=== PATIENT | male | born 1965 | race Caucasian/White ===

== ENCOUNTER 2021-04-10 11:33 | Inpatient (IN) | payer MEDICARE, MEDICAID, SELFPAY ==
[2021-04-10] VITALS (19 sets, daily range): BP systolic 112–149; BP diastolic 69–95; PULSE 60–82; RESP 10–80; TEMP 35.9–36.9; O2SAT 94–99; BMI 28.3
--- NOTE | ~2021-04-10 | CT_ITS ---
EXAMINATION: CT angio head neck stroke CLINICAL INFORMATION: Stroke. COMPARISON: CT scan of the head 04/10/2021. TECHNIQUE: Legislative Director images were obtained. A CT angiogram of the head and neck was performed in the arterial phase after the intravenous administration of 70 mL Omnipaque 350. Delayed postcontrast images of the head were also obtained. MIP reconstructions were generated in multiple orientations at the acquisition workstation. Multiple three-dimensional surface rendered images and maximum intensity projection images were generated on a dedicated 3-D lab workstation. Arterial stenoses are measured in accordance with NASCET criteria or similar method if applicable. This CT examination was performed using dose optimization techniques as appropriate, including one or more of the following: Automated exposure control, iterative reconstruction, and adjustment of technique factors (mA and/or kVp) according to patient size (this includes techniques or standardized protocols for targeted exams where dose is matched to indication/reason for exam). Total exam dose-length product 1744 mGy-cm FINDINGS: Head: Postcontrast images reveal no abnormal mass or enhancement within the intracranial compartment. There are numerous foci of hypoattenuation throughout the periventricular white matter that seems somewhat out of proportion to a patient of this age and there is mild global parenchymal volume loss. [place]-white matter projection however is otherwise preserved and there is no evidence of acute territorial infarct. Plate and screw hardware is visualized along the right orbital rim and left mandibular ramus. The calvarium and skull base are otherwise intact. CT angiogram neck: The aortic arch apex is normal. Origins of the major aortic branches are widely patent. Common carotid arteries and carotid bifurcations are normal. No stenosis of the extracranial internal carotid arteries. The cervical segments of the vertebral arteries as well as their origins are patent. CT angiogram head: Intracranial internal carotid arteries are patent. Intradural vertebral artery segments and basilar artery are patent. Anterior, middle, and posterior cerebral artery complexes are normal. No high-grade stenosis or proximal occlusion is visualized within the intracranial vessels. Other: Soft tissues of the neck including the thyroid gland are normal. Grossly no pathologically enlarged cervical lymph nodes. No acute osseous finding. There is multilevel degenerative spondylosis of the cervical spine. Lung apices are clear. CT/CT angio head neck stroke IMPRESSION: There is nonspecific hypoattenuation within the supratentorial white matter and corresponding loss of parenchymal volume that is out of proportion to the patient's age. Findings may represent chronic changes related to an underlying leukoencephalopathy. Otherwise no evidence of acute territorial infarct or hemorrhage. No abnormal intracranial mass or enhancement. No stenosis of the cervical carotid or vertebral arteries. No intracranial large vessel occlusion. This critical result was discussed with Iam at 12:19 PM on 04/10/2021 and it was ascertained that the content and urgency of the report was understood at the time of direct communication.
--- NOTE | ~2021-04-10 | XR_ITS ---
EXAMINATION: XR CHEST CLINICAL INFORMATION: Stroke. COMPARISON: None TECHNIQUE: Frontal view of the chest was obtained. FINDINGS: The lungs are hyperexpanded but clear of acute process. The heart size and pulmonary vascularity is normal. There are pacer electrodes in right atrium and right ventricle. There are at least 2 small lucency in the left scapula -acromion process. XR/XR chest 1V IMPRESSION: Unremarkable chest exam.
--- NOTE | ~2021-04-10 | CT_ITS ---
EXAMINATION: CT HEAD WITHOUT CONTRAST (STROKE PROTOCOL) CLINICAL INFORMATION: Stroke protocol. Weakness COMPARISON: None TECHNIQUE: Contiguous axial imaging was performed from the skull base to vertex without intravenous administration of contrast. This CT examination was performed using dose optimization techniques as appropriate, variously including the following: *Automated exposure control *Adjustment of mA and/or kV according to patient size (this includes techniques or standardized protocols for targeted exams where dose is matched to indication/reason for exam; i.e. extremities or head) *Use of iterative reconstruction technique DLP: 784 mGy-cm FINDINGS: There is no intracranial hemorrhage, hematoma, or extra-axial fluid collection. The lateral ventricles are symmetrical in size and configuration with enlargement. There is diffuse periventricular hypodensity suggestive of chronic small vessel ischemic changes. There is no hydrocephalus, edema, or mass effect. The real-white matter differentiation appears symmetric. There is no acute infarct or mass lesion. There is subtle hypodensity in the mid santa likely artifact arising from the right orbital chain link plate. The calvarium appears intact. There is chain link plate along the right lateral orbit. There is no pneumocephalus or orbital emphysema. The visualized sinuses and middle ears and mastoid air cells show no significant mucosal thickening. There are no air-fluid levels. CT/CT head for stroke IMPRESSION: No acute intracranial process seen. There is moderate cerebral volume loss with chronic small vessel ischemic changes in both cerebral hemispheres. Subtle hypodensity mid [place] is likely artifact. Bone windows reveal no calvarial abnormality. This critical result was discussed with Dr. Vitale at 1205 pm 04/10/2021 It was ascertained that the content and urgency of the report was understood at the time of direct communication.
--- NOTE | 2021-04-10 11:40 | ECG_ITS ---
Test Reason : STROKE Blood Pressure : / mmHG Vent. Rate : 077 BPM Atrial Rate : 077 BPM P-R Int : 228 ms QRS Dur : 088 ms QT Int : 406 ms P-R-T Axes : 038 -25 028 degrees QTc Int : 459 ms Sinus rhythm with sinus arrhythmia with 1st degree A-V block Cannot rule out Anteroseptal infarct , age undetermined Abnormal ECG No previous ECGs available Referred By: Kiki Vitale Electronically Signed By:LANE MELVIN MD
--- NOTE | 2021-04-10 11:41 | ED.AMS ---
HPI - Altered Mental Status General Chief Complaint: Stroke Stated Complaint: STROKE ALERT, LKWT 9AM,UNABLE TO FOLLOW COMMANDS Time Seen by Provider: 04/10/21 11:39 Source: EMS Mode of arrival: EMS Limitations: altered mental status History of Present Illness HPI narrative: 55 years old male came in from [facility] residential, patient is known to have progressive multifocal leukoencephalopathy, patient last was seen normal at 09:00 when he had his breakfast, 2nd time patient was checked at 945 when he he was not responding to normal command, noted to have right visual gaze, and a right side weakness. Related Data Allergies Allergy/AdvReac Type Severity Reaction Status Date / Time No Known Allergies Allergy Verified 04/10/21 11:39 Review of Systems Review of Systems: Yes Unobtainable due to mental status PMFSH Past Medical History Medical History (Updated 04/10/21 @ 13:04 by Kiki Vitale MD) Aphasia Atherosclerotic heart disease [place] coronary artery w/angina pectoris Dementia Hypothyroidism Osteoarthritis Progressive multifocal leukoencephalopathy Sick sinus syndrome Spondylosis Spondylosis of cervical region without myelopathy or radiculopathy Thrombocytopenia Social History Social History Advance Directives: Yes Advance Directives on File: Yes Advance Directives Date on File: 04/10/21 Physical Exam Vital Signs: Vital Signs: Last Vital Signs Temp 96.6 F L 04/10/21 11:59 Pulse 72 04/10/21 12:53 Resp 16 04/10/21 12:53 BP 138/78 04/10/21 12:53 Pulse Ox 96 04/10/21 12:53 Body Mass Index 28.3 Appearance: Alert. No acute distress. Head: Normal external exam. Normocephalic. Atraumatic. No Jimenez signs noted. No raccoon eyes noted Eyes: Right visual gaze, PERRLA. EOMI. Conjunctiva and sclera normal. Eyelids normal. ENT: TM's Normal. Pharynx normal. Uvula midline. Moist mucous membranes. No trismus noted. No drooling noted. No muffled voice noted. Neck: Normal inspection. Neck supple. FROM. No adenopathy. Thyroid Normal. No meningeal signs. No neck mass noted. CVS: Normal heart rate and rhythm. Heart sound normal. No murmurs noted. Pulses normal throughout. Respiratory: No respiratory distress. Painless inspiration. Breath sounds normal. No wheezes/rales/rhonchi noted. Chest nontender. No accessory muscle usage noted or decreased air movement noted. Abdomen: Soft and nontender. Bowel sounds normal in all 4 quadrants. No distention noted. No organomegaly noted. No visible injury noted. Back: No CVA tenderness. Full range of motion noted. Skin: Skin warm and dry. Normal skin color. Normal skin turgor. No rashes/lesions/lacerations noted. Extremities: No lower extremity edema. Extremities exhibit normal range of motion. Extremities nontender. Neuro: Right side motor deficit. No sensory deficit. Please refer to NIH stroke scale. NIH Stroke Scale Level of Consciousness: Alert Level of Consciousness Questions: Answers neither question correctly Level of Consciousness Commands: Performs neither task correctly Best Gaze: Forced deviation (To the right) Visual: No visual loss Facial Palsy: Normal Motor Arm (Right): No movement (Right upper extremity) Motor Arm (Left): No drift Motor Leg (Right): Some effort against gravity Motor Leg (Left): No drift Limb Ataxia: Absent Sensory: Normal Best Language: Severe aphasia Dysarthia: Normal Extinction and Inattention: No abnormality Score: 14 Course Course Course Narrative: Assessment and plan. 55-year-old male history of TBI/progressive multifocal leukoencephalopathy presented with symptoms for nonhemorrhagic stroke, patient was a candidate for tPA was given at 11:55. The case was discussed with Dr. Pace from Neurology, tPA was approved by the neurology. Will keep post thrombolytic treatment protocol checkup in ICU admission. Reevaluation(s) Reevaluation #1: Significant improvement of patient's symptoms, patient with less aphasia, right upper extremity is improved able to keep right upper extremities against gravity with a mild pronator drift. Right visual gaze has improved. Time: 12:56 MDM - Altered Mental Status Lab Data Attestation: I reviewed the patient's lab results. Result diagrams: 04/10/21 11:58 04/10/21 11:58 Labs: Lab Results 04/10/21 04/10/21 04/10/21 Range/Units 11:44 11:55 11:58 WBC 4.2 L (4.8-10.8) X10*3/uL RBC 3.97 L (4.60-5.80) X10*6/uL Hgb 12.4 L (14.0-18.0) g/dl Hct 36.9 L (42-52) % MCV 92.9 (80-98) fL MCH 31.2 (27.0-33.0) pg MCHC 33.6 (31.0-36.0) g/dl RDW 13.0 (11.0-16.0) % Plt Count 120 L (160-400) X10*3/uL MPV 8.7 L (9.4-12.4) fL Immature Gran % (Auto) 0.2 (0.0-0.4) % Neut % (Auto) 67.6 (45-73) % Lymph % (Auto) 20.9 (20-40) % [place] % (Auto) 7.9 (2-11) % Eos % (Auto) 2.9 (0-4) % Baso % (Auto) 0.5 (0-2) % Lymph # (Auto) 0.9 L (1.2-4.9) X10*3/uL [place] # (Auto) 0.3 (0.1-1.2) X10*3/uL Eos # (Auto) 0.1 (0.0-0.4) X10*3/uL Baso # (Auto) 0.0 (0.0-0.2) X10*3/uL Abs Immat Gran (auto) 0.01 (0.00-0.03) X10*3/uL Absolute Neuts (auto) 2.8 (2.0-8.3) X10*3/uL Absolute Nucleated RBC 0.000 (0.0-0.012) X10*3/uL Nucleated RBC % (auto) 0.0 (0.0-0.2) /100WBC PT (10.8-13.0) SEC Whole Blood PT 13.2 (11.1-13.5) sec INR (0.9-1.1) Whole Blood INR 1.1 (0.9-1.1) APTT (24.1-38.0) SEC Sodium (135-145) mmol/L Potassium (3.3-5.1) mmol/L Chloride (96-108) mmol/L Carbon Dioxide (22-29) mmol/L Anion Gap (12-20) BUN (9-16) mg/dL Creatinine (0.5-1.4) mg/dL Estim Creat Clear Calc Estimated GFR POC Glucose 91 (60-115) mg/dL Random Glucose (60-115) mg/dL Calcium (8.4-10.2) mg/dL Total Creatine Kinase (38-174) U/L Troponin I High Sens (<3.5-35.0) ng/L 04/10/21 04/10/21 04/10/21 Range/Units 11:58 11:58 11:58 WBC (4.8-10.8) X10*3/uL RBC (4.60-5.80) X10*6/uL Hgb (14.0-18.0) g/dl Hct (42-52) % MCV (80-98) fL MCH (27.0-33.0) pg MCHC (31.0-36.0) g/dl RDW (11.0-16.0) % Plt Count (160-400) X10*3/uL MPV (9.4-12.4) fL Immature Gran % (Auto) (0.0-0.4) % Neut % (Auto) (45-73) % Lymph % (Auto) (20-40) % [place] % (Auto) (2-11) % Eos % (Auto) (0-4) % Baso % (Auto) (0-2) % Lymph # (Auto) (1.2-4.9) X10*3/uL [place] # (Auto) (0.1-1.2) X10*3/uL Eos # (Auto) (0.0-0.4) X10*3/uL Baso # (Auto) (0.0-0.2) X10*3/uL Abs Immat Gran (auto) (0.00-0.03) X10*3/uL Absolute Neuts (auto) (2.0-8.3) X10*3/uL Absolute Nucleated RBC (0.0-0.012) X10*3/uL Nucleated RBC % (auto) (0.0-0.2) /100WBC PT 13.4 H (10.8-13.0) SEC Whole Blood PT (11.1-13.5) sec INR 1.1 (0.9-1.1) Whole Blood INR (0.9-1.1) APTT 37.6 (24.1-38.0) SEC Sodium 141 (135-145) mmol/L Potassium 4.0 (3.3-5.1) mmol/L Chloride 107 (96-108) mmol/L Carbon Dioxide 29 (22-29) mmol/L Anion Gap 9 L (12-20) BUN 16 (9-16) mg/dL Creatinine 0.99 (0.5-1.4) mg/dL Estim Creat Clear Calc 105.2 Estimated GFR > 60 POC Glucose (60-115) mg/dL Random Glucose 98 (60-115) mg/dL Calcium 8.5 (8.4-10.2) mg/dL Total Creatine Kinase 103 (38-174) U/L Troponin I High Sens < 3.5 (<3.5-35.0) ng/L Imaging Data CT scan - head: Radiologist's impression: No acute intracranial process seen. There is moderate cerebral volume loss with chronic small vessel ischemic changes in both cerebral hemispheres. Subtle hypodensity mid santa is likely artifact. Bone windows reveal no calvarial abnormality. CTA head and neck: Radiologist's impression: There is nonspecific hypoattenuation within the supratentorial white matter and corresponding loss of parenchymal volume that is out of proportion to the patient's age. Findings may represent chronic changes related to an underlying leukoencephalopathy. Otherwise no evidence of acute territorial infarct or hemorrhage. No abnormal intracranial mass or enhancement. No stenosis of the cervical carotid or vertebral arteries. No intracranial large vessel occlusion. ECG Data ECG #1: Interpretation: Sinus rhythm at 77 beats per minute, with first-degree AV block prolonged VA interval, otherwise unremarkable intervals, nonspecific T-wave changes in inferior leads. Critical Care Time Critical Care Time Critical Care Time: Yes Total Critical Care Time: 60 Attestation: I spent 60 minutes providing critical care service to the patient, this including time spent at the bedside to evaluate the patient, reassess the patient, monitoring vital signs, review labs, and radiographic studies, counseling the patient/family, discussing the case with consultants, disposition the patient. Discharge Plan Discharge Clinical Impression: Cerebrovascular accident Patient Disposition: Admitted As Inpatient
[2021-04-10 11:48] LABS: Prothrombin Time Whole Bld POC 13.2 sec (11.1-13.5); ~PT, ~INR - Anti Coag Clinic 1.1 (0.9-1.1)
[2021-04-10] MEDS: iohexoL 350 MG/ML 100 ML INFUS..BTL IV (11:55)
[2021-04-10 12:03] LABS: MANUAL DIFF FLAG NO
[2021-04-10 12:05] LABS: Basophils Percent Auto 0.5 % (0-2); Eosinophils Absolute Auto 0.1 X10*3/uL (0.0-0.4); Eosinophils Percent Auto 2.9 % (0-4); Hematocrit 36.9 % (42-52); Hemoglobin 12.4 g/dl (14.0-18.0); Imm Gran Abs Auto 0.01 X10*3/uL (0.00-0.03); Imm Gran Pct Auto 0.2 % (0.0-0.4); Lymphocytes Absolute Auto 0.9 X10*3/uL (1.2-4.9); Lymphocytes Percent Auto 20.9 % (20-40); Mean Corpuscular HGB Conc 33.6 g/dl (31.0-36.0); Mean Corpuscular Hemoglobin 31.2 pg (27.0-33.0); Mean Corpuscular Volume 92.9 fL (80-98); Mean Platelet Volume 8.7 fL (9.4-12.4); Monocytes Absolute Auto 0.3 X10*3/uL (0.1-1.2); Monocytes Percent Auto 7.9 % (2-11); Neutrophils Absolute Auto 2.8 X10*3/uL (2.0-8.3); Neutrophils Percent Auto 67.6 % (45-73); Platelet Count 120 X10*3/uL (160-400); Red Blood Count 3.97 X10*6/uL (4.60-5.80); White Blood Count 4.2 X10*3/uL (4.8-10.8)
[2021-04-10 12:13] LABS: INTERNATIONAL NORM RATIO 1.1 (0.9-1.1); Prothrombin Time 13.4 SEC (10.8-13.0)
[2021-04-10 12:16] LABS: Partial Thromboplastin Time 37.6 SEC (24.1-38.0); Stroke Lab Use COMPLETE
--- NOTE | 2021-04-10 12:31 | PC.NURSE ---
moving r arm , scratching his face w r hand, still not talking and unable to follow commands
--- NOTE | 2021-04-10 12:39 | PC.NURSE ---
able to follow some simple commands, stated in garbled speech that he has some pain all over, states he has this pain all the time,
[2021-04-10 12:42] LABS: Troponin-I High Sensitivity < 3.5 ng/L (<3.5-35.0)
[2021-04-10 12:50] LABS: Anion Gap 9 (12-20); Blood Urea Nitrogen 16 mg/dL (9-16); Calcium 8.5 mg/dL (8.4-10.2); Carbon Dioxide 29 mmol/L (22-29); Chloride 107 mmol/L (96-108); Creatinine Clr Calc Pharmacy 105.2; Estimated Glomerular Filt Rate > 60; Glucose Random 98 mg/dL (60-115); Sodium 141 mmol/L (135-145)
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
[2021-04-10 12:55] LABS: Glucose, Whole Blood 91 mg/dL (60-115)
[2021-04-10] MEDS: 0.9 % Sodium Chloride 1,000 ML 999 ML IVCONT (13:06)
[2021-04-10 14:22] LABS: COVID-19 Test Negative (Negative)
--- NOTE | 2021-04-10 14:52 | P.CNNE_ITS ---
History of Present Illness Data of Consult Service Date: 04/10/21 Primary Care Provider: Brody Gordon, DO 55 years old man with complex underlying history including head injury dementia and a diagnosis of ?progressive multifocal leukoencephalopathy?. He was resident of a local institution and apparently usually talkative. This morning he was suddenly noted to have right-sided weakness and inability to speak with initial suspicion of ischemic stroke he was treated with intravenous tPA. Apparently his symptoms improved after that. Review of Systems Review of Systems: Unable to provide answers to questions. [facility] Past Medical History Medical History (Updated 04/10/21 @ 13:04 by Kiki Vitale MD) Aphasia Atherosclerotic heart disease [place] coronary artery w/angina pectoris Dementia Hypothyroidism Osteoarthritis Progressive multifocal leukoencephalopathy Sick sinus syndrome Spondylosis Spondylosis of cervical region without myelopathy or radiculopathy Thrombocytopenia Social History Social History Advance Directives: Yes Advance Directives on File: Yes Advance Directives Date on File: 04/10/21 Meds Allergies Allergy/AdvReac Type Severity Reaction Status Date / Time No Known Allergies Allergy Verified 04/10/21 11:39 Active Medications: Current Medications Generic Name Dose Route Start Last Admin Trade Name Freq PRN Reason Stop Dose Admin Pharmacy Consult 1 each 04/10/21 13:05 Consult Rx Perform Med Rec MISCELLANE ONCE PRN Consult order Home Medications Medication Instructions Recorded Confirmed Last Taken Type acetaminophen 650 mg PO Q6H PRN 04/10/21 04/10/21 Unknown History alum-mag hydroxide-simeth [Rulox] 30 ml PO Q6H PRN 04/10/21 04/10/21 Unknown History ascorbic acid (vitamin C) [Vitamin 500 mg PO DAILY 04/10/21 04/10/21 Unknown History C] calcium carbonate [Tums] 400 mg PO Q6H PRN 04/10/21 04/10/21 Unknown History cholecalciferol (vitamin D3) 25 mcg PO DAILY 04/10/21 04/10/21 Unknown History clozapine 75 mg PO BEDTIME 04/10/21 04/10/21 04/09/21 History levothyroxine 88 mcg PO DAILY 04/10/21 04/10/21 Unknown History lithium carbonate 225 mg PO BID 04/10/21 04/10/21 Unknown History loratadine 10 mg PO DAILY PRN 04/10/21 04/10/21 Unknown History methocarbamol 750 mg PO BID PRN 04/10/21 04/10/21 Unknown History metoprolol succinate 50 mg PO BID 04/10/21 04/10/21 Unknown History multivitamin with minerals 1 tab PO DAILY 04/10/21 04/10/21 Unknown History omega-3 fatty acids [Fish Oil] 1,000 mg PO DAILY 04/10/21 04/10/21 Unknown History polyvinyl alcohol [Artificial 1 drp OPHTHALMIC (EYE) Q12H 04/10/21 04/10/21 Unknown History Tears (polyvin alc)] pregabalin [Lyrica] 100 mg PO BID 04/10/21 04/10/21 Unknown History sennosides [senna] 8.6 mg PO DAILY PRN 04/10/21 04/10/21 Unknown History vitamin E 400 unit PO DAILY 04/10/21 04/10/21 Unknown History Physical Exam Vital Signs: Vital Signs: Last Vital Signs Temp 98.4 F 04/10/21 13:49 Pulse 78 04/10/21 14:29 Resp 17 04/10/21 14:29 BP 124/95 H 04/10/21 14:29 Pulse Ox 99 04/10/21 14:29 Body Mass Index 28.3 He was alert and awake looking around made eye contact but mostly kept his eyes closed. In answer to every questions he was saying yes. There was no focal twitching or jerking. He was not moving his right side as much as left side. Plantars were equivocal. Examination was limited. Results Labs CBC & Chem 7: 04/10/21 11:58 04/10/21 11:58 Labs: Short CBC 04/10/21 Range/Units 11:58 WBC 4.2 L (4.8-10.8) X10*3/uL Hgb 12.4 L (14.0-18.0) g/dl Hct 36.9 L (42-52) % Plt Count 120 L (160-400) X10*3/uL BMP 04/10/21 11:58 Sodium 141 Potassium 4.0 Chloride 107 Carbon Dioxide 29 BUN 16 Creatinine 0.99 Calcium 8.5 Cardiac Enzymes 04/10/21 Range/Units 11:58 Total Creatine Kinase 103 (38-174) U/L His head imaging with a CT scan of brain and CTA of brain and neck was reviewed. It revealed relatively large ventricles. There was also evidence of bifrontal hypodensities probably from old trauma. CTA did not reveal any large vessel occlusion. Assessment and Plan (1) Cerebrovascular accident: Qualifiers: CVA mechanism: unspecified Qualified Code(s): I63.9 - Cerebral infarcti on, unspecified Status: Acute 55 years old man with complex underlying neurological history presented with sudden onset of right hemiparesis and difficulty speaking and gaze deviation. According to the documents gaze deviation were towards right. This would suggest either a brainstem infarct or a seizure originating from left hemisphere. With suspicion of ischemic infarct he was treated with intravenous tPA. At this time I would recommend regular post tPA admission to ICU with blood pressure control, avoiding blood thinners for 24 hours, and obtaining an EEG. Unfortunately MRI cannot be done, which could have been helpful to precisely define underlying pathology. Procedures Date of Service Date of Service: 04/10/21
--- NOTE | 2021-04-10 16:23 | PM.CCHP ---
History of Present Illness Date of Service: 04/10/21 Mr. Lincoln is admitted to the ICU this afternoon after being given tPA in the ED for a presumed stroke. The patient is a 55 years old male resident of [facility], with PMHx of TBI and progressive multifocal leukoencephalopathy. 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 Was reportedly playing volleyball this past weekend. Last known well time today was 09:00 when he had his breakfast. At 10:45 he was found not responding to normal command, noted to have right visual gaze, and a right side weakness. BIBA to ED at 11:33. On initial exam, he had a right gaze pref, was aphasic (no speech at all), not responding to commands, and fully right hemiplegic. CT showed no acute process. He was started on tPA at 12:05. CTA showed no high grade stenosis or occlusion, no other evidence of a stroke. Initial VS in ED HR 76, BP 126/76, breathing easy w Sat 94% on RA. Within about an hour the patient was having some movement of his right side and some speech, altho not consistently to command. Other labs in the ED notable for mild pancytopenia, PT 13.4/1.1, normal chemistries, and negative COVID DHRUV. EKG shows old ASWMI. The patient was admitted to the ICU. On admission, he?s not speaking on command, nor responding to command, but he does verbalize single words and does move all four extremities spontaneously. He has no obvious gaze preference, nor facial droop, nor other cranial nerve deficits. I am unable to test motor strength on initial exam, but later, after repeated request, he did move all 4 and seems to have normal and symmetrical motor strength in all 4 extrems, and he did respond OK to me when I asked him how he?s doing. But no more conversation than that. He failed a bedside swallow eval. Vital signs in the ED: HR 82, SR, BP 149/90, RR 14, SpO2 98% RA. Temp 97.7. Cranial n. grossly intact. No JVD. Normal exp phase. No edema. WDWN, good muscle mass. IMAGING: Head CT (my reading) shows bilat frontal lobe leukoencephalop IMPRESSION: 55-year-old male with history of prior brain injury, presents with apparent aphasia and hemiplegia. Given tPA in the ED. Now moving all extremities equally and normally, but not to command. Now speaking simple words, but inconsistently. DDx: Stroke versus seizure. Other poss include conversion reaction or toxic encephalopathy (something that rendered him catatonic). I?ve called [employer] [facility] in regard to the latter, awaiting a call back. Unfortunately, the patient is not a candidate for an MRI scan because of his pacemaker. Admitted to ICU for overnight observation. Post-tPA protocol. Plan EEG and echo in the morning. Can repeat CT in a day or two if necessary. ADDENDUM: No toxic ingestion comes to mind at [facility]. They recommend a simple urine tox screen. Time (including extended d/w ED staff, mult d/w neurology, mult exams at the bedside): 80+ min. [facility] Past Medical History Medical History (Updated 04/10/21 @ 13:04 by Kiki Vitale MD) Aphasia Atherosclerotic heart disease [place] coronary artery w/angina pectoris Dementia Hypothyroidism Osteoarthritis Progressive multifocal leukoencephalopathy Sick sinus syndrome Spondylosis Spondylosis of cervical region without myelopathy or radiculopathy Thrombocytopenia Social History Social History Household Members: Other Household Members Other:: [facility] Housing: Other Housing Other:: [facility] Unable to assess alcohol history related to: Unknown Smoking Status: Unknown if ever smoked Use of substances other than those prescribed or required for medical reasons: Unknown Advance Directives: Yes Advance Directives on File: Yes Advance Directives Date on File: 04/10/21 Recently lost weight without trying: Unsure Meds Allergies Allergy/AdvReac Type Severity Reaction Status Date / Time No Known Allergies Allergy Verified 04/10/21 11:39 Active Medications: Current Medications Generic Name Dose Route Start Last Admin Trade Name Freq PRN Reason Stop Dose Admin Lactated Ringer's 1,000 mls @ 80 mls/hr 04/10/21 16:30 Lr IVCONT .[id number] [facility] Pharmacy Consult 1 each 04/10/21 13:05 Consult Rx Perform Med Rec MISCELLANE ONCE PRN Consult order Sodium Chloride 3 ml 04/11/21 00:00 0.9 % Sodium Chloride Flush 3 Ml [facility] Home Medications Medication Instructions Recorded Confirmed Last Taken Type acetaminophen 650 mg PO Q6H PRN 04/10/21 04/10/21 Unknown History alum-mag hydroxide-simeth [Rulox] 30 ml PO Q6H PRN 04/10/21 04/10/21 Unknown History ascorbic acid (vitamin C) [Vitamin 500 mg PO DAILY 04/10/21 04/10/21 Unknown History C] calcium carbonate [Tums] 400 mg PO Q6H PRN 04/10/21 04/10/21 Unknown History cholecalciferol (vitamin D3) 25 mcg PO DAILY 04/10/21 04/10/21 Unknown History clozapine 75 mg PO BEDTIME 04/10/21 04/10/21 04/09/21 History levothyroxine 88 mcg PO DAILY 04/10/21 04/10/21 Unknown History lithium carbonate 225 mg PO BID 04/10/21 04/10/21 Unknown History loratadine 10 mg PO DAILY PRN 04/10/21 04/10/21 Unknown History methocarbamol 750 mg PO BID PRN 04/10/21 04/10/21 Unknown History metoprolol succinate 50 mg PO BID 04/10/21 04/10/21 Unknown History multivitamin with minerals 1 tab PO DAILY 04/10/21 04/10/21 Unknown History omega-3 fatty acids [Fish Oil] 1,000 mg PO DAILY 04/10/21 04/10/21 Unknown History polyvinyl alcohol [Artificial 1 drp OPHTHALMIC (EYE) Q12H 04/10/21 04/10/21 Unknown History Tears (polyvin alc)] pregabalin [Lyrica] 100 mg PO BID 04/10/21 04/10/21 Unknown History sennosides [senna] 8.6 mg PO DAILY PRN 04/10/21 04/10/21 Unknown History vitamin E 400 unit PO DAILY 04/10/21 04/10/21 Unknown History Physical Exam Vital Signs: Vital Signs: Last Vital Signs Temp 98.4 F 04/10/21 13:49 Pulse 76 04/10/21 14:51 Resp 15 04/10/21 14:51 BP 138/89 04/10/21 14:51 Pulse Ox 99 04/10/21 14:51 Body Mass Index 28.3 Results Labs CBC and Chem 7: 04/10/21 11:58 04/10/21 11:58 Labs: Laboratory Results - last 24 hr 04/10/21 04/10/21 04/10/21 11:44 11:55 11:58 MCV 92.9 MCH 31.2 MCHC 33.6 RDW 13.0 Plt Count 120 L MPV 8.7 L Immature Gran % (Auto) 0.2 Neut % (Auto) 67.6 Lymph % (Auto) 20.9 [place] % (Auto) 7.9 Eos % (Auto) 2.9 Baso % (Auto) 0.5 Lymph # (Auto) 0.9 L [place] # (Auto) 0.3 Eos # (Auto) 0.1 Baso # (Auto) 0.0 Abs Immat Gran (auto) 0.01 Absolute Neuts (auto) 2.8 Absolute Nucleated RBC 0.000 Nucleated RBC % (auto) 0.0 PT Whole Blood PT 13.2 INR Whole Blood INR 1.1 APTT Anion Gap Estim Creat Clear Calc Estimated GFR POC Glucose 91 Random Glucose Calcium Total Creatine Kinase Troponin I High Sens COVID-19 (DHRUV) COVID-19 Banter! 04/10/21 04/10/21 04/10/21 11:58 11:58 11:58 MCV MCH MCHC RDW Plt Count MPV Immature Gran % (Auto) Neut % (Auto) Lymph % (Auto) [place] % (Auto) Eos % (Auto) Baso % (Auto) Lymph # (Auto) [place] # (Auto) Eos # (Auto) Baso # (Auto) Abs Immat Gran (auto) Absolute Neuts (auto) Absolute Nucleated RBC Nucleated RBC % (auto) PT 13.4 H Whole Blood PT INR 1.1 Whole Blood INR APTT 37.6 Anion Gap 9 L Estim Creat Clear Calc 105.2 Estimated GFR > 60 POC Glucose Random Glucose 98 Calcium 8.5 Total Creatine Kinase 103 Troponin I High Sens < 3.5 COVID-19 (DHRUV) COVID-19 Banter! 04/10/21 13:58 MCV MCH MCHC RDW Plt Count MPV Immature Gran % (Auto) Neut % (Auto) Lymph % (Auto) [place] % (Auto) Eos % (Auto) Baso % (Auto) Lymph # (Auto) [place] # (Auto) Eos # (Auto) Baso # (Auto) Abs Immat Gran (auto) Absolute Neuts (auto) Absolute Nucleated RBC Nucleated RBC % (auto) PT Whole Blood PT INR Whole Blood INR APTT Anion Gap Estim Creat Clear Calc Estimated GFR POC Glucose Random Glucose Calcium Total Creatine Kinase Troponin I High Sens COVID-19 (DHRUV) Negative COVID-19 Clin Com See Note Imaging Radiologist's Impressions: Impressions Chest X-Ray 04/10/21 11:40 IMPRESSION: Unremarkable chest exam. Head CT 04/10/21 11:40 IMPRESSION: No acute intracranial process seen. There is moderate cerebral volume loss with chronic small vessel ischemic changes in both cerebral hemispheres. Subtle hypodensity mid santa is likely artifact. Bone windows reveal no calvarial abnormality. This critical result was discussed with Dr. Vitale at 1205 pm 04/10/2021 It was ascertained that the content and urgency of the report was understood at the time of direct communication. Head/Neck CTA 04/10/21 11:40 IMPRESSION: There is nonspecific hypoattenuation within the supratentorial white matter and corresponding loss of parenchymal volume that is out of proportion to the patient's age. Findings may represent chronic changes related to an underlying leukoencephalopathy. Otherwise no evidence of acute territorial infarct or hemorrhage. No abnormal intracranial mass or enhancement. No stenosis of the cervical carotid or vertebral arteries. No intracranial large vessel occlusion. This critical result was discussed with Iam at 12:19 PM on 04/10/2021 and it was ascertained that the content and urgency of the report was understood at the time of direct communication. Critical Care Time Critical Care Time (minutes): 90
[2021-04-10 16:42] LABS: Glucose, Whole Blood 86 mg/dL (60-115)
[2021-04-10] MEDS: Lactated Ringers 1,000 ML 80 ML IVCONT (16:52)
[2021-04-10] MEDS: LORazepam 2 MG/ML VIAL 1 MG IVPUSH (17:30)
[2021-04-10 19:50] LABS: Amphetamine Screen Urine Not Detected (Not Detect); Barbiturates, Urine Not Detected (Not Detect); Benzodiazepines Screen Urine Not Detected (Not Detect); Cannabinoid Screen Urine Not Detected (Not Detect); Cocaine Screen Urine Not Detected (Not Detect); Opiate Screen Urine Not Detected (Not Detect); Phencyclidine Screen Urine Not Detected (Not Detect)
[2021-04-10 20:55] LABS: Glucose, Whole Blood 117 mg/dL (60-115)
[2021-04-11] VITALS (19 sets, daily range): BP systolic 94–134; BP diastolic 60–88; PULSE 59–86; RESP 10–22; TEMP 36.4–36.8; O2SAT 94–99; BMI 27.5
[2021-04-11] MEDS: Lactated Ringers 1,000 ML 80 ML IVCONT (05:22)
[2021-04-11 05:49] LABS: Hematocrit 38.5 % (42-52); Hemoglobin 12.9 g/dl (14.0-18.0); Mean Corpuscular HGB Conc 33.5 g/dl (31.0-36.0); Mean Corpuscular Hemoglobin 30.8 pg (27.0-33.0); Mean Corpuscular Volume 91.9 fL (80-98); Mean Platelet Volume 8.5 fL (9.4-12.4); Platelet Count 118 X10*3/uL (160-400); Red Blood Count 4.19 X10*6/uL (4.60-5.80); Red Cell Distribution Width 12.9 % (11.0-16.0); White Blood Count 4.7 X10*3/uL (4.8-10.8)
[2021-04-11 06:16] LABS: Anion Gap 8 (12-20); Blood Urea Nitrogen 14 mg/dL (9-16); Calcium 8.8 mg/dL (8.4-10.2); Carbon Dioxide 28 mmol/L (22-29); Chloride 110 mmol/L (96-108); Cholesterol 131 mg/dL; Creatinine Clr Calc Pharmacy 118.4; Estimated Glomerular Filt Rate > 60; Glucose Random 89 mg/dL (60-115); HDL Cholesterol 32 mg/dL; LDL Cholesterol Calculated 87 mg/dl; Potassium 4.2 mmol/L (3.3-5.1); Sodium 142 mmol/L (135-145); Triglycerides 64 mg/dL; Troponin-I High Sensitivity 3.6 ng/L (<3.5-35.0)
--- NOTE | 2021-04-11 06:35 | PC.NURSE ---
VSS, Pt refusing to answer questions at begining of shift, impulsive. Lungs dim, occasional cough. SR on tele, occasionally drops HR into 50s but returns to 60-70s. Stands to void with standby/1assist. Repos self in bed, telesitter in place, able to make needs known.
[2021-04-11 07:19] LABS: Glucose, Whole Blood 87 mg/dL (60-115)
--- NOTE | 2021-04-11 08:00 | EEG_ITS ---
This is a 16-channel EEG with an EKG lead. The patient is awake and drowsy during the tracing. Background EEG rhythm is mostly 7 to 8 hertz, 5 to 30 microvolt posteriorly, lower amplitude fast anteriorly. Occasionally, little bit faster rhythm is noted. No definite sharp wave spikes or paroxysmal tendencies noted. Photic stimulation does not produce any driving. Hyperventilation is not performed. IMPRESSION: Generalized slowing with no evidence of seizure disorder. MD EVELYN Jones/GABI / [id number]
--- NOTE | 2021-04-11 09:59 | MHC.CM.PN ---
[facility] is [facility]. dc plan is for patient to return there when medically stable. PT and OT notes support this dc plan. ref. has been made to [facility]. action to transport. cm to cont. to follow.
--- NOTE | 2021-04-11 11:19 | MHC.SL.SWA ---
Speech Pathologist Impression: Oral Phase Dysphagia Risk of Aspiration Due to: Reduced Cognition Dysphasia Diet Status: No Change Liquid Consistency and Strategies for Safe Swallow: Liquid Intake Recommendation: Thin Liquid Intake Strategies: Small Sips No Straws Solid Food Consistency: Dietary Recommendations: Grnd/Mech Altered (NDD2) Additional Modifications to Solid Foods: moisten solids with sauced and gravies for ease of mastication. Oral Medication Intake: Crushed with Puree Compensatory Strategies and Precautions to be Taken for Safe Swallow: Sitting Upright (90 deg) Liquids from Cup Small Bites and Sips Alternate Liquids/Solids Oral Check Supervision While Eating and Drinking for Safe Swallow: Total Assistance Foods to Avoid: Swallowing Recommended Treatments: Recommendation for Speech: Inpatient Speech Therapy Comment: TRAVEL INFORMATION CENTER SUPERVISOR will check in 1X with RN to ensure pt is tolerating baseline diet. Frequency/Duration: Date Range for Service Req: Timeline to reassess: Crane Service Technician Clinican/Clinical Fellow: Yes: Vy Washington M.A., CF-TRAVEL INFORMATION CENTER SUPERVISOR Supervisory Statement: I have reviewed and agree with the student/clinical fellow's documentation: Speech Language Pathologist:
[2021-04-11 11:24] LABS: Glucose, Whole Blood 111 mg/dL (60-115)
--- NOTE | 2021-04-11 11:29 | PM.CCPN ---
Subjective Subjective Date of Service: 04/11/21 Interval History: Mr. Lincoln was admitted to the ICU yesterday (04/11) after being given tPA in the ED for a presumed stroke. 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 Lyrica 100 mg bid. At baseline, the patient is verbal and ambulatory. According to Dr. Gordon, he?s often shaky/tremulous. Was reportedly playing volleyball this past weekend. Last known well time yesterday was 09:00 when he had his breakfast. At 10:45 he was found not responding to normal command, noted to have right gaze preference and right side weakness. BIBA to ED at 11:33. On initial exam, he had a right gaze preference, was aphasic (no speech at all), not responding to commands, and fully right hemiplegic. CT showed no acute process. He was started on tPA at 12:05. Follow up CTA showed no high grade stenosis or occlusion, no other evidence of a stroke. Initial VS in ED HR 76, BP 126/76, breathing easy w Sat 94% on RA. Within about an hour the patient was having some movement of his right side and some speech, altho not consistently to command. Other labs in the ED notable for mild pancytopenia, PT 13.4/1.1, normal chemistries, and negative COVID DHRUV. EKG showed old ASWMI. The patient was admitted to the ICU. On admission, he was not speaking on command, nor responding to command, but he subsequently did verbalize single words and did move all four extremities spontaneously. He had no obvious gaze preference, nor facial droop, nor other cranial nerve deficits. Later, after repeated requests, he did move all 4 extrems and seemed to have normal and symmetrical motor strength in all 4 extrems, and he did respond ?OK? to me when I asked him how he was doing. About an hour or so after arrival to ICU, he got out of bed and was standing up, agitated, telling us that he had to pea. He urinated in the trash bucket. He was able to walk/shuffle, and then get back into bed, with no problem. He had multiple episodes of shaking/tremulousness in bed, during which he had an intact mental status and was able to drink through a straw. No evidence of seizure activity. We gave him 1mg Ativan which calmed him down nicely. Overnight course last night was uneventful. This morning he?s readily interactive and talking, altho behaviorally he?s clearly not normal. He has episodes of shaking. I spoke with Dr. Gordon and the patient seems to be at his baseline. Gross exam shows no neuro deficits. He?s taking a regular diet. HR is 64, SR, BP 122/75, RR 14, SpO2 94% RA. Temp 97.7. No JVD. Normal exp phase. No edema. LABORATORY DATA: As below. Urine tox screen came back negative. IMPRESSION: 55-year-old male with history of prior brain injury, presented with aphasia and seeming hemiplegia. Given tPA in the ED. Symptoms completely resolved within about six hours. From what Dr. Gordon tells me, I?m guessing that he?s now back to his previous level of mental and physical function. At this point, a stroke seems less likely. DDx includes seizure or conversion reaction or toxic encephalopathy, altho according to poison control, the latter is unlikely, and Dr. Gordon tells me that situationally it?s unlikely. We?re awaiting an EEG and echo this morning. The patient can be discharged home after that. He is not a candidate for an MRI scan because of his pacemaker. Time: . Critical Care Time (minutes): 50 Physical Exam Vital Signs: Vital Signs: Last Vital Signs Temp 97.9 F 04/11/21 08:00 Pulse 67 04/11/21 11:00 Resp 13 04/11/21 11:00 BP 114/75 04/11/21 11:00 Pulse Ox 95 04/11/21 11:00 Body Mass Index 27.5 Objective Data Labs CBC & Chem 7: 04/11/21 05:42 04/11/21 05:42 Labs: Laboratory Results - last 24 hr 04/10/21 04/10/21 04/10/21 11:44 11:55 11:58 WBC 4.2 L RBC 3.97 L Hgb 12.4 L Hct 36.9 L MCV 92.9 MCH 31.2 MCHC 33.6 RDW 13.0 Plt Count 120 L MPV 8.7 L Immature Gran % (Auto) 0.2 Neut % (Auto) 67.6 Lymph % (Auto) 20.9 [place] % (Auto) 7.9 Eos % (Auto) 2.9 Baso % (Auto) 0.5 Lymph # (Auto) 0.9 L [place] # (Auto) 0.3 Eos # (Auto) 0.1 Baso # (Auto) 0.0 Abs Immat Gran (auto) 0.01 Absolute Neuts (auto) 2.8 Absolute Nucleated RBC 0.000 Nucleated RBC % (auto) 0.0 PT Whole Blood PT 13.2 INR Whole Blood INR 1.1 APTT Sodium Potassium Chloride Carbon Dioxide Anion Gap BUN Creatinine Estim Creat Clear Calc Estimated GFR POC Glucose 91 Random Glucose Calcium Total Creatine Kinase Troponin I High Sens Triglycerides Cholesterol LDL Cholesterol, Calc HDL Cholesterol Urine Opiates Screen Ur Barbiturates Screen Ur Phencyclidine Scrn Ur Amphetamines Screen U Benzodiazepines Scrn Urine Cocaine Screen U Marijuana (THC) Screen COVID-19 (DHRUV) COVID-19 [employer] Com 04/10/21 04/10/21 04/10/21 11:58 11:58 11:58 WBC RBC Hgb Hct MCV MCH MCHC RDW Plt Count MPV Immature Gran % (Auto) Neut % (Auto) Lymph % (Auto) [place] % (Auto) Eos % (Auto) Baso % (Auto) Lymph # (Auto) [place] # (Auto) Eos # (Auto) Baso # (Auto) Abs Immat Gran (auto) Absolute Neuts (auto) Absolute Nucleated RBC Nucleated RBC % (auto) PT 13.4 H Whole Blood PT INR 1.1 Whole Blood INR APTT 37.6 Sodium 141 Potassium 4.0 Chloride 107 Carbon Dioxide 29 Anion Gap 9 L BUN 16 Creatinine 0.99 Estim Creat Clear Calc 105.2 Estimated GFR > 60 POC Glucose Random Glucose 98 Calcium 8.5 Total Creatine Kinase 103 Troponin I High Sens < 3.5 Triglycerides Cholesterol LDL Cholesterol, Calc HDL Cholesterol Urine Opiates Screen Ur Barbiturates Screen Ur Phencyclidine Scrn Ur Amphetamines Screen U Benzodiazepines Scrn Urine Cocaine Screen U Marijuana (THC) Screen COVID-19 (DHRUV) COVID-19 [employer] 04/10/21 04/10/21 04/10/21 13:58 16:38 19:07 WBC RBC Hgb Hct MCV MCH MCHC RDW Plt Count MPV Immature Gran % (Auto) Neut % (Auto) Lymph % (Auto) [place] % (Auto) Eos % (Auto) Baso % (Auto) Lymph # (Auto) [place] # (Auto) Eos # (Auto) Baso # (Auto) Abs Immat Gran (auto) Absolute Neuts (auto) Absolute Nucleated RBC Nucleated RBC % (auto) PT Whole Blood PT INR Whole Blood INR APTT Sodium Potassium Chloride Carbon Dioxide Anion Gap BUN Creatinine Estim Creat Clear Calc Estimated GFR POC Glucose 86 Random Glucose Calcium Total Creatine Kinase Troponin I High Sens Triglycerides Cholesterol LDL Cholesterol, Calc HDL Cholesterol Urine Opiates Screen Not Detected Ur Barbiturates Screen Not Detected Ur Phencyclidine Scrn Not Detected Ur Amphetamines Screen Not Detected U Benzodiazepines Scrn Not Detected Urine Cocaine Screen Not Detected U Marijuana (THC) Screen Not Detected COVID-19 (DHRUV) Negative COVID-[place] See Note 04/10/21 04/11/21 04/11/21 20:52 05:42 05:42 WBC RBC Hgb Hct MCV MCH MCHC RDW Plt Count MPV Immature Gran % (Auto) Neut % (Auto) Lymph % (Auto) [place] % (Auto) Eos % (Auto) Baso % (Auto) Lymph # (Auto) [place] # (Auto) Eos # (Auto) Baso # (Auto) Abs Immat Gran (auto) Absolute Neuts (auto) Absolute Nucleated RBC Nucleated RBC % (auto) PT Whole Blood PT INR Whole Blood INR APTT Sodium 142 Potassium 4.2 Chloride 110 H Carbon Dioxide 28 Anion Gap 8 L BUN 14 Creatinine 0.88 Estim Creat Clear Calc 118.4 Estimated GFR > 60 POC Glucose 117 H Random Glucose 89 Calcium 8.8 Total Creatine Kinase Troponin I High Sens 3.6 Triglycerides 64 Cholesterol 131 LDL Cholesterol, Calc 87 HDL Cholesterol 32 Urine Opiates Screen Ur Barbiturates Screen Ur Phencyclidine Scrn Ur Amphetamines Screen U Benzodiazepines Scrn Urine Cocaine Screen U Marijuana (THC) Screen COVID-19 (DHRUV) COVID-[place] 04/11/21 04/11/21 04/11/21 05:42 07:15 11:21 WBC 4.7 L RBC 4.19 L Hgb 12.9 L Hct 38.5 L MCV 91.9 MCH 30.8 MCHC 33.5 RDW 12.9 Plt Count 118 L MPV 8.5 L Immature Gran % (Auto) Neut % (Auto) Lymph % (Auto) [place] % (Auto) Eos % (Auto) Baso % (Auto) Lymph # (Auto) [place] # (Auto) Eos # (Auto) Baso # (Auto) Abs Immat Gran (auto) Absolute Neuts (auto) Absolute Nucleated RBC 0.000 Nucleated RBC % (auto) 0.0 PT Whole Blood PT INR Whole Blood INR APTT Sodium Potassium Chloride Carbon Dioxide Anion Gap BUN Creatinine Estim Creat Clear Calc Estimated GFR POC Glucose 87 111 Random Glucose Calcium Total Creatine Kinase Troponin I High Sens Triglycerides Cholesterol LDL Cholesterol, Calc HDL Cholesterol Urine Opiates Screen Ur Barbiturates Screen Ur Phencyclidine Scrn Ur Amphetamines Screen U Benzodiazepines Scrn Urine Cocaine Screen U Marijuana (THC) Screen COVID-19 (DHRUV) COVID-19 Clin Com
--- NOTE | 2021-04-11 11:57 | PM.CCPN ---
Physical Exam Vital Signs: Vital Signs: Last Vital Signs Temp 97.9 F 04/11/21 08:00 Pulse 67 04/11/21 11:00 Resp 13 04/11/21 11:00 BP 114/75 04/11/21 11:00 Pulse Ox 95 04/11/21 11:00 Body Mass Index 27.5 Objective Data Labs CBC & Chem 7: 04/11/21 05:42 04/11/21 05:42 Labs: Laboratory Results - last 24 hr 04/10/21 04/10/21 04/10/21 11:55 11:58 11:58 WBC 4.2 L RBC 3.97 L Hgb 12.4 L Hct 36.9 L MCV 92.9 MCH 31.2 MCHC 33.6 RDW 13.0 Plt Count 120 L MPV 8.7 L Immature Gran % (Auto) 0.2 Neut % (Auto) 67.6 Lymph % (Auto) 20.9 [place] % (Auto) 7.9 Eos % (Auto) 2.9 Baso % (Auto) 0.5 Lymph # (Auto) 0.9 L [place] # (Auto) 0.3 Eos # (Auto) 0.1 Baso # (Auto) 0.0 Abs Immat Gran (auto) 0.01 Absolute Neuts (auto) 2.8 Absolute Nucleated RBC 0.000 Nucleated RBC % (auto) 0.0 PT 13.4 H INR 1.1 APTT 37.6 Sodium Potassium Chloride Carbon Dioxide Anion Gap BUN Creatinine Estim Creat Clear Calc Estimated GFR POC Glucose 91 Random Glucose Calcium Total Creatine Kinase Troponin I High Sens Triglycerides Cholesterol LDL Cholesterol, Calc HDL Cholesterol Urine Opiates Screen Ur Barbiturates Screen Ur Phencyclidine Scrn Ur Amphetamines Screen U Benzodiazepines Scrn Urine Cocaine Screen U Marijuana (THC) Screen COVID-19 (DHRUV) COVID-19 Clin Com 04/10/21 04/10/21 04/10/21 11:58 11:58 13:58 WBC RBC Hgb Hct MCV MCH MCHC RDW Plt Count MPV Immature Gran % (Auto) Neut % (Auto) Lymph % (Auto) [place] % (Auto) Eos % (Auto) Baso % (Auto) Lymph # (Auto) [place] # (Auto) Eos # (Auto) Baso # (Auto) Abs Immat Gran (auto) Absolute Neuts (auto) Absolute Nucleated RBC Nucleated RBC % (auto) PT INR APTT Sodium 141 Potassium 4.0 Chloride 107 Carbon Dioxide 29 Anion Gap 9 L BUN 16 Creatinine 0.99 Estim Creat Clear Calc 105.2 Estimated GFR > 60 POC Glucose Random Glucose 98 Calcium 8.5 Total Creatine Kinase 103 Troponin I High Sens < 3.5 Triglycerides Cholesterol LDL Cholesterol, Calc HDL Cholesterol Urine Opiates Screen Ur Barbiturates Screen Ur Phencyclidine Scrn Ur Amphetamines Screen U Benzodiazepines Scrn Urine Cocaine Screen U Marijuana (THC) Screen COVID-19 (DHRUV) Negative COVID-19 Clin Com See Note 04/10/21 04/10/21 04/10/21 16:38 19:07 20:52 WBC RBC Hgb Hct MCV MCH MCHC RDW Plt Count MPV Immature Gran % (Auto) Neut % (Auto) Lymph % (Auto) [place] % (Auto) Eos % (Auto) Baso % (Auto) Lymph # (Auto) [place] # (Auto) Eos # (Auto) Baso # (Auto) Abs Immat Gran (auto) Absolute Neuts (auto) Absolute Nucleated RBC Nucleated RBC % (auto) PT INR APTT Sodium Potassium Chloride Carbon Dioxide Anion Gap BUN Creatinine Estim Creat Clear Calc Estimated GFR POC Glucose 86 117 H Random Glucose Calcium Total Creatine Kinase Troponin I High Sens Triglycerides Cholesterol LDL Cholesterol, Calc HDL Cholesterol Urine Opiates Screen Not Detected Ur Barbiturates Screen Not Detected Ur Phencyclidine Scrn Not Detected Ur Amphetamines Screen Not Detected U Benzodiazepines Scrn Not Detected Urine Cocaine Screen Not Detected U Marijuana (THC) Screen Not Detected COVID-19 (DHRUV) COVID-19 Clin Com 04/11/21 04/11/21 04/11/21 05:42 05:42 05:42 WBC 4.7 L RBC 4.19 L Hgb 12.9 L Hct 38.5 L MCV 91.9 MCH 30.8 MCHC 33.5 RDW 12.9 Plt Count 118 L MPV 8.5 L Immature Gran % (Auto) Neut % (Auto) Lymph % (Auto) [place] % (Auto) Eos % (Auto) Baso % (Auto) Lymph # (Auto) [place] # (Auto) Eos # (Auto) Baso # (Auto) Abs Immat Gran (auto) Absolute Neuts (auto) Absolute Nucleated RBC 0.000 Nucleated RBC % (auto) 0.0 PT INR APTT Sodium 142 Potassium 4.2 Chloride 110 H Carbon Dioxide 28 Anion Gap 8 L BUN 14 Creatinine 0.88 Estim Creat Clear Calc 118.4 Estimated GFR > 60 POC Glucose Random Glucose 89 Calcium 8.8 Total Creatine Kinase Troponin I High Sens 3.6 Triglycerides 64 Cholesterol 131 LDL Cholesterol, Calc 87 HDL Cholesterol 32 Urine Opiates Screen Ur Barbiturates Screen Ur Phencyclidine Scrn Ur Amphetamines Screen U Benzodiazepines Scrn Urine Cocaine Screen U Marijuana (THC) Screen COVID-19 (DHRUV) COVID-19 [employer] 04/11/21 04/11/21 07:15 11:21 WBC RBC Hgb Hct MCV MCH MCHC RDW Plt Count MPV Immature Gran % (Auto) Neut % (Auto) Lymph % (Auto) [place] % (Auto) Eos % (Auto) Baso % (Auto) Lymph # (Auto) [place] # (Auto) Eos # (Auto) Baso # (Auto) Abs Immat Gran (auto) Absolute Neuts (auto) Absolute Nucleated RBC Nucleated RBC % (auto) PT INR APTT Sodium Potassium Chloride Carbon Dioxide Anion Gap BUN Creatinine Estim Creat Clear Calc Estimated GFR POC Glucose 87 111 Random Glucose Calcium Total Creatine Kinase Troponin I High Sens Triglycerides Cholesterol LDL Cholesterol, Calc HDL Cholesterol Urine Opiates Screen Ur Barbiturates Screen Ur Phencyclidine Scrn Ur Amphetamines Screen U Benzodiazepines Scrn Urine Cocaine Screen U Marijuana (THC) Screen COVID-19 (DHRUV) COVID-19 [employer]
[2021-04-11] MEDS: Pregabalin 100 MG CAPSULE PO (12:30)
[2021-04-11] MEDS: Lithium Carbonate ER 450 MG TABLET.ER 225 MG PO (12:31)
[2021-04-11] MEDS: Metoprolol Succinate ER 50 MG TAB.ER.24H PO (12:31)
[2021-04-11] MEDS: Levothyroxine Sodium 88 MCG TABLET PO (12:31)
[2021-04-11] MEDS: Cholecalciferol (Vitamin D3) 25 MCG TABLET PO (12:31)
[2021-04-11] MEDS: Ascorbic Acid 500 MG TABLET PO (12:31)
--- NOTE | 2021-04-11 13:13 | PM.NEUROCN ---
History of Present Illness Data of Consult Service Date: 04/11/21 Primary Care Provider: Brody Gordon DO 55 years old man who was treated with intravenous tPA yesterday for suspected ischemic infarct when he presented with new onset of right-sided weakness and gaze deviation. His symptoms have somewhat improved but he has not been responsive since then. It was not clear what his baseline was. [facility] Past Medical History Medical History (Updated 04/11/21 @ 13:15 by Magda Pace MD) Aphasia Atherosclerotic heart disease [place] coronary artery w/angina pectoris Dementia Hypothyroidism Osteoarthritis Progressive multifocal leukoencephalopathy Sick sinus syndrome Spondylosis Spondylosis of cervical region without myelopathy or radiculopathy Thrombocytopenia Social History Social History Household Members: Other Household Members Other:: [facility] Housing: Other Housing Other:: [facility] Unable to assess alcohol history related to: Unknown Smoking Status: Unknown if ever smoked Use of substances other than those prescribed or required for medical reasons: Unknown Currently Displaying Signs/Symptoms of Drug Intoxication Withdrawal: No Advance Directives: Yes Advance Directives on File: Yes Advance Directives Date on File: 04/10/21 Do you have thoughts of harming others: None Do you have a plan to hurt others: No Plan Recently lost weight without trying: Unsure service: No Current occupational status: disabled Meds Allergies Allergy/AdvReac Type Severity Reaction Status Date / Time No Known Allergies Allergy Verified 04/10/21 11:39 Active Medications: Current Medications Generic Name Dose Route Start Last Admin Trade Name Freq PRN Reason Stop Dose Admin Acetaminophen 650 mg 04/11/21 10:13 Acetaminophen 325 Mg Tablet PO Q6H PRN Pain (Scale Score 1-3) Artificial Tears 1 drop 04/11/21 10:00 04/11/21 12:32 Artificial Tears 15 Ml Drops EYE-BOTH Not Given Q12H CHRIS Ascorbic Acid 500 mg 04/11/21 10:15 04/11/21 12:31 Ascorbic Acid 500 Mg Tablet PO 500 mg DAILY CHRIS Administration Calcium Carbonate 750 mg 04/11/21 10:46 Calcium Carbonate 750 Mg Tab.Chew PO Q6H PRN Heartburn Clozapine 75 mg 04/11/21 21:00 Clozapine 25 Mg Tablet PO BEDTIME CHRIS Cyclobenzaprine HCl 10 mg 04/11/21 10:44 Cyclobenzaprine Hcl 10 Mg Tablet PO BID PRN Spasms Levothyroxine Sodium 88 mcg 04/11/21 10:15 04/11/21 12:31 Levothyroxine Sodium 88 Mcg Tablet PO 88 mcg DAILY@0600 [facility] Administration [place] Carbonate 225 mg 04/11/21 10:15 04/11/21 12:31 [place] Carbonate Er 450 Mg Tablet.Er PO 225 mg BID [facility] Administration Loratadine 10 mg 04/11/21 10:13 Loratadine 10 Mg Tablet PO DAILY PRN Itching Metoprolol Succinate 50 mg 04/11/21 10:15 04/11/21 12:31 Metoprolol Succinate Er 50 Mg Tab.Er.24h PO 50 mg BID [facility] Administration Protocol Multivitamins/Minerals 1 tab 04/11/21 10:20 04/11/21 12:30 Multivitamin With Minerals Tablet PO 1 tab DAILY [facility] Administration Non-Formulary Medication 30 ml 04/11/21 10:13 Alum-Mag Hydroxide-Simeth PO Q6H PRN Dyspepsia Non-Formulary Medication 1,000 mg 04/12/21 09:00 [place]-3 Fatty Acids PO DAILY [facility] Pregabalin 100 mg 04/11/21 10:30 04/11/21 12:30 Pregabalin 100 Mg Capsule PO 100 mg BID [facility] Administration Senna 8.6 mg 04/11/21 10:13 Sennosides 8.6 Mg Tablet PO DAILY PRN Constipation Sodium Chloride 3 ml 04/11/21 00:00 04/11/21 08:59 0.9 % Sodium Chloride Flush 3 Ml Syringe IVFLUSH Not Given QSHIFT [facility] Vitamin D 25 mcg 04/11/21 10:15 04/11/21 12:31 Cholecalciferol (Vitamin D3) 25 Mcg Tablet PO 25 mcg DAILY [facility] Administration Vitamin E 400 unit 04/12/21 09:00 Vitamin E (Dl,Tocopheryl Acet) 400 Unit Capsule PO DAILY [facility] Home Medications Medication Instructions Recorded Confirmed Last Taken Type acetaminophen 650 mg PO Q6H PRN 04/10/21 04/10/21 Unknown History alum-mag hydroxide-simeth [Rulox] 30 ml PO Q6H PRN 04/10/21 04/10/21 Unknown History ascorbic acid (vitamin C) [Vitamin 500 mg PO DAILY 04/10/21 04/10/21 Unknown History C] calcium carbonate [Tums] 400 mg PO Q6H PRN 04/10/21 04/10/21 Unknown History cholecalciferol (vitamin D3) 25 mcg PO DAILY 04/10/21 04/10/21 Unknown History clozapine 75 mg PO BEDTIME 04/10/21 04/10/21 04/09/21 History levothyroxine 88 mcg PO DAILY 04/10/21 04/10/21 Unknown History lithium carbonate 225 mg PO BID 04/10/21 04/10/21 Unknown History loratadine 10 mg PO DAILY PRN 04/10/21 04/10/21 Unknown History methocarbamol 750 mg PO BID PRN 04/10/21 04/10/21 Unknown History metoprolol succinate 50 mg PO BID 04/10/21 04/10/21 Unknown History multivitamin with minerals 1 tab PO DAILY 04/10/21 04/10/21 Unknown History omega-3 fatty acids [Fish Oil] 1,000 mg PO DAILY 04/10/21 04/10/21 Unknown History polyvinyl alcohol [Artificial 1 drp OPHTHALMIC (EYE) Q12H 04/10/21 04/10/21 Unknown History Tears (polyvin alc)] pregabalin [Lyrica] 100 mg PO BID 04/10/21 04/10/21 Unknown History sennosides [senna] 8.6 mg PO DAILY PRN 04/10/21 04/10/21 Unknown History vitamin E 400 unit PO DAILY 04/10/21 04/10/21 Unknown History Physical Exam Vital Signs: Vital Signs: Last Vital Signs Temp 98.2 F 04/11/21 12:49 Pulse 62 04/11/21 13:00 Resp 14 04/11/21 13:00 BP 120/88 04/11/21 13:00 Pulse Ox 95 04/11/21 13:00 Body Mass Index 27.5 He was alert and awake but avoiding eye contact with wake to angry looking affect. He was not talking. Otherwise no obvious focal abnormality was noted Results Labs CBC & Chem 7: 04/11/21 05:42 04/11/21 05:42 Labs: Short CBC 04/11/21 Range/Units 05:42 WBC 4.7 L (4.8-10.8) X10*3/uL Hgb 12.9 L (14.0-18.0) g/dl Hct 38.5 L (42-52) % Plt Count 118 L (160-400) X10*3/uL BMP 04/11/21 05:42 Sodium 142 Potassium 4.2 Chloride 110 H Carbon Dioxide 28 BUN 14 Creatinine 0.88 Calcium 8.8 His EEG revealed diffuse slowing with no evidence of seizure disorder. Assessment and Plan (1) Chronic static encephalopathy: Status: Acute His most significant issue seems to be underlying chronic static encephalopathy likely from trauma resulting in bifrontal contusion and central atrophy. He might have bleeding at that time. Also his precise past medical history was not known and it was not clear if he was involved with alcohol that could also result in atrophy. In any case, at this time his overall presentation was somewhat atypical with element of behavioral disorder. There was no evidence of seizure on EEG. Unfortunately we could not get an MRI. As far as stroke is concerned, I would recommend starting him on baby aspirin daily but otherwise conservative approach. For his behavioral problems, I would restart his medications as patients with this type of head injury can have significant behavioral issues somewhat similar to aggressive remaining disorder. Obtaining a repeat head CT might be useful to confirm if he had a stroke or not. (2) History of traumatic brain injury: Status: Acute (3) Frontal lobe contusion: Status: Acute (4) Behavioral disorder: Status: Acute Procedures Date of Service Date of Service: 04/11/21
--- NOTE | 2021-04-11 15:05 | MHC.CM.PN ---
i spoke c nsg director at [facility]. patient is scheduled to leave [facility] at 4:30 pm . action transportation has been set up. guardian was called to notify of patient's return to [facility]. r.n. in the [facility] aware of 4:30 pm dcDomenica spence nec is with icu medical secretary receptionist. cm to cont. to follow.
[2021-04-11] MEDS: 0.9 % Sodium Chloride Flush 3 ML SYRINGE IVFLUSH (15:43)
[2021-04-11] MEDS: Aspirin Enteric Coated 81 MG TABLET.DR PO (15:43)
--- NOTE | 2021-04-11 16:14 | CA_ITS ---
Transthoracic Echocardiogram Patient (Last, First, Middle): Bill Lincoln, Gender: Male Date of : 1965 Age: 55 Procedure Date: 04/11/2021 Procedure Type: Transthoracic Echocardiogram Location: ICU Height: 187.96 cm Weight: 99.79 kg BSA: 2.26 m2 Heart Rate: bpm BP: 112 / [address] Vendor: BRIANNA Referring MD: Severino Hale Roller Staker: Diallo Camarillo MD Symptoms: stroke Study Quality: Fair ECG Rhythm: Sinus Conclusions: - 1. Normal LV systolic function with mild LVH with impaired relaxation filling pattern 2. Mild aortic regurgitation 3. Normal RV systolic pressure 4. No gross pericardial effusion Findings Left Ventricle Normal left ventricular size and systolic function. There is mildly increased left ventricular wall thickness. The visually estimated ejection fraction is between 60-65%. Spectral Doppler is indicative of an impaired relaxation filling pattern. E/E prime ratio is <8, consistent with normal filling pressures. Evidence suggests grade I (mild) diastolic dysfunction. Right Ventricle Normal right ventricular cavity size and systolic function. There is a pacemaker wire seen in the right ventricle. Atria The left atrium is likely dilated. Interatrial shunt cannot be excluded. The right atrium is normal in size. A pacemaker wire is identified in the right atrium. Aortic Valve There is mild calcification of the aortic valve. There is no aortic valve stenosis. There is mild aortic valve regurgitation. Mitral Valve There is mild anterior and posterior mitral leaflet thickening. There is trace mitral valve regurgitation. There is no mitral valve stenosis. Pulmonic Valve The pulmonic valve was not well visualized. Tricuspid Valve Likely normal tricuspid valve structure and function. There is mild tricuspid valve regurgitation. The right ventricular systolic pressure is normal. There is no evidence of pulmonary hypertension. Great Vessels All visible segments of the aorta are normal in size. The pulmonary artery was not well visualized. Venous The inferior vena cava is normal in size and collapses greater than 50% with inspiration. Pericardium/Pleural There is no evidence of pericardial effusion. Prior Study Comparison No prior study available for comparison. Recommendations, Care & Conclusions Recommend contrast study to evaluate intracardiac shunting. Measurements 2D Linear Measurements IVSd: 1.23 0.6-0.9/0.6-1.0 cm LVIDd: 4.56 3.9-5.3/4.2-5.9 cm LVIDd Index: 2.02 2.4-3.2/2.2-3.1 cm/m2 LVIDs: 2.84 2.0-3.6 cm LVPWd: 1.22 0.7-1.1 cm LA Diam: 3.80 2.7-3.8/3.0-4.0 cm LAIDs Index: 1.68 1.5-2.3 cm/m2 LV Mass: 259.64 67-162/88-224 g LV Mass Index: 114.88 43-95/49-115 g/m2 LVOT Diam: 2.60 3.0+(-)1.3 cm Mitral Valve MV Pk E: 0.70 MV PK A: 0.66 MV Decel Time: 236.00 E/A: 1.10 E'Lateral: 13.90 E'Medial: 6.67 E/E' Med: 10.50 E/E' Lat: 5.00 PHT: 69.00 MVA PHT: 3.19 Decel [place]: 2.96 Aortic Valve AoV Pk Hans: 1.45 AoV Mn Hans: 1.12 AoV VTI: 0.41 AoV Pk Grad: 8.00 Aov Mn Grad: 6.00 SAPNA Cont.VTI: 2.58 LVOT LVOT Pk Hans: 0.92 LVOT Mn Hans: 0.55 LVOT VTI: 0.20 LVOT Pk Grad: 3.00 LVOT Mn Grad: 2.00 LVOT Diam: 2.60 LVOT Area: 5.31 Diastolic Function MV Pk E: 0.70 MV Pk A: 0.66 E/A: 1.10 E'Medial: 6.67 E/E' Med: 10.50 E' Laterial: 13.90 E/E' Lat: 5.00 Tricuspid Valve TR Pk Hans: 2.24 TR Pk Grad: 20.00 RA Press: 3.00 RVSP: 23.00 Pulmonary Valve PV Pk Hans: 1.22 Peak PV Grad: 6.00 Updated in Other Vendor System with Status of Final Diallo Camarillo MD electronically signed on 04/11/2021 4:32:28 PM with status of Final
--- NOTE | 2021-06-06 13:08 | P.DS_ITS ---
DS: Providers Provider Date of Service: 04/11/21 Date of admission: 04/10/21 13:34 Primary care physician: Brody Gordon DO Consults: 04/10/21 16:14 Consult to Neurology Routine Consulting Provider: Magda Pace Reason for consultation: Stroke Has provider been notified: Yes DS: Diagnosis Discharge Diagnosis (1) Chronic static encephalopathy: Status: Acute (2) History of traumatic brain injury: Status: Acute (3) Frontal lobe contusion: Status: Acute (4) Behavioral disorder: Status: Acute DS: Medications Discharge Medications Home Medications: Home Medications Medication Instructions Recorded Confirmed acetaminophen 650 mg PO Q6H PRN 04/10/21 04/10/21 alum-mag hydroxide-simeth 30 ml PO Q6H PRN 04/10/21 04/10/21 ascorbic acid (vitamin C) [Vitamin 500 mg PO DAILY 04/10/21 04/10/21 C] calcium carbonate [Tums] 400 mg PO Q6H PRN 04/10/21 04/10/21 cholecalciferol (vitamin D3) 25 mcg PO DAILY 04/10/21 04/10/21 clozapine 75 mg PO BEDTIME 04/10/21 04/10/21 levothyroxine 88 mcg PO DAILY 04/10/21 04/10/21 lithium carbonate 225 mg PO BID 04/10/21 04/10/21 loratadine 10 mg PO DAILY PRN 04/10/21 04/10/21 methocarbamol 750 mg PO BID PRN 04/10/21 04/10/21 metoprolol succinate 50 mg PO BID 04/10/21 04/10/21 multivitamin with minerals 1 tab PO DAILY 04/10/21 04/10/21 omega-3 fatty acids 1,000 mg PO DAILY 04/10/21 04/10/21 polyvinyl alcohol [Artificial 1 drp OPHTHALMIC (EYE) Q12H 04/10/21 04/10/21 Tears (polyvin alc)] pregabalin [Lyrica] 100 mg PO BID 04/10/21 04/10/21 sennosides [senna] 8.6 mg PO DAILY PRN 04/10/21 04/10/21 vitamin E 400 unit PO DAILY 04/10/21 04/10/21 Previous Rx's Medication Instructions Recorded aspirin [Aspirin Childrens] 81 mg PO DAILY #1 tab 04/11/21 DS: Summary Hospital Course Hospital Course: DISCHARGE DIAGNOSES: 1. 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 H/o Atherosclerotic heart disease 3. H/o sick sinus syndrome, s/p PPM 4. Transient neurologic event (aphasia and hemiplegia). Thought unlikely to have been a stroke. 5. Possible seizure or conversion reaction Mr. Lincoln is a 55 years old male resident of 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 Lyrica 100 mg bid. At baseline, the patient is verbal and ambulatory. According to Dr. Gordon, he?s often shaky/tremulous. Was reportedly playing volleyball the weekend prior to the current admission. On 04/10/21 was found at 1045 not responding to command, noted to have right gaze preference and right side weakness. He was BIBA to the ED at 11:33. On initial exam, he had a right gaze preference, was aphasic (no speech at all), not responding to commands, and fully right hemiplegic. CT showed no acute process. He was started on tPA at 12:05. Follow up CTA showed no high grade stenosis or occlusion, no other evidence of a stroke. Initial VS in ED HR 76, BP 126/76, breathing easy w Sat 94% on RA. Within about an hour the patient was having some movement of his right side and some speech, altho not consistently to command. Other labs in the ED were notable for mild pancytopenia, PT 13.4/1.1, normal chemistries, and negative COVID DHRUV. EKG showed old ASWMI. The patient was admitted to the ICU. On admission, he was not speaking on command, nor responding to command, but later he did verbalize single words and did move all four extremities spontaneously. He had no obvious gaze preference, nor facial droop, nor other cranial nerve deficits. After repeated requests, he did move all 4 extrems and seemed to have normal and symmetrical motor strength in all 4 extrems, and he did have some limited purposeful verbal responses. About an hour or so after arrival to ICU, he got out of bed and was standing up, agitated, telling us that he had to pea. He urinated in the trash bucket. He was able to walk/shuffle, and then get back into bed, with no problem. He had multiple episodes of shaking/tremulousness in bed, during which he had an intact mental status and was able to drink through a straw. No evidence of seizure activity. We gave him 1mg Ativan which calmed him down nicely. The next morning he was readily interactive and talking, altho his interactions and behavior were clearly not normal. He had episodes of shaking. Describing his actions and behavior to Dr. Gordon suggested that the patient was at his baseline. Gross exam showed no neuro deficits. He was able to ingest a regular diet. Urine tox screen came back negative. At that point, a stroke seemed unlikely. The DDx included seizure or conversion reaction or toxic encephalopathy, altho according to poison control, the latter was unlikely, and Dr. Gordon indicated that situationally it was unlikely. The patient was discharged home after an EEG (which showed generalized slowing with no evidence of seizure disorder) and echo (which was generally unremarkable). He was not a candidate for an MRI scan because of his pacemaker. Time Spent with Patient Time attestation: Total time spent providing and/or coordinating discharge services: Discharge coordination time: Less than 30 minutes Quality: Stroke Does the patient have a stroke diagnosis?: No Physical Exam Vital Signs: Vital Signs: Last Vital Signs Temp 98.2 F 04/11/21 12:49 Pulse 64 04/11/21 15:52 Resp 19 04/11/21 15:52 BP 118/78 04/11/21 15:52 Pulse Ox 95 04/11/21 15:52 Body Mass Index 27.5 DS: Data Data Completed and Pending Completed studies during hospitalization [Text1]: Procedures Introduction of Other Thrombolytic into Peripheral Vein, Percutaneous Approach (04/10/21) Discharge Plan Discharge Patient Disposition: er [facility] Discharge Diagnosis: Encephalopathy, r/o stroke Referrals: [facility] [Outside] - 1 Week Brody Gordon DO [Primary Care Provider] - 1 Week Discharge Medications: New aspirin [Aspirin Childrens] 81 mg tablet,chewable 81 mg PO DAILY Qty: 1 RF: 0 Continued sennosides [senna] 8.6 mg Tablet 8.6 mg PO DAILY PRN (Reason: Constipation) RF: 0 acetaminophen 325 mg Tablet 650 mg PO Q6H PRN (Reason: Pain (Scale Score 1-3)) RF: 0 polyvinyl alcohol [Artificial Tears (polyvin alc)] 1.4 % Drops 1 drp ophthalmic (eye) Q12H RF: 0 lithium carbonate 450 mg Tablet Extended Release 225 mg PO BID RF: 0 levothyroxine 88 mcg Tablet 88 mcg PO DAILY RF: 0 methocarbamol 750 mg Tablet 750 mg PO BID PRN (Reason: Spasms) RF: 0 ascorbic acid (vitamin C) [Vitamin C] 500 mg Tablet 500 mg PO DAILY RF: 0 calcium carbonate [Tums] 200 mg calcium (500 mg) Tablet,Chewable 400 mg PO Q6H PRN (Reason: Heartburn) RF: 0 alum-mag hydroxide-simeth 200-200-20 mg/5 mL Suspension 30 ml PO Q6H PRN (Reason: Dyspepsia) RF: 0 multivitamin with minerals Tablet 1 tab PO DAILY RF: 0 vitamin E 400 unit Capsule 400 unit PO DAILY RF: 0 loratadine 10 mg Tablet 10 mg PO DAILY PRN (Reason: Itching) RF: 0 clozapine 50 mg Tablet 75 mg PO BEDTIME RF: 0 pregabalin [Lyrica] 100 mg Capsule 100 mg PO BID RF: 0 cholecalciferol (vitamin D3) 25 mcg (1,000 unit) Tablet 25 mcg PO DAILY RF: 0 omega-3 fatty acids 500 mg Capsule 1,000 mg PO DAILY RF: 0 metoprolol succinate 50 mg Capsule,Sprinkle,Er 24hr 50 mg PO BID RF: 0 Discharge Orders: Discharge Order (Routine); Ordered 04/11/21 Ordered By: Severino Hale Activity on Discharge: As tolerated Stand Alone Forms: Patient Portal Discharge page Care Plan Goals: Return to regular activities Health Concerns: No change from previous Plan of Treatment: Continue previous treatments and activities Assessment: 55-year-old male with history of prior brain injury, presented with aphasia and seeming hemiplegia. CT and CTA were negative for stroke or vessel occlusion. He was treated with tPA in the ED. Symptoms completely resolved within about six hours. At this point, a stroke seems less likely. DDx includes seizure or conversion reaction or toxic encephalopathy. EEG was negative, Echo showed nothing of note. It is recommended that the patient return for a head CT tomorrow or sometime thereafter. ASA 81 mg daily is also recommended. Discharge Date/Time: 04/11/21 16:30
== END 2021-04-11 16:30 | disposition skilled nursing facility (03) | DRG 61 ==
LOC: HO.ED 13:04 → HO.ICU 13:44
PROVIDERS: Admitting Provider Anesthesiology; Emergency Provider Emergency Medicine; PCP Hospitalist; Visit Provider Anesthesiology
DX: G45.9 Transient cerebral ischemic attack, unspecified (principal); G92 Toxic encephalopathy; R47.01 Aphasia; G81.91 Hemiplegia, unspecified affecting right dominant side; M47.812 Spondylosis without myelopathy or radiculopathy, cervical region; M19.90 Unspecified osteoarthritis, unspecified site; D69.6 Thrombocytopenia, unspecified; F03.90 Unspecified dementia, unspecified severity, without behavioral disturbance, psychotic disturbance, mood disturbance, and anxiety; R56.9 Unspecified convulsions; I49.5 Sick sinus syndrome; I25.10 Atherosclerotic heart disease of native coronary artery without angina pectoris; Z95.0 Presence of cardiac pacemaker; Z87.820 Personal history of traumatic brain injury; Z20.822 Contact with and (suspected) exposure to COVID-19; Z79.890 Hormone replacement therapy; Z79.899 Other long term (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
CPT/HCPCS: 36415; 70450; 70496; 70498; 71045; 80048; 80061; 80307; 82550; 82947; 84484; 85025; 85027; 85610; 85730; 87635; 92610; 93005; 93306; 95816; 97162; 97167; 99285; 99291; J2060; J2997; Q9967

== ENCOUNTER 2021-04-28 12:57 | Outpatient (REF) | payer MEDICARE, MEDICAID, SELFPAY ==
--- NOTE | ~2021-04-28 | CT_ITS ---
EXAMINATION: CT HEAD WITHOUT CONTRAST CLINICAL INFORMATION: Altered mental status change. COMPARISON: CT brain and neck 04/10/2021. TECHNIQUE: Contiguous axial imaging was performed from the skull base to vertex without intravenous administration of contrast. This CT examination was performed using dose optimization techniques as appropriate, variously including the following: *Automated exposure control *Adjustment of mA and/or kV according to patient size (this includes techniques or standardized protocols for targeted exams where dose is matched to indication/reason for exam; i.e. extremities or head) *Use of iterative reconstruction technique DLP: 885 mGy-cm. FINDINGS: There is no evidence of acute intracranial hemorrhage or territorial infarction. No abnormal mass effect or midline shift is seen. [place] to white matter differentiation is well preserved. No extra-axial fluid collections are identified. Lateral ventricles are symmetrical in size but moderately enlarged slightly disproportionate to the cortical sulcal prominence. There is diffuse hypodensity in both cerebral hemispheres without mass effect. There is right lateral orbital wall chain link plate and screws for an old healed fracture. The mastoid air cells and visualized portions of the paranasal sinuses are well aerated. There is a small polyp or retention cyst left maxillary sinus. CT/CT head/brain wo con IMPRESSION: No acute intracranial process seen. Disproportionate enlarged symmetrical lateral ventricles in comparison to the cortical sulci. Question NPH. Similar findings were seen on the previous study 04/10/2021. Small polyp or retention cyst left maxillary sinus.
== END 2021-04-28 12:58 | disposition home or self-care (01) ==
LOC: HO.CT 12:57
PROVIDERS: PCP Hospitalist; Visit Provider Hospitalist
DX: R41.82 Altered mental status, unspecified (principal)
CPT/HCPCS: 70450

== ENCOUNTER → 2021-05-24 09:23 | Day surgery (SDC) | payer MEDICARE, SELFPAY ==
[2021-05-24 09:46] LABS: MANUAL DIFF FLAG NO
[2021-05-24 09:48] LABS: Basophils Percent Auto 0.6 % (0-2); Eosinophils Absolute Auto 0.1 X10*3/uL (0.0-0.4); Eosinophils Percent Auto 3.9 % (0-4); Hematocrit 39.2 % (42-52); Hemoglobin 13.4 g/dl (14.0-18.0); Lymphocytes Absolute Auto 0.9 X10*3/uL (1.2-4.9); Lymphocytes Percent Auto 28.9 % (20-40); Mean Corpuscular HGB Conc 34.2 g/dl (31.0-36.0); Mean Corpuscular Volume 93.6 fL (80-98); Mean Platelet Volume 8.9 fL (9.4-12.4); Monocytes Absolute Auto 0.2 X10*3/uL (0.1-1.2); Monocytes Percent Auto 7.7 % (2-11); Neutrophils Absolute Auto 1.8 X10*3/uL (2.0-8.3); Neutrophils Percent Auto 58.9 % (45-73); Platelet Count 130 X10*3/uL (160-400); Red Blood Count 4.19 X10*6/uL (4.60-5.80); Red Cell Distribution Width 14.7 % (11.0-16.0); White Blood Count 3.1 X10*3/uL (4.8-10.8)
[2021-05-24 09:54] LABS: INTERNATIONAL NORM RATIO 1.1 (0.9-1.1); Prothrombin Time 13.2 SEC (10.8-13.0)
== END ==
PROVIDERS: PCP Hospitalist; Visit Provider Radiology Diagnostic Radiology
DX: R41.82 Altered mental status, unspecified (principal); Z53.20 Procedure and treatment not carried out because of patient's decision for unspecified reasons; R93.0 Abnormal findings on diagnostic imaging of skull and head, not elsewhere classified
CPT/HCPCS: 36415; 85025; 85610; 85730

== ENCOUNTER 2021-06-08 09:44 | Day surgery (SDC) | payer MEDICARE, SELFPAY ==
--- NOTE | ~2021-06-08 | FL_ITS ---
EXAMINATION: FL GUIDED LUMBAR PUNCTURE CLINICAL INFORMATION: Altered mental status change . COMPARISON: None TECHNIQUE: Following explaining procedure, benefits and risk, a written consent was obtained from court-appointed guardian as well as brother, Adrien. Patient was then placed prone on fluoroscopy table, and low back area was cleaned and draped in sterile manner. 1% lidocaine was injected at puncture site. A 22-gauge spinal needle was attempted with insertion at L3-L4 disc level are unsuccessful. A 20-gauge needle was then advanced at the L2-L3 disc level. Stylet was removed, and after observing fluid return, patient was quickly placed in left lateral decubitus view and CSF collected in 4 test tubes. Postprocedure stylet was reintroduced and needle withdrawn. Complete hemostasis achieved at puncture site. Patient tolerated procedure extremely well. Sterile Band-Aid was applied at the puncture site. FINDINGS: On several images obtained during fluoroscopy, there is normal vertebral height and alignment. The disc heights are maintained normal. No visible fracture or dislocation seen. There is mild spondylosis at the L3-L4 disc level. Successful fluoroscopy-guided L2-L3 disc level lumbar puncture performed. Opening CSF pressure was not obtained. Approximately 13 mL of clear CSF fluid was collected in 4 test tubes and sent to lab as per physician request. FLUOROSCOPY TIME: 3.3 minutes DOSE AREA PRODUCT: 37.845 uGy-m2 (microgray-meter squared) FL/FL guided lumbar puncture LP IMPRESSION: Successful fluoroscopy-guided lumbar puncture performed with approximately 13 mL of clear CSF fluid collected in 4 test tubes.
[2021-06-08 09:52] VITALS: BMI 25.7
[2021-06-08 10:05] LABS: MANUAL DIFF FLAG NO
[2021-06-08 10:09] LABS: Basophils Percent Auto 0.3 % (0-2); Eosinophils Absolute Auto 0.1 X10*3/uL (0.0-0.4); Eosinophils Percent Auto 2.8 % (0-4); Hematocrit 38.5 % (42-52); Imm Gran Abs Auto 0.01 X10*3/uL (0.00-0.03); Imm Gran Pct Auto 0.3 % (0.0-0.4); Lymphocytes Percent Auto 30.1 % (20-40); Mean Corpuscular HGB Conc 33.8 g/dl (31.0-36.0); Mean Corpuscular Hemoglobin 31.9 pg (27.0-33.0); Mean Corpuscular Volume 94.6 fL (80-98); Mean Platelet Volume 9.4 fL (9.4-12.4); Monocytes Absolute Auto 0.3 X10*3/uL (0.1-1.2); Monocytes Percent Auto 8.2 % (2-11); Neutrophils Absolute Auto 1.8 X10*3/uL (2.0-8.3); Neutrophils Percent Auto 58.3 % (45-73); Platelet Count 117 X10*3/uL (160-400); Red Blood Count 4.07 X10*6/uL (4.60-5.80); Red Cell Distribution Width 14.6 % (11.0-16.0); White Blood Count 3.2 X10*3/uL (4.8-10.8)
[2021-06-08 10:14] LABS: INTERNATIONAL NORM RATIO 1.1 (0.9-1.1); Prothrombin Time 12.8 SEC (9.9-13.0)
[2021-06-08 10:17] LABS: Partial Thromboplastin Time 37.9 SEC (24.1-38.0)
[2021-06-08 12:00] VITALS: BP 108/76; PULSE 50; RESP 18; TEMP 36.6; O2SAT 98
[2021-06-08 12:30] VITALS: BP 104/69; PULSE 50; RESP 18; O2SAT 98
[2021-06-08 13:00] VITALS: BP 105/69; PULSE 54; RESP 18; O2SAT 97
[2021-06-08 13:30] VITALS: BP 108/73; PULSE 51; RESP 16; O2SAT 98
[2021-06-08 13:35] LABS: CSF Appearance Clear, Colorless; CSF Tube # 4
[2021-06-08 13:37] LABS: Glucose CSF 59 mg/dL; Total Protein CSF 31.1 mg/dL (15-45)
[2021-06-08 14:29] LABS: Appearance CSF CLEAR; CSF Tube # 4; Color CSF COLORLESS; Red Blood Cell CSF 0 MM*3; White Blood Cell CSF 0 MM*3
[2021-06-08 14:30] VITALS: BP 118/70; PULSE 68; RESP 16; O2SAT 98
[2021-06-11 07:06] LABS: HSV 1 DNA, CSF Not Detected (Not Detected); HSV 2 DNA, CSF Not Detected (Not Detected); Specimen Source CSF
== END 2021-06-08 15:05 | disposition home or self-care (01) ==
PROVIDERS: PCP Hospitalist; Visit Provider Radiology Diagnostic Radiology
PROC: 009U3ZZ Drainage of Spinal Canal, Percutaneous Approach (ICD-10-PCS; CPT 62270; principal; 2021-06-08 11:00)
DX: R41.82 Altered mental status, unspecified (principal)
CPT/HCPCS: 36415; 62328; 82945; 84157; 85025; 85610; 85730; 87015; 87070; 87205; 87529; 89051

== ENCOUNTER 2021-07-01 15:29 | Inpatient (IN) | payer MEDICARE, MEDICAID, SELFPAY ==
--- NOTE | ~2021-07-01 | XR_ITS ---
EXAMINATION: XR CHEST CLINICAL INFORMATION: Weakness, rule out pneumonia COMPARISON: 04/10/2021 TECHNIQUE: Frontal view of the chest was obtained. FINDINGS: Limited from patient rotation. I cannot exclude left basilar process. The right lung is clear. No obvious failure. XR/XR chest 1V IMPRESSION: Limited from patient position. Left basilar process cannot be excluded. Attention to follow-up
--- NOTE | ~2021-07-01 | CT_ITS ---
EXAMINATION: CT HEAD WITHOUT CONTRAST (STROKE PROTOCOL) CLINICAL INFORMATION: Stroke protocol. COMPARISON: 04/28/2021 TECHNIQUE: Contiguous axial imaging was performed from the skull base to vertex without intravenous administration of contrast. This CT examination was performed using dose optimization techniques as appropriate, variously including the following: *Automated exposure control *Adjustment of mA and/or kV according to patient size (this includes techniques or standardized protocols for targeted exams where dose is matched to indication/reason for exam; i.e. extremities or head) *Use of iterative reconstruction technique DLP: 816 mGy-cm FINDINGS: No hemorrhage. No midline shift. No mass effect. Atrophy and white matter ischemic changes Prominent ventricular system is once again seen. No fracture on the bone windows. No extra-axial collection CT/CT head for stroke IMPRESSION: No acute intracranial pathology. Once again significant white matter ischemic change and atrophic change. Prominent ventricular system. Unchanged from previous This critical result was discussed with Dr Gomez at 3:54 PM hours on 07/01/2021. It was ascertained that the content and urgency of the report was understood at the time of direct communication.
--- NOTE | 2021-07-01 15:33 | ECG_ITS ---
Test Reason : ?STROKE Blood Pressure : / mmHG Vent. Rate : 074 BPM Atrial Rate : 074 BPM P-R Int : 242 ms QRS Dur : 088 ms QT Int : 382 ms P-R-T Axes : 057 -16 053 degrees QTc Int : 424 ms Sinus rhythm with sinus arrhythmia with 1st degree A-V block Minimal voltage criteria for LVH, may be normal variant Borderline ECG When compared with ECG of 10-APR-2021 12:07, Minimal criteria for Anteroseptal infarct are no longer Present Referred By: Max Gomez Electronically Signed By:Bakari Grant
[2021-07-01 15:41] LABS: Prothrombin Time Whole Bld POC 13.7 sec (11.1-13.5); ~PT, ~INR - Anti Coag Clinic 1.1 (0.9-1.1)
[2021-07-01 15:42] VITALS: BP 117/76; BP 138/80; PULSE 73; PULSE 87; RESP 15; TEMP 36.7; O2SAT 94; O2SAT 98; BMI 23.4
[2021-07-01 15:42] LABS: Glucose, Whole Blood 103 mg/dL (60-115)
[2021-07-01 16:08] LABS: MANUAL DIFF FLAG NO
[2021-07-01 16:10] LABS: Basophils Percent Auto 0.7 % (0-2); Eosinophils Absolute Auto 0.1 X10*3/uL (0.0-0.4); Eosinophils Percent Auto 2.3 % (0-4); Hematocrit 39.6 % (42-52); Hemoglobin 13.2 g/dl (14.0-18.0); Lymphocytes Absolute Auto 0.7 X10*3/uL (1.2-4.9); Lymphocytes Percent Auto 21.8 % (20-40); Mean Corpuscular HGB Conc 33.3 g/dl (31.0-36.0); Mean Corpuscular Hemoglobin 31.4 pg (27.0-33.0); Mean Corpuscular Volume 94.3 fL (80-98); Mean Platelet Volume 9.3 fL (9.4-12.4); Monocytes Absolute Auto 0.2 X10*3/uL (0.1-1.2); Monocytes Percent Auto 7.6 % (2-11); Neutrophils Absolute Auto 2.1 X10*3/uL (2.0-8.3); Neutrophils Percent Auto 67.6 % (45-73); Platelet Count 132 X10*3/uL (160-400); Red Cell Distribution Width 13.7 % (11.0-16.0)
[2021-07-01 16:15] LABS: INTERNATIONAL NORM RATIO 1.2 (0.9-1.1); Prothrombin Time 13.1 SEC (9.9-13.0)
[2021-07-01 16:18] LABS: Partial Thromboplastin Time 35.5 SEC (24.1-38.0)
--- NOTE | 2021-07-01 16:18 | ED_ITS ---
HPI - Neuro Symptoms/Deficit General Chief Complaint: Neuro Symptoms/Deficit Stated Complaint: ?stroke Time Seen by Provider: 07/01/21 15:32 Source: EMS and other (Patient's PCP, Dr. Brody Gordon) Mode of arrival: EMS Limitations: altered mental status (Dementia) History of Present Illness HPI Narrative: 55-year-old male who was sent in from [facility] for evaluation of altered mental status. The patient has a history of head trauma, dementia and aphasia and is not able to answer questions. The inf ormation comes from EMS. Apparently, today at the nursing facility the patient had a sudden onset of confusion and unable to speak. The symptoms started at 3:00 p.m.. Also according to EMS, the patient has been having difficulty walking and has been walking into hare. I did discuss the patient's presentation with his PCP, Dr. Brody Gordon. Dr. Gordon states that the patient has been having these symptoms over several weeks and he was concerned that the patient may have normal pressure hydroc ephalus. The patient had an lumbar puncture done by Interventional Radiology however no opening pressure was done and only a small amount of fluid was taken off the patient's spinal column. Related Data Home Medications Medication Instructions Recorded Confirmed acetaminophen 325 mg tablet 650 mg PO Q6H PRN 04/10/21 04/10/21 aluminum-mag hydroxide-simethicone 30 ml PO Q6H PRN 04/10/21 04/10/21 200 mg-200 mg-20 mg/5 mL oral susp ascorbic acid (vitamin C) 500 mg 500 mg PO DAILY 04/10/21 04/10/21 tablet (Vitamin C) calcium carbonate 200 mg calcium 400 mg PO Q6H PRN 04/10/21 04/10/21 (500 mg) chewable tablet (Tums) cholecalciferol (vitamin D3) 25 25 mcg PO DAILY 04/10/21 04/10/21 mcg (1,000 unit) tablet clozapine 50 mg tablet 75 mg PO BEDTIME 04/10/21 04/10/21 levothyroxine 88 mcg tablet 88 mcg PO DAILY 04/10/21 04/10/21 lithium carbonate 450 mg 225 mg PO BID 04/10/21 04/10/21 tablet,extended release loratadine 10 mg tablet 10 mg PO DAILY PRN 04/10/21 04/10/21 methocarbamol 750 mg tablet 750 mg PO BID PRN 04/10/21 04/10/21 metoprolol succinate 50 mg capsule 50 mg PO BID 04/10/21 04/10/21 sprinkle, ext. release 24 hr multivitamin with minerals 1 tab PO DAILY 04/10/21 04/10/21 omega-3 fatty acids 500 mg capsule 1,000 mg PO DAILY 04/10/21 04/10/21 polyvinyl alcohol 1.4 % eye drops 1 drp OPHTHALMIC (EYE) Q12H 04/10/21 04/10/21 (Artificial Tears (polyvinyl alcohol)) pregabalin 100 mg capsule (Lyrica) 100 mg PO BID 04/10/21 04/10/21 sennosides 8.6 mg tablet (senna) 8.6 mg PO DAILY PRN 04/10/21 04/10/21 vitamin E 400 unit capsule 400 unit PO DAILY 04/10/21 04/10/21 Previous Rx's Medication Instructions Recorded aspirin 81 mg chewable tablet 81 mg PO DAILY #1 tab 04/11/21 (Aspirin Childrens) Allergies Allergy/AdvReac Type Severity Reaction Status Date / Time No Known Allergies Allergy Verified 06/08/21 09:53 Review of Systems 2 Review of Systems: Yes Unobtainable due to mental status PMFSH Past Medical History Medical History Aphasia Atherosclerotic heart disease [place] coronary artery w/angina pectoris COVID-19 Dementia 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 Hypothyroidism Osteoarthritis Progressive multifocal leukoencephalopathy Sick sinus syndrome Spondylosis Spondylosis of cervical region without myelopathy or radiculopathy Thrombocytopenia Ventricular tachycardia Social History Social History Household Members: Other Household Members Other:: [facility] Housing: Other Housing Other:: [facility] Unable to assess alcohol history related to: Unknown Advance Directives: Yes Advance Directives on File: Yes Advance Directives Date on File: 04/10/21 service: No Current occupational status: disabled Physical Exam Vital Signs: Vital Signs: Last Vital Signs Temp 98.0 F 07/01/21 15:42 Pulse 73 07/01/21 15:42 Resp 15 07/01/21 15:42 BP 117/76 07/01/21 15:42 Pulse Ox 94 07/01/21 15:42 Body Mass Index 23.4 Const: Other: Chronically ill-appearing male, lip smacking, not responding to verbal stimuli, does withdraw to painful stimuli, does move his upper and lower extremities spontaneously HENMT: Head: Yes normal to inspection, Yes normocephalic and Yes atraumatic Ears: external ears normal General nose exam: Normal external nose present Face and sinus: Yes normal facial exam Mouth: Normal oral and palatal mucosa present Throat: Yes posterior oropharynx normal Eyes: General: appearance normal, both eyes and all related structures Neck: Neck: Yes normal visual inspection, Yes no lymphadenopathy, Yes trachea midline and Yes supple Chest: Chest palpation & inspection: normal inspection of the chest and normal palpation of entire chest wall Resp: Effort & Inspection: normal respiratory effort Auscultation: clear to auscultation bilaterally Cardio: Rate: regular rate Rhythm: regular rhythm Heart sounds: S1 normal heart sound present, S2 normal heart sound present and no murmurs GI: Inspection: Yes normal to inspection Palpation (GI): Soft to palpation, nontender and no guarding Auscultation: normal bowel sounds : General: Yes no CVA tenderness Back/Spine/Pelvis: Back: no CVA tenderness Skin: General skin exam: no rashes or lesions noted Neuro: Other: Patient does not respond to verbal stimuli, does withdraw to painful stimuli, nonverbal, has repetitive lip-smacking Extrem: General: Yes normal to inspection Course Course Course Narrative: 55-year-old male with a history of traumatic brain injury, dementia, progressive multifocal leukoencephalopathy, who presents emergency department for altered mental status. The patient's physical examination revealed that he was awake, have repetitive lip-smacking which of appears to be consistent with tardive dyskinesia, moves extremities spontaneously. Patient was initially brought in as a stroke alert and was taken immediately to CT scan. CT scan was read as no acute intracranial pathology with significant white matter ischemic changes and atrophy changes, prominent ventricular system unch anged from previous. At this time, I do not think the patient has had an acute stroke and I do not think that he has a tPA candidate. Also, given the patient's altered mental status in inability to cooperate with exam, an NIH stroke scale is not obtainable. I did discuss the patient's presentation with his PCP, Dr. Brody Gordon. Dr. Gordon is concerned the patient may have normal pressure hydrocephalus and is requesting in lumbar puncture with an opening pressure measurement. At the end of my shift, the patient's care was turned over to my colleague, Dr. Das who will attempt an LP on this patient and make a disposition on the patient. MDM - Neuro Symptoms/Deficit Lab Data Result diagrams: 07/01/21 15:57 07/01/21 15:57 Labs: Lab Results 07/01/21 07/01/21 07/01/21 Range/Units 15:33 15:33 15:57 WBC 3.0 L (4.8-10.8) X10*3/uL RBC 4.20 L (4.60-5.80) X10*6/uL Hgb 13.2 L (14.0-18.0) g/dl Hct 39.6 L (42-52) % MCV 94.3 (80-98) fL MCH 31.4 (27.0-33.0) pg MCHC 33.3 (31.0-36.0) g/dl RDW 13.7 (11.0-16.0) % Plt Count 132 L (160-400) X10*3/uL MPV 9.3 L (9.4-12.4) fL Immature Gran % (Auto) 0.0 (0.0-0.4) % Neut % (Auto) 67.6 (45-73) % Lymph % (Auto) 21.8 (20-40) % [place] % (Auto) 7.6 (2-11) % Eos % (Auto) 2.3 (0-4) % Baso % (Auto) 0.7 (0-2) % Lymph # (Auto) 0.7 L (1.2-4.9) X10*3/uL [place] # (Auto) 0.2 (0.1-1.2) X10*3/uL Eos # (Auto) 0.1 (0.0-0.4) X10*3/uL Baso # (Auto) 0.0 (0.0-0.2) X10*3/uL Abs Immat Gran (auto) 0.00 (0.00-0.03) X10*3/uL Absolute Neuts (auto) 2.1 (2.0-8.3) X10*3/uL Absolute Nucleated RBC 0.000 (0.0-0.012) X10*3/uL Nucleated RBC % (auto) 0.0 (0.0-0.2) /100WBC Whole Blood PT 13.7 H (11.1-13.5) sec Whole Blood INR 1.1 (0.9-1.1) POC Glucose 103 (60-115) mg/dL Discharge Plan Discharge Clinical Impression: Acute alteration in mental status Prescriptions: No Action sennosides [senna] 8.6 mg Tablet 8.6 mg PO DAILY PRN (Reason: Constipation) RF: 0 acetaminophen 325 mg Tablet 650 mg PO Q6H PRN (Reason: Pain (Scale Score 1-3)) RF: 0 polyvinyl alcohol [Artificial Tears (polyvin alc)] 1.4 % Drops 1 drp ophthalmic (eye) Q12H RF: 0 lithium carbonate 450 mg Tablet Extended Release 225 mg PO BID RF: 0 levothyroxine 88 mcg Tablet 88 mcg PO DAILY RF: 0 methocarbamol 750 mg Tablet 750 mg PO BID PRN (Reason: Spasms) RF: 0 ascorbic acid (vitamin C) [Vitamin C] 500 mg Tablet 500 mg PO DAILY RF: 0 calcium carbonate [Tums] 200 mg calcium (500 mg) Tablet,Chewable 400 mg PO Q6H PRN (Reason: Heartburn) RF: 0 alum-mag hydroxide-simeth 200-200-20 mg/5 mL Suspension 30 ml PO Q6H PRN (Reason: Dyspepsia) RF: 0 multivitamin with minerals Tablet 1 tab PO DAILY RF: 0 vitamin E 400 unit Capsule 400 unit PO DAILY RF: 0 loratadine 10 mg Tablet 10 mg PO DAILY PRN (Reason: Itching) RF: 0 clozapine 50 mg Tablet 75 mg PO BEDTIME RF: 0 pregabalin [Lyrica] 100 mg Capsule 100 mg PO BID RF: 0 cholecalciferol (vitamin D3) 25 mcg (1,000 unit) Tablet 25 mcg PO DAILY RF: 0 omega-3 fatty acids 500 mg Capsule 1,000 mg PO DAILY RF: 0 metoprolol succinate 50 mg Capsule,Sprinkle,Er 24hr 50 mg PO BID RF: 0 aspirin [Aspirin Childrens] 81 mg tablet,chewable 81 mg PO DAILY Qty: 1 RF: 0
[2021-07-01 16:19] LABS: Stroke Lab Use COMPLETE
[2021-07-01 16:29] LABS: Lactic Acid 0.9 mmol/L (0.5-2.0)
[2021-07-01 16:33] LABS: Ethanol < 10 mg/dL
[2021-07-01 16:34] LABS: Alanine Aminotransferase 10 U/L (0-40); Albumin Level 4.3 g/dL (3.5-5.0); Alkaline Phosphatase 56 U/L (39-117); Aspartate Amino Transferase 13 U/L (5-37); Bilirubin Direct 0.6 mg/dL (0.0-0.5); Bilirubin Total 1.5 mg/dL (0.0-1.0); Total Protein 6.6 g/dL (6.5-8.0)
[2021-07-01 16:35] LABS: Anion Gap 13 (12-20); Blood Urea Nitrogen 18 mg/dL (9-16); Calcium 9.5 mg/dL (8.4-10.2); Carbon Dioxide 26 mmol/L (22-29); Chloride 112 mmol/L (96-108); Creatinine Clr Calc Pharmacy 97.3; Estimated Glomerular Filt Rate > 60; Glucose Random 103 mg/dL (60-115); Potassium 4.1 mmol/L (3.3-5.1); Sodium 147 mmol/L (135-145)
[2021-07-01 16:36] LABS: Troponin-I High Sensitivity < 3.5 ng/L (<3.5-35.0)
[2021-07-01 16:57] LABS: Influenza A PCR NEGATIVE (Negative); Influenza B PCR NEGATIVE (Negative); Resp Syncy Virus RNA Qual PCR NEGATIVE (Negative); SARS COV2 PCR INHOUSE NEGATIVE (Negative)
--- NOTE | 2021-07-01 17:47 | ED.NEUROSD ---
HPI - Neuro Symptoms/Deficit General Chief Complaint: Neuro Symptoms/Deficit Stated Complaint: ?stroke Time Seen by Provider: 07/01/21 15:32 Source: EMS and other (Patient's PCP, Dr. Brody Gordon) Mode of arrival: EMS Limitations: altered mental status (Dementia) Related Data Home Medications Medication Instructions Recorded Confirmed acetaminophen 325 mg tablet 650 mg PO Q6H PRN 04/10/21 07/01/21 aluminum-mag hydroxide-simethicone 30 ml PO Q6H PRN 04/10/21 07/01/21 200 mg-200 mg-20 mg/5 mL oral susp ascorbic acid (vitamin C) 500 mg 500 mg PO DAILY 04/10/21 07/01/21 tablet (Vitamin C) calcium carbonate 200 mg calcium 400 mg PO Q6H PRN 04/10/21 07/01/21 (500 mg) chewable tablet (Tums) cholecalciferol (vitamin D3) 25 25 mcg PO DAILY 04/10/21 07/01/21 mcg (1,000 unit) tablet clozapine 50 mg tablet 75 mg PO BEDTIME 04/10/21 07/01/21 levothyroxine 88 mcg tablet 88 mcg PO DAILY 04/10/21 07/01/21 lithium carbonate 450 mg 225 mg PO BID 04/10/21 07/01/21 tablet,extended release loratadine 10 mg tablet 10 mg PO DAILY PRN 04/10/21 07/01/21 methocarbamol 750 mg tablet 750 mg PO BID PRN 04/10/21 07/01/21 metoprolol succinate 50 mg capsule 50 mg PO BID 04/10/21 07/01/21 sprinkle, ext. release 24 hr multivitamin with minerals 1 tab PO DAILY 04/10/21 07/01/21 omega-3 fatty acids 500 mg capsule 1,000 mg PO DAILY 04/10/21 07/01/21 polyvinyl alcohol 1.4 % eye drops 1 drp OPHTHALMIC (EYE) Q12H 04/10/21 07/01/21 (Artificial Tears (polyvinyl alcohol)) pregabalin 100 mg capsule (Lyrica) 25 mg PO BID 04/10/21 07/01/21 sennosides 8.6 mg tablet (senna) 8.6 mg PO DAILY PRN 04/10/21 07/01/21 vitamin E 400 unit capsule 400 unit PO DAILY 04/10/21 07/01/21 Previous Rx's Medication Instructions Recorded aspirin 81 mg chewable tablet 81 mg PO DAILY #1 tab 04/11/21 (Aspirin Childrens) Allergies Allergy/AdvReac Type Severity Reaction Status Date / Time No Known Allergies Allergy Verified 06/08/21 09:53 [facility] Past Medical History Medical History (Updated 07/01/21 @ 22:28 by Scott Philippe MD) Aphasia Atherosclerotic heart disease [place] coronary artery w/angina pectoris COVID-19 Dementia 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 Hx of cardiac pacemaker Hypothyroidism Osteoarthritis Progressive multifocal leukoencephalopathy Sick sinus syndrome Spondylosis Spondylosis of cervical region without myelopathy or radiculopathy Thrombocytopenia Ventricular tachycardia Social History Social History Household Members: Other Household Members Other:: [facility] Housing: Other Housing Other:: [facility] Unable to assess alcohol history related to: Unknown Alcohol intake: unknown Patient Tobacco Use Status: Tobacco use Unknown Use of substances other than those prescribed or required for medical reasons: Unknown Advance Directives: Yes Advance Directives on File: Yes Advance Directives Date on File: 04/10/21 service: No Current occupational status: disabled Physical Exam Vital Signs: Vital Signs: Last Vital Signs Temp 98.0 F 07/01/21 20:35 Pulse 52 07/01/21 22:40 Resp 16 07/01/21 22:40 BP 100/58 L 07/01/21 22:40 Pulse Ox 98 07/01/21 22:40 Body Mass Index 23.4 Procedures Lumbar Puncture Time Out Performed: Yes Patient Position: left lateral decubitus Skin Prep: Povidone-Iodine 1% Local Anesthetic: lidocaine 2% Amount of anesthesia used (mL): 5 Spinal Needle Gauge: 22G Interspace Used: L3-L4 Opening Pressure (cmH20): 10 Fluid Initially Obtained: clear Complications: none MDM - Neuro Symptoms/Deficit MDM Narrative Medical decision making narrative: Patient with acute onset of confusion afebrile elevated sodium levels from dehydration, LP was done CSF showed WBCs of 162 RBC 9 neutrophils 8 lymphocytes 47 monocytes 20 glucose of 63 and CSF protein 34 rest of the labs are pending. Case with Dr. Pace patient has aseptic meningitis may start on acyclovir and discussed the case with Infectious Disease specialist Case discussed with Cherelle advised to add Rocephin 2 g q.12 along with acyclovir 10 milligrams/kilogram every 8 hours Lab Data Result diagrams: 07/01/21 15:57 07/01/21 15:57 Labs: Lab Results 07/01/21 07/01/21 07/01/21 Range/Units 15:33 15:33 15:56 WBC (4.8-10.8) X10*3/uL RBC (4.60-5.80) X10*6/uL Hgb (14.0-18.0) g/dl Hct (42-52) % MCV (80-98) fL MCH (27.0-33.0) pg MCHC (31.0-36.0) g/dl RDW (11.0-16.0) % Plt Count (160-400) X10*3/uL MPV (9.4-12.4) fL Immature Gran % (Auto) (0.0-0.4) % Neut % (Auto) (45-73) % Lymph % (Auto) (20-40) % [place] % (Auto) (2-11) % Eos % (Auto) (0-4) % Baso % (Auto) (0-2) % Lymph # (Auto) (1.2-4.9) X10*3/uL [place] # (Auto) (0.1-1.2) X10*3/uL Eos # (Auto) (0.0-0.4) X10*3/uL Baso # (Auto) (0.0-0.2) X10*3/uL Abs Immat Gran (auto) (0.00-0.03) X10*3/uL Absolute Neuts (auto) (2.0-8.3) X10*3/uL Absolute Nucleated RBC (0.0-0.012) X10*3/uL Nucleated RBC % (auto) (0.0-0.2) /100WBC ESR (0-15) MM/HR PT (9.9-13.0) SEC Whole Blood PT 13.7 H (11.1-13.5) sec INR (0.9-1.1) Whole Blood INR 1.1 (0.9-1.1) APTT (24.1-38.0) SEC Sodium (135-145) mmol/L Potassium (3.3-5.1) mmol/L Chloride (96-108) mmol/L Carbon Dioxide (22-29) mmol/L Anion Gap (12-20) BUN (9-16) mg/dL Creatinine (0.5-1.4) mg/dL Estim Creat Clear Calc Estimated GFR POC Glucose 103 (60-115) mg/dL Random Glucose (60-115) mg/dL Lactic Acid 0.9 (0.5-2.0) mmol/L Calcium (8.4-10.2) mg/dL Total Bilirubin (0.0-1.0) mg/dL Direct Bilirubin (0.0-0.5) mg/dL AST (5-37) U/L ALT (0-40) U/L Alkaline Phosphatase (39-117) U/L Total Creatine Kinase (38-174) U/L Troponin I High Sens (<3.5-35.0) ng/L C-Reactive Protein (< or = 0.50) mg/dL Total Protein (6.5-8.0) g/dL Albumin (3.5-5.0) g/dL TSH (0.32-4.0) uIU/mL CSF Tube Number CSF Volume ML CSF Appearance CSF Color CSF WBC MM*3 CSF RBC MM*3 CSF Neutrophils % CSF Lymphocytes % CSF Monocytes % % CSF Appearance (b) CSF Glucose mg/dL CSF Total Protein (15-45) mg/dL [place] (0.60-1.20) mmol/L Ethyl Alcohol mg/dL Coronavirus (PCR) (Negative) Influenza Type A (PCR) (Negative) Influenza Type B (PCR) (Negative) RSV RNA Qual (PCR) (Negative) 07/01/21 07/01/21 07/01/21 Range/Units 15:57 15:57 15:57 WBC 3.0 L (4.8-10.8) X10*3/uL RBC 4.20 L (4.60-5.80) X10*6/uL Hgb 13.2 L (14.0-18.0) g/dl Hct 39.6 L (42-52) % MCV 94.3 (80-98) fL MCH 31.4 (27.0-33.0) pg MCHC 33.3 (31.0-36.0) g/dl RDW 13.7 (11.0-16.0) % Plt Count 132 L (160-400) X10*3/uL MPV 9.3 L (9.4-12.4) fL Immature Gran % (Auto) 0.0 (0.0-0.4) % Neut % (Auto) 67.6 (45-73) % Lymph % (Auto) 21.8 (20-40) % [place] % (Auto) 7.6 (2-11) % Eos % (Auto) 2.3 (0-4) % Baso % (Auto) 0.7 (0-2) % Lymph # (Auto) 0.7 L (1.2-4.9) X10*3/uL [place] # (Auto) 0.2 (0.1-1.2) X10*3/uL Eos # (Auto) 0.1 (0.0-0.4) X10*3/uL Baso # (Auto) 0.0 (0.0-0.2) X10*3/uL Abs Immat Gran (auto) 0.00 (0.00-0.03) X10*3/uL Absolute Neuts (auto) 2.1 (2.0-8.3) X10*3/uL Absolute Nucleated RBC 0.000 (0.0-0.012) X10*3/uL Nucleated RBC % (auto) 0.0 (0.0-0.2) /100WBC ESR (0-15) MM/HR PT (9.9-13.0) SEC Whole Blood PT (11.1-13.5) sec INR (0.9-1.1) Whole Blood INR (0.9-1.1) APTT (24.1-38.0) SEC Sodium (135-145) mmol/L Potassium (3.3-5.1) mmol/L Chloride (96-108) mmol/L Carbon Dioxide (22-29) mmol/L Anion Gap (12-20) BUN (9-16) mg/dL Creatinine (0.5-1.4) mg/dL Estim Creat Clear Calc Estimated GFR POC Glucose (60-115) mg/dL Random Glucose (60-115) mg/dL Lactic Acid (0.5-2.0) mmol/L Calcium (8.4-10.2) mg/dL Total Bilirubin 1.5 H (0.0-1.0) mg/dL Direct Bilirubin 0.6 H (0.0-0.5) mg/dL AST 13 (5-37) U/L ALT 10 (0-40) U/L Alkaline Phosphatase 56 (39-117) U/L Total Creatine Kinase (38-174) U/L Troponin I High Sens (<3.5-35.0) ng/L C-Reactive Protein (< or = 0.50) mg/dL Total Protein 6.6 (6.5-8.0) g/dL Albumin 4.3 (3.5-5.0) g/dL TSH (0.32-4.0) uIU/mL CSF Tube Number CSF Volume ML CSF Appearance CSF Color CSF WBC MM*3 CSF RBC MM*3 CSF Neutrophils % CSF Lymphocytes % CSF Monocytes % % CSF Appearance (b) CSF Glucose mg/dL CSF Total Protein (15-45) mg/dL [place] (0.60-1.20) mmol/L Ethyl Alcohol < 10 mg/dL Coronavirus (PCR) (Negative) Influenza Type A (PCR) (Negative) Influenza Type B (PCR) (Negative) RSV RNA Qual (PCR) (Negative) 07/01/21 07/01/21 07/01/21 Range/Units 15:57 15:57 15:57 WBC (4.8-10.8) X10*3/uL RBC (4.60-5.80) X10*6/uL Hgb (14.0-18.0) g/dl Hct (42-52) % MCV (80-98) fL MCH (27.0-33.0) pg MCHC (31.0-36.0) g/dl RDW (11.0-16.0) % Plt Count (160-400) X10*3/uL MPV (9.4-12.4) fL Immature Gran % (Auto) (0.0-0.4) % Neut % (Auto) (45-73) % Lymph % (Auto) (20-40) % [place] % (Auto) (2-11) % Eos % (Auto) (0-4) % Baso % (Auto) (0-2) % Lymph # (Auto) (1.2-4.9) X10*3/uL [place] # (Auto) (0.1-1.2) X10*3/uL Eos # (Auto) (0.0-0.4) X10*3/uL Baso # (Auto) (0.0-0.2) X10*3/uL Abs Immat Gran (auto) (0.00-0.03) X10*3/uL Absolute Neuts (auto) (2.0-8.3) X10*3/uL Absolute Nucleated RBC (0.0-0.012) X10*3/uL Nucleated RBC % (auto) (0.0-0.2) /100WBC ESR (0-15) MM/HR PT 13.1 H (9.9-13.0) SEC Whole Blood PT (11.1-13.5) sec INR 1.2 H (0.9-1.1) Whole Blood INR (0.9-1.1) APTT 35.5 (24.1-38.0) SEC Sodium 147 H (135-145) mmol/L Potassium 4.1 (3.3-5.1) mmol/L Chloride 112 H (96-108) mmol/L Carbon Dioxide 26 (22-29) mmol/L Anion Gap 13 (12-20) BUN 18 H (9-16) mg/dL Creatinine 1.04 (0.5-1.4) mg/dL Estim Creat Clear Calc 97.3 Estimated GFR > 60 POC Glucose (60-115) mg/dL Random Glucose 103 (60-115) mg/dL Lactic Acid (0.5-2.0) mmol/L Calcium 9.5 D (8.4-10.2) mg/dL Total Bilirubin (0.0-1.0) mg/dL Direct Bilirubin (0.0-0.5) mg/dL AST (5-37) U/L ALT (0-40) U/L Alkaline Phosphatase (39-117) U/L Total Creatine Kinase 81 (38-174) U/L Troponin I High Sens < 3.5 (<3.5-35.0) ng/L C-Reactive Protein 0.11 (< or = 0.50) mg/dL Total Protein (6.5-8.0) g/dL Albumin (3.5-5.0) g/dL TSH 0.03 L (0.32-4.0) uIU/mL CSF Tube Number CSF Volume ML CSF Appearance CSF Color CSF WBC MM*3 CSF RBC MM*3 CSF Neutrophils % CSF Lymphocytes % CSF Monocytes % % CSF Appearance (b) CSF Glucose mg/dL CSF Total Protein (15-45) mg/dL [place] (0.60-1.20) mmol/L Ethyl Alcohol mg/dL Coronavirus (PCR) (Negative) Influenza Type A (PCR) (Negative) Influenza Type B (PCR) (Negative) RSV RNA Qual (PCR) (Negative) 07/01/21 07/01/21 07/01/21 Range/Units 15:57 15:57 16:01 WBC (4.8-10.8) X10*3/uL RBC (4.60-5.80) X10*6/uL Hgb (14.0-18.0) g/dl Hct (42-52) % MCV (80-98) fL MCH (27.0-33.0) pg MCHC (31.0-36.0) g/dl RDW (11.0-16.0) % Plt Count (160-400) X10*3/uL MPV (9.4-12.4) fL Immature Gran % (Auto) (0.0-0.4) % Neut % (Auto) (45-73) % Lymph % (Auto) (20-40) % [place] % (Auto) (2-11) % Eos % (Auto) (0-4) % Baso % (Auto) (0-2) % Lymph # (Auto) (1.2-4.9) X10*3/uL [place] # (Auto) (0.1-1.2) X10*3/uL Eos # (Auto) (0.0-0.4) X10*3/uL Baso # (Auto) (0.0-0.2) X10*3/uL Abs Immat Gran (auto) (0.00-0.03) X10*3/uL Absolute Neuts (auto) (2.0-8.3) X10*3/uL Absolute Nucleated RBC (0.0-0.012) X10*3/uL Nucleated RBC % (auto) (0.0-0.2) /100WBC ESR 3 (0-15) MM/HR PT (9.9-13.0) SEC Whole Blood PT (11.1-13.5) sec INR (0.9-1.1) Whole Blood INR (0.9-1.1) APTT (24.1-38.0) SEC Sodium (135-145) mmol/L Potassium (3.3-5.1) mmol/L Chloride (96-108) mmol/L Carbon Dioxide (22-29) mmol/L Anion Gap (12-20) BUN (9-16) mg/dL Creatinine (0.5-1.4) mg/dL Estim Creat Clear Calc Estimated GFR POC Glucose (60-115) mg/dL Random Glucose (60-115) mg/dL Lactic Acid (0.5-2.0) mmol/L Calcium (8.4-10.2) mg/dL Total Bilirubin (0.0-1.0) mg/dL Direct Bilirubin (0.0-0.5) mg/dL AST (5-37) U/L ALT (0-40) U/L Alkaline Phosphatase (39-117) U/L Total Creatine Kinase (38-174) U/L Troponin I High Sens (<3.5-35.0) ng/L C-Reactive Protein (< or = 0.50) mg/dL Total Protein (6.5-8.0) g/dL Albumin (3.5-5.0) g/dL TSH (0.32-4.0) uIU/mL CSF Tube Number CSF Volume ML CSF Appearance CSF Color CSF WBC MM*3 CSF RBC MM*3 CSF Neutrophils % CSF Lymphocytes % CSF Monocytes % % CSF Appearance (b) CSF Glucose mg/dL CSF Total Protein (15-45) mg/dL [place] 0.38 L (0.60-1.20) mmol/L Ethyl Alcohol mg/dL Coronavirus (PCR) NEGATIVE (Negative) Influenza Type A (PCR) NEGATIVE (Negative) Influenza Type B (PCR) NEGATIVE (Negative) RSV RNA Qual (PCR) NEGATIVE (Negative) 07/01/21 07/01/21 07/01/21 Range/Units 17:12 17:12 17:13 WBC (4.8-10.8) X10*3/uL RBC (4.60-5.80) X10*6/uL Hgb (14.0-18.0) g/dl Hct (42-52) % MCV (80-98) fL MCH (27.0-33.0) pg MCHC (31.0-36.0) g/dl RDW (11.0-16.0) % Plt Count (160-400) X10*3/uL MPV (9.4-12.4) fL Immature Gran % (Auto) (0.0-0.4) % Neut % (Auto) (45-73) % Lymph % (Auto) (20-40) % [place] % (Auto) (2-11) % Eos % (Auto) (0-4) % Baso % (Auto) (0-2) % Lymph # (Auto) (1.2-4.9) X10*3/uL [place] # (Auto) (0.1-1.2) X10*3/uL Eos # (Auto) (0.0-0.4) X10*3/uL Baso # (Auto) (0.0-0.2) X10*3/uL Abs Immat Gran (auto) (0.00-0.03) X10*3/uL Absolute Neuts (auto) (2.0-8.3) X10*3/uL Absolute Nucleated RBC (0.0-0.012) X10*3/uL Nucleated RBC % (auto) (0.0-0.2) /100WBC ESR (0-15) MM/HR PT (9.9-13.0) SEC Whole Blood PT (11.1-13.5) sec INR (0.9-1.1) Whole Blood INR (0.9-1.1) APTT (24.1-38.0) SEC Sodium (135-145) mmol/L Potassium (3.3-5.1) mmol/L Chloride (96-108) mmol/L Carbon Dioxide (22-29) mmol/L Anion Gap (12-20) BUN (9-16) mg/dL Creatinine (0.5-1.4) mg/dL Estim Creat Clear Calc Estimated GFR POC Glucose (60-115) mg/dL Random Glucose (60-115) mg/dL Lactic Acid (0.5-2.0) mmol/L Calcium (8.4-10.2) mg/dL Total Bilirubin (0.0-1.0) mg/dL Direct Bilirubin (0.0-0.5) mg/dL AST (5-37) U/L ALT (0-40) U/L Alkaline Phosphatase (39-117) U/L Total Creatine Kinase (38-174) U/L Troponin I High Sens (<3.5-35.0) ng/L C-Reactive Protein (< or = 0.50) mg/dL Total Protein (6.5-8.0) g/dL Albumin (3.5-5.0) g/dL TSH (0.32-4.0) uIU/mL CSF Tube Number 1 3 TNP CSF Volume 1.0 TNP ML CSF Appearance CLEAR TNP CSF Color COLORLESS TNP CSF WBC 162 H* TNP MM*3 CSF RBC 9 TNP MM*3 CSF Neutrophils 8 % CSF Lymphocytes 47 % CSF Monocytes % 20 % CSF Appearance (b) Clear, Colorless CSF Glucose 63 mg/dL CSF Total Protein 34.0 (15-45) mg/dL [place] (0.60-1.20) mmol/L Ethyl Alcohol mg/dL Coronavirus (PCR) (Negative) Influenza Type A (PCR) (Negative) Influenza Type B (PCR) (Negative) RSV RNA Qual (PCR) (Negative) Discharge Plan Discharge Clinical Impression: Acute alteration in mental status, Aseptic meningitis Patient Disposition: Admitted As Inpatient Interventions: Admission Worksheet (ED) Last Done: 07/01/21 23:17
[2021-07-01] MEDS: 0.9 % Sodium Chloride 1,000 ML 999 ML IVCONT ×2 (18:00→18:45)
[2021-07-01 18:03] LABS: CSF Appearance Clear, Colorless; CSF Tube # 1
[2021-07-01 18:14] LABS: Glucose CSF 63 mg/dL
[2021-07-01 18:17] LABS: Appearance CSF CLEAR; CSF Tube # 3; Color CSF COLORLESS; Neutrophils CSF 8 %; Red Blood Cell CSF 9 MM*3
[2021-07-01 18:18] LABS: CSF Monos 20 %; Lymphocytes CSF 47 %
[2021-07-01 18:19] LABS: White Blood Cell CSF 162 MM*3
[2021-07-01 18:40] VITALS: BP 119/76; PULSE 66; RESP 14; TEMP 36.7; O2SAT 97
--- NOTE | 2021-07-01 18:53 | PC.NURSE ---
Pharmacy called for acyclovair
[2021-07-01 19:02] LABS: C Reactive Protein 0.11 mg/dL (< or = 0.50)
[2021-07-01 19:34] LABS: Erythrocyte Sedimentation Rate 3 MM/HR (0-15)
[2021-07-01] MEDS: cefTRIAXone sodium 2 GM in 0.9 % Sodium Chloride 50 ML IV (19:38)
[2021-07-01 20:29] VITALS: BP 116/57; PULSE 51; RESP 16; TEMP 36.4; O2SAT 98
[2021-07-01 20:35] VITALS: BP 116/67; PULSE 61; RESP 14; TEMP 36.7; O2SAT 98
[2021-07-01 20:57] LABS: Thyroid Stimulating Hormone 0.03 uIU/mL (0.32-4.0)
--- NOTE | 2021-07-01 20:58 | PC.NURSE ---
Pt is alert, refusing to respond to orientation questions. This RN and tech attempted to obtain urine sample and pulse o2 reading- pt covered in blankets states I dont need anything, get away from me! , attempted to redirect and encourage pt, pt began to fling blankets and attempt to hit staff. Able to obtain spo2 reading on ear, unable to obtain urine sample. Dr. Reji contreras.
--- NOTE | 2021-07-01 21:49 | PC.NURSE ---
Gabriel delarosa updated via phone. Pt continues to sleep.
[2021-07-01 22:40] VITALS: BP 100/58; PULSE 52; RESP 16; O2SAT 98
--- NOTE | 2021-07-01 22:41 | PC.NURSE ---
Attempted to obtain temp on pt- swinging at this rn when entered arms length, pt states leave me alone .
--- NOTE | 2021-07-01 22:45 | PC.NURSE ---
x1 attempt to give report
[2021-07-01 23:26] LABS: Lithium 0.38 mmol/L (0.60-1.20)
--- NOTE | 2021-07-01 23:26 | P.HPHOSP_ITS ---
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 I tried to reach the patient's guardian Merly Ortega over the phone; unable to reach; left voice message. Per [employer] patient when he came in he was noted to be confused, does not participate in examination, appeared to be flaccid in upper and lower extremities; even shortly after couple hours patient's mental status started to improve; but patient became agitated; was not willing to give urine sample and d id not let the RN put in a straight cath; Per ER physician patient was noted to be confused and ataxic at the custodial and subsequently sent to the hospital for further evaluation. ER physician also mentioned that chest x-ray was a poor study and noted ? Pneumonia left basilar recent; recommended follow-up chest x-ray; CT head showed no acute intracranial process; noted chronic changes On last showed a mildly be hypernatremic ER team concern for possible meningitis and had LP done and noted to have WBC of 150; concern for possible aseptic meningitis; patient was given ceftriaxone and acyclovir per Infectious Disease consult recommendations. Admitted for further management. 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 History of traumatic brain injury Hx of cardiac pacemaker Hypothyroidism Osteoarthritis Progressive multifocal leukoencephalopathy Sick sinus syndrome Spondylosis Spondylosis of cervical region without myelopathy or radiculopathy Thrombocytopenia Traumatic brain injury Ventricular tachycardia Social History Household Members: Other Household Members Other:: [facility] Housing: Senior Living Housing Other:: [facility] Unable to assess alcohol history related to: Unknown Alcohol intake: unknown Patient Tobacco Use Status: Tobacco use Unknown Use of substances other than those prescribed or required for medical reasons: Unknown Currently Displaying Signs/Symptoms of Drug Intoxication Withdrawal: No Advance Directives: Yes Advance Directives on File: Yes Advance Directives Date on File: 04/10/21 Do you have thoughts of harming others: None Do you have a plan to hurt others: No Plan Recently lost weight without trying: Unsure service: No Current occupational status: disabled Meds Allergies Allergy/AdvReac Type Severity Reaction Status Date / Time No Known Allergies Allergy Verified 06/08/21 09:53 Active Medications: Current Medications Generic Name Dose Route Start Last Admin Trade Name Freq PRN Reason Stop Dose Admin Acetaminophen 650 mg 07/01/21 20:24 Acetaminophen 325 Mg Tablet PO Q6H PRN Pain, Mild (Pain Scale 1-3) Al Hydroxide/Mg Hydroxide 30 ml 07/01/21 23:04 Magnesium Hydrox/Alum Hydrox 30 Ml Oral.Susp PO Q6H PRN Dyspepsia Artificial Tears 1 drop 07/01/21 23:15 Artificial Tears 15 Ml Drops EYE-BOTH Q12H [facility] Ascorbic Acid 500 mg 07/02/21 09:00 Ascorbic Acid 500 Mg Tablet PO DAILY [facility] Aspirin 81 mg 07/02/21 09:00 Aspirin 81 Mg Tab.Chew PO DAILY [facility] Clozapine 75 mg 07/02/21 21:00 Clozapine 25 Mg Tablet PO BEDTIME [facility] Ceftriaxone Sodium 2 gm/ 50 mls @ 100 mls/hr 07/02/21 07:00 Sodium Chloride IV Q12H [facility] Acyclovir Sodium 875 mg/ 267.5 mls @ 267.5 mls/hr 07/02/21 04:00 Sodium Chloride IV Q8H [facility] Levothyroxine Sodium 88 mcg 07/02/21 06:30 Levothyroxine Sodium 88 Mcg Tablet PO DAILY@0630 [facility] Acton Carbonate 225 mg 07/02/21 09:00 Acton Carbonate Er 450 Mg Tablet.Er PO BID [facility] Loratadine 10 mg 07/01/21 23:04 Loratadine 10 Mg Tablet PO DAILY PRN Itching Lorazepam 1 mg 07/01/21 23:09 Lorazepam 2 Mg/Ml Vial IVPUSH 07/01/21 23:10 ONCE ONE Melatonin 6 mg 07/01/21 20:24 Melatonin 3 Mg Tablet PO BEDTIME PRN Insomnia Metoprolol Succinate 50 mg 07/02/21 09:00 Metoprolol Succinate Er 50 Mg Tab.Er.24h PO BID [facility] Protocol Multivitamins/Minerals 1 tab 07/02/21 09:00 Multivitamin With Minerals Tablet PO DAILY [facility] Pregabalin 25 mg 07/02/21 09:00 Pregabalin 100 Mg Capsule PO BID [facility] Senna 17.2 mg 07/01/21 20:24 Sennosides 8.6 Mg Tablet PO BEDTIME PRN Constipation Senna 8.6 mg 07/01/21 23:04 Sennosides 8.6 Mg Tablet PO DAILY PRN Constipation Sodium Chloride 3 ml 07/02/21 00:00 0.9 % Sodium Chloride Flush 3 Ml [facility] Vitamin D 25 mcg 07/02/21 09:00 Cholecalciferol (Vitamin D3) 25 Mcg Tablet PO DAILY [facility] Home Medications Medication Instructions Recorded Confirmed Last Taken Type acetaminophen 325 mg tablet 650 mg PO Q6H PRN 04/10/21 07/01/21 Unknown History aluminum-mag hydroxide-simethicone 30 ml PO Q6H PRN 04/10/21 07/01/21 Unknown History 200 mg-200 mg-20 mg/5 mL oral susp ascorbic acid (vitamin C) 500 mg 500 mg PO DAILY 04/10/21 07/01/21 Unknown History tablet (Vitamin C) calcium carbonate 200 mg calcium 400 mg PO Q6H PRN 04/10/21 07/01/21 Unknown History (500 mg) chewable tablet (Tums) cholecalciferol (vitamin D3) 25 25 mcg PO DAILY 04/10/21 07/01/21 Unknown History mcg (1,000 unit) tablet clozapine 50 mg tablet 50 mg PO BEDTIME 04/10/21 07/02/21 04/09/21 History lithium carbonate 450 mg 225 mg PO BID 04/10/21 07/01/21 Unknown History tablet,extended release loratadine 10 mg tablet 10 mg PO DAILY PRN 04/10/21 07/01/21 Unknown History methocarbamol 750 mg tablet 750 mg PO BID PRN 04/10/21 07/01/21 Unknown History metoprolol succinate 50 mg capsule 50 mg PO BID 04/10/21 07/01/21 Unknown History sprinkle, ext. release 24 hr multivitamin with minerals 1 tab PO DAILY 04/10/21 07/01/21 Unknown History omega-3 fatty acids 500 mg capsule 1,000 mg PO DAILY 04/10/21 07/01/21 Unknown History polyvinyl alcohol 1.4 % eye drops 1 drp OPHTHALMIC (EYE) Q12H 04/10/21 07/01/21 Unknown History (Artificial Tears (polyvinyl alcohol)) pregabalin 100 mg capsule (Lyrica) 25 mg PO BID 04/10/21 07/01/21 Unknown History sennosides 8.6 mg tablet (senna) 8.6 mg PO DAILY PRN 04/10/21 07/01/21 Unknown History vitamin E 400 unit capsule 400 unit PO DAILY 04/10/21 07/01/21 Unknown History Physical Exam Vital Signs and Narrative: Vital Signs: Last Vital Signs Temp 98.0 F 07/01/21 20:35 Pulse 52 07/01/21 22:40 Resp 16 07/01/21 22:40 BP 100/58 L 07/01/21 22:40 Pulse Ox 98 07/01/21 22:40 Body Mass Index 23.4 Gen: Appears be in no acute distress HEENT: NCAT, Moist mucosa. Moves the neck without any difficulty. Pulmonary: Vesicular breath sounds, fair air entry CVS: Normal S1-S2 Abdomen: BS+, Soft, Nontender Extremities: Warm well perfused Neuro: Alert and awake. Agitated. Moves all extremities equally. Does not appear to have lower extremity rigidity Exam is limited as the patient is not cooperative Results Labs CBC and Chem 7: 07/05/21 05:48 07/05/21 05:48 Labs: Laboratory Results - last 24 hr 07/01/21 07/01/21 07/01/21 15:33 15:33 15:56 MCV MCH MCHC RDW Plt Count MPV Immature Gran % (Auto) Neut % (Auto) Lymph % (Auto) Franklin % (Auto) Eos % (Auto) Baso % (Auto) Lymph # (Auto) Franklin # (Auto) Eos # (Auto) Baso # (Auto) Abs Immat Gran (auto) Absolute Neuts (auto) Absolute Nucleated RBC Nucleated RBC % (auto) ESR PT Whole Blood PT 13.7 H INR Whole Blood INR 1.1 APTT Anion Gap Estim Creat Clear Calc Estimated GFR POC Glucose 103 Random Glucose Lactic Acid 0.9 Calcium Total Bilirubin Direct Bilirubin AST ALT Alkaline Phosphatase Total Creatine Kinase Troponin I High Sens C-Reactive Protein Total Protein Albumin TSH CSF Tube Number CSF Volume CSF Appearance CSF Color CSF WBC CSF RBC CSF Neutrophils CSF Lymphocytes CSF Monocytes % CSF Appearance (b) CSF Glucose CSF Total Protein Ethyl Alcohol Coronavirus (PCR) Influenza Type A (PCR) Influenza Type B (PCR) RSV RNA Qual (PCR) 07/01/21 07/01/21 07/01/21 15:57 15:57 15:57 MCV 94.3 MCH 31.4 MCHC 33.3 RDW 13.7 Plt Count 132 L MPV 9.3 L Immature Gran % (Auto) 0.0 Neut % (Auto) 67.6 Lymph % (Auto) 21.8 Franklin % (Auto) 7.6 Eos % (Auto) 2.3 Baso % (Auto) 0.7 Lymph # (Auto) 0.7 L Franklin # (Auto) 0.2 Eos # (Auto) 0.1 Baso # (Auto) 0.0 Abs Immat Gran (auto) 0.00 Absolute Neuts (auto) 2.1 Absolute Nucleated RBC 0.000 Nucleated RBC % (auto) 0.0 ESR PT Whole Blood PT INR Whole Blood INR APTT Anion Gap Estim Creat Clear Calc Estimated GFR POC Glucose Random Glucose Lactic Acid Calcium Total Bilirubin 1.5 H Direct Bilirubin 0.6 H AST 13 ALT 10 Alkaline Phosphatase 56 Total Creatine Kinase Troponin I High Sens C-Reactive Protein Total Protein 6.6 Albumin 4.3 TSH CSF Tube Number CSF Volume CSF Appearance CSF Color CSF WBC CSF RBC CSF Neutrophils CSF Lymphocytes CSF Monocytes % CSF Appearance (b) CSF Glucose CSF Total Protein Ethyl Alcohol < 10 Coronavirus (PCR) Influenza Type A (PCR) Influenza Type B (PCR) RSV RNA Qual (PCR) 07/01/21 07/01/21 07/01/21 15:57 15:57 15:57 MCV MCH MCHC RDW Plt Count MPV Immature Gran % (Auto) Neut % (Auto) Lymph % (Auto) Franklin % (Auto) Eos % (Auto) Baso % (Auto) Lymph # (Auto) Franklin # (Auto) Eos # (Auto) Baso # (Auto) Abs Immat Gran (auto) Absolute Neuts (auto) Absolute Nucleated RBC Nucleated RBC % (auto) ESR PT 13.1 H Whole Blood PT INR 1.2 H Whole Blood INR APTT 35.5 Anion Gap 13 Estim Creat Clear Calc 97.3 Estimated GFR > 60 POC Glucose Random Glucose 103 Lactic Acid Calcium 9.5 D Total Bilirubin Direct Bilirubin AST ALT Alkaline Phosphatase Total Creatine Kinase 81 Troponin I High Sens < 3.5 C-Reactive Protein 0.11 Total Protein Albumin TSH 0.03 L CSF Tube Number CSF Volume CSF Appearance CSF Color CSF WBC CSF RBC CSF Neutrophils CSF Lymphocytes CSF Monocytes % CSF Appearance (b) CSF Glucose CSF Total Protein Ethyl Alcohol Coronavirus (PCR) Influenza Type A (PCR) Influenza Type B (PCR) RSV RNA Qual (PCR) 07/01/21 07/01/21 07/01/21 15:57 16:01 17:12 MCV MCH MCHC RDW Plt Count MPV Immature Gran % (Auto) Neut % (Auto) Lymph % (Auto) Franklin % (Auto) Eos % (Auto) Baso % (Auto) Lymph # (Auto) Franklin # (Auto) Eos # (Auto) Baso # (Auto) Abs Immat Gran (auto) Absolute Neuts (auto) Absolute Nucleated RBC Nucleated RBC % (auto) ESR 3 PT Whole Blood PT INR Whole Blood INR APTT Anion Gap Estim Creat Clear Calc Estimated GFR POC Glucose Random Glucose Lactic Acid Calcium Total Bilirubin Direct Bilirubin AST ALT Alkaline Phosphatase Total Creatine Kinase Troponin I High Sens C-Reactive Protein Total Protein Albumin TSH CSF Tube Number 1 CSF Volume CSF Appearance CSF Color CSF WBC CSF RBC CSF Neutrophils CSF Lymphocytes CSF Monocytes % CSF Appearance (b) Clear, Colorless CSF Glucose 63 CSF Total Protein 34.0 Ethyl Alcohol Coronavirus (PCR) NEGATIVE Influenza Type A (PCR) NEGATIVE Influenza Type B (PCR) NEGATIVE RSV RNA Qual (PCR) NEGATIVE 07/01/21 07/01/21 17:12 17:13 MCV MCH MCHC RDW Plt Count MPV Immature Gran % (Auto) Neut % (Auto) Lymph % (Auto) Franklin % (Auto) Eos % (Auto) Baso % (Auto) Lymph # (Auto) Franklin # (Auto) Eos # (Auto) Baso # (Auto) Abs Immat Gran (auto) Absolute Neuts (auto) Absolute Nucleated RBC Nucleated RBC % (auto) ESR PT Whole Blood PT INR Whole Blood INR APTT Anion Gap Estim Creat Clear Calc Estimated GFR POC Glucose Random Glucose Lactic Acid Calcium Total Bilirubin Direct Bilirubin AST ALT Alkaline Phosphatase Total Creatine Kinase Troponin I High Sens C-Reactive Protein Total Protein Albumin TSH CSF Tube Number 3 TNP CSF Volume 1.0 TNP CSF Appearance CLEAR TNP CSF Color COLORLESS TNP CSF WBC 162 H* TNP CSF RBC 9 TNP CSF Neutrophils 8 CSF Lymphocytes 47 CSF Monocytes % 20 CSF Appearance (b) CSF Glucose CSF Total Protein Ethyl Alcohol Coronavirus (PCR) Influenza Type A (PCR) Influenza Type B (PCR) RSV RNA Qual (PCR) Imaging Radiologist's Impressions: Impressions Chest X-Ray 07/01/21 15:32 IMPRESSION: Limited from patient position. Left basilar process cannot be excluded. Attention to follow-up Head CT 07/01/21 15:33 IMPRESSION: No acute intracranial pathology. Once again significant white matter ischemic change and atrophic change. Prominent ventricular system. Unchanged from previous This critical result was discussed with Dr Gomez at 3:54 PM hours on 07/01/2021. It was ascertained that the content and urgency of the report was understood at the time of direct communication. 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 Altered mental status: Unclear etiology. Patient's LP noted to have 150 WBC--> ?Encephalitis. ID consulted; Continue ceftriaxone and acyclovir. Follow up cultures. Acton level is low. CPK within the normal limits. Will consult Neurology for further recommendations. Patient is not cooperative give urine sample. Agitation: Patient after coming on to the floors become very agitated and aggressive to the staff; I tried to reach the patient's guardian for notification but unable to reach; left voice message. patient was given Ativan ; patient was reassessed after 1 hour-patient was more calm. Filled in the restaurant forms. Spoke to the RN for frequent orientation, to maintain commented on med, 1 on 1 observation for safety. Consult psychiatry for further recommendations. History of hypothyroidism: Patient's TSH is 0.03. Patient at baseline takes 80 mg of levothyroxine. Will reduce the dose to 75 mcg daily and have the patient repeat TSH in 6-8 weeks with the PCP. Mild hypernatremia: Patient's sodium level noted to be 147. Will monitor for now. DVT prophylaxis: Lovenox Code status: Presumed full code-> will defer to the a.m. team to confirm with the patient's guardian. Quality Stroke Does the patient have a stroke diagnosis?: No VTE Prior VTE?: No VTE Risk Level:: Medical - moderate - high VTE Device Contraindication: N/A - Device Ordered VTE Drug Contraindication: Treatment Not Indicated
[2021-07-01] MEDS: LORazepam 2 MG/ML VIAL IM (23:30)
[2021-07-01 23:43] LABS: Free T4 (Free Thyroxine) 1.33 ng/dL (0.71-1.85)
--- NOTE | 2021-07-01 23:43 | PC.NURSE ---
Addendum entered by Manjula Clemons RN 07/02/21 01:09: Pt oob to use bathroom, oriented to person only. Pt more cooperative, monitor placed on pt, vitals obtained. Pt now resting in bed, bed alarm on and telesitter in room. Original Note: Pt arrived to [facility] [place] from [place], when placed on bed pt became aggressive and agitated. Pt kicking, punching, and throwing things at staff. Pt yelling, refusing all care. Code assist called. Security, nursing supervisor [employer], and Dr Mendoza up to bedside. 2 mg IM ativan ordered and administered. Pt now resting in bed, camera in room. Respirations stable.
[2021-07-02] VITALS (7 sets, daily range): BP systolic 99–138; BP diastolic 63–78; PULSE 60–86; RESP 18–20; TEMP 36.4–36.8; O2SAT 95–99
[2021-07-02] MEDS: Levothyroxine Sodium 75 MCG TABLET PO (05:44)
[2021-07-02] MEDS: cefTRIAXone sodium 2 GM in 0.9 % Sodium Chloride 50 ML IV (06:21)
[2021-07-02 07:59] LABS: MANUAL DIFF FLAG NO
[2021-07-02 08:03] LABS: Basophils Percent Auto 0.3 % (0-2); Eosinophils Absolute Auto 0.1 X10*3/uL (0.0-0.4); Hematocrit 35.8 % (42-52); Hemoglobin 12.2 g/dl (14.0-18.0); Lymphocytes Percent Auto 25.4 % (20-40); Mean Corpuscular HGB Conc 34.1 g/dl (31.0-36.0); Mean Corpuscular Hemoglobin 32.3 pg (27.0-33.0); Mean Corpuscular Volume 94.7 fL (80-98); Mean Platelet Volume 9.4 fL (9.4-12.4); Monocytes Absolute Auto 0.4 X10*3/uL (0.1-1.2); Monocytes Percent Auto 10.4 % (2-11); Neutrophils Absolute Auto 2.4 X10*3/uL (2.0-8.3); Neutrophils Percent Auto 60.9 % (45-73); Platelet Count 116 X10*3/uL (160-400); Red Blood Count 3.78 X10*6/uL (4.60-5.80); Red Cell Distribution Width 13.7 % (11.0-16.0); White Blood Count 3.9 X10*3/uL (4.8-10.8)
[2021-07-02 08:34] LABS: Magnesium 1.9 mg/dL (1.6-2.6)
[2021-07-02 08:52] LABS: Anion Gap 12 (12-20); Blood Urea Nitrogen 15 mg/dL (9-16); Calcium 8.7 mg/dL (8.4-10.2); Carbon Dioxide 24 mmol/L (22-29); Chloride 114 mmol/L (96-108); Creatinine Clr Calc Pharmacy 103.3; Estimated Glomerular Filt Rate > 60; Glucose Random 91 mg/dL (60-115); Sodium 146 mmol/L (135-145)
[2021-07-02] MEDS: Aspirin 81 MG TAB.CHEW PO (09:48)
[2021-07-02] MEDS: Ascorbic Acid 500 MG TABLET PO (09:48)
[2021-07-02] MEDS: Cholecalciferol (Vitamin D3) 25 MCG TABLET PO (09:48)
[2021-07-02] MEDS: Metoprolol Succinate ER 50 MG TAB.ER.24H PO ×2 (09:48→20:12)
[2021-07-02] MEDS: Lithium Carbonate ER 450 MG TABLET.ER 225 MG PO ×2 (09:49→20:12)
--- NOTE | 2021-07-02 10:44 | HO.PM.IMPN ---
Subjective Subjective Date of Service: 07/02/21 Interval History: denies complaints, but not participatory Cardiovascular Cardiovascular: Reports no additional cardiovascular complaints Respiratory Respiratory: Reports no additional respiratory complaints Physical Exam Vital Signs: Vital Signs: Last Vital Signs Temp 98.2 F 07/02/21 07:33 Pulse 86 07/02/21 09:48 Resp 18 07/02/21 07:33 BP 99/63 07/02/21 07:33 Pulse Ox 99 07/02/21 07:33 Body Mass Index 23.4 General: Alert, dyskinesia, talking but not conversational, not following directions Resp: CTA bilateral CVS: S1,S2,RRR GI: soft, non tender, non distended Neuro: dyskinesia Psych: impaired insight Objective Data Current Medications Generic Name Dose Route Start Last Admin Trade Name Freq PRN Reason Stop Dose Admin Acetaminophen 650 mg 07/01/21 20:24 Acetaminophen 325 Mg Tablet PO Q6H PRN Pain, Mild (Pain Scale 1-3) Al Hydroxide/Mg Hydroxide 30 ml 07/01/21 23:04 Magnesium Hydrox/Alum Hydrox 30 Ml Oral.Susp PO Q6H PRN Dyspepsia Artificial Tears 1 drop 07/02/21 09:00 07/02/21 10:03 Artificial Tears 15 Ml Drops EYE-BOTH Not Given Q12H CHRIS Ascorbic Acid 500 mg 07/02/21 09:00 07/02/21 09:48 Ascorbic Acid 500 Mg Tablet PO 500 mg DAILY CHRIS Administration Aspirin 81 mg 07/02/21 09:00 07/02/21 09:48 Aspirin 81 Mg Tab.Chew PO 81 mg DAILY CHRIS Administration Clozapine 50 mg 07/02/21 21:00 Clozapine 25 Mg Tablet PO BEDTIME CHRIS Enoxaparin Sodium 40 mg 07/01/21 23:45 07/02/21 00:12 Enoxaparin Sodium 40 Mg/0.4 Ml Syringe SUBCUT Not Given BEDTIME CHRIS Ceftriaxone Sodium 2 gm/ 50 mls @ 100 mls/hr 07/02/21 07:00 07/02/21 07:21 Sodium Chloride IV Infused Q12H CHRIS Infusion Acyclovir Sodium 875 mg/ 267.5 mls @ 267.5 mls/hr 07/02/21 04:00 07/02/21 05:23 Sodium Chloride IV Infused Q8H CHRIS Infusion Dextrose 1,000 mls @ 100 mls/hr 07/02/21 11:00 D5w IVCONT .Q10H [facility] Levothyroxine Sodium 75 mcg 07/02/21 06:00 07/02/21 05:44 Levothyroxine Sodium 75 Mcg Tablet PO 75 mcg DAILY@0600 CHRIS Administration [place] Carbonate 225 mg 07/02/21 09:00 07/02/21 09:49 [place] Carbonate Er 450 Mg Tablet.Er PO 225 mg BID CHRIS Administration Loratadine 10 mg 07/01/21 23:04 Loratadine 10 Mg Tablet PO DAILY PRN Itching Melatonin 6 mg 07/01/21 20:24 Melatonin 3 Mg Tablet PO BEDTIME PRN Insomnia Metoprolol Succinate 50 mg 07/02/21 09:00 07/02/21 09:48 Metoprolol Succinate Er 50 Mg Tab.Er.24h PO 50 mg BID CHRIS Administration Protocol Multivitamins/Minerals 1 tab 07/02/21 09:00 07/02/21 09:48 Multivitamin With Minerals Tablet PO 1 tab DAILY CHRIS Administration Pregabalin 25 mg 07/02/21 09:00 07/02/21 10:04 Pregabalin 100 Mg Capsule PO Not Given BID CHRIS Senna 17.2 mg 07/01/21 20:24 Sennosides 8.6 Mg Tablet PO BEDTIME PRN Constipation Senna 8.6 mg 07/01/21 23:04 Sennosides 8.6 Mg Tablet PO DAILY PRN Constipation Sodium Chloride 3 ml 07/02/21 00:00 07/02/21 10:04 0.9 % Sodium Chloride Flush 3 Ml Syringe IVFLUSH Not Given QSHIFT [facility] Vitamin D 25 mcg 07/02/21 09:00 07/02/21 09:48 Cholecalciferol (Vitamin D3) 25 Mcg Tablet PO 25 mcg DAILY CHRIS Administration Labs CBC & Chem 7: 07/02/21 07:55 07/02/21 07:55 Labs: Laboratory Results - last 24 hr 07/01/21 07/01/21 07/01/21 15:33 15:33 15:56 MCV MCH MCHC RDW Plt Count MPV Immature Gran % (Auto) Neut % (Auto) Lymph % (Auto) [place] % (Auto) Eos % (Auto) Baso % (Auto) Lymph # (Auto) [place] # (Auto) Eos # (Auto) Baso # (Auto) Abs Immat Gran (auto) Absolute Neuts (auto) Absolute Nucleated RBC Nucleated RBC % (auto) ESR PT Whole Blood PT 13.7 H INR Whole Blood INR 1.1 APTT Sodium Anion Gap Estim Creat Clear Calc Estimated GFR POC Glucose 103 Random Glucose Lactic Acid 0.9 Calcium Magnesium Total Bilirubin Direct Bilirubin AST ALT Alkaline Phosphatase Total Creatine Kinase Troponin I High Sens C-Reactive Protein Total Protein Albumin TSH Free T4 CSF Tube Number CSF Volume CSF Appearance CSF Color CSF WBC CSF RBC CSF Neutrophils CSF Lymphocytes CSF Monocytes % CSF Appearance (b) CSF Glucose CSF Total Protein CSF Mening/Enceph PCR [place] Ethyl Alcohol Coronavirus (PCR) Influenza Type A (PCR) Influenza Type B (PCR) RSV RNA Qual (PCR) 07/01/21 07/01/21 07/01/21 15:57 15:57 15:57 MCV 94.3 MCH 31.4 MCHC 33.3 RDW 13.7 Plt Count 132 L MPV 9.3 L Immature Gran % (Auto) 0.0 Neut % (Auto) 67.6 Lymph % (Auto) 21.8 [place] % (Auto) 7.6 Eos % (Auto) 2.3 Baso % (Auto) 0.7 Lymph # (Auto) 0.7 L [place] # (Auto) 0.2 Eos # (Auto) 0.1 Baso # (Auto) 0.0 Abs Immat Gran (auto) 0.00 Absolute Neuts (auto) 2.1 Absolute Nucleated RBC 0.000 Nucleated RBC % (auto) 0.0 ESR PT Whole Blood PT INR Whole Blood INR APTT Sodium Anion Gap Estim Creat Clear Calc Estimated GFR POC Glucose Random Glucose Lactic Acid Calcium Magnesium Total Bilirubin 1.5 H Direct Bilirubin 0.6 H AST 13 ALT 10 Alkaline Phosphatase 56 Total Creatine Kinase Troponin I High Sens C-Reactive Protein Total Protein 6.6 Albumin 4.3 TSH Free T4 1.33 CSF Tube Number CSF Volume CSF Appearance CSF Color CSF WBC CSF RBC CSF Neutrophils CSF Lymphocytes CSF Monocytes % CSF Appearance (b) CSF Glucose CSF Total Protein CSF Mening/Enceph PCR [place] Ethyl Alcohol < 10 Coronavirus (PCR) Influenza Type A (PCR) Influenza Type B (PCR) RSV RNA Qual (PCR) 07/01/21 07/01/21 07/01/21 15:57 15:57 15:57 MCV MCH MCHC RDW Plt Count MPV Immature Gran % (Auto) Neut % (Auto) Lymph % (Auto) [place] % (Auto) Eos % (Auto) Baso % (Auto) Lymph # (Auto) [place] # (Auto) Eos # (Auto) Baso # (Auto) Abs Immat Gran (auto) Absolute Neuts (auto) Absolute Nucleated RBC Nucleated RBC % (auto) ESR PT 13.1 H Whole Blood PT INR 1.2 H Whole Blood INR APTT 35.5 Sodium 147 H Anion Gap 13 Estim Creat Clear Calc 97.3 Estimated GFR > 60 POC Glucose Random Glucose 103 Lactic Acid Calcium 9.5 D Magnesium Total Bilirubin Direct Bilirubin AST ALT Alkaline Phosphatase Total Creatine Kinase 81 Troponin I High Sens < 3.5 C-Reactive Protein 0.11 Total Protein Albumin TSH 0.03 L Free T4 CSF Tube Number CSF Volume CSF Appearance CSF Color CSF WBC CSF RBC CSF Neutrophils CSF Lymphocytes CSF Monocytes % CSF Appearance (b) CSF Glucose CSF Total Protein CSF Mening/Enceph PCR [place] Ethyl Alcohol Coronavirus (PCR) Influenza Type A (PCR) Influenza Type B (PCR) RSV RNA Qual (PCR) 07/01/21 07/01/21 07/01/21 15:57 15:57 16:01 MCV MCH MCHC RDW Plt Count MPV Immature Gran % (Auto) Neut % (Auto) Lymph % (Auto) [place] % (Auto) Eos % (Auto) Baso % (Auto) Lymph # (Auto) [place] # (Auto) Eos # (Auto) Baso # (Auto) Abs Immat Gran (auto) Absolute Neuts (auto) Absolute Nucleated RBC Nucleated RBC % (auto) ESR 3 PT Whole Blood PT INR Whole Blood INR APTT Sodium Anion Gap Estim Creat Clear Calc Estimated GFR POC Glucose Random Glucose Lactic Acid Calcium Magnesium Total Bilirubin Direct Bilirubin AST ALT Alkaline Phosphatase Total Creatine Kinase Troponin I High Sens C-Reactive Protein Total Protein Albumin TSH Free T4 CSF Tube Number CSF Volume CSF Appearance CSF Color CSF WBC CSF RBC CSF Neutrophils CSF Lymphocytes CSF Monocytes % CSF Appearance (b) CSF Glucose CSF Total Protein CSF Mening/Enceph PCR [place] 0.38 L Ethyl Alcohol Coronavirus (PCR) NEGATIVE Influenza Type A (PCR) NEGATIVE Influenza Type B (PCR) NEGATIVE RSV RNA Qual (PCR) NEGATIVE 07/01/21 07/01/21 07/01/21 17:12 17:12 17:13 MCV MCH MCHC RDW Plt Count MPV Immature Gran % (Auto) Neut % (Auto) Lymph % (Auto) [place] % (Auto) Eos % (Auto) Baso % (Auto) Lymph # (Auto) [place] # (Auto) Eos # (Auto) Baso # (Auto) Abs Immat Gran (auto) Absolute Neuts (auto) Absolute Nucleated RBC Nucleated RBC % (auto) ESR PT Whole Blood PT INR Whole Blood INR APTT Sodium Anion Gap Estim Creat Clear Calc Estimated GFR POC Glucose Random Glucose Lactic Acid Calcium Magnesium Total Bilirubin Direct Bilirubin AST ALT Alkaline Phosphatase Total Creatine Kinase Troponin I High Sens C-Reactive Protein Total Protein Albumin TSH Free T4 CSF Tube Number 1 3 TNP CSF Volume 1.0 TNP CSF Appearance CLEAR TNP CSF Color COLORLESS TNP CSF WBC 162 H* TNP CSF RBC 9 TNP CSF Neutrophils 8 CSF Lymphocytes 47 CSF Monocytes % 20 CSF Appearance (b) Clear, Colorless CSF Glucose 63 CSF Total Protein 34.0 CSF Mening/Enceph PCR [place] Ethyl Alcohol Coronavirus (PCR) Influenza Type A (PCR) Influenza Type B (PCR) RSV RNA Qual (PCR) 07/01/21 07/02/21 07/02/21 17:13 07:55 07:55 MCV 94.7 MCH 32.3 MCHC 34.1 RDW 13.7 Plt Count 116 L MPV 9.4 Immature Gran % (Auto) 0.0 Neut % (Auto) 60.9 Lymph % (Auto) 25.4 [place] % (Auto) 10.4 Eos % (Auto) 3.0 Baso % (Auto) 0.3 Lymph # (Auto) 1.0 L [place] # (Auto) 0.4 Eos # (Auto) 0.1 Baso # (Auto) 0.0 Abs Immat Gran (auto) 0.00 Absolute Neuts (auto) 2.4 Absolute Nucleated RBC 0.000 Nucleated RBC % (auto) 0.0 ESR PT Whole Blood PT INR Whole Blood INR APTT Sodium 146 H Anion Gap 12 Estim Creat Clear Calc 103.3 Estimated GFR > 60 POC Glucose Random Glucose 91 Lactic Acid Calcium 8.7 D Magnesium Total Bilirubin Direct Bilirubin AST ALT Alkaline Phosphatase Total Creatine Kinase Troponin I High Sens C-Reactive Protein Total Protein Albumin TSH Free T4 CSF Tube Number CSF Volume CSF Appearance CSF Color CSF WBC CSF RBC CSF Neutrophils CSF Lymphocytes CSF Monocytes % CSF Appearance (b) CSF Glucose CSF Total Protein CSF Mening/Enceph PCR SEE NOTE [place] Ethyl Alcohol Coronavirus (PCR) Influenza Type A (PCR) Influenza Type B (PCR) RSV RNA Qual (PCR) 07/02/21 07:55 MCV MCH MCHC RDW Plt Count MPV Immature Gran % (Auto) Neut % (Auto) Lymph % (Auto) [place] % (Auto) Eos % (Auto) Baso % (Auto) Lymph # (Auto) [place] # (Auto) Eos # (Auto) Baso # (Auto) Abs Immat Gran (auto) Absolute Neuts (auto) Absolute Nucleated RBC Nucleated RBC % (auto) ESR PT Whole Blood PT INR Whole Blood INR APTT Sodium Anion Gap Estim Creat Clear Calc Estimated GFR POC Glucose Random Glucose Lactic Acid Calcium Magnesium 1.9 Total Bilirubin Direct Bilirubin AST ALT Alkaline Phosphatase Total Creatine Kinase Troponin I High Sens C-Reactive Protein Total Protein Albumin TSH Free T4 CSF Tube Number CSF Volume CSF Appearance CSF Color CSF WBC CSF RBC CSF Neutrophils CSF Lymphocytes CSF Monocytes % CSF Appearance (b) CSF Glucose CSF Total Protein CSF Mening/Enceph PCR [place] Eth[place] Alcohol Coronavirus (PCR) Influenza Type A (PCR) Influenza Type B (PCR) RSV RNA Qual (PCR) Microbiology Microbiology Results: Microbiology 07/01/21 17:13 Gram Stain - Final Cerebrospinal Fluid CSF Examination - Final Fluid Description - Final CSF Culture - Preliminary No growth. Assessment and Plan (1) Chronic static encephalopathy: Status: Acute Assessment and Plan: 55M presented with ams found to have lymphocytes in CSF metabolic encephalopathy lymphs in CSF panel negative follow up ID, neuro hypernatremia d5w, monitor hypothyroid tsh 0.03, dose lowered to 75 Quality Stroke Does the patient have a stroke diagnosis?: No VTE Prior VTE?: No VTE Risk Level:: Medical - moderate - high VTE Device Contraindication: N/A - Device Ordered VTE Drug Contraindication: Treatment Not Indicated
[2021-07-02] MEDS: Dextrose 5 % 1,000 ML 100 ML IVCONT ×2 (10:59→20:16)
--- NOTE | 2021-07-02 13:24 | MHC.CM.PN ---
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 PTS LEGAL GUARDIAN IS CASSANDRA OLIVIER ([phone]). SHE WAS CONTACTED AND PTS MEDICARE RIGHTS WERE DELIVERED VIA TC. SHE ASKS THAT THE COPY OF PTS IMM BE SENT TO [address] [facility] [place] [address]. DCP RETURN TO [facility] AT [place] VIA BLS
--- NOTE | 2021-07-02 13:38 | PM.PSYCN ---
History of Present Illness Date of Service: 07/03/21 Chief Complaint: AMS Reason for Consult: concerns for aggressive/ combative behavior Requesting physician: Ben Mendoza Sources of Information: patient interviewed and chart reviewed Additional Sources of Information: I consulted with STAN Jackson and Dr. 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 Dr. Mendoza ordered psych consult due to patient becoming agitated and combative during examination, impaired mental status. At baseline, he does not participate in examination. He was not willing to give urine sampe or let RN put straight cath in. He is medically complex, mildly hypernatremic (sodium 147), question of pneumonia. Head CT showed no acute intracranial process. Concern for possible meningitis/ encephalitis, low white count, given ceftriaxone and acyclovir per Infectiouse Disease consult, admitted for further management. He is currently on clozapine 50 mg QHS, lithium 225 mg BID (level 0.38). Per chart, ativan 1 mg was given once via IV on 07/01/21 23:10 and put on 1:1 due to patient becoming agitated, aggressive, he was more calm after 1 hour. I evaluated the patient this afternoon, however he was unwilling to engage in conversation. I found patient lying in bed, he did not respond to questions about his mood or behavior. Per RN, this is typical for the patient and he is non-spontaneous in speech. Staff report he has been calm and cooperative during the day shift. I spoke with treating physician, Dr. Harrington and he did not have concerns about aggressive behavior at this time. He notes that if he does, patient responded well to Ativan 1mg IV. Past Psychiatric History: No known hx of inpatient psych admissions or crisis evals Medical Evaluation Reviewed: Yes Personal & Social History: SH: [facility]. Has guardian Merly Ortega. 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 Hx of cardiac pacemaker Hypothyroidism Osteoarthritis Progressive multifocal leukoencephalopathy Sick sinus syndrome Spondylosis Spondylosis of cervical region without myelopathy or radiculopathy Thrombocytopenia Ventricular tachycardia Diagnostics Vital Signs (24Hr): Vital Signs - 24 hr 07/01/21 15:42 07/01/21 18:40 07/01/21 20:29 Temperature 98.0 F 98.0 F 97.5 F Pulse Rate 73 66 51 Respiratory Rate 15 14 16 Blood Pressure 117/76 119/76 116/57 L Pulse Oximetry 94 97 98 07/01/21 20:35 07/01/21 22:40 07/02/21 00:00 Temperature 98.0 F 97.5 F Pulse Rate 61 52 61 Respiratory Rate 14 16 18 Blood Pressure 116/67 100/58 L 113/70 Pulse Oximetry 98 98 95 07/02/21 04:00 07/02/21 07:33 07/02/21 09:48 Temperature 98.2 F 98.2 F Pulse Rate 60 73 86 Respiratory Rate 18 18 Blood Pressure 112/78 99/63 Pulse Oximetry 96 99 Body Mass Index 23.4 Labs Results: 07/02/21 07:55 07/02/21 07:55 Labs: Laboratory Results - last 48 hr 07/01/21 07/01/21 07/01/21 15:33 15:33 15:56 WBC RBC Hgb Hct MCV MCH MCHC RDW Plt Count MPV Immature Gran % (Auto) Neut % (Auto) Lymph % (Auto) [place] % (Auto) Eos % (Auto) Baso % (Auto) Lymph # (Auto) [place] # (Auto) Eos # (Auto) Baso # (Auto) Abs Immat Gran (auto) Absolute Neuts (auto) Absolute Nucleated RBC Nucleated RBC % (auto) ESR PT Whole Blood PT 13.7 H INR Whole Blood INR 1.1 APTT Sodium Potassium Chloride Carbon Dioxide Anion Gap BUN Creatinine Estim Creat Clear Calc Estimated GFR POC Glucose 103 Random Glucose Lactic Acid 0.9 Calcium Magnesium Total Bilirubin Direct Bilirubin AST ALT Alkaline Phosphatase Total Creatine Kinase Troponin I High Sens C-Reactive Protein Total Protein Albumin TSH Free T4 CSF Tube Number CSF Volume CSF Appearance CSF Color CSF WBC CSF RBC CSF Neutrophils CSF Lymphocytes CSF Monocytes % CSF Appearance (b) CSF Glucose CSF Total Protein CSF Mening/Enceph PCR [place] Eth[place] Alcohol Coronavirus (PCR) Influenza Type A (PCR) Influenza Type B (PCR) RSV RNA Qual (PCR) 07/01/21 07/01/21 07/01/21 15:57 15:57 15:57 WBC 3.0 L RBC 4.20 L Hgb 13.2 L Hct 39.6 L MCV 94.3 MCH 31.4 MCHC 33.3 RDW 13.7 Plt Count 132 L MPV 9.3 L Immature Gran % (Auto) 0.0 Neut % (Auto) 67.6 Lymph % (Auto) 21.8 [place] % (Auto) 7.6 Eos % (Auto) 2.3 Baso % (Auto) 0.7 Lymph # (Auto) 0.7 L [place] # (Auto) 0.2 Eos # (Auto) 0.1 Baso # (Auto) 0.0 Abs Immat Gran (auto) 0.00 Absolute Neuts (auto) 2.1 Absolute Nucleated RBC 0.000 Nucleated RBC % (auto) 0.0 ESR PT Whole Blood PT INR Whole Blood INR APTT Sodium Potassium Chloride Carbon Dioxide Anion Gap BUN Creatinine Estim Creat Clear Calc Estimated GFR POC Glucose Random Glucose Lactic Acid Calcium Magnesium Total Bilirubin 1.5 H Direct Bilirubin 0.6 H AST 13 ALT 10 Alkaline Phosphatase 56 Total Creatine Kinase Troponin I High Sens C-Reactive Protein Total Protein 6.6 Albumin 4.3 TSH Free T4 1.33 CSF Tube Number CSF Volume CSF Appearance CSF Color CSF WBC CSF RBC CSF Neutrophils CSF Lymphocytes CSF Monocytes % CSF Appearance (b) CSF Glucose CSF Total Protein CSF Mening/Enceph PCR [place] Eth[place] Alcohol < 10 Coronavirus (PCR) Influenza Type A (PCR) Influenza Type B (PCR) RSV RNA Qual (PCR) 07/01/21 07/01/21 07/01/21 15:57 15:57 15:57 WBC RBC Hgb Hct MCV MCH MCHC RDW Plt Count MPV Immature Gran % (Auto) Neut % (Auto) Lymph % (Auto) [place] % (Auto) Eos % (Auto) Baso % (Auto) Lymph # (Auto) [place] # (Auto) Eos # (Auto) Baso # (Auto) Abs Immat Gran (auto) Absolute Neuts (auto) Absolute Nucleated RBC Nucleated RBC % (auto) ESR PT 13.1 H Whole Blood PT INR 1.2 H Whole Blood INR APTT 35.5 Sodium 147 H Potassium 4.1 Chloride 112 H Carbon Dioxide 26 Anion Gap 13 BUN 18 H Creatinine 1.04 Estim Creat Clear Calc 97.3 Estimated GFR > 60 POC Glucose Random Glucose 103 Lactic Acid Calcium 9.5 D Magnesium Total Bilirubin Direct Bilirubin AST ALT Alkaline Phosphatase Total Creatine Kinase 81 Troponin I High Sens < 3.5 C-Reactive Protein 0.11 Total Protein Albumin TSH 0.03 L Free T4 CSF Tube Number CSF Volume CSF Appearance CSF Color CSF WBC CSF RBC CSF Neutrophils CSF Lymphocytes CSF Monocytes % CSF Appearance (b) CSF Glucose CSF Total Protein CSF Mening/Enceph PCR [place] Eth[place] Alcohol Coronavirus (PCR) Influenza Type A (PCR) Influenza Type B (PCR) RSV RNA Qual (PCR) 07/01/21 07/01/21 07/01/21 15:57 15:57 16:01 WBC RBC Hgb Hct MCV MCH MCHC RDW Plt Count MPV Immature Gran % (Auto) Neut % (Auto) Lymph % (Auto) [place] % (Auto) Eos % (Auto) Baso % (Auto) Lymph # (Auto) [place] # (Auto) Eos # (Auto) Baso # (Auto) Abs Immat Gran (auto) Absolute Neuts (auto) Absolute Nucleated RBC Nucleated RBC % (auto) ESR 3 PT Whole Blood PT INR Whole Blood INR APTT Sodium Potassium Chloride Carbon Dioxide Anion Gap BUN Creatinine Estim Creat Clear Calc Estimated GFR POC Glucose Random Glucose Lactic Acid Calcium Magnesium Total Bilirubin Direct Bilirubin AST ALT Alkaline Phosphatase Total Creatine Kinase Troponin I High Sens C-Reactive Protein Total Protein Albumin TSH Free T4 CSF Tube Number CSF Volume CSF Appearance CSF Color CSF WBC CSF RBC CSF Neutrophils CSF Lymphocytes CSF Monocytes % CSF Appearance (b) CSF Glucose CSF Total Protein CSF Mening/Enceph PCR [place] 0.38 L Ethyl Alcohol Coronavirus (PCR) NEGATIVE Influenza Type A (PCR) NEGATIVE Influenza Type B (PCR) NEGATIVE RSV RNA Qual (PCR) NEGATIVE 07/01/21 07/01/21 07/01/21 17:12 17:12 17:13 WBC RBC Hgb Hct MCV MCH MCHC RDW Plt Count MPV Immature Gran % (Auto) Neut % (Auto) Lymph % (Auto) [place] % (Auto) Eos % (Auto) Baso % (Auto) Lymph # (Auto) [place] # (Auto) Eos # (Auto) Baso # (Auto) Abs Immat Gran (auto) Absolute Neuts (auto) Absolute Nucleated RBC Nucleated RBC % (auto) ESR PT Whole Blood PT INR Whole Blood INR APTT Sodium Potassium Chloride Carbon Dioxide Anion Gap BUN Creatinine Estim Creat Clear Calc Estimated GFR POC Glucose Random Glucose Lactic Acid Calcium Magnesium Total Bilirubin Direct Bilirubin AST ALT Alkaline Phosphatase Total Creatine Kinase Troponin I High Sens C-Reactive Protein Total Protein Albumin TSH Free T4 CSF Tube Number 1 3 TNP CSF Volume 1.0 TNP CSF Appearance CLEAR TNP CSF Color COLORLESS TNP CSF WBC 162 H* TNP CSF RBC 9 TNP CSF Neutrophils 8 CSF Lymphocytes 47 CSF Monocytes % 20 CSF Appearance (b) Clear, Colorless CSF Glucose 63 CSF Total Protein 34.0 CSF Mening/Enceph PCR [place] Eth[place] Alcohol Coronavirus (PCR) Influenza Type A (PCR) Influenza Type B (PCR) RSV RNA Qual (PCR) 07/01/21 07/02/21 07/02/21 17:13 07:55 07:55 WBC 3.9 L RBC 3.78 L Hgb 12.2 L Hct 35.8 L MCV 94.7 MCH 32.3 MCHC 34.1 RDW 13.7 Plt Count 116 L MPV 9.4 Immature Gran % (Auto) 0.0 Neut % (Auto) 60.9 Lymph % (Auto) 25.4 [place] % (Auto) 10.4 Eos % (Auto) 3.0 Baso % (Auto) 0.3 Lymph # (Auto) 1.0 L [place] # (Auto) 0.4 Eos # (Auto) 0.1 Baso # (Auto) 0.0 Abs Immat Gran (auto) 0.00 Absolute Neuts (auto) 2.4 Absolute Nucleated RBC 0.000 Nucleated RBC % (auto) 0.0 ESR PT Whole Blood PT INR Whole Blood INR APTT Sodium 146 H Potassium 4.0 Chloride 114 H Carbon Dioxide 24 Anion Gap 12 BUN 15 Creatinine 0.98 Estim Creat Clear Calc 103.3 Estimated GFR > 60 POC Glucose Random Glucose 91 Lactic Acid Calcium 8.7 D Magnesium Total Bilirubin Direct Bilirubin AST ALT Alkaline Phosphatase Total Creatine Kinase Troponin I High Sens C-Reactive Protein Total Protein Albumin TSH Free T4 CSF Tube Number CSF Volume CSF Appearance CSF Color CSF WBC CSF RBC CSF Neutrophils CSF Lymphocytes CSF Monocytes % CSF Appearance (b) CSF Glucose CSF Total Protein CSF Mening/Enceph PCR SEE NOTE [place] Eth[place] Alcohol Coronavirus (PCR) Influenza Type A (PCR) Influenza Type B (PCR) RSV RNA Qual (PCR) 07/02/21 07:55 WBC RBC Hgb Hct MCV MCH MCHC RDW Plt Count MPV Immature Gran % (Auto) Neut % (Auto) Lymph % (Auto) [place] % (Auto) Eos % (Auto) Baso % (Auto) Lymph # (Auto) [place] # (Auto) Eos # (Auto) Baso # (Auto) Abs Immat Gran (auto) Absolute Neuts (auto) Absolute Nucleated RBC Nucleated RBC % (auto) ESR PT Whole Blood PT INR Whole Blood INR APTT Sodium Potassium Chloride Carbon Dioxide Anion Gap BUN Creatinine Estim Creat Clear Calc Estimated GFR POC Glucose Random Glucose Lactic Acid Calcium Magnesium 1.9 Total Bilirubin Direct Bilirubin AST ALT Alkaline Phosphatase Total Creatine Kinase Troponin I High Sens C-Reactive Protein Total Protein Albumin TSH Free T4 CSF Tube Number CSF Volume CSF Appearance CSF Color CSF WBC CSF RBC CSF Neutrophils CSF Lymphocytes CSF Monocytes % CSF Appearance (b) CSF Glucose CSF Total Protein CSF Mening/Enceph PCR [place] Eth[place] Alcohol Coronavirus (PCR) Influenza Type A (PCR) Influenza Type B (PCR) RSV RNA Qual (PCR) Imaging Radiology Impressions: ITS Impressions Chest X-Ray 07/01/21 15:32 IMPRESSION: Limited from patient position. Left basilar process cannot be excluded. Attention to follow-up Head CT 07/01/21 15:33 IMPRESSION: No acute intracranial pathology. Once again significant white matter ischemic change and atrophic change. Prominent ventricular system. Unchanged from previous This critical result was discussed with Dr Gomez at 3:54 PM hours on 07/01/2021. It was ascertained that the content and urgency of the report was understood at the time of direct communication. Mental Status Exam Mental Status Exam Narrative: Lying down in bed, appears older than stated age, hospital gown. Poor eye contact, inattentive. No Tics or Tremors. No abnormal involuntary movements. Calm, difficult to engage, avoidant. Mood is [did not state], affect is flat. Impoverished speech.Has known cognitive and memory impairment. Insight/ Judgment poor. Medications Medications Current Medications Generic Name Dose Route Start Last Admin Trade Name Freq PRN Reason Stop Dose Admin Acetaminophen 650 mg 07/01/21 20:24 Acetaminophen 325 Mg Tablet PO Q6H PRN Pain, Mild (Pain Scale 1-3) Al Hydroxide/Mg Hydroxide 30 ml 07/01/21 23:04 Magnesium Hydrox/Alum Hydrox 30 Ml Oral.Susp PO Q6H PRN Dyspepsia Artificial Tears 1 drop 07/02/21 09:00 07/02/21 10:03 Artificial Tears 15 Ml Drops EYE-BOTH Not Given Q12H CHRIS Ascorbic Acid 500 mg 07/02/21 09:00 07/02/21 09:48 Ascorbic Acid 500 Mg Tablet PO 500 mg DAILY CHRIS Administration Aspirin 81 mg 07/02/21 09:00 07/02/21 09:48 Aspirin 81 Mg Tab.Chew PO 81 mg DAILY CHRIS Administration Clozapine 50 mg 07/02/21 21:00 Clozapine 25 Mg Tablet PO BEDTIME CHRIS Enoxaparin Sodium 40 mg 07/01/21 23:45 07/02/21 00:12 Enoxaparin Sodium 40 Mg/0.4 Ml Syringe SUBCUT Not Given BEDTIME CHRIS Dextrose 1,000 mls @ 100 mls/hr 07/02/21 11:00 07/02/21 10:59 D5w IVCONT 100 mls/hr .Q10H CHRIS Administration Acyclovir Sodium 875 mg/ 267.5 mls @ 267.5 mls/hr 07/02/21 14:00 07/02/21 13:34 Sodium Chloride IV 267.5 mls/hr Q8H CHRIS Administration Levothyroxine Sodium 75 mcg 07/02/21 06:00 07/02/21 05:44 Levothyroxine Sodium 75 Mcg Tablet PO 75 mcg DAILY@0600 CHRIS Administration [place] Carbonate 225 mg 07/02/21 09:00 07/02/21 09:49 [place] Carbonate Er 450 Mg Tablet.Er PO 225 mg BID CHRIS Administration Loratadine 10 mg 07/01/21 23:04 Loratadine 10 Mg Tablet PO DAILY PRN Itching Melatonin 6 mg 07/01/21 20:24 Melatonin 3 Mg Tablet PO BEDTIME PRN Insomnia Metoprolol Succinate 50 mg 07/02/21 09:00 07/02/21 09:48 Metoprolol Succinate Er 50 Mg Tab.Er.24h PO 50 mg BID [facility] Administration Protocol Multivitamins/Minerals 1 tab 07/02/21 09:00 07/02/21 09:48 Multivitamin With Minerals Tablet PO 1 tab DAILY CHRIS Administration Pregabalin 25 mg 07/02/21 09:00 07/02/21 10:04 Pregabalin 100 Mg Capsule PO Not Given BID CHRIS Senna 17.2 mg 07/01/21 20:24 Sennosides 8.6 Mg Tablet PO BEDTIME PRN Constipation [place] 8.6 mg 07/01/21 23:04 Sennosides 8.6 Mg Tablet PO DAILY PRN Constipation Sodium Chloride 3 ml 07/02/21 00:00 07/02/21 10:04 0.9 % Sodium Chloride Flush 3 Ml Syringe IVFLUSH Not Given QSHIFT CHRIS Vitamin D 25 mcg 07/02/21 09:00 07/02/21 09:48 Cholecalciferol (Vitamin D3) 25 Mcg Tablet PO 25 mcg DAILY CHRIS Administration Allergies Allergies Allergy/AdvReac Type Severity Reaction Status Date / Time No Known Allergies Allergy Verified 06/08/21 09:53 Assessment & Plan Assessment & Plan (1) History of traumatic brain injury: Status: Acute Code(s): Z87.820 - Personal history of traumatic brain injury (2) Acute alteration in mental status: Status: Acute Code(s): R41.82 - Altered mental status, unspecified Assessment and Plan: Patient is a 55-year-old male with a past medical history of 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 He is currently being medically treated for concern of encephalitis. He is not oriented to time, place, situation. He was resistant to psychiatric interview. He appeared calm in behavior, no acute distress noted. Medical staff did not report issues with aggression or combative behaviors during treatment today. Will continue to monitor and consult psych as needed. He is not appropriate for further psych interventions at this time. Greater than 50% of the session was spent on counseling and/or coordination of care
--- NOTE | 2021-07-02 15:29 | PM.NEUROCN ---
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 He was unable to provide any meaningful history. When I ask him questions, he kept on saying, ?I am all right?. 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 Hx of cardiac pacemaker Hypothyroidism Osteoarthritis Progressive multifocal leukoencephalopathy Sick sinus syndrome Spondylosis Spondylosis of cervical region without myelopathy or radiculopathy Thrombocytopenia Ventricular tachycardia Social History Social History Household Members: Other Household Members Other:: [facility] Housing: [facility] Housing Other:: [facility] Unable to assess alcohol history related to: Unknown Alcohol intake: unknown Patient Tobacco Use Status: Tobacco use Unknown Use of substances other than those prescribed or required for medical reasons: Unknown Currently Displaying Signs/Symptoms of Drug Intoxication Withdrawal: No Advance Directives: Yes Advance Directives on File: Yes Advance Directives Date on File: 04/10/21 Do you have thoughts of harming others: None Do you have a plan to hurt others: No Plan Recently lost weight without trying: Unsure service: No Current occupational status: disabled Meds Allergies Allergy/AdvReac Type Severity Reaction Status Date / Time No Known Allergies Allergy Verified 06/08/21 09:53 Active Medications: Current Medications Generic Name Dose Route Start Last Admin Trade Name Freq PRN Reason Stop Dose Admin Acetaminophen 650 mg 07/01/21 20:24 Acetaminophen 325 Mg Tablet PO Q6H PRN Pain, Mild (Pain Scale 1-3) Al Hydroxide/Mg Hydroxide 30 ml 07/01/21 23:04 Magnesium Hydrox/Alum Hydrox 30 Ml Oral.Susp PO Q6H PRN Dyspepsia Artificial Tears 1 drop 07/02/21 09:00 07/02/21 10:03 Artificial Tears 15 Ml Drops EYE-BOTH Not Given Q12H [facility] Ascorbic Acid 500 mg 07/02/21 09:00 07/02/21 09:48 Ascorbic Acid 500 Mg Tablet PO 500 mg DAILY CHRIS Administration Aspirin 81 mg 07/02/21 09:00 07/02/21 09:48 Aspirin 81 Mg Tab.Chew PO 81 mg DAILY CHRIS Administration Clozapine 50 mg 07/02/21 21:00 Clozapine 25 Mg Tablet PO BEDTIME CHRIS Enoxaparin Sodium 40 mg 07/01/21 23:45 07/02/21 00:12 Enoxaparin Sodium 40 Mg/0.4 Ml Syringe SUBCUT Not Given BEDTIME CHRIS Dextrose 1,000 mls @ 100 mls/hr 07/02/21 11:00 07/02/21 10:59 D5w IVCONT 100 mls/hr .Q10H [facility]RIS Administration Acyclovir Sodium 875 mg/ 267.5 mls @ 267.5 mls/hr 07/02/21 14:00 07/02/21 13:34 Sodium Chloride IV 267.5 mls/hr Q8H [facility]RIS Administration Levothyroxine Sodium 75 mcg 07/02/21 06:00 07/02/21 05:44 Levothyroxine Sodium 75 Mcg Tablet PO 75 mcg DAILY@0600 CHRIS Administration [place] Carbonate 225 mg 07/02/21 09:00 07/02/21 09:49 [place] Carbonate Er 450 Mg Tablet.Er PO 225 mg BID CHRIS Administration Loratadine 10 mg 07/01/21 23:04 Loratadine 10 Mg Tablet PO DAILY PRN Itching Melatonin 6 mg 07/01/21 20:24 Melatonin 3 Mg Tablet PO BEDTIME PRN Insomnia Metoprolol Succinate 50 mg 07/02/21 09:00 07/02/21 09:48 Metoprolol Succinate Er 50 Mg Tab.Er.24h PO 50 mg BID CHRIS Administration Protocol Multivitamins/Minerals 1 tab 07/02/21 09:00 07/02/21 09:48 Multivitamin With Minerals Tablet PO 1 tab DAILY CHRIS Administration Pregabalin 25 mg 07/02/21 09:00 07/02/21 10:04 Pregabalin 100 Mg Capsule PO Not Given BID [facility] Senna 17.2 mg 07/01/21 20:24 Sennosides 8.6 Mg Tablet PO BEDTIME PRN Constipation Senna 8.6 mg 07/01/21 23:04 Sennosides 8.6 Mg Tablet PO DAILY PRN Constipation Sodium Chloride 3 ml 07/02/21 00:00 07/02/21 10:04 0.9 % Sodium Chloride Flush 3 Ml Syringe IVFLUSH Not Given QSHIFT [facility] Vitamin D 25 mcg 07/02/21 09:00 07/02/21 09:48 Cholecalciferol (Vitamin D3) 25 Mcg Tablet PO 25 mcg DAILY [facility] Administration Home Medications Medication Instructions Recorded Confirmed Last Taken Type acetaminophen 325 mg tablet 650 mg PO Q6H PRN 04/10/21 07/01/21 Unknown History aluminum-mag hydroxide-simethicone 30 ml PO Q6H PRN 04/10/21 07/01/21 Unknown History 200 mg-200 mg-20 mg/5 mL oral susp ascorbic acid (vitamin C) 500 mg 500 mg PO DAILY 04/10/21 07/01/21 Unknown History tablet (Vitamin C) calcium carbonate 200 mg calcium 400 mg PO Q6H PRN 04/10/21 07/01/21 Unknown History (500 mg) chewable tablet (Tums) cholecalciferol (vitamin D3) 25 25 mcg PO DAILY 04/10/21 07/01/21 Unknown History mcg (1,000 unit) tablet clozapine 50 mg tablet 50 mg PO BEDTIME 04/10/21 07/02/21 04/09/21 History levothyroxine 88 mcg tablet 88 mcg PO DAILY 04/10/21 07/01/21 Unknown History lithium carbonate 450 mg 225 mg PO BID 04/10/21 07/01/21 Unknown History tablet,extended release loratadine 10 mg tablet 10 mg PO DAILY PRN 04/10/21 07/01/21 Unknown History methocarbamol 750 mg tablet 750 mg PO BID PRN 04/10/21 07/01/21 Unknown History metoprolol succinate 50 mg capsule 50 mg PO BID 04/10/21 07/01/21 Unknown History sprinkle, ext. release 24 hr multivitamin with minerals 1 tab PO DAILY 04/10/21 07/01/21 Unknown History omega-3 fatty acids 500 mg capsule 1,000 mg PO DAILY 04/10/21 07/01/21 Unknown History polyvinyl alcohol 1.4 % eye drops 1 drp OPHTHALMIC (EYE) Q12H 04/10/21 07/01/21 Unknown History (Artificial Tears (polyvinyl alcohol)) pregabalin 100 mg capsule (Lyrica) 25 mg PO BID 04/10/21 07/01/21 Unknown History sennosides 8.6 mg tablet (senna) 8.6 mg PO DAILY PRN 04/10/21 07/01/21 Unknown History vitamin E 400 unit capsule 400 unit PO DAILY 04/10/21 07/01/21 Unknown History Physical Exam Vital Signs: Vital Signs: Last Vital Signs Temp 97.5 F 07/02/21 15:09 Pulse 66 07/02/21 15:09 Resp 20 07/02/21 15:09 BP 138/69 07/02/21 15:09 Pulse Ox 98 07/02/21 15:09 Body Mass Index 23.4 Neuro: Other: He was alert and awake with normal spontaneity and fluency of speech. He was somewhat resistant to examination and did not follow commands. There was moderate orobuccal dyskinesia. Extraocular muscles were intact. Face seems symmetrical. He was moving his arms. There was diffuse muscle atrophy in hands. He did not move his feet or legs. Examination was limited. Results Labs CBC & Chem 7: 07/02/21 07:55 07/02/21 07:55 Labs: Short CBC 07/01/21 07/02/21 Range/Units 15:57 07:55 WBC 3.0 L 3.9 L (4.8-10.8) X10*3/uL Hgb 13.2 L 12.2 L (14.0-18.0) g/dl Hct 39.6 L 35.8 L (42-52) % Plt Count 132 L 116 L (160-400) X10*3/uL BMP 07/01/21 07/02/21 15:57 07:55 Sodium 147 H 146 H Potassium 4.1 4.0 Chloride 112 H 114 H Carbon Dioxide 26 24 BUN 18 H 15 Creatinine 1.04 0.98 Calcium 9.5 D 8.7 D Cardiac Enzymes 07/01/21 Range/Units 15:57 Total Creatine Kinase 81 (38-174) U/L Liver Function 07/01/21 Range/Units 15:57 Total Bilirubin 1.5 H (0.0-1.0) mg/dL Direct Bilirubin 0.6 H (0.0-0.5) mg/dL AST 13 (5-37) U/L ALT 10 (0-40) U/L Alkaline Phosphatase 56 (39-117) U/L Albumin 4.3 (3.5-5.0) g/dL Noncontrast head CT did not reveal any acute abnormality. Significant chronic pathology was noted. Microbiology Microbiology Results: Microbiology 07/01/21 17:13 Cerebrospinal Fluid Gram Stain - Final 07/01/21 17:13 Cerebrospinal Fluid CSF Examination - Final 07/01/21 17:13 Cerebrospinal Fluid Fluid Description - Final 07/01/21 17:13 Cerebrospinal Fluid CSF Culture - Preliminary No growth. Assessment and Plan (1) Aseptic meningitis: Status: Acute Unclear etiology of aseptic meningoencephalitis with the significant underlying cerebral pathology. At this time I would recommend sending CSF for meningoencephalitis panel and covering him for Lyme and herpes. An Infectious Disease consultation is also recommended to figure out appropriate regimen of medicine. Procedures Date of Service Date of Service: 07/02/21
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
[2021-07-02] MEDS: Pregabalin 25 MG CAPSULE PO (20:12)
[2021-07-02] MEDS: cloZAPine 25 MG TABLET 50 MG PO (20:12)
--- NOTE | 2021-07-03 02:08 | PC.NURSE ---
Pregalaban 25mg, pyxis made me pull 100mg with instructions to split pill. Pill is a capsule therefore unable to be split. Pharmacy was called and medication was put in differently which allowed 1 capsule of 25mg to be pulled.
[2021-07-03 03:09] VITALS: BP 127/77; PULSE 80; RESP 18; TEMP 36.1; O2SAT 94
[2021-07-03 03:35] LABS: Syphilis Screen Nonreactive (Nonreactive)
[2021-07-03 04:34] LABS: Folate 5.5 ng/mL (> or = 4.0); Vitamin B12 500 pg/mL (200-900)
[2021-07-03] MEDS: Dextrose 5 % 1,000 ML 100 ML IVCONT ×2 (06:40→20:51)
[2021-07-03 07:33] LABS: Hematocrit 36.8 % (42-52); Hemoglobin 12.6 g/dl (14.0-18.0); Mean Corpuscular HGB Conc 34.2 g/dl (31.0-36.0); Mean Corpuscular Hemoglobin 31.8 pg (27.0-33.0); Mean Corpuscular Volume 92.9 fL (80-98); Mean Platelet Volume 9.4 fL (9.4-12.4); Platelet Count 117 X10*3/uL (160-400); Red Blood Count 3.96 X10*6/uL (4.60-5.80); Red Cell Distribution Width 13.2 % (11.0-16.0); White Blood Count 3.3 X10*3/uL (4.8-10.8)
[2021-07-03 07:55] LABS: Anion Gap 13 (12-20); Blood Urea Nitrogen 9 mg/dL (9-16); Calcium 8.7 mg/dL (8.4-10.2); Carbon Dioxide 24 mmol/L (22-29); Chloride 111 mmol/L (96-108); Creatinine Clr Calc Pharmacy 117.7; Estimated Glomerular Filt Rate > 60; Glucose Fasting 87 mg/dL (60-99); Potassium 3.5 mmol/L (3.3-5.1); Sodium 144 mmol/L (135-145)
[2021-07-03 08:00] VITALS: BP 128/67; PULSE 62; RESP 20; TEMP 36.8; O2SAT 98
[2021-07-03 12:00] VITALS: BP 129/76; PULSE 63; RESP 20
--- NOTE | 2021-07-03 13:12 | P.PNIM_ITS ---
Subjective Subjective Date of Service: 07/03/21 Interval History: cannot assess Review of Systems Review of Systems: Yes Unobtainable due to mental status Physical Exam Vital Signs: Vital Signs: Last Vital Signs Temp 98.2 F 07/03/21 08:00 Pulse 63 07/03/21 12:00 Resp 20 07/03/21 12:00 BP 129/76 07/03/21 12:00 Pulse Ox 98 07/03/21 08:00 Body Mass Index 23.4 General: Alert, dyskinesia, talking but not conversational, not following directions Resp:? CTA bilateral CVS: S1,S2,RRR GI: soft, non tender, non distended Neuro:? dyskinesia Psych: impaired insight Objective Data Current Medications Generic Name Dose Route Start Last Admin Trade Name Freq PRN Reason Stop Dose Admin Acetaminophen 650 mg 07/01/21 20:24 Acetaminophen 325 Mg Tablet PO Q6H PRN Pain, Mild (Pain Scale 1-3) Al Hydroxide/Mg Hydroxide 30 ml 07/01/21 23:04 Magnesium Hydrox/Alum Hydrox 30 Ml Oral.Susp PO Q6H PRN Dyspepsia Artificial Tears 1 drop 07/02/21 09:00 07/03/21 09:25 Artificial Tears 15 Ml Drops EYE-BOTH Not Given Q12H [facility] Ascorbic Acid 500 mg 07/02/21 09:00 07/03/21 09:28 Ascorbic Acid 500 Mg Tablet PO Not Given DAILY [facility] Aspirin 81 mg 07/02/21 09:00 07/03/21 09:28 Aspirin 81 Mg Tab.Chew PO Not Given DAILY [facility] Clozapine 50 mg 07/02/21 21:00 07/02/21 20:12 Clozapine 25 Mg Tablet PO 50 mg BEDTIME [facility] Administration Enoxaparin Sodium 40 mg 07/01/21 23:45 07/02/21 20:07 Enoxaparin Sodium 40 Mg/0.4 Ml Syringe SUBCUT Not Given BEDTIME [facility] Dextrose 1,000 mls @ 100 mls/hr 07/02/21 11:00 07/03/21 07:59 D5w IVCONT 100 mls/hr .Q10H [facility] Infusion Acyclovir Sodium 875 mg/ 267.5 mls @ 267.5 mls/hr 07/02/21 14:00 07/03/21 08:00 Sodium Chloride IV Infused Q8H [facility] Infusion Levothyroxine Sodium 75 mcg 07/02/21 06:00 07/03/21 06:45 Levothyroxine Sodium 75 Mcg Tablet PO Not Given DAILY@0600 [facility] [place] Carbonate 225 mg 07/02/21 09:00 07/03/21 09:29 Register Carbonate Er 450 Mg Tablet.Er PO Not Given BID [facility] Loratadine 10 mg 07/01/21 23:04 Loratadine 10 Mg Tablet PO DAILY PRN Itching Melatonin 6 mg 07/01/21 20:24 Melatonin 3 Mg Tablet PO BEDTIME PRN Insomnia Metoprolol Succinate 50 mg 07/02/21 09:00 07/03/21 09:29 Metoprolol Succinate Er 50 Mg Tab.Er.24h PO Not Given BID [facility] Protocol Multivitamins/Minerals 1 tab 07/02/21 09:00 07/03/21 09:29 Multivitamin With Minerals Tablet PO Not Given DAILY [facility] Pregabalin 25 mg 07/02/21 21:00 07/03/21 09:29 Pregabalin 25 Mg Capsule PO Not Given BID [facility] Senna 17.2 mg 07/01/21 20:24 Sennosides 8.6 Mg Tablet PO BEDTIME PRN Constipation Senna 8.6 mg 07/01/21 23:04 Sennosides 8.6 Mg Tablet PO DAILY PRN Constipation Sodium Chloride 3 ml 07/02/21 00:00 07/03/21 07:59 0.9 % Sodium Chloride Flush 3 Ml Syringe IVFLUSH Not Given QSHIFT [facility] Vitamin D 25 mcg 07/02/21 09:00 07/03/21 09:28 Cholecalciferol (Vitamin D3) 25 Mcg Tablet PO Not Given DAILY [facility] Labs CBC & Chem 7: 07/03/21 07:13 07/03/21 07:13 Labs: Laboratory Results - last 24 hr 07/01/21 07/01/21 07/03/21 15:57 15:57 07:13 MCV 92.9 MCH 31.8 MCHC 34.2 RDW 13.2 Plt Count 117 L MPV 9.4 Absolute Nucleated RBC 0.000 Nucleated RBC % (auto) 0.0 Anion Gap Estim Creat Clear Calc Estimated GFR Fasting Glucose Calcium Vitamin B12 500 Folate 5.5 T.pallidum Ab (EIA) Nonreactive 07/03/21 07:13 MCV MCH MCHC RDW Plt Count MPV Absolute Nucleated RBC Nucleated RBC % (auto) Anion Gap 13 Estim Creat Clear Calc 117.7 Estimated GFR > 60 Fasting Glucose 87 Calcium 8.7 Vitamin B12 Folate T.pallidum Ab (EIA) Microbiology Microbiology Results: Microbiology 07/01/21 17:13 Gram Stain - Final Cerebrospinal Fluid CSF Examination - Final Fluid Description - Final CSF Culture - Preliminary No growth after 1 day 07/01/21 15:56 Blood Culture - Preliminary Blood - Venous No growth after 24 hours. 07/01/21 16:00 Blood Culture - Preliminary Blood - Venous No growth after 24 hours. Assessment and Plan (1) Chronic static encephalopathy: Status: Acute Assessment and Plan: 55M presented with ams found to have lymphocytes in CSF metabolic encephalopathy lymphs in CSF panel negative follow up ID hypernatremia continue d5w, now 144 continue to monitor hypothyroid tsh 0.03, dose lowered to 75 Quality Stroke Does the patient have a stroke diagnosis?: No VTE Prior VTE?: No VTE Risk Level:: Medical - moderate - high VTE Device Contraindication: N/A - Device Ordered VTE Drug Contraindication: Treatment Not Indicated
--- NOTE | 2021-07-03 13:53 | W.PM.IDCN ---
History of Present Illness Data of Consult Service Date: 07/03/21 Requesting physician: Geovanni Harrington Primary Care Provider: Brody Gordon DO HPI Reason for consult: meningoencephalitis He presents to hospital from [facility] with confusion and decreased ambulation for a day from [facility]. He has no meningismus noted He has no fever or chills preceding noted I talked to patients primary,Dr rBody Gordon at 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 History of traumatic brain injury Hx of cardiac pacemaker Hypothyroidism Osteoarthritis Progressive multifocal leukoencephalopathy Sick sinus syndrome Spondylosis Spondylosis of cervical region without myelopathy or radiculopathy Thrombocytopenia Traumatic brain injury Ventricular tachycardia Social History Social History Household Members: Other Household Members Other:: [facility] Housing: [facility] Housing Other:: [facility] facility Unable to assess alcohol history related to: Unknown Alcohol intake: unknown Patient Tobacco Use Status: Tobacco use Unknown Use of substances other than those prescribed or required for medical reasons: Unknown Currently Displaying Signs/Symptoms of Drug Intoxication Withdrawal: No Advance Directives: Yes Advance Directives on File: Yes Advance Directives Date on File: 04/10/21 Do you have thoughts of harming others: None Do you have a plan to hurt others: No Plan Recently lost weight without trying: Unsure service: No Current occupational status: disabled Meds Allergies Allergy/AdvReac Type Severity Reaction Status Date / Time No Known Allergies Allergy Verified 06/08/21 09:53 Active Medications: Current Medications Generic Name Dose Route Start Last Admin Trade Name Freq PRN Reason Stop Dose Admin Acetaminophen 650 mg 07/01/21 20:24 Acetaminophen 325 Mg Tablet PO Q6H PRN Pain, Mild (Pain Scale 1-3) Al Hydroxide/Mg Hydroxide 30 ml 07/01/21 23:04 Magnesium Hydrox/Alum Hydrox 30 Ml Oral.Susp PO Q6H PRN Dyspepsia Artificial Tears 1 drop 08/08/21 09:00 07/03/21 09:25 Artificial Tears 15 Ml Drops EYE-BOTH Not Given Q12H [facility] Ascorbic Acid 500 mg 07/02/21 09:00 07/03/21 09:28 Ascorbic Acid 500 Mg Tablet PO Not Given DAILY [facility] Aspirin 81 mg 07/02/21 09:00 07/03/21 09:28 Aspirin 81 Mg Tab.Chew PO Not Given DAILY [facility] Clozapine 50 mg 07/02/21 21:00 07/02/21 20:12 Clozapine 25 Mg Tablet PO 50 mg BEDTIME [facility] Administration Enoxaparin Sodium 40 mg 07/01/21 23:45 07/02/21 20:07 Enoxaparin Sodium 40 Mg/0.4 Ml Syringe SUBCUT Not Given BEDTIME [facility] Dextrose 1,000 mls @ 100 mls/hr 07/02/21 11:00 07/03/21 07:59 D5w IVCONT 100 mls/hr .Q10H [facility] Infusion Acyclovir Sodium 875 mg/ 267.5 mls @ 267.5 mls/hr 07/02/21 14:00 07/03/21 08:00 Sodium Chloride IV Infused Q8H [facility] Infusion Levothyroxine Sodium 75 mcg 07/02/21 06:00 07/03/21 06:45 Levothyroxine Sodium 75 Mcg Tablet PO Not Given DAILY@0600 [facility] [place] Carbonate 225 mg 07/02/21 09:00 07/03/21 09:29 [place] Carbonate Er 450 Mg Tablet.Er PO Not Given BID [facility] Loratadine 10 mg 07/01/21 23:04 Loratadine 10 Mg Tablet PO DAILY PRN Itching Melatonin 6 mg 07/01/21 20:24 Melatonin 3 Mg Tablet PO BEDTIME PRN Insomnia Metoprolol Succinate 50 mg 07/02/21 09:00 07/03/21 09:29 Metoprolol Succinate Er 50 Mg Tab.Er.24h PO Not Given BID [facility] Protocol Multivitamins/Minerals 1 tab 07/02/21 09:00 07/03/21 09:29 Multivitamin With Minerals Tablet PO Not Given DAILY [facility] Pregabalin 25 mg 07/02/21 21:00 07/03/21 09:29 Pregabalin 25 Mg Capsule PO Not Given BID [facility] Senna 17.2 mg 07/01/21 20:24 Sennosides 8.6 Mg Tablet PO BEDTIME PRN Constipation Senna 8.6 mg 07/01/21 23:04 Sennosides 8.6 Mg Tablet PO DAILY PRN Constipation Sodium Chloride 3 ml 07/02/21 00:00 07/03/21 07:59 0.9 % Sodium Chloride Flush 3 Ml Syringe IVFLUSH Not Given QSHIFT [facility] Vitamin D 25 mcg 07/02/21 09:00 07/03/21 09:28 Cholecalciferol (Vitamin D3) 25 Mcg Tablet PO Not Given DAILY [facility] Home Medications Medication Instructions Recorded Confirmed Last Taken Type acetaminophen 325 mg tablet 650 mg PO Q6H PRN 04/10/21 07/01/21 Unknown History aluminum-mag hydroxide-simethicone 30 ml PO Q6H PRN 04/10/21 07/01/21 Unknown History 200 mg-200 mg-20 mg/5 mL oral susp ascorbic acid (vitamin C) 500 mg 500 mg PO DAILY 04/10/21 07/01/21 Unknown History tablet (Vitamin C) calcium carbonate 200 mg calcium 400 mg PO Q6H PRN 04/10/21 07/01/21 Unknown History (500 mg) chewable tablet (Tums) cholecalciferol (vitamin D3) 25 25 mcg PO DAILY 04/10/21 07/01/21 Unknown History mcg (1,000 unit) tablet clozapine 50 mg tablet 50 mg PO BEDTIME 04/10/21 07/02/21 04/09/21 History lithium carbonate 450 mg 225 mg PO BID 04/10/21 07/01/21 Unknown History tablet,extended release loratadine 10 mg tablet 10 mg PO DAILY PRN 04/10/21 07/01/21 Unknown History methocarbamol 750 mg tablet 750 mg PO BID PRN 04/10/21 07/01/21 Unknown History metoprolol succinate 50 mg capsule 50 mg PO BID 04/10/21 07/01/21 Unknown History sprinkle, ext. release 24 hr multivitamin with minerals 1 tab PO DAILY 04/10/21 07/01/21 Unknown History omega-3 fatty acids 500 mg capsule 1,000 mg PO DAILY 04/10/21 07/01/21 Unknown History polyvinyl alcohol 1.4 % eye drops 1 drp OPHTHALMIC (EYE) Q12H 04/10/21 07/01/21 Unknown History (Artificial Tears (polyvinyl alcohol)) pregabalin 100 mg capsule (Lyrica) 25 mg PO BID 04/10/21 07/01/21 Unknown History sennosides 8.6 mg tablet (senna) 8.6 mg PO DAILY PRN 04/10/21 07/01/21 Unknown History vitamin E 400 unit capsule 400 unit PO DAILY 04/10/21 07/01/21 Unknown History Physical Exam Vital Signs: Vital Signs: Last Vital Signs Temp 98.2 F 07/03/21 08:00 Pulse 63 07/03/21 12:00 Resp 20 07/03/21 12:00 BP 129/76 07/03/21 12:00 Pulse Ox 98 07/03/21 08:00 Body Mass Index 23.4 Const: General: anxious HENMT: Head: Yes No palpable skull fracture present Ears: hearing grossly normal bilaterally Mouth: Normal oral and palatal mucosa present Eyes: General: appearance normal, both eyes and all related structures Pupils: Equal, round and reactive pupils present Resp: Effort & Inspection: normal respiratory effort Cardio: Rate: regular rate Rhythm: regular rhythm GI: Palpation (GI): Soft to palpation and nontender : General: Yes no CVA tenderness Back/Spine/Pelvis: Back: no CVA tenderness Skin: General skin exam: no rashes or lesions noted Neuro: Other: in position Cranial nerves: Yes Equal, round and reactive pupils present Results Labs CBC & Chem 7: 07/05/21 05:48 07/05/21 05:48 Labs: Short CBC 07/03/21 Range/Units 07:13 WBC 3.3 L (4.8-10.8) X10*3/uL Hgb 12.6 L (14.0-18.0) g/dl Hct 36.8 L (42-52) % Plt Count 117 L (160-400) X10*3/uL BMP 07/03/21 07:13 Sodium 144 Potassium 3.5 Chloride 111 H Carbon Dioxide 24 BUN 9 Creatinine 0.86 Calcium 8.7 Microbiology Microbiology Results: Microbiology 07/01/21 17:13 Cerebrospinal Fluid Gram Stain - Final 07/01/21 17:13 Cerebrospinal Fluid CSF Examination - Final 07/01/21 17:13 Cerebrospinal Fluid Fluid Description - Final 07/01/21 17:13 Cerebrospinal Fluid CSF Culture - Preliminary No growth after 1 day 07/01/21 15:56 Blood - Venous Blood Culture - Preliminary No growth after 24 hours. 07/01/21 16:00 Blood - Venous Blood Culture - Preliminary No growth after 24 hours. 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
--- NOTE | 2021-07-03 14:11 | MHC.CM.PN ---
Patient has not yet been medically cleared for dc (ID following, 2 IV ABT). Returning to LTC at [facility] is the goal and CM will continue to follow.
[2021-07-03] MEDS: cefTRIAXone sodium 2 GM in 0.9 % Sodium Chloride 50 ML IV (15:40)
[2021-07-03 15:41] VITALS: BP 128/74; PULSE 70; RESP 18; TEMP 36.6; O2SAT 96
--- NOTE | 2021-07-03 18:21 | PC.NURSE ---
Non-Compliance [During assessment am/am pt refused his medications; only IV meds given as he repeatedly noted that they won't make him feel better. MD was notified . Pt became even more uncooperative and managed to unscrew his IV. Importance was reinforced, however a new one had to be put in. He did allow nurse to attempt the new site and it was successful. He has refused all other care and impulsively jumps to use the bathroom.
[2021-07-03 20:00] VITALS: BP 134/88; PULSE 62; RESP 15; TEMP 36.6; O2SAT 98
[2021-07-03 23:56] VITALS: BP 132/84; PULSE 84; RESP 18; TEMP 36.6; O2SAT 98
--- NOTE | 2021-07-04 03:20 | PC.NURSE ---
pt continues to be non-compliant with medication administration. Becoming agitated when educated about importance of taking medications, stated I don't want my heart when medications were listed. this rn had tried multiple times to get him to take medications, and he continues to refuse. MD aware.
[2021-07-04 04:00] VITALS: BP 139/86; PULSE 57; RESP 18; TEMP 36.2; O2SAT 99
[2021-07-04] MEDS: Dextrose 5 % 1,000 ML 100 ML IVCONT (06:24)
[2021-07-04 06:59] LABS: Hemoglobin 12.5 g/dl (14.0-18.0); Mean Corpuscular HGB Conc 35.7 g/dl (31.0-36.0); Mean Corpuscular Hemoglobin 32.8 pg (27.0-33.0); Mean Corpuscular Volume 91.9 fL (80-98); Mean Platelet Volume 9.7 fL (9.4-12.4); Platelet Count 126 X10*3/uL (160-400); Red Blood Count 3.81 X10*6/uL (4.60-5.80); Red Cell Distribution Width 13.2 % (11.0-16.0); White Blood Count 4.1 X10*3/uL (4.8-10.8)
[2021-07-04 07:29] LABS: Anion Gap 11 (12-20); Blood Urea Nitrogen 6 mg/dL (9-16); Calcium 8.8 mg/dL (8.4-10.2); Carbon Dioxide 25 mmol/L (22-29); Chloride 110 mmol/L (96-108); Estimated Glomerular Filt Rate > 60; Glucose Fasting 103 mg/dL (60-99); Potassium 3.7 mmol/L (3.3-5.1); Sodium 142 mmol/L (135-145)
[2021-07-04 07:38] VITALS: BP 111/71; PULSE 69; RESP 18; TEMP 37; O2SAT 96
[2021-07-04] MEDS: Dextrose 5 % and 0.45 % NaCl 1,000 ML 100 ML IVCONT (09:38)
--- NOTE | 2021-07-04 10:11 | HO.PM.IMPN ---
Subjective Subjective Date of Service: 07/04/21 Interval History: will not participate in conversation or follow commands Physical Exam Vital Signs: Vital Signs: Last Vital Signs Temp 98.6 F 07/04/21 07:38 Pulse 69 07/04/21 07:38 Resp 18 07/04/21 07:38 BP 111/71 07/04/21 07:38 Pulse Ox 96 07/04/21 07:38 Body Mass Index 23.4 General: Alert, talking but not conversational, not following directions Resp:? CTA bilateral CVS: S1,S2,RRR GI: soft, non tender, non distended Neuro:? not participatory in exam Psych: impaired insight Objective Data Current Medications Generic Name Dose Route Start Last Admin Trade Name Freq PRN Reason Stop Dose Admin Acetaminophen 650 mg 07/01/21 20:24 Acetaminophen 325 Mg Tablet PO Q6H PRN Pain, Mild (Pain Scale 1-3) Al Hydroxide/Mg Hydroxide 30 ml 07/01/21 23:04 Magnesium Hydrox/Alum Hydrox 30 Ml Oral.Susp PO Q6H PRN Dyspepsia Artificial Tears 1 drop 07/02/21 09:00 07/04/21 08:42 Artificial Tears 15 Ml Drops EYE-BOTH Not Given Q12H [facility] Ascorbic Acid 500 mg 07/02/21 09:00 07/04/21 08:42 Ascorbic Acid 500 Mg Tablet PO Not Given DAILY [facility] Aspirin 81 mg 07/02/21 09:00 07/04/21 08:42 Aspirin 81 Mg Tab.Chew PO Not Given DAILY [facility] Clozapine 50 mg 07/02/21 21:00 07/03/21 20:58 Clozapine 25 Mg Tablet PO Not Given BEDTIME [facility] Doxycycline Hyclate 100 mg 07/03/21 15:00 07/04/21 03:03 Doxycycline Hyclate 100 Mg Tablet PO Not Given Q12H [facility] Enoxaparin Sodium 40 mg 07/01/21 23:45 07/03/21 20:57 Enoxaparin Sodium 40 Mg/0.4 Ml Syringe SUBCUT Not Given BEDTIME [facility] Acyclovir Sodium 875 mg/ 267.5 mls @ 267.5 mls/hr 07/02/21 14:00 07/04/21 07:41 Sodium Chloride IV Infused Q8H [facility] Infusion Ceftriaxone Sodium 2 gm/ 50 mls @ 100 mls/hr 07/03/21 15:00 07/03/21 16:23 Sodium Chloride IV Infused Q24H [facility] Infusion Dextrose/Sodium Chloride 1,000 mls @ 100 mls/hr 07/04/21 09:15 07/04/21 09:38 D51/2ns IVCONT 100 mls/hr .Q10H [facility] Administration Levothyroxine Sodium 75 mcg 07/02/21 06:00 07/04/21 06:25 Levothyroxine Sodium 75 Mcg Tablet PO Not Given DAILY@0600 [facility] [place] Carbonate 225 mg 07/02/21 09:00 07/04/21 08:43 [place] Carbonate Er 450 Mg Tablet.Er PO Not Given BID [facility] Loratadine 10 mg 07/01/21 23:04 Loratadine 10 Mg Tablet PO DAILY PRN Itching Melatonin 6 mg 07/01/21 20:24 Melatonin 3 Mg Tablet PO BEDTIME PRN Insomnia Metoprolol Succinate 50 mg 07/02/21 09:00 07/04/21 08:43 Metoprolol Succinate Er 50 Mg Tab.Er.24h PO Not Given BID [facility] Protocol Multivitamins/Minerals 1 tab 07/02/21 09:00 07/04/21 09:45 Multivitamin With Minerals Tablet PO Not Given DAILY [facility] Pregabalin 25 mg 07/02/21 21:00 07/04/21 08:43 Pregabalin 25 Mg Capsule PO Not Given BID [facility] Senna 17.2 mg 07/01/21 20:24 Sennosides 8.6 Mg Tablet PO BEDTIME PRN Constipation Senna 8.6 mg 07/01/21 23:04 Sennosides 8.6 Mg Tablet PO DAILY PRN Constipation Sodium Chloride 3 ml 07/02/21 00:00 07/04/21 08:31 0.9 % Sodium Chloride Flush 3 Ml Syringe IVFLUSH Not Given QSHIFT [facility] Vitamin D 25 mcg 07/02/21 09:00 07/04/21 08:43 Cholecalciferol (Vitamin D3) 25 Mcg Tablet PO Not Given DAILY [facility] Labs CBC & Chem 7: 07/04/21 05:57 07/04/21 05:57 Labs: Laboratory Results - last 24 hr 07/03/21 07/04/21 07/04/21 14:03 05:57 05:57 MCV 91.9 MCH 32.8 MCHC 35.7 RDW 13.2 Plt Count 126 L MPV 9.7 Absolute Nucleated RBC 0.000 Nucleated RBC % (auto) 0.0 Anion Gap 11 L Estim Creat Clear Calc 115.0 Estimated GFR > 60 Fasting Glucose 103 H Calcium 8.8 CSF West Nile Virus TNP Microbiology Microbiology Results: Microbiology 07/01/21 17:13 Gram Stain - Final Cerebrospinal Fluid CSF Examination - Final Fluid Description - Final CSF Culture - Preliminary No growth after 2 days 07/01/21 15:56 Blood Culture - Preliminary Blood - Venous No growth after 48 hours. 07/01/21 16:00 Blood Culture - Preliminary Blood - Venous No growth after 48 hours. Assessment and Plan (1) Chronic static encephalopathy: Status: Acute Assessment and Plan: 55M presented with ams found to have lymphocytes in CSF metabolic encephalopathy lymphs in CSF panel negative could be false negative hsv follow up lyme, west nile continue acyclovir, rocephin ID following hypernatremia now 142, will change from d5w to maintenance with 1/2d5ns, monitor hypothyroid tsh 0.03, dose lowered to 75 Quality Stroke Does the patient have a stroke diagnosis?: No VTE Prior VTE?: No VTE Risk Level:: Medical - moderate - high VTE Device Contraindication: N/A - Device Ordered VTE Drug Contraindication: Treatment Not Indicated
[2021-07-04 13:37] LABS: HSV 1 DNA, CSF Not Detected (Not Detected); HSV 2 DNA, CSF Not Detected (Not Detected); Specimen Source CSF
--- NOTE | 2021-07-04 15:22 | PM.IDPN ---
Subjective Subjective Date of Service: 07/04/21 Critical Care Time (minutes): 15 Comment: He is talking and interacting and answering questions He denies tick bite Objective Data Labs CBC & Chem 7: 07/05/21 05:48 07/05/21 05:48 Labs: Laboratory Results - last 24 hr 07/01/21 07/03/21 07/04/21 17:13 14:03 05:57 WBC 4.1 L RBC 3.81 L Hgb 12.5 L Hct 35.0 L MCV 91.9 MCH 32.8 MCHC 35.7 RDW 13.2 Plt Count 126 L MPV 9.7 Absolute Nucleated RBC 0.000 Nucleated RBC % (auto) 0.0 Sodium Potassium Chloride Carbon Dioxide Anion Gap BUN Creatinine Estim Creat Clear Calc Estimated GFR Fasting Glucose Calcium CSF Herpes I DNA (PCR) Not Detected CSF Herpes II DNA (PCR) Not Detected CSF West Nile Virus TNP Body Source CSF 07/04/21 05:57 WBC RBC Hgb Hct MCV MCH MCHC RDW Plt Count MPV Absolute Nucleated RBC Nucleated RBC % (auto) Sodium 142 Potassium 3.7 Chloride 110 H Carbon Dioxide 25 Anion Gap 11 L BUN 6 L Creatinine 0.88 Estim Creat Clear Calc 115.0 Estimated GFR > 60 Fasting Glucose 103 H Calcium 8.8 CSF Herpes I DNA (PCR) CSF Herpes II DNA (PCR) CSF West Nile Virus Body Source Microbiology Microbiology Results: Microbiology 07/01/21 17:13 Cerebrospinal Fluid Gram Stain - Final 07/01/21 17:13 Cerebrospinal Fluid CSF Examination - Final 07/01/21 17:13 Cerebrospinal Fluid Fluid Description - Final 07/01/21 17:13 Cerebrospinal Fluid CSF Culture - Preliminary No growth after 2 days 07/01/21 15:56 Blood - Venous Blood Culture - Preliminary No growth after 48 hours. 07/01/21 16:00 Blood - Venous Blood Culture - Preliminary No growth after 48 hours. Physical Exam Vital Signs: Vital Signs: Last Vital Signs Temp 98.6 F 07/04/21 07:38 Pulse 69 07/04/21 07:38 Resp 18 07/04/21 07:38 BP 111/71 07/04/21 07:38 Pulse Ox 96 07/04/21 07:38 Body Mass Index 23.4 Const: General: cooperative Resp: Effort & Inspection: normal respiratory effort Cardio: Rate: regular rate Rhythm: regular rhythm GI: Palpation (GI): nontender Assessment and Plan Assessment and plan (1) Aseptic meningitis: Status: Resolved Assessment and Plan: There are so far no positive cultures or serologies He is doing much better He is day 3/10 Acyclovir and Ceftriaxone Assessment and Plan: Finish 10 d Acyclovir and Ceftriaxone Attempt po Doxycycline if patient will take it cover anaplasmosis Time Spent With Patient Time: Total time spent is greater than 50% in coordination of care (as documented) at patient's floor/unit and/or counseling patient: Time with patient: 15 - 24 minutes
[2021-07-04] MEDS: Haloperidol Lactate 5 MG/ML VIAL 2 MG IM (15:28)
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
[2021-07-04 23:27] VITALS: BP 154/84; PULSE 71; RESP 18; TEMP 36.5; O2SAT 98
[2021-07-05 04:00] VITALS: BP 106/69; PULSE 76; RESP 16; TEMP 36.2; O2SAT 98
[2021-07-05 06:49] LABS: Hematocrit 34.6 % (42-52); Hemoglobin 12.6 g/dl (14.0-18.0); Mean Corpuscular HGB Conc 36.4 g/dl (31.0-36.0); Mean Corpuscular Hemoglobin 33.2 pg (27.0-33.0); Mean Corpuscular Volume 91.1 fL (80-98); Mean Platelet Volume 9.4 fL (9.4-12.4); Platelet Count 127 X10*3/uL (160-400); Red Cell Distribution Width 13.2 % (11.0-16.0)
[2021-07-05 06:59] VITALS: BP 110/57; PULSE 70; RESP 16; TEMP 36.8; O2SAT 97
[2021-07-05 06:59] LABS: Anion Gap 14 (12-20); Blood Urea Nitrogen 7 mg/dL (9-16); Carbon Dioxide 23 mmol/L (22-29); Chloride 110 mmol/L (96-108); Creatinine Clr Calc Pharmacy 119.1; Estimated Glomerular Filt Rate > 60; Glucose Fasting 88 mg/dL (60-99); Potassium 3.5 mmol/L (3.3-5.1); Sodium 143 mmol/L (135-145)
[2021-07-05 08:57] VITALS: BP 110/57; PULSE 70
[2021-07-05] MEDS: Pregabalin 25 MG CAPSULE PO (08:57)
[2021-07-05] MEDS: Aspirin 81 MG TAB.CHEW PO (08:57)
[2021-07-05] MEDS: Metoprolol Succinate ER 50 MG TAB.ER.24H PO (08:57)
[2021-07-05] MEDS: Lithium Carbonate ER 450 MG TABLET.ER 225 MG PO (08:57)
[2021-07-05] MEDS: Cholecalciferol (Vitamin D3) 25 MCG TABLET PO (08:58)
[2021-07-05] MEDS: Ascorbic Acid 500 MG TABLET PO (08:58)
[2021-07-05] MEDS: 0.9 % Sodium Chloride Flush 3 ML SYRINGE IVFLUSH ×3 (08:59→23:53)
--- NOTE | 2021-07-05 09:45 | P.CDIC_ITS ---
CDI Concurrent Query Service Date: 07/05/21 Documentation Clarification: Please clarify if you are treating a proba ble/suspected/likely or confirmed: Dementia Dementia with behavioral disturbances (delirium, confusional state) Dementia (vascular) Other, please specify if known or undetermined Provider Response: Other Other Diagnosis: No clear diagnosis of dementia before PLEASE DO NOT DELETE/MODIFY EXISTING CONTENT Additional information is needed in order to code to the highest accuracy and appropriate Severity of Illness (SOI). Please clarify the information noted below in your progress notes and discharge summary. Risk Factors/Clinical Indicators/Treatments Confused, combative, agitated, does not participate in exam, H/O TBI, ? aspectic encephalitis workup. Dementia CDS: Judith Lubin CCS, CDIS Contact Number: [phone] Please Review the information above and exercise your independent professional judgment in responding to the query. If you concur, pleas document in the PROGRESS NOTES and DISCHARGE SUMMARY. If you do not agree with the query, please document in the query above. THIS QUERY IS PART OF THE PERMANENT MEDICAL RECORD
--- NOTE | 2021-07-05 10:53 | PC.NURSE ---
Pt refusing biomedical equipment support specialist, aware
[2021-07-05 11:04] VITALS: BP 141/81; PULSE 74; RESP 20; TEMP 36.8; O2SAT 98
--- NOTE | 2021-07-05 12:35 | MHC.CM.PN ---
Per ROUNDS discussion, Patient is not yet medically cleared for dc (IV Ceftriaxone, IV Acyclovir). Returning to LTC/SNF is the goal for dc and CM will continue to follow.
--- NOTE | 2021-07-05 13:17 | P.PNIM_ITS ---
Subjective Subjective Date of Service: 07/05/21 Interval History: the patient was seen and evaluated this morning Laying in bed, labs comfortable but apparently confused about time and place A refusing IV antibiotics Denies any fever, chills or shortness of breath No reported other overnight events. Systemic review: No fever, chills or weakness No chest pain, palpitation No shortness of breath or coughing No abdominal pain, nausea or vomiting No urinary symptoms No any rash or wounds Physical Exam Vital Signs: Vital Signs: Last Vital Signs Temp 98.2 F 07/05/21 11:04 Pulse 74 07/05/21 11:04 Resp 20 07/05/21 11:04 BP 141/81 H 07/05/21 11:04 Pulse Ox 98 07/05/21 11:04 Body Mass Index 23.4 Const: Other: Constitutional : Alert, disoriented, not in distress Neck : Normal inspection, Supple Cardiovascular : RRR, S1 S2, no lower extremity edema Respiratory : Failure bilateral air entry, no crackles, wheezes or rhonchi Gastrointestinal: soft, lax, Normal bowel sounds, Non tender Skin : Warm, Dry Neurological : Alert & disoriented to time place ,No focal deficit Objective Data Current Medications Generic Name Dose Route Start Last Admin Trade Name Freq PRN Reason Stop Dose Admin Acetaminophen 650 mg 07/01/21 20:24 Acetaminophen 325 Mg Tablet PO Q6H PRN Pain, Mild (Pain Scale 1-3) Al Hydroxide/Mg Hydroxide 30 ml 07/01/21 23:04 Magnesium Hydrox/Alum Hydrox 30 Ml Oral.Susp PO Q6H PRN Dyspepsia Artificial Tears 1 drop 07/02/21 09:00 07/05/21 09:04 Artificial Tears 15 Ml Drops EYE-BOTH Not Given Q12H CHRIS Ascorbic Acid 500 mg 07/02/21 09:00 07/05/21 08:58 Ascorbic Acid 500 Mg Tablet PO 500 mg DAILY CHRIS Administration Aspirin 81 mg 07/02/21 09:00 07/05/21 08:57 Aspirin 81 Mg Tab.Chew PO 81 mg DAILY CHRIS Administration Clozapine 25 mg 07/05/21 21:00 Clozapine 25 Mg Tablet PO BEDTIME CHRIS Doxycycline Hyclate 100 mg 07/03/21 15:00 07/05/21 03:22 Doxycycline Hyclate 100 Mg Tablet PO Not Given Q12H CHRIS Enoxaparin Sodium 40 mg 07/01/21 23:45 07/04/21 19:30 Enoxaparin Sodium 40 Mg/0.4 Ml Syringe SUBCUT Not Given BEDTIME [facility] Acyclovir Sodium 875 mg/ 267.5 mls @ 267.5 mls/hr 07/02/21 14:00 07/05/21 05:35 Sodium Chloride IV Not Given Q8H [facility] Ceftriaxone Sodium 2 gm/ 50 mls @ 100 mls/hr 07/03/21 15:00 07/04/21 15:22 Sodium Chloride IV Not Given Q24H [facility] Dextrose/Sodium Chloride 1,000 mls @ 100 mls/hr 07/04/21 09:15 07/05/21 04:56 D51/2ns IVCONT Not Given .Q10H [facility] Levothyroxine Sodium 75 mcg 07/02/21 06:00 07/05/21 05:35 Levothyroxine Sodium 75 Mcg Tablet PO Not Given DAILY@0600 [facility] [place] Carbonate 225 mg 07/02/21 09:00 07/05/21 08:57 [place] Carbonate Er 450 Mg Tablet.Er PO 225 mg BID [facility] Administration Loratadine 10 mg 07/01/21 23:04 Loratadine 10 Mg Tablet PO DAILY PRN Itching Melatonin 6 mg 07/01/21 20:24 Melatonin 3 Mg Tablet PO BEDTIME PRN Insomnia Metoprolol Succinate 50 mg 07/02/21 09:00 07/05/21 08:57 Metoprolol Succinate Er 50 Mg Tab.Er.24h PO 50 mg BID [facility] Administration Protocol Multivitamins/Minerals 1 tab 07/02/21 09:00 07/05/21 08:58 Multivitamin With Minerals Tablet PO 1 tab DAILY [facility] Administration Pregabalin 25 mg 07/02/21 21:00 07/05/21 08:57 Pregabalin 25 Mg Capsule PO 25 mg BID [facility] Administration Quetiapine Fumarate 25 mg 07/05/21 17:00 Quetiapine Fumarate 25 Mg Tablet PO DAILY@1700 [facility] Senna 17.2 mg 07/01/21 20:24 Sennosides 8.6 Mg Tablet PO BEDTIME PRN Constipation Senna 8.6 mg 07/01/21 23:04 Sennosides 8.6 Mg Tablet PO DAILY PRN Constipation Sodium Chloride 3 ml 07/02/21 00:00 07/05/21 08:59 0.9 % Sodium Chloride Flush 3 Ml Syringe IVFLUSH 3 ml QSHIFT CHRIS Administration Vitamin D 25 mcg 07/02/21 09:00 07/05/21 08:58 Cholecalciferol (Vitamin D3) 25 Mcg Tablet PO 25 mcg DAILY CHRIS Administration Labs CBC & Chem 7: 07/05/21 05:48 07/05/21 05:48 Labs: Laboratory Results - last 24 hr 07/01/21 07/05/21 07/05/21 17:13 05:48 05:48 MCV 91.1 MCH 33.2 H MCHC 36.4 H RDW 13.2 Plt Count 127 L MPV 9.4 Absolute Nucleated RBC 0.000 Nucleated RBC % (auto) 0.0 Anion Gap 14 Estim Creat Clear Calc 119.1 Estimated GFR > 60 Fasting Glucose 88 Calcium 9.0 CSF Herpes I DNA (PCR) Not Detected CSF Herpes II DNA (PCR) Not Detected Body Source CSF Microbiology Microbiology Results: Microbiology 07/01/21 17:13 Gram Stain - Final Cerebrospinal Fluid CSF Examination - Final Fluid Description - Final CSF Culture - Final No growth after 3 days. Assessment and Plan (1) Acute alteration in mental status: Status: Acute Assessment and Plan: 55M presented with ams found to have lymphocytes in CSF metabolic encephalopathy lymphs in CSF analysis panel negative, cultures negative could be false negative hsv Negative lyme, pending [place] continue acyclovir, rocephin On doxycycline ID suggesting holding IV medications on continue with doxycycline only at discharge hypernatremia now 143 Discontinue IV fluids Monitor BMP hypothyroid tsh 0.03, dose lowered to 75 Quality Stroke Does the patient have a stroke diagnosis?: No VTE Prior VTE?: No VTE Risk Level:: Medical - moderate - high VTE Device Contraindication: N/A - Device Ordered VTE Drug Contraindication: Treatment Not Indicated
[2021-07-05 15:01] VITALS: BP 128/75; PULSE 69; RESP 20; TEMP 37.8; O2SAT 95
[2021-07-05] MEDS: Acetaminophen 325 MG TABLET 650 MG PO (16:31)
[2021-07-05] MEDS: QUEtiapine Fumarate 25 MG TABLET PO (16:31)
[2021-07-05 18:04] LABS: Influenza A PCR NEGATIVE (Negative); Influenza B PCR NEGATIVE (Negative); Resp Syncy Virus RNA Qual PCR NEGATIVE (Negative); SARS COV2 PCR INHOUSE NEGATIVE (Negative)
[2021-07-05 19:05] VITALS: BP 118/63; PULSE 75; RESP 20; TEMP 37.2; O2SAT 97
[2021-07-06] VITALS: BP 112/71; PULSE 59; RESP 16; TEMP 36.7; O2SAT 97
[2021-07-06] MEDS: Levothyroxine Sodium 75 MCG TABLET PO (03:39)
[2021-07-06 03:51] VITALS: BP 121/71; PULSE 76; RESP 16; TEMP 37; O2SAT 97
[2021-07-06 07:42] VITALS: BP 113/67; PULSE 73; RESP 19; TEMP 37; O2SAT 98
[2021-07-06] MEDS: Acetaminophen 325 MG TABLET 650 MG PO (09:19)
[2021-07-06 09:20] VITALS: BP 113/67; PULSE 73
[2021-07-06] MEDS: 0.9 % Sodium Chloride Flush 3 ML SYRINGE IVFLUSH (09:20)
[2021-07-06] MEDS: Lithium Carbonate ER 450 MG TABLET.ER 225 MG PO (09:20)
[2021-07-06] MEDS: Metoprolol Succinate ER 50 MG TAB.ER.24H PO (09:20)
[2021-07-06] MEDS: Ascorbic Acid 500 MG TABLET PO (09:20)
[2021-07-06] MEDS: Aspirin 81 MG TAB.CHEW PO (09:20)
[2021-07-06] MEDS: Cholecalciferol (Vitamin D3) 25 MCG TABLET PO (09:20)
[2021-07-06] MEDS: Pregabalin 25 MG CAPSULE PO (09:20)
--- NOTE | 2021-07-06 10:12 | MHC.CM.PN ---
Per MD, Patient has been medically cleared for dc today, to return to LTC/SNF. Patient will return to [facility] today at 11AM via [facility]. Patient's Guardian/Merly @ [phone] has been notified of today's dc and original IMM will be mailed certified letter to her and a copy has been placed on the chart.
--- NOTE | 2021-07-06 11:01 | P.DS_ITS ---
DS: Providers Provider Date of Service: 07/06/21 Date of admission: 07/01/21 20:24 Primary care physician: Brody Gordon DO Consults: 07/01/21 20:21 Consult to Neurology Routine Consulting Provider: [facility] Reason for consultation: AMS; meningitis 07/01/21 20:23 Consult to Infectious Diseases Routine Consulting Provider: Jennifer Hsieh Reason for consultation: AMS; meningitis 07/01/21 23:48 Consult to Psychiatry Routine Consulting Provider: Psych Covering Reason for consultation: Agitation/combative; ?Atypical NMS DS: Diagnosis Discharge Diagnosis (1) Acute alteration in mental status: Status: Acute (2) Aseptic meningitis: Status: Acute (3) Behavioral disorder: Status: Acute DS: Medications Discharge Medications Home Medications: Home Medications Medication Instructions Recorded Confirmed acetaminophen 325 mg tablet 650 mg PO Q6H PRN 04/10/21 07/01/21 aluminum-mag hydroxide-simethicone 30 ml PO Q6H PRN 04/10/21 07/01/21 200 mg-200 mg-20 mg/5 mL oral susp ascorbic acid (vitamin C) 500 mg 500 mg PO DAILY 04/10/21 07/01/21 tablet (Vitamin C) calcium carbonate 200 mg calcium 400 mg PO Q6H PRN 04/10/21 07/01/21 (500 mg) chewable tablet (Tums) cholecalciferol (vitamin D3) 25 25 mcg PO DAILY 04/10/21 07/01/21 mcg (1,000 unit) tablet clozapine 50 mg tablet 50 mg PO BEDTIME 04/10/21 07/02/21 levothyroxine 88 mcg tablet 88 mcg PO DAILY 04/10/21 07/01/21 lithium carbonate 450 mg 225 mg PO BID 04/10/21 07/01/21 tablet,extended release loratadine 10 mg tablet 10 mg PO DAILY PRN 04/10/21 07/01/21 methocarbamol 750 mg tablet 750 mg PO BID PRN 04/10/21 07/01/21 metoprolol succinate 50 mg capsule 50 mg PO BID 04/10/21 07/01/21 sprinkle, ext. release 24 hr multivitamin with minerals 1 tab PO DAILY 04/10/21 07/01/21 omega-3 fatty acids 500 mg capsule 1,000 mg PO DAILY 04/10/21 07/01/21 polyvinyl alcohol 1.4 % eye drops 1 drp OPHTHALMIC (EYE) Q12H 04/10/21 07/01/21 (Artificial Tears (polyvinyl alcohol)) pregabalin 100 mg capsule (Lyrica) 25 mg PO BID 04/10/21 07/01/21 sennosides 8.6 mg tablet (senna) 8.6 mg PO DAILY PRN 04/10/21 07/01/21 vitamin E 400 unit capsule 400 unit PO DAILY 04/10/21 07/01/21 Previous Rx's Medication Instructions Recorded aspirin 81 mg chewable tablet 81 mg PO DAILY #1 tab 04/11/21 (Aspirin Childrens) doxycycline hyclate 100 mg tablet 100 mg PO Q12H 10 Days #20 tab 07/06/21 DS: Summary Hospital Course Hospital Course: Admission note HPI 55-year-old male with a past medical history dementia, sick sinus syndrome status post pacemaker, history of ventricular tachycardia, hypothyroidism, osteoarthritis, thrombocytopenia, 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 ?I tried to reach the patient's guardian Merly Ortega? over the phone; unable to reach; left voice message. ? Per BUYING INTERN patient when he came in he was noted to be confused, does not participate in examination, appeared to be flaccid in upper and lower extremities; even shortly after couple hours patient's mental status started to improve; but patient became agitated; was not willing to give urine sample and did not let the RN put in a straight cath; Per ER physician patient was noted to be confused and? ataxic at the half-way and subsequently sent to the hospital for further evaluation.? ER physician also mentioned that chest x-ray was a poor study and noted ?? Pneumonia left basilar recent; recommended follow-up chest x-ray; CT head showed no acute intracranial process; noted chronic changes On last showed a mildly be hypernatremic ER team concern for possible meningitis and had LP done and noted to have WBC of 150; concern for possible aseptic meningitis; patient was given ceftriaxone and acyclovir per Infectious Disease consult recommendations.? Admitted for further management. Hospital course The patient was admitted for evaluation of metabolic encephalopathy as CT scan did not show any acute findings but spinal fluid showed lymphocytes concerning for possible underlying viral or bacterial etiology of meningitis. Cultures remain negative along with viral antibodies studies. Treated with acyclovir, ceftriaxone and doxycycline as he was evaluated by infectious disease specialist who recommended to continue 3 of them. The patient mentation improved back to baseline within a day or so treatment and started refusing IV medications after receiving total of 3 days of the treatment. Given his negative cultures id decided to continue only doxycycline for total of 2 weeks. Noticed to hypernatremia which improved during his hospital stay back to normal level. Noticed to have low TSH level of 0.03, levothyroxine dose decreased. Will need to recheck TSH in a month or so. Time Spent with Patient Time attestation: Total time spent providing and/or coordinating discharge services: Discharge coordination time: Greater than 30 minutes Quality: Stroke Does the patient have a stroke diagnosis?: No Physical Exam Vital Signs: Vital Signs: Last Vital Signs Temp 98.6 F 07/06/21 07:42 Pulse 73 07/06/21 09:20 Resp 19 07/06/21 07:42 BP 113/67 07/06/21 09:20 Pulse Ox 98 07/06/21 07:42 Body Mass Index 23.4 Const: Other: Constitutional : Alert, disoriented, not in distress Neck : Normal inspection, Supple Cardiovascular : RRR, S1 S2, no lower extremity edema Respiratory : Failure bilateral air entry, no crackles, wheezes or rhonchi Gastrointestinal: soft, lax, Normal bowel sounds, Non tender Skin : Warm, Dry Neurological : Alert & disoriented to time place ,No focal deficit DS: Data Data Completed and Pending Completed studies during hospitalization [Text1]: Procedures Introduction of Other Thrombolytic into Peripheral Vein, Percutaneous Approach (04/10/21) Labs on day of discharge: Laboratory Results - last 24 hr 07/05/21 16:59 Coronavirus (PCR) NEGATIVE Influenza Type A (PCR) NEGATIVE Influenza Type B (PCR) NEGATIVE RSV RNA Qual (PCR) NEGATIVE Preliminary micro results at discharge 07/01/21 15:56 Blood Culture - Preliminary Blood - Venous No growth after 48 hours. 07/01/21 16:00 Blood Culture - Preliminary Blood - Venous No growth after 48 hours. Discharge Plan Discharge Patient Disposition: [facility] Discharge Diagnosis: Altered mentation Aseptic meningitis Referrals: [facility] [Outside] - 1 Week Brody Gordon DO [Primary Care Provider] - 1 Week Discharge Medications: New doxycycline hyclate 100 mg Tablet 100 mg PO Q12H 10 Days Qty: 20 RF: 0 Continued sennosides [senna] 8.6 mg Tablet 8.6 mg PO DAILY PRN (Reason: Constipation) RF: 0 acetaminophen 325 mg Tablet 650 mg PO Q6H PRN (Reason: Pain (Scale Score 1-3)) RF: 0 polyvinyl alcohol [Artificial Tears (polyvin alc)] 1.4 % Drops 1 drp ophthalmic (eye) Q12H RF: 0 lithium carbonate 450 mg Tablet Extended Release 225 mg PO BID RF: 0 levothyroxine 88 mcg Tablet 88 mcg PO DAILY RF: 0 methocarbamol 750 mg Tablet 750 mg PO BID PRN (Reason: Spasms) RF: 0 ascorbic acid (vitamin C) [Vitamin C] 500 mg Tablet 500 mg PO DAILY RF: 0 calcium carbonate [Tums] 200 mg calcium (500 mg) Tablet,Chewable 400 mg PO Q6H PRN (Reason: Heartburn) RF: 0 alum-mag hydroxide-simeth 200-200-20 mg/5 mL Suspension 30 ml PO Q6H PRN (Reason: Dyspepsia) RF: 0 multivitamin with minerals Tablet 1 tab PO DAILY RF: 0 vitamin E 400 unit Capsule 400 unit PO DAILY RF: 0 loratadine 10 mg Tablet 10 mg PO DAILY PRN (Reason: Itching) RF: 0 clozapine 50 mg Tablet 50 mg PO BEDTIME RF: 0 pregabalin [Lyrica] 100 mg Capsule 25 mg PO BID RF: 0 cholecalciferol (vitamin D3) 25 mcg (1,000 unit) Tablet 25 mcg PO DAILY RF: 0 omega-3 fatty acids 500 mg Capsule 1,000 mg PO DAILY RF: 0 metoprolol succinate 50 mg Capsule,Sprinkle,Er 24hr 50 mg PO BID RF: 0 aspirin [Aspirin Childrens] 81 mg tablet,chewable 81 mg PO DAILY Qty: 1 RF: 0 Discharge Orders: Discharge Order (Routine); Ordered 07/06/21 Ordered By: Darlin Lee Diet: advance to usual diet Activity on Discharge: As tolerated Stand Alone Forms: Patient Portal Discharge page Care Plan Goals: Read below Health Concerns: Read below Plan of Treatment: Admitted for altered mentation. Treated with antiviral and antibiotics for possible meningitis based on spinal fluid results. Improved back to baseline but continue to refuse IV medications. Infectious Disease decided to discharge him on doxycycline. Assessment: To finish 10 more days of doxycycline
== END 2021-07-06 11:31 | disposition skilled nursing facility (03) | DRG 97 ==
LOC: HO.ED 16:15 → HO.EDOVER 22:07 → HO.IMC 22:42
PROVIDERS: Emergency Medicine Emergency Medical Services; Internal Medicine; Admitting Provider Hospitalist; Emergency Provider Internal Medicine; PCP Hospitalist; Visit Provider Student in an Organized Health Care Education/Training Program
DX: G03.0 Nonpyogenic meningitis (principal); G93.41 Metabolic encephalopathy; E87.0 Hyperosmolality and hypernatremia; F03.90 Unspecified dementia, unspecified severity, without behavioral disturbance, psychotic disturbance, mood disturbance, and anxiety; E03.9 Hypothyroidism, unspecified; F91.9 Conduct disorder, unspecified; I49.5 Sick sinus syndrome; Z95.0 Presence of cardiac pacemaker; Z20.822 Contact with and (suspected) exposure to COVID-19; Z87.820 Personal history of traumatic brain injury; Z79.82 Long term (current) use of aspirin; Z79.890 Hormone replacement therapy; Z79.899 Other long term (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
CPT/HCPCS: 0241U; 36415; 70450; 71045; 80048; 80076; 80178; 82077; 82550; 82607; 82746; 82945; 82947; 83605; 83735; 84157; 84439; 84443; 84484; 85025; 85027; 85610; 85652; 85730; 86140; 86780; 87015; 87040; 87070; 87205; 87529; 89051; 93005; 96361; 96365; 96367; 99285; J0133; J0696; J2060

== ENCOUNTER 2021-08-24 17:17 | Inpatient (IN) | payer MEDICARE, MEDICAID, SELFPAY ==
--- NOTE | ~2021-08-24 | CT_ITS ---
EXAMINATION: CT HEAD WITHOUT CONTRAST CLINICAL INFORMATION: New onset seizures, history of PML COMPARISON: 07/01/2021 TECHNIQUE: Contiguous axial imaging was performed from the skull base to vertex without intravenous administration of contrast. This CT examination was performed using dose optimization techniques as appropriate, variously including the following: *Automated exposure control *Adjustment of mA and/or kV according to patient size (this includes techniques or standardized protocols for targeted exams where dose is matched to indication/reason for exam; i.e. extremities or head) *Use of iterative reconstruction technique DLP: 787 mGy-cm FINDINGS: There is no evidence of acute intracranial hemorrhage or territorial infarction. No abnormal mass effect or midline shift is seen. [place] to white matter differentiation is well preserved. No extra-axial fluid collections are identified. Prominent ventricles once again seen. Once again areas of decreased attenuation consistent with white matter change. The osseous structures and soft tissues are normal. The mastoid air cells and visualized portions of the paranasal sinuses are well aerated. CT/CT head/brain wo con IMPRESSION: No acute finding. Once again prominent ventricular system with white matter changes are noted. No midline shift, mass effect or hemorrhage
--- NOTE | ~2021-08-24 | XR_ITS ---
EXAMINATION: XR CHEST CLINICAL INFORMATION: Post seizure hypoxia. COMPARISON: Chest x-ray 07/01/2021 TECHNIQUE: Frontal view of the chest was obtained. FINDINGS: The lungs are well-expanded and clear. Heart size is enlarged. Pulmonary vascularity is normal. There are dual pacer electrodes in right atrium and right ventricle. No gross bony abnormality seen. XR/XR chest 1V IMPRESSION: Unremarkable chest exam. No major change from 07/01/2021
--- NOTE | ~2021-08-24 | FL_ITS ---
EXAMINATION: XR LUMBAR PUNCTURE CLINICAL INFORMATION: Fever. Seizures. COMPARISON: None TECHNIQUE/FINDINGS: Medical necessity was determined by the ordering physician was signed informed consent. The patient was positioned in the prone position. The back was prepped and draped in the usual sterile fashion. Using fluoroscopic guidance and a 22-gauge spinal needle, right-sided interlaminar access to the spinal canal at the L2-L3 level was obtained. 4 mL of clear CSF was removed. Diagnostic specimen was sent. FLUOROSCOPY TIME: 0.5 minutes. 1 saved fluoroscopic image. DOSE AREA PRODUCT: 3 real per centimeter squared. FL/FL guided lumbar puncture LP IMPRESSION: Fluoroscopy-guided lumbar puncture.
--- NOTE | 2021-08-24 17:22 | ECG_ITS ---
Test Reason : AMS Blood Pressure : / mmHG Vent. Rate : 101 BPM Atrial Rate : 101 BPM P-R Int : 210 ms QRS Dur : 084 ms QT Int : 356 ms P-R-T Axes : 061 -21 034 degrees QTc Int : 461 ms Sinus tachycardia with 1st degree A-V block Otherwise normal ECG When compared with ECG of 01-JUL-2021 15:45, No significant change was found Referred By: Scott Philippe Electronically Signed By:NARESH CHILDERS
--- NOTE | 2021-08-24 17:32 | ED.SEIZURE ---
HPI - Seizure General Chief Complaint: Seizure Stated Complaint: epileptic Time Seen by Provider: 08/24/21 17:21 Source: EMS and RN notes reviewed Mode of arrival: EMS Limitations: altered mental status History of Present Illness HPI Narrative: Patient 55 years old from [facility] senior living with history of severe progressive multifocal leukoencephalopathy, dementia, brought by EMS for having a generalized tonic-clonic seizure started at 16:12 lasted till 17:05 requiring 2 mg of Ativan given by senior living staff and 8 mg of Versed given by the EMS at 16:40. Per records patient does not have any history of seizures and not on any antiepileptics. No history of fall patient had a history of COVID-19 in the past and sick sinus syndrome. At this time patient is postictal and post sedation Related Data Home Medications Medication Instructions Recorded Confirmed acetaminophen 325 mg tablet 650 mg PO Q6H PRN 04/10/21 08/24/21 aluminum-mag hydroxide-simethicone 30 ml PO Q6H PRN 04/10/21 08/24/21 200 mg-200 mg-20 mg/5 mL oral susp ascorbic acid (vitamin C) 500 mg 500 mg PO DAILY 04/10/21 08/24/21 tablet (Vitamin C) cholecalciferol (vitamin D3) 25 25 mcg PO DAILY 04/10/21 08/24/21 mcg (1,000 unit) tablet clozapine 50 mg tablet 50 mg PO BEDTIME 04/10/21 08/24/21 lithium carbonate 450 mg 225 mg PO BID 04/10/21 08/24/21 tablet,extended release loratadine 10 mg tablet 10 mg PO DAILY PRN 04/10/21 08/24/21 methocarbamol 750 mg tablet 750 mg PO BID PRN 04/10/21 08/24/21 metoprolol succinate 50 mg capsule 50 mg PO DAILY 04/10/21 08/24/21 sprinkle, ext. release 24 hr multivitamin with minerals 1 tab PO DAILY 04/10/21 08/24/21 omega-3 fatty acids 500 mg capsule 1,000 mg PO DAILY 04/10/21 08/24/21 polyvinyl alcohol 1.4 % eye drops 1 drp OPHTHALMIC (EYE) Q12H 04/10/21 08/24/21 (Artificial Tears (polyvinyl alcohol)) sennosides 8.6 mg tablet (senna) 8.6 mg PO DAILY PRN 04/10/21 08/24/21 vitamin E 400 unit capsule 400 unit PO DAILY 04/10/21 08/24/21 benzocaine 10 % mucosal gel 1 appl MUCOUS MEMBRANE QID PRN 08/24/21 08/24/21 calcium carbonate 500 mg calcium 500 mg PO Q6H 08/24/21 08/24/21 (1,250 mg) chewable tablet clozapine 25 mg tablet (Clozaril) 25 mg PO DAILY 08/24/21 08/24/21 diphenhydramine HCl 25 mg tablet 25 mg PO Q4H PRN 08/24/21 08/24/21 ibuprofen 600 mg tablet 600 mg PO Q6H PRN 08/24/21 08/24/21 levothyroxine 88 mcg tablet 88 mcg PO DAILY 08/24/21 08/24/21 pregabalin 50 mg capsule 1 cap PO BID 08/24/21 08/24/21 Previous Rx's Medication Instructions Recorded aspirin 81 mg chewable tablet 81 mg PO DAILY #1 tab 04/11/21 (Aspirin Childrens) Allergies Allergy/AdvReac Type Severity Reaction Status Date / Time No Known Allergies Allergy Verified 06/08/21 09:53 Review of Systems Review of Systems: Yes Unobtainable due to mental status PMFSH Past Medical History Medical History (Updated 08/25/21 @ 09:25 by Torsten Martins MD) Aphasia 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 COVID-19 Dementia 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 History of traumatic brain injury Hx of cardiac pacemaker Hypothyroidism Osteoarthritis Progressive multifocal leukoencephalopathy Sick sinus syndrome Spondylosis Spondylosis of cervical region without myelopathy or radiculopathy Thrombocytopenia Traumatic brain injury Ventricular tachycardia Social History Social History Household Members: None Household Members Other:: [facility] Housing: [facility] Housing Other:: [facility] Do you presently have visiting nurse or other home services: No Unable to assess alcohol history related to: Unknown Alcohol intake: unknown Patient Tobacco Use Status: Tobacco use Unknown Use of substances other than those prescribed or required for medical reasons: Refusing to respond Currently Displaying Signs/Symptoms of Drug Intoxication Withdrawal: No Advance Directives: No Advance Directives Information Provided: Yes Advance Directives Date on File: 04/10/21 Do you have thoughts of harming others: None Do you have a plan to hurt others: No Plan Recently lost weight without trying: Unsure service: No Current occupational status: disabled Physical Exam Vital Signs: Vital Signs: Last Vital Signs Temp 97 F 08/25/21 11:19 Pulse 68 08/25/21 11:19 Resp 20 08/25/21 11:19 BP 142/74 H 08/25/21 11:19 Pulse Ox 98 08/25/21 11:19 Oxygen Flow Rate 15 08/24/21 17:44 Body Mass Index 29.5 Appearance: Obtunded breathing of his own postictal post sedated no active seizure movements at this time Eyes: Pupils equal reactive to light No Nystagmus ENT: Pharynx normal. Oral Mucosa moist Neck: Normal inspection. Neck supple. CVS: Normal heart rate and rhythm. Pulses normal. Respiratory: No respiratory distress. Equal air entry bilateral, no wheezing/rales/rhonchi Abdomen: Soft and nontender. Bowel sounds are present, Skin: Skin warm and dry. Normal skin color. Normal skin turgor. Extremities: No lower extremity edema. No calf tenderness Neuro: Obtunded MDM - Seizure MDM Narrative Medical decision making narrative: Patient with seizures new onset lasted for about 1 hour off and on wearing heavy dose of Versed started on Keppra 1 g noticed to have temperature on arrival with no source of infection prophylactically Zosyn was given admit patient for new onset of seizure with status epilepticus and fever of unknown origin Differential Diagnosis Differential diagnosis: Likely intractable seizure disorder Lab Data Attestation: I reviewed the patient's lab results. Result diagrams: 08/24/21 18:05 08/25/21 07:07 Labs: Lab Results 08/24/21 08/24/21 08/24/21 Range/Units 18:05 18:05 18:05 WBC 5.3 (4.8-10.8) X10*3/uL RBC 4.05 L (4.60-5.80) X10*6/uL Hgb 12.7 L (14.0-18.0) g/dl Hct 38.0 L (42-52) % MCV 93.8 (80-98) fL MCH 31.4 (27.0-33.0) pg MCHC 33.4 (31.0-36.0) g/dl RDW 12.8 (11.0-16.0) % Plt Count 145 L (160-400) X10*3/uL MPV 9.3 L (9.4-12.4) fL Immature Gran % (Auto) 0.9 H (0.0-0.4) % Neut % (Auto) 85.6 H (45-73) % Lymph % (Auto) 5.8 L (20-40) % [place] % (Auto) 6.2 (2-11) % Eos % (Auto) 1.1 (0-4) % Baso % (Auto) 0.4 (0-2) % Lymph # (Auto) 0.3 L (1.2-4.9) X10*3/uL [place] # (Auto) 0.3 (0.1-1.2) X10*3/uL Eos # (Auto) 0.1 (0.0-0.4) X10*3/uL Baso # (Auto) 0.0 (0.0-0.2) X10*3/uL Abs Immat Gran (auto) 0.05 H (0.00-0.03) X10*3/uL Absolute Neuts (auto) 4.5 (2.0-8.3) X10*3/uL Absolute Nucleated RBC 0.000 (0.0-0.012) X10*3/uL Nucleated RBC % (auto) 0.0 (0.0-0.2) /100WBC Sodium 143 (135-145) mmol/L Potassium 4.0 (3.3-5.1) mmol/L Chloride 110 H (96-108) mmol/L Carbon Dioxide 25 (22-29) mmol/L Anion Gap 12 (12-20) BUN 14 D (9-16) mg/dL Creatinine 1.29 (0.5-1.4) mg/dL Estim Creat Clear Calc 71.1 Estimated GFR 58 Random Glucose 188 H D (60-115) mg/dL Lactic Acid (0.5-2.0) mmol/L Lactic Acid Fup @ 2Hr (0.5-2.0) mmol/L Calcium 9.1 (8.4-10.2) mg/dL Magnesium (1.6-2.6) mg/dL Total Bilirubin 0.9 (0.0-1.0) mg/dL AST 16 (5-37) U/L ALT 14 (0-40) U/L Alkaline Phosphatase 71 D (39-117) U/L Total Protein 6.4 L (6.5-8.0) g/dL Albumin 4.1 (3.5-5.0) g/dL Urine Color Urine Appearance Urine pH (5.0-8.0) Ur Specific [place] (1.005-1.025) Urine Protein (NEG-TRACE) MG/DL Urine Glucose (UA) (NEG) MG/DL Urine Ketones (NEG) MG/DL Urine Blood (NEG) Urine Nitrite (NEG) Ur Leukocyte Esterase (NEG) Urine RBC (0) /HPF Urine WBC (0-4) /HPF Ur Squamous Epith Cells /LPF Amorphous Sediment /LPF Urine Bacteria /LPF Hyaline Casts /LPF Urine Mucus /LPF [place] (0.60-1.20) mmol/L COVID-19 (DHRUV) Negative (Negative) COVID-19 Clin Com See Note 08/24/21 08/24/21 08/24/21 Range/Units 18:05 18:05 18:05 WBC (4.8-10.8) X10*3/uL RBC (4.60-5.80) X10*6/uL Hgb (14.0-18.0) g/dl Hct (42-52) % MCV (80-98) fL MCH (27.0-33.0) pg MCHC (31.0-36.0) g/dl RDW (11.0-16.0) % Plt Count (160-400) X10*3/uL MPV (9.4-12.4) fL Immature Gran % (Auto) (0.0-0.4) % Neut % (Auto) (45-73) % Lymph % (Auto) (20-40) % [place] % (Auto) (2-11) % Eos % (Auto) (0-4) % Baso % (Auto) (0-2) % Lymph # (Auto) (1.2-4.9) X10*3/uL [place] # (Auto) (0.1-1.2) X10*3/uL Eos # (Auto) (0.0-0.4) X10*3/uL Baso # (Auto) (0.0-0.2) X10*3/uL Abs Immat Gran (auto) (0.00-0.03) X10*3/uL Absolute Neuts (auto) (2.0-8.3) X10*3/uL Absolute Nucleated RBC (0.0-0.012) X10*3/uL Nucleated RBC % (auto) (0.0-0.2) /100WBC Sodium (135-145) mmol/L Potassium (3.3-5.1) mmol/L Chloride (96-108) mmol/L Carbon Dioxide (22-29) mmol/L Anion Gap (12-20) BUN (9-16) mg/dL Creatinine (0.5-1.4) mg/dL Estim Creat Clear Calc Estimated GFR Random Glucose (60-115) mg/dL Lactic Acid 3.6 H* (0.5-2.0) mmol/L Lactic Acid Fup @ 2Hr (0.5-2.0) mmol/L Calcium (8.4-10.2) mg/dL Magnesium 2.2 (1.6-2.6) mg/dL Total Bilirubin (0.0-1.0) mg/dL AST (5-37) U/L ALT (0-40) U/L Alkaline Phosphatase (39-117) U/L Total Protein (6.5-8.0) g/dL Albumin (3.5-5.0) g/dL Urine Color Urine Appearance Urine pH (5.0-8.0) Ur Specific [place] (1.005-1.025) Urine Protein (NEG-TRACE) MG/DL Urine Glucose (UA) (NEG) MG/DL Urine Ketones (NEG) MG/DL Urine Blood (NEG) Urine Nitrite (NEG) Ur Leukocyte Esterase (NEG) Urine RBC (0) /HPF Urine WBC (0-4) /HPF Ur Squamous Epith Cells /LPF Amorphous Sediment /LPF Urine Bacteria /LPF Hyaline Casts /LPF Urine Mucus /LPF [place] 0.57 L (0.60-1.20) mmol/L COVID-19 (DHRUV) (Negative) COVID-19 Clin Com 08/24/21 08/24/21 Range/Units 18:08 20:14 WBC (4.8-10.8) X10*3/uL RBC (4.60-5.80) X10*6/uL Hgb (14.0-18.0) g/dl Hct (42-52) % MCV (80-98) fL MCH (27.0-33.0) pg MCHC (31.0-36.0) g/dl RDW (11.0-16.0) % Plt Count (160-400) X10*3/uL MPV (9.4-12.4) fL Immature Gran % (Auto) (0.0-0.4) % Neut % (Auto) (45-73) % Lymph % (Auto) (20-40) % [place] % (Auto) (2-11) % Eos % (Auto) (0-4) % Baso % (Auto) (0-2) % Lymph # (Auto) (1.2-4.9) X10*3/uL [place] # (Auto) (0.1-1.2) X10*3/uL Eos # (Auto) (0.0-0.4) X10*3/uL Baso # (Auto) (0.0-0.2) X10*3/uL Abs Immat Gran (auto) (0.00-0.03) X10*3/uL Absolute Neuts (auto) (2.0-8.3) X10*3/uL Absolute Nucleated RBC (0.0-0.012) X10*3/uL Nucleated RBC % (auto) (0.0-0.2) /100WBC Sodium (135-145) mmol/L Potassium (3.3-5.1) mmol/L Chloride (96-108) mmol/L Carbon Dioxide (22-29) mmol/L Anion Gap (12-20) BUN (9-16) mg/dL Creatinine (0.5-1.4) mg/dL Estim Creat Clear Calc Estimated GFR Random Glucose (60-115) mg/dL Lactic Acid (0.5-2.0) mmol/L Lactic Acid Fup @ 2Hr 1.7 (0.5-2.0) mmol/L Calcium (8.4-10.2) mg/dL Magnesium (1.6-2.6) mg/dL Total Bilirubin (0.0-1.0) mg/dL AST (5-37) U/L ALT (0-40) U/L Alkaline Phosphatase (39-117) U/L Total Protein (6.5-8.0) g/dL Albumin (3.5-5.0) g/dL Urine Color YELLOW Urine Appearance CLEAR Urine pH 7.0 (5.0-8.0) Ur Specific [place] 1.020 (1.005-1.025) Urine Protein 1+ H (NEG-TRACE) MG/DL Urine Glucose (UA) NEG (NEG) MG/DL Urine Ketones NEG (NEG) MG/DL Urine Blood NEG (NEG) Urine Nitrite NEG (NEG) Ur Leukocyte Esterase NEG (NEG) Urine RBC 1-4 (0) /HPF Urine WBC 0-2 (0-4) /HPF Ur Squamous Epith Cells TRACE /LPF Amorphous Sediment 1+ /LPF Urine Bacteria TRACE /LPF Hyaline Casts 5-9 /LPF Urine Mucus 1+ /LPF [place] (0.60-1.20) mmol/L COVID-19 (DHRUV) (Negative) COVID-19 Clin Com ECG Data Attestation: I personally reviewed and interpreted this ECG as follows: Interpretation: Sinus tachycardia with heart rate 101 beats per minute no acute ST-T changes TN interval 210 millisecond no acute ischemia Discharge Plan Discharge Clinical Impression: Status epilepticus Fever Qualifiers: Fever type: unspecified Qualified Code(s): R50.9 - Fever, unspecified Patient Disposition: Admitted As Inpatient Interventions: Admission Worksheet (ED) Last Done: 08/25/21 00:58 Discharge Date/Time: 08/25/21 01:14
[2021-08-24] MEDS: levETIRAcetam in NaCl (iso-os) 1,000 MG/100 ML PIGGYBACK 400 MG IV (17:33)
[2021-08-24 17:44] VITALS: BP 87/59; PULSE 101; RESP 18; TEMP 38.8; O2SAT 92; BMI 29.5
[2021-08-24] MEDS: 0.9 % Sodium Chloride 1,000 ML 999 ML IVCONT (18:00)
[2021-08-24 18:12] LABS: MANUAL DIFF FLAG NO
[2021-08-24 18:16] LABS: Basophils Percent Auto 0.4 % (0-2); Eosinophils Absolute Auto 0.1 X10*3/uL (0.0-0.4); Eosinophils Percent Auto 1.1 % (0-4); Hemoglobin 12.7 g/dl (14.0-18.0); Imm Gran Abs Auto 0.05 X10*3/uL (0.00-0.03); Imm Gran Pct Auto 0.9 % (0.0-0.4); Lymphocytes Absolute Auto 0.3 X10*3/uL (1.2-4.9); Lymphocytes Percent Auto 5.8 % (20-40); Mean Corpuscular HGB Conc 33.4 g/dl (31.0-36.0); Mean Corpuscular Hemoglobin 31.4 pg (27.0-33.0); Mean Corpuscular Volume 93.8 fL (80-98); Mean Platelet Volume 9.3 fL (9.4-12.4); Monocytes Absolute Auto 0.3 X10*3/uL (0.1-1.2); Monocytes Percent Auto 6.2 % (2-11); Neutrophils Absolute Auto 4.5 X10*3/uL (2.0-8.3); Neutrophils Percent Auto 85.6 % (45-73); Platelet Count 145 X10*3/uL (160-400); Red Blood Count 4.05 X10*6/uL (4.60-5.80); Red Cell Distribution Width 12.8 % (11.0-16.0); White Blood Count 5.3 X10*3/uL (4.8-10.8)
[2021-08-24 18:21] VITALS: BP 98/63; PULSE 88; RESP 18; TEMP 36.9; O2SAT 92
[2021-08-24 18:24] LABS: Lithium 0.57 mmol/L (0.60-1.20)
[2021-08-24 18:30] LABS: Lactic Acid 3.6 mmol/L (0.5-2.0); Magnesium 2.2 mg/dL (1.6-2.6)
[2021-08-24 18:32] LABS: Alanine Aminotransferase 14 U/L (0-40); Albumin Level 4.1 g/dL (3.5-5.0); Alkaline Phosphatase 71 U/L (39-117); Anion Gap 12 (12-20); Aspartate Amino Transferase 16 U/L (5-37); Bilirubin Total 0.9 mg/dL (0.0-1.0); Blood Urea Nitrogen 14 mg/dL (9-16); Calcium 9.1 mg/dL (8.4-10.2); Carbon Dioxide 25 mmol/L (22-29); Chloride 110 mmol/L (96-108); Creatinine Clr Calc Pharmacy 71.1; Estimated Glomerular Filt Rate 58; Glucose Random 188 mg/dL (60-115); Sodium 143 mmol/L (135-145); Total Protein 6.4 g/dL (6.5-8.0)
[2021-08-24 18:35] LABS: Appearance Urine CLEAR; Color Urine YELLOW; Glucose Urine UA NEG (NEG); Leukocyte Esterase Urine NEG (NEG); Nitrite Urine NEG (NEG); UACC Culture Trigger NO; Urine Blood NEG (NEG); Urine Ketones NEG (NEG); Urine Protein 1+ MG/DL (NEG-TRACE)
[2021-08-24 18:45] LABS: WBC Urine 0-2 /HPF (0-4)
[2021-08-24 18:46] LABS: Amorphous Sediment Urine 1+ /LPF; Bacteria Urine TRACE /LPF; Mucus Urine 1+ /LPF; Squamous Epithelial Cell Urine TRACE /LPF
[2021-08-24 18:50] LABS: COVID-19 Test Negative (Negative); IDNOW Serial# 08D9AD1C
[2021-08-24] MEDS: Piperacillin Sodium/Tazobactam 3.375 GM in 0.9 % Sodium Chloride 50 ML IV (19:13)
[2021-08-24 20:00] VITALS: BP 120/73; PULSE 89; RESP 19; TEMP 37; O2SAT 99
[2021-08-24 20:10] LABS: Reflex Lactate? Lactic Acid Added
[2021-08-24 20:29] LABS: ~Lactic Acid-LAB USE ONLY 1.7 mmol/L (0.5-2.0)
--- NOTE | 2021-08-24 21:36 | PHA.MEDREC ---
Pharmacy Consult ? Medication Reconciliation Pharmacy has completed the medication reconciliation. There are no remarkable issues for provider's attention. Patient came from [facility] [place]. Khushboo Zambrano, LocD
--- NOTE | 2021-08-24 21:48 | HE.PHANOTE ---
CLOZARIL Pt takes Clozaril 25 mg qam and 50 mg at bedtime. Pt eligible to receive clozaril per [facility]. Spoke with RN at [facility] and patient has received all doses
[2021-08-24 22:00] VITALS: BP 135/78; PULSE 89; RESP 18; TEMP 36.8; O2SAT 98
[2021-08-24 23:19] VITALS: BP 116/58; PULSE 77; RESP 16
--- NOTE | 2021-08-24 23:20 | P.HPHOSP_ITS ---
History of Present Illness Date of Service: 08/24/21 Chief Complaint: seizure 55-year-old male with a past medical history of traumatic brain injury, frontal of concussion, dementia, sick sinus syndrome status post pacemaker, history of ventricular tachycardia, hypothyroidism, osteoarthritis, thrombocytopenia, his tory of progressive multi focal leukoencephalopathy, history of ?CVA status post tPA in May of 2021; recent admission to the hospital for possible meningoencephalitis in June of 2021; behavioral issues; lives in a halfway; presented to the hospital today with chief complaint of seizure. Patient is lethargic, not responding to verbal or tactile stimuli; protecting airway; on supplemental oxygen; lying in the bed. Spoke to STAN Jones at [facility] who mentioned that patient lately has been having multiple admissions to the hospital; patient has baseline behavioral issues, frequently comes to the disc in gets intermittently agitated; over the past few days he has not been eating good. About 6 days ago his dose of Lyrica has been increased; and psychiatric status been trying to increase the dose of his Clozaril; STAN Jones also mentioned that patient had an episode of seizure the lasted for 9 minutes; subsequently patient was given Ativan with slight improvement; patient did not have any fall; patient loss consciousness. Patient also had urinary incontinence. Followed by patient had 2nd episode that lasted from 19 minutes; subsequently EMS was called in and sent him to the ER. Reportedly at baseline patient walks and talks; Denies any new changes in his medications other than mentioned above; denies patient complaining of any signs of infection. As mentioned by Robert patient is full code. I also tried to speak to patient's guardian Merly barillas--> unable to reach; left voice message with a call back number. Review of all other systems is limited as the patient is drowsy/lethargic. ER course: Per ER team patient on presentation noted to be very shaky; patient was given Keppra; patient drowsy/lethargic; protecting airway; placed on supplemental oxygen; CT head showed no acute findings; lab showed mild lactic acidosis otherwise benign labs. Admitted to the hospital for further management. 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 History of traumatic brain injury Hx of cardiac pacemaker Hypothyroidism Osteoarthritis Progressive multifocal leukoencephalopathy Sick sinus syndrome Spondylosis Spondylosis of cervical region without myelopathy or radiculopathy Thrombocytopenia Traumatic brain injury Ventricular tachycardia Pertinent family history: unable to review; Social History Household Members: Other Household Members Other:: [facility] Housing: Retirement Housing Other:: [facility] Unable to assess alcohol history related to: Unknown Alcohol intake: unknown Patient Tobacco Use Status: Tobacco use Unknown Advance Directives: No Advance Directives Information Provided: Yes Advance Directives Date on File: 04/10/21 service: No Current occupational status: disabled Meds Allergies Allergy/AdvReac Type Severity Reaction Status Date / Time No Known Allergies Allergy Verified 06/08/21 09:53 Active Medications: Current Medications Acetaminophen (Acetaminophen Supp 650 Mg Supp.Rect) 650 mg IA Q6H PRN PRN Reason: Pain, Mild (Pain Scale 1-3) Dextrose/Sodium Chloride (D51/2ns) 1,000 mls @ 45 mls/hr IVCONT .[id number] [facility] Levetiracetam (Keppra) 1,000 mg in 100 mls @ 400 mls/hr IV Q12H [facility] Pharmacy Consult (Consult Rx Perform Med Rec) 1 each MISCELLANE ONCE PRN PRN Reason: Consult order Sodium Chloride (0.9 % Sodium Chloride Flush 3 Ml Syringe) 3 ml IVFLUSH QSHIFT [facility] Home Medications Medication Instructions Recorded Confirmed Last Taken Type acetaminophen 325 mg tablet 650 mg PO Q6H PRN 04/10/21 08/24/21 Unknown History aluminum-mag hydroxide-simethicone 30 ml PO Q6H PRN 04/10/21 08/24/21 Unknown History 200 mg-200 mg-20 mg/5 mL oral susp ascorbic acid (vitamin C) 500 mg 500 mg PO DAILY 04/10/21 08/24/21 Unknown History tablet (Vitamin C) cholecalciferol (vitamin D3) 25 25 mcg PO DAILY 04/10/21 08/24/21 Unknown History mcg (1,000 unit) tablet clozapine 50 mg tablet 50 mg PO BEDTIME 04/10/21 08/24/21 04/09/21 History lithium carbonate 450 mg 225 mg PO BID 04/10/21 08/24/21 Unknown History tablet,extended release loratadine 10 mg tablet 10 mg PO DAILY PRN 04/10/21 08/24/21 Unknown History methocarbamol 750 mg tablet 750 mg PO BID PRN 04/10/21 08/24/21 Unknown History metoprolol succinate 50 mg capsule 50 mg PO DAILY 04/10/21 08/24/21 Unknown History sprinkle, ext. release 24 hr multivitamin with minerals 1 tab PO DAILY 04/10/21 08/24/21 Unknown History omega-3 fatty acids 500 mg capsule 1,000 mg PO DAILY 04/10/21 08/24/21 Unknown History polyvinyl alcohol 1.4 % eye drops 1 drp OPHTHALMIC (EYE) Q12H 04/10/21 08/24/21 Unknown History (Artificial Tears (polyvinyl alcohol)) sennosides 8.6 mg tablet (senna) 8.6 mg PO DAILY PRN 04/10/21 08/24/21 Unknown History vitamin E 400 unit capsule 400 unit PO DAILY 04/10/21 08/24/21 Unknown History benzocaine 10 % mucosal gel 1 appl MUCOUS MEMBRANE QID PRN 08/24/21 08/24/21 Unknown History calcium carbonate 500 mg calcium 500 mg PO Q6H 08/24/21 08/24/21 Unknown History (1,250 mg) chewable tablet clozapine 25 mg tablet (Clozaril) 25 mg PO DAILY 08/24/21 08/24/21 Unknown History diphenhydramine HCl 25 mg tablet 25 mg PO Q4H PRN 08/24/21 08/24/21 Unknown History ibuprofen 600 mg tablet 600 mg PO Q6H PRN 08/24/21 08/24/21 Unknown History levothyroxine 88 mcg tablet 88 mcg PO DAILY 08/24/21 08/24/21 Unknown History pregabalin 50 mg capsule 1 cap PO BID 08/24/21 08/24/21 Unknown History Physical Exam Vital Signs and Narrative: Vital Signs: Last Vital Signs Temp 98.2 F 08/24/21 22:00 Pulse 77 08/24/21 23:19 Resp 16 08/24/21 23:19 BP 116/58 L 08/24/21 23:19 Pulse Ox 98 08/24/21 22:00 Oxygen Flow Rate 15 08/24/21 17:44 Body Mass Index 29.5 Gen: Appears be in no acute distress HEENT: NCAT, Moist mucosa. Pulmonary: Course breath sounds, fair air entry CVS: Normal S1-S2 Abdomen: BS+, Soft, Nontender Extremities: Warm well perfused Neuro: Drowsy/lethargic. Exam is limited. Results Labs CBC and Chem 7: 08/24/21 18:05 08/24/21 18:05 Labs: Laboratory Results - last 24 hr 08/24/21 08/24/21 08/24/21 18:05 18:05 18:05 MCV 93.8 MCH 31.4 MCHC 33.4 RDW 12.8 Plt Count 145 L MPV 9.3 L Immature Gran % (Auto) 0.9 H Neut % (Auto) 85.6 H Lymph % (Auto) 5.8 L [place] % (Auto) 6.2 Eos % (Auto) 1.1 Baso % (Auto) 0.4 Lymph # (Auto) 0.3 L [place] # (Auto) 0.3 Eos # (Auto) 0.1 Baso # (Auto) 0.0 Abs Immat Gran (auto) 0.05 H Absolute Neuts (auto) 4.5 Absolute Nucleated RBC 0.000 Nucleated RBC % (auto) 0.0 Anion Gap 12 Estim Creat Clear Calc 71.1 Estimated GFR 58 Random Glucose 188 H D Lactic Acid Lactic Acid Fup @ 2Hr Calcium 9.1 Magnesium Total Bilirubin 0.9 AST 16 ALT 14 Alkaline Phosphatase 71 D Total Protein 6.4 L Albumin 4.1 Urine Color Urine Appearance Urine pH Ur Specific [place] Urine Protein Urine Glucose (UA) Urine Ketones Urine Blood Urine Nitrite Ur Leukocyte Esterase Urine RBC Urine WBC Ur Squamous Epith Cells Amorphous Sediment Urine Bacteria Hyaline Casts Urine Mucus [place] COVID-19 (DHRUV) Negative COVID-19 Clin Com See Note 08/24/21 08/24/21 08/24/21 18:05 18:05 18:05 MCV MCH MCHC RDW Plt Count MPV Immature Gran % (Auto) Neut % (Auto) Lymph % (Auto) [place] % (Auto) Eos % (Auto) Baso % (Auto) Lymph # (Auto) [place] # (Auto) Eos # (Auto) Baso # (Auto) Abs Immat Gran (auto) Absolute Neuts (auto) Absolute Nucleated RBC Nucleated RBC % (auto) Anion Gap Estim Creat Clear Calc Estimated GFR Random Glucose Lactic Acid 3.6 H* Lactic Acid Fup @ 2Hr Calcium Magnesium 2.2 Total Bilirubin AST ALT Alkaline Phosphatase Total Protein Albumin Urine Color Urine Appearance Urine pH Ur Specific [place] Urine Protein Urine Glucose (UA) Urine Ketones Urine Blood Urine Nitrite Ur Leukocyte Esterase Urine RBC Urine WBC Ur Squamous Epith Cells Amorphous Sediment Urine Bacteria Hyaline Casts Urine Mucus [place] 0.57 L COVID-19 (DHRUV) COVID-19 [employer] Com 08/24/21 08/24/21 18:08 20:14 MCV MCH MCHC RDW Plt Count MPV Immature Gran % (Auto) Neut % (Auto) Lymph % (Auto) [place] % (Auto) Eos % (Auto) Baso % (Auto) Lymph # (Auto) [place] # (Auto) Eos # (Auto) Baso # (Auto) Abs Immat Gran (auto) Absolute Neuts (auto) Absolute Nucleated RBC Nucleated RBC % (auto) Anion Gap Estim Creat Clear Calc Estimated GFR Random Glucose Lactic Acid Lactic Acid Fup @ 2Hr 1.7 Calcium Magnesium Total Bilirubin AST ALT Alkaline Phosphatase Total Protein Albumin Urine Color YELLOW Urine Appearance CLEAR Urine pH 7.0 Ur Specific [place] 1.020 Urine Protein 1+ H Urine Glucose (UA) NEG Urine Ketones NEG Urine Blood NEG Urine Nitrite NEG Ur Leukocyte Esterase NEG Urine RBC 1-4 Urine WBC 0-2 Ur Squamous Epith Cells TRACE Amorphous Sediment 1+ Urine Bacteria TRACE Hyaline Casts 5-9 Urine Mucus 1+ [place] COVID-19 (DHRUV) COVID-19 Clin Com Imaging Radiologist's Impressions: Impressions Head CT 08/24/21 17:21 IMPRESSION: No acute finding. Once again prominent ventricular system with white matter changes are noted. No midline shift, mass effect or hemorrhage Chest X-Ray 08/24/21 17:36 IMPRESSION: Unremarkable chest exam. No major change from 07/01/2021 Assessment and Plan (1) Status epilepticus: Status: Acute (2) Fever: Qualifiers: Fever type: unspecified Qualified Code(s): R50.9 - Fever, unspecified Status: Acute (3) Hypothyroidism: Status: Acute (4) Dementia: Status: Acute (5) Chronic static encephalopathy: Status: Acute (6) Frontal lobe contusion: Status: Acute 55-year-old male with a past medical history of traumatic brain injury, frontal of concussion, dementia, sick sinus syndrome status post pacemaker, history of ventricular tachycardia, hypothyroidism, osteoarthritis, thrombocytopenia, history of progressive multi focal leukoencephalopathy, history of ?CVA status post tPA in May of 2021; recent admission to the hospital for possible meningoencephalitis in June of 2021; behavioral issues; lives in a halfway; presented to the hospital today with chief complaint of seizure. Seizure: Patient did not have any prior history of seizure episodes. Patient had recent admission to the hospital for altered mental status/question meningoencephalitis. CT head showed prominent ventricular system as noted from before. Otherwise no acute findings. Patient had prolonged episode of seizure-concern for status epilepticus; patient was shaky and lost consciousness at the halfway. Associated with urinary incontinence. Patient currently drowsy and with R cheek. Protecting airways. Supplemental oxygen NPO Patient received Keppra in the ER. I spoke to Dr. Barajas from Neurology who suggested as the patient on received Keppra to continue for now. Ativan p.r.n. for breakthrough seizures Seizure and aspiration precautions. Mild lactic acidosis: Likely in the setting of seizure episode. Gentle IV fluids. Resolved Fever: Unclear etiology. Patient had a temperature of 101? F on presentation. The UA and chest x-ray negative. Follow the fever curve. History of traumatic brain injury/behavioral disorder: Will hold the patient's home medications for now as the patient is currently NPO. Hypothyroidism: During the last admissions patient's TSH was noted to be 0.03. Patient's levothyroxine dose was reduced to 88 mcg. Will repeat the TSH. DVT prophylaxis: SCD boots Code status: Full code Unable to reach the patient's guardian Merly clairekeesha. Will defer to the a.m. team to retry Quality Stroke Does the patient have a stroke diagnosis?: No VTE Prior VTE?: No VTE Risk Level:: Medical - moderate - high VTE Device Contraindication: N/A - Device Ordered VTE Drug Contraindication: Treatment Not Indicated
--- NOTE | 2021-08-24 23:25 | PC.NURSE ---
This RN contacted pharmacy regarding keppra dose. Pt had rec'd keppra on arrival, pharmacy made aware. Per Pharmacy, pt not to receive same dose of keppra at this time. Pharmacy to change keppra to be due at 6am to reflect q12h order.
[2021-08-25 00:09] LABS: Thyroid Stimulating Hormone 0.01 uIU/mL (0.32-4.0)
[2021-08-25] MEDS: Dextrose 5 % and 0.45 % NaCl 1,000 ML 45 ML IVCONT (00:15)
--- NOTE | 2021-08-25 01:38 | PC.NURSE ---
Patient arrived on unit at 0130. Pt is uncooperative with staff, spitting. Refusing vitals and tele pack. IVF running. HOB elevated, pt vomited small amount of emesis. Bed rails padded, other seizure precautions in place at bedside. Will reapproach later on as patient allows.
[2021-08-25 01:47] VITALS: BMI 26.9
[2021-08-25 02:00] VITALS: BMI 26.9
[2021-08-25 04:00] VITALS: RESP 20
[2021-08-25] MEDS: LORazepam 2 MG/ML VIAL 1 MG IVPUSH (04:18)
--- NOTE | 2021-08-25 04:25 | PC.NURSE ---
Patient becoming agitated, getting out of bed, pulled out IV, pulled out kim (not bleeding). Dr. Mendoza notified, instructed to give pt a dose of ativan. Pt agreeable to take ativan to help participate in his care.
[2021-08-25 04:48] VITALS: BP 118/77; PULSE 81; RESP 20; O2SAT 98
[2021-08-25] MEDS: levETIRAcetam in NaCl (iso-os) 1,000 MG/100 ML PIGGYBACK 400 MG IV ×2 (05:51→17:33)
[2021-08-25 07:11] VITALS: BP 122/76; PULSE 74; RESP 18; TEMP 36.6; O2SAT 96
[2021-08-25 07:51] LABS: Anion Gap 10 (12-20); Blood Urea Nitrogen 15 mg/dL (9-16); Calcium 9.6 mg/dL (8.4-10.2); Carbon Dioxide 28 mmol/L (22-29); Chloride 113 mmol/L (96-108); Creatinine Clr Calc Pharmacy 72.3; Estimated Glomerular Filt Rate > 60; Glucose Random 128 mg/dL (60-115); Magnesium 2.5 mg/dL (1.6-2.6); Potassium 4.5 mmol/L (3.3-5.1); Sodium 146 mmol/L (135-145)
--- NOTE | 2021-08-25 09:23 | HO.PM.IMPN ---
Subjective Subjective Date of Service: 08/25/21 Interval History: no further seizures denies any complaints but not a reliable historian unable to obtain further ROS due to mental status Review of Systems Review of Systems: Yes Unobtainable due to mental status Physical Exam Vital Signs: Vital Signs: Last Vital Signs Temp 98 F 08/25/21 07:11 Pulse 74 08/25/21 07:11 Resp 18 08/25/21 07:11 BP 122/76 08/25/21 07:11 Pulse Ox 96 08/25/21 07:11 Oxygen Flow Rate 15 08/24/21 17:44 Body Mass Index 26.9 Gen: somnolent but arousable, answers basic questions appropriately HEENT: sclera anicteric, moist mucus membranes Neck: supple Lungs: clear to auscultation bilaterally Heart: regular rate and rhythm, no murmurs Abd: soft, non-tender, non-distended Ext: no edema Skin: warm/well-perfused Neuro: unable to assess due to mental status Psych: impaired insight Objective Data Active Medications Acetaminophen (Acetaminophen Supp 650 Mg Supp.Rect) 650 mg MD Q6H PRN PRN Reason: Pain, Mild (Pain Scale 1-3) Dextrose/Sodium Chloride (D51/2ns) 1,000 mls @ 45 mls/hr IVCONT .[id number] [facility] Last Infusion: 08/25/21 06:15 Dose: 45 mls/hr Documented by: INGRID Levetiracetam (Keppra) 1,000 mg in 100 mls @ 400 mls/hr IV Q12H [facility] Last Infusion: 08/25/21 06:11 Dose: 0 mls/hr Documented by: INGRID Lorazepam (Lorazepam 2 Mg/Ml Vial) 1 mg IVPUSH Q2H PRN PRN Reason: Seizures Last Admin: 08/25/21 04:18 Dose: 1 mg Documented by: INGRID Pharmacy Consult (Consult Rx Perform Med Rec) 1 each MISCELLANE ONCE PRN PRN Reason: Consult order Sodium Chloride (0.9 % Sodium Chloride Flush 3 Ml Syringe) 3 ml IVFLUSH QSHIFT [facility] Last Admin: 08/25/21 08:28 Dose: Not Given Documented by: RASHI Non-Admin Reason: IV Running Labs CBC & Chem 7: 08/24/21 18:05 08/25/21 07:07 Labs: Laboratory Results - last 24 hr 08/24/21 08/24/21 08/24/21 18:05 18:05 18:05 MCV 93.8 MCH 31.4 MCHC 33.4 RDW 12.8 Plt Count 145 L MPV 9.3 L Immature Gran % (Auto) 0.9 H Neut % (Auto) 85.6 H Lymph % (Auto) 5.8 L [place] % (Auto) 6.2 Eos % (Auto) 1.1 Baso % (Auto) 0.4 Lymph # (Auto) 0.3 L [place] # (Auto) 0.3 Eos # (Auto) 0.1 Baso # (Auto) 0.0 Abs Immat Gran (auto) 0.05 H Absolute Neuts (auto) 4.5 Absolute Nucleated RBC 0.000 Nucleated RBC % (auto) 0.0 Anion Gap 12 Estim Creat Clear Calc 71.1 Estimated GFR 58 Random Glucose 188 H D Lactic Acid Lactic Acid Fup @ 2Hr Calcium 9.1 Magnesium Total Bilirubin 0.9 AST 16 ALT 14 Alkaline Phosphatase 71 D Total Protein 6.4 L Albumin 4.1 TSH Urine Color Urine Appearance Urine pH Ur Specific [place] Urine Protein Urine Glucose (UA) Urine Ketones Urine Blood Urine Nitrite Ur Leukocyte Esterase Urine RBC Urine WBC Ur Squamous Epith Cells Amorphous Sediment Urine Bacteria Hyaline Casts Urine Mucus [place] COVID-19 (DHRUV) Negative COVID-19 Clin Com See Note 08/24/21 08/24/21 08/24/21 18:05 18:05 18:05 MCV MCH MCHC RDW Plt Count MPV Immature Gran % (Auto) Neut % (Auto) Lymph % (Auto) [place] % (Auto) Eos % (Auto) Baso % (Auto) Lymph # (Auto) [place] # (Auto) Eos # (Auto) Baso # (Auto) Abs Immat Gran (auto) Absolute Neuts (auto) Absolute Nucleated RBC Nucleated RBC % (auto) Anion Gap Estim Creat Clear Calc Estimated GFR Random Glucose Lactic Acid 3.6 H* Lactic Acid Fup @ 2Hr Calcium Magnesium 2.2 Total Bilirubin AST ALT Alkaline Phosphatase Total Protein Albumin TSH Urine Color Urine Appearance Urine pH Ur Specific [place] Urine Protein Urine Glucose (UA) Urine Ketones Urine Blood Urine Nitrite Ur Leukocyte Esterase Urine RBC Urine WBC Ur Squamous Epith Cells Amorphous Sediment Urine Bacteria Hyaline Casts Urine Mucus [place] 0.57 L COVID-19 (DHRUV) COVID-19 Clin Com 08/24/21 08/24/21 08/24/21 18:08 20:14 23:24 MCV MCH MCHC RDW Plt Count MPV Immature Gran % (Auto) Neut % (Auto) Lymph % (Auto) [place] % (Auto) Eos % (Auto) Baso % (Auto) Lymph # (Auto) [place] # (Auto) Eos # (Auto) Baso # (Auto) Abs Immat Gran (auto) Absolute Neuts (auto) Absolute Nucleated RBC Nucleated RBC % (auto) Anion Gap Estim Creat Clear Calc Estimated GFR Random Glucose Lactic Acid Lactic Acid Fup @ 2Hr 1.7 Calcium Magnesium Total Bilirubin AST ALT Alkaline Phosphatase Total Protein Albumin TSH 0.01 L Urine Color YELLOW Urine Appearance CLEAR Urine pH 7.0 Ur Specific [place] 1.020 Urine Protein 1+ H Urine Glucose (UA) NEG Urine Ketones NEG Urine Blood NEG Urine Nitrite NEG Ur Leukocyte Esterase NEG Urine RBC 1-4 Urine WBC 0-2 Ur Squamous Epith Cells TRACE Amorphous Sediment 1+ Urine Bacteria TRACE Hyaline Casts 5-9 Urine Mucus 1+ [place] COVID-19 (DHRUV) COVID-19 [employer] Com 08/25/21 07:07 MCV MCH MCHC RDW Plt Count MPV Immature Gran % (Auto) Neut % (Auto) Lymph % (Auto) [place] % (Auto) Eos % (Auto) Baso % (Auto) Lymph # (Auto) [place] # (Auto) Eos # (Auto) Baso # (Auto) Abs Immat Gran (auto) Absolute Neuts (auto) Absolute Nucleated RBC Nucleated RBC % (auto) Anion Gap 10 L Estim Creat Clear Calc 72.3 Estimated GFR > 60 Random Glucose 128 H Lactic Acid Lactic Acid Fup @ 2Hr Calcium 9.6 Magnesium 2.5 Total Bilirubin AST ALT Alkaline Phosphatase Total Protein Albumin TSH Urine Color Urine Appearance Urine pH Ur Specific [place] Urine Protein Urine Glucose (UA) Urine Ketones Urine Blood Urine Nitrite Ur Leukocyte Esterase Urine RBC Urine WBC Ur Squamous Epith Cells Amorphous Sediment Urine Bacteria Hyaline Casts Urine Mucus [place] COVID-19 (DHRUV) COVID-19 Clin Com [address] Head CT 08/24/21 17:21 IMPRESSION: No acute finding. Once again prominent ventricular system with white matter changes are noted. No midline shift, mass effect or hemorrhage Chest X-Ray 08/24/21 17:36 IMPRESSION: Unremarkable chest exam. No major change from 07/01/2021 Assessment and Plan (1) Seizure: Status: Acute Assessment and Plan: Seizure:? Patient did not have any prior history of seizure episodes. Patient had recent admission to the hospital for altered mental status/question meningoencephalitis. CT head showed prominent ventricular system as noted from before.? Otherwise no acute findings. Patient had prolonged episode of seizure-concern for status epilepticus; patient was shaky and lost consciousness at the retirement.? Associated with urinary incontinence. Patient currently drowsy and with R cheek.? Protecting airways. Supplemental oxygen NPO Patient received Keppra in the ER. I spoke to Dr. Barajas from Neurology who suggested as the patient on received Keppra to continue for now. Ativan p.r.n. for breakthrough seizures Seizure and aspiration precautions. Mild lactic acidosis:? Likely in the setting of seizure episode.? Gentle IV fluids.? Resolved Fever:? Unclear etiology.? Patient had a temperature of 101? F on presentation.? The UA and chest x-ray negative.? Follow the fever curve. History of traumatic brain injury/behavioral disorder:? Will hold the patient's home medications for now as the patient is currently NPO. Hypothyroidism:? During the last admissions patient's TSH was noted to be 0.03.? Patient's levothyroxine dose was reduced to 88 mcg.? Will repeat the TSH. DVT prophylaxis:? SCD boots Code status:? Full code Unable to reach the patient's guardian Merly barillas.? Will defer to the a.m. 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 in June of 2021 [no organism was ever identified but he was treated with doxycycline x 2 wk] admitted for new-onset seizure was also febrile and hypotensive at presentation # new-onset grand mal seizure - continue Keppra, Neuro consult pending, will order EEG; lorazepam prn breakthrough sz - given fever at onset and recent possible meningoencephalitis, will obtain LP/CSF studies # lactic acidosis - resolved, was due to seizure # hypothyroidism - TSH over-suppressed; will decrease LT4 from 88 to 75 mcg/d and recheck TSH in 4 wk # TBI # behavioral disturbance - continue lithium, pregabalin, clozapine as per prior dosages - [employer] consultation # VTE ppx - SCDs Quality Stroke Does the patient have a stroke diagnosis?: No VTE Prior VTE?: No VTE Risk Level:: Medical - moderate - high VTE Device Contraindication: N/A - Device Ordered VTE Drug Contraindication: Treatment Not Indicated
[2021-08-25 10:16] LABS: C Reactive Protein 1.03 mg/dL (< or = 0.50)
--- NOTE | 2021-08-25 10:20 | MHC.SLORD ---
Speech Language Pathology Order Status: Order received and chart reviewed. Pt is currently NPO. Per RN, pt has an order for a lumbar puncture but may have PO as MD is awaiting approval for the procedure from pt's guardian. RN reported that pt was just very agitated and combative towards her followed by wrapping himself up in a sheet. Upon this MANAGER OF MEDICAL's arrival to his room, pt was found laying in bed, wrapped up in a sheet from head to toe. Pt did not respond to verbal stimuli. Tactile stimuli not attempted as per RN, this results in aggressive behavior. RN to notify this MANAGER OF MEDICAL if pt becomes more cooperative later this date.
--- NOTE | 2021-08-25 11:16 | PM.NEUROCN ---
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 He was unable to provide any history. In emergency room he was treated with levetiracetam. He was also noted to be febrile. 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 History of traumatic brain injury Hx of cardiac pacemaker Hypothyroidism Osteoarthritis Progressive multifocal leukoencephalopathy Sick sinus syndrome Spondylosis Spondylosis of cervical region without myelopathy or radiculopathy Thrombocytopenia Traumatic brain injury Ventricular tachycardia Social History Social History Household Members: None Household Members Other:: [facility] Housing: Residential Housing Other:: [facility] Do you presently have visiting nurse or other home services: No Unable to assess alcohol history related to: Unknown Alcohol intake: unknown Patient Tobacco Use Status: Tobacco use Unknown Use of substances other than those prescribed or required for medical reasons: Refusing to respond Advance Directives: No Advance Directives Information Provided: Yes Advance Directives Date on File: 04/10/21 Recently lost weight without trying: Unsure service: No Current occupational status: disabled Meds Allergies Allergy/AdvReac Type Severity Reaction Status Date / Time No Known Allergies Allergy Verified 06/08/21 09:53 Active Medications: Current Medications Acetaminophen (Acetaminophen Supp 650 Mg Supp.Rect) 650 mg [place] Q6H PRN PRN Reason: Pain, Mild (Pain Scale 1-3) Al Hydroxide/Mg Hydroxide (Magnesium Hydrox/Alum Hydrox 30 Ml Oral.Susp) 30 ml PO Q6H PRN PRN Reason: Dyspepsia Artificial Tears (Artificial Tears 15 Ml Drops) 1 drop EYE-BOTH Q12H [facility] Last Admin: 08/25/21 09:53 Dose: Not Given Documented by: Ascorbic Acid (Ascorbic Acid 500 Mg Tablet) 500 mg PO DAILY [facility] Aspirin (Aspirin 81 Mg Tab.Chew) 81 mg PO DAILY [facility] Calcium Carbonate (Calcium Carbonate 500 Mg Tablet) 500 mg PO Q6H [facility] Last Admin: 08/25/21 09:53 Dose: Not Given Documented by: Clozapine (Clozapine 25 Mg Tablet) 25 mg PO DAILY [facility] Last Admin: 08/25/21 10:47 Dose: Not Given Documented by: Clozapine (Clozapine 25 Mg Tablet) 50 mg PO BEDTIME [facility] Diphenhydramine HCl (Diphenhydramine Hcl 25 Mg Tablet) 25 mg PO Q4H PRN PRN Reason: Itching Levetiracetam (Keppra) 1,000 mg in 100 mls @ 400 mls/hr IV Q12H [facility] Last Infusion: 08/25/21 06:11 Dose: Infused Documented by: Levothyroxine Sodium (Levothyroxine Sodium 75 Mcg Tablet) 75 mcg PO DAILY@0600 [facility] [place] Carbonate ([place] Carbonate Er 450 Mg Tablet.Er) 225 mg PO BID [facility] Loratadine (Loratadine 10 Mg Tablet) 10 mg PO DAILY PRN PRN Reason: Itching Lorazepam (Lorazepam 2 Mg/Ml Vial) 1 mg IVPUSH Q2H PRN PRN Reason: Seizures Last Admin: 08/25/21 04:18 Dose: 1 mg Documented by: Metoprolol Succinate (Metoprolol Succinate Er 50 Mg Tab.Er.24h) 50 mg PO DAILY [facility]; Protocol Multivitamins/Vitamin C (Multivitamin Tablet) 1 tab PO DAILY [facility] Pharmacy Consult (Consult Rx Perform Med Rec) 1 each MISCELLANE ONCE PRN PRN Reason: Consult order Pregabalin (Pregabalin 50 Mg Capsule) 50 mg PO BID [facility] Senna (Sennosides 8.6 Mg Tablet) 8.6 mg PO DAILY PRN PRN Reason: Constipation Sodium Chloride (0.9 % Sodium Chloride Flush 3 Ml Syringe) 3 ml IVFLUSH QSHIFT [facility] Last Admin: 08/25/21 08:28 Dose: Not Given Documented by: Vitamin D (Cholecalciferol (Vitamin D3) 25 Mcg Tablet) 25 mcg PO DAILY [facility] Home Medications Medication Instructions Recorded Confirmed Last Taken Type acetaminophen 325 mg tablet 650 mg PO Q6H PRN 04/10/21 08/24/21 Unknown History aluminum-mag hydroxide-simethicone 30 ml PO Q6H PRN 04/10/21 08/24/21 Unknown History 200 mg-200 mg-20 mg/5 mL oral susp ascorbic acid (vitamin C) 500 mg 500 mg PO DAILY 04/10/21 08/24/21 Unknown History tablet (Vitamin C) cholecalciferol (vitamin D3) 25 25 mcg PO DAILY 04/10/21 08/24/21 Unknown History mcg (1,000 unit) tablet clozapine 50 mg tablet 50 mg PO BEDTIME 04/10/21 08/24/21 04/09/21 History lithium carbonate 450 mg 225 mg PO BID 04/10/21 08/24/21 Unknown History tablet,extended release loratadine 10 mg tablet 10 mg PO DAILY PRN 04/10/21 08/24/21 Unknown History methocarbamol 750 mg tablet 750 mg PO BID PRN 04/10/21 08/24/21 Unknown History metoprolol succinate 50 mg capsule 50 mg PO DAILY 04/10/21 08/24/21 Unknown History sprinkle, ext. release 24 hr multivitamin with minerals 1 tab PO DAILY 04/10/21 08/24/21 Unknown History omega-3 fatty acids 500 mg capsule 1,000 mg PO DAILY 04/10/21 08/24/21 Unknown History polyvinyl alcohol 1.4 % eye drops 1 drp OPHTHALMIC (EYE) Q12H 04/10/21 08/24/21 Unknown History (Artificial Tears (polyvinyl alcohol)) sennosides 8.6 mg tablet (senna) 8.6 mg PO DAILY PRN 04/10/21 08/24/21 Unknown History vitamin E 400 unit capsule 400 unit PO DAILY 04/10/21 08/24/21 Unknown History benzocaine 10 % mucosal gel 1 appl MUCOUS MEMBRANE QID PRN 08/24/21 08/24/21 Unknown History calcium carbonate 500 mg calcium 500 mg PO Q6H 08/24/21 08/24/21 Unknown History (1,250 mg) chewable tablet clozapine 25 mg tablet (Clozaril) 25 mg PO DAILY 08/24/21 08/24/21 Unknown History diphenhydramine HCl 25 mg tablet 25 mg PO Q4H PRN 08/24/21 08/24/21 Unknown History ibuprofen 600 mg tablet 600 mg PO Q6H PRN 08/24/21 08/24/21 Unknown History levothyroxine 88 mcg tablet 88 mcg PO DAILY 08/24/21 08/24/21 Unknown History pregabalin 50 mg capsule 1 cap PO BID 08/24/21 08/24/21 Unknown History Physical Exam Vital Signs: Vital Signs: Last Vital Signs Temp 98 F 08/25/21 07:11 Pulse 74 08/25/21 07:11 Resp 18 08/25/21 07:11 BP 122/76 08/25/21 07:11 Pulse Ox 96 08/25/21 07:11 Oxygen Flow Rate 15 08/24/21 17:44 Body Mass Index 26.9 Neuro: Other: Very drowsy and resistant to examination keeping his eyes closed. I was able to open his eyes and did not notice any gaze deviation or jerking. He was laying on his side with his arms and legs curled up and was resistant to any examination. Overall hygiene was poor. Deep tendon reflexes are absent with withdrawing plantars. No obvious tremor or jerking was noted. Intermittently he would try to answer a question but mostly resisting. Results Labs CBC & Chem 7: 08/24/21 18:05 08/25/21 07:07 Labs: Short CBC 08/24/21 Range/Units 18:05 WBC 5.3 (4.8-10.8) X10*3/uL Hgb 12.7 L (14.0-18.0) g/dl Hct 38.0 L (42-52) % Plt Count 145 L (160-400) X10*3/uL BMP 08/24/21 08/25/21 18:05 07:07 Sodium 143 146 H Potassium 4.0 4.5 Chloride 110 H 113 H Carbon Dioxide 25 28 BUN 14 D 15 Creatinine 1.29 1.14 Calcium 9.1 9.6 Liver Function 08/24/21 Range/Units 18:05 Total Bilirubin 0.9 (0.0-1.0) mg/dL AST 16 (5-37) U/L ALT 14 (0-40) U/L Alkaline Phosphatase 71 D (39-117) U/L Albumin 4.1 (3.5-5.0) g/dL Urine 08/24/21 Range/Units 18:08 Urine Color YELLOW Urine Appearance CLEAR Urine pH 7.0 (5.0-8.0) Ur Specific [place] 1.020 (1.005-1.025) Urine Protein 1+ H (NEG-TRACE) MG/DL Urine Glucose (UA) NEG (NEG) MG/DL His head CT did not reveal any significant acute abnormality. Assessment and Plan (1) Seizure: Start date: 08/25/21 Status: Acute 55 years old man with complex neurological history presented with seizure. He was treated with IV levetiracetam and at this time was quite lethargic. Initially he also was febrile. 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 Technically he required treatment for seizure but also investigation for the precise cause. This was because of the fever unless it was clearly explained. I recommend continuing levetiracetam 500 mg twice a day, performing a lumbar puncture to check a spinal fluid, and sending for meningoencephalitic panel. An EEG was also recommended Procedures Date of Service Date of Service: 08/25/21
[2021-08-25 11:19] VITALS: BP 142/74; PULSE 68; RESP 20; TEMP 36.1; O2SAT 98
--- NOTE | 2021-08-25 11:30 | P.CDIC_ITS ---
CDI Concurrent Query Documentation Clarification: PHYSICIAN'S DOCUMENTATION REQUEST Date of Query: 08/25/21 1130 Patient Name: Bill Lincoln Admit Date: 08/24/21 Dear Doctor, A review of the medical record indicates additional documentation may be needed. Please review below and update the documentation accordingly. Risk Factors/Clinical Indicators/Treatments Lab findings: potassium 146 H Based on the above, could you clarify in the Progress Notes the appropriate diagnosis, if significant, that supports the above abnormalities and additional evaluation, monitoring, and/or treatment rendered: * Labs indicate a diagnosis of (please specify) * Other (please specify) * Unable to determine Use of terms such as suspected, likely, concern for, or probable (associated with a specific diagnosis that is being evaluated, monitored, or treated as if it exists) are acceptable and can be coded in the inpatient setting, when documented at the time of discharge. Thank you, Judith Lubin [facility], CDIS Extension: [phone] Please use your independent medical judgment in providing your response. THIS QUERY IS PART OF THE PERMANENT MEDICAL RECORD Provider Response: Other Other Diagnosis: hypernatremia mild
[2021-08-25 11:34] LABS: INTERNATIONAL NORM RATIO 1.2 (0.9-1.1); Prothrombin Time 13.4 SEC (9.9-13.0)
[2021-08-25 11:37] LABS: Partial Thromboplastin Time 38.1 SEC (24.1-38.0)
[2021-08-25] MEDS: OLANZapine 10 MG VIAL 5 MG IM (14:30)
[2021-08-25 15:28] VITALS: BP 122/76; PULSE 83; RESP 16; O2SAT 97
--- NOTE | 2021-08-25 15:50 | MHC.CM.PN ---
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
--- NOTE | 2021-08-25 16:55 | HO.RADPN ---
RADIOLOGY Narrative Narrative: LP performed using 22 g spinal needle at L3/L4. 4 mL of clear CSF removed.
[2021-08-25] MEDS: 0.9 % Sodium Chloride Flush 3 ML SYRINGE IVFLUSH (17:33)
[2021-08-25 18:27] LABS: Glucose CSF 72 mg/dL
[2021-08-25 18:29] LABS: CSF Appearance Clear, Colorless
[2021-08-25 18:30] LABS: CSF Tube # 2
[2021-08-25 18:36] LABS: Appearance CSF CLEAR; CSF Tube # 1; CSF Tube # 4; Color CSF COLORLESS; Color CSF PINK; Red Blood Cell CSF 379 MM*3; Red Blood Cell CSF 7 MM*3; White Blood Cell CSF 0 MM*3
[2021-08-26] MEDS: cloZAPine 25 MG TABLET 50 MG PO ×2 (00:11→22:34)
[2021-08-26] MEDS: Lithium Carbonate ER 450 MG TABLET.ER 225 MG PO ×3 (00:12→22:35)
[2021-08-26] MEDS: Pregabalin 50 MG CAPSULE PO ×3 (00:12→22:34)
[2021-08-26] MEDS: 0.9 % Sodium Chloride Flush 3 ML SYRINGE IVFLUSH ×2 (00:15→15:52)
--- NOTE | 2021-08-26 00:39 | PC.NURSE ---
Patient is confused, refuses to speak, refuses many components of nursing care, refuses telemetry, pulled out IV; patient was due to have LP today, discussed with MD, new order for IM zyprexa 5 mg and to re-place IV. IM zyprexa with good effect, 20 gauge to the right forearm, wrapped. LP done successfully. Pulled out kim prior to this shift start at 11am, and has had gross hematuria, MD aware. This evening, patient seen to be standing at bedside, telesitter in use, telesitter stat alarm, patient was incontinent of massive amount of bloody, clotty, shred-filled brown colored urine, all over floor, around the bed, patient was not redirectable at the time. Patient ambulated to the bathroom to finish voiding, was safely escorted back to bed. Patient consented to be cleaned up. Refused all evening medications. MD ok to do bedside eval for swallowing since MANAGER STARS was unable to be contacted successfully today. 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 Diet at baseline is NDD2 and thin liquids with meds whole.
[2021-08-26 04:00] VITALS: RESP 18
--- NOTE | 2021-08-26 09:33 | P.PNIM_ITS ---
Subjective Subjective Date of Service: 08/26/21 Interval History: LP done yesterday; no WBCs in CSF No further sz Generally uncooperative- refusing IV meds, EEG, labs Review of Systems Review of Systems: Yes Unobtainable due to mental status Physical Exam Vital Signs: Vital Signs: Last Vital Signs Temp 97 F 08/25/21 11:19 Pulse 83 08/25/21 15:28 Resp 18 08/26/21 04:00 BP 122/76 08/25/21 15:28 Pulse Ox 97 08/25/21 15:28 Oxygen Flow Rate 15 08/24/21 17:44 Body Mass Index 26.9 Gen: NAD HEENT: sclera anicteric, moist mucus membranes Neck: supple Lungs: clear to auscultation bilaterally Heart: regular rate and rhythm, no murmurs Abd: soft, non-tender, non-distended Ext: no edema Skin: warm/well-perfused Neuro: unable to assess due to uncooperation Psych: impaired insight Objective Data Active Medications Acetaminophen (Acetaminophen Supp 650 Mg Supp.Rect) [address] Q6H PRN PRN Reason: Pain, Mild (Pain Scale 1-3) Al Hydroxide/Mg Hydroxide (Magnesium Hydrox/Alum Hydrox 30 Ml Oral.Susp) 30 ml PO Q6H PRN PRN Reason: Dyspepsia Artificial Tears (Artificial Tears 15 Ml Drops) 1 drop EYE-BOTH Q12H [facility] Last Admin: 08/26/21 00:14 Dose: Not Given Documented by: ALVIN Non-Admin Reason: Patient Refused Ascorbic Acid (Ascorbic Acid 500 Mg Tablet) 500 mg PO DAILY [facility] Aspirin (Aspirin 81 Mg Tab.Chew) 81 mg PO DAILY [facility] Calcium Carbonate (Calcium Carbonate 500 Mg Tablet) 500 mg PO Q6H [facility] Last Admin: 08/26/21 06:30 Dose: Not Given Documented by: ALVIN Non-Admin Reason: Patient Refused Clozapine (Clozapine 25 Mg Tablet) 25 mg PO DAILY [facility] Last Admin: 08/25/21 10:47 Dose: Not Given Documented by: RASHI Non-Admin Reason: Patient Refused Clozapine (Clozapine 25 Mg Tablet) 50 mg PO BEDTIME [facility] Last Admin: 08/26/21 00:11 Dose: 50 mg Documented by: ALVIN Diphenhydramine HCl (Diphenhydramine Hcl 25 Mg Tablet) 25 mg PO Q4H PRN PRN Reason: Itching Levetiracetam (Levetiracetam 500 Mg Tablet) 500 mg PO BID [facility] Levothyroxine Sodium (Levothyroxine Sodium 75 Mcg Tablet) 75 mcg PO DAILY@0600 [facility] Last Admin: 08/26/21 09:08 Dose: Not Given Documented by: RASHI Non-Admin Reason: Patient Refused [place] Carbonate ([place] Carbonate Er 450 Mg Tablet.Er) 225 mg PO BID [facility] Last Admin: 08/26/21 00:12 Dose: 225 mg Documented by: ALVIN Loratadine (Loratadine 10 Mg Tablet) 10 mg PO DAILY PRN PRN Reason: Itching Lorazepam (Lorazepam 2 Mg/Ml Vial) 1 mg IVPUSH Q2H PRN PRN Reason: Seizures Last Admin: 08/25/21 04:18 Dose: 1 mg Documented by: INGRID Metoprolol Succinate (Metoprolol Succinate Er 50 Mg Tab.Er.24h) 50 mg PO DAILY [facility]; Protocol Multivitamins/Vitamin C (Multivitamin Tablet) 1 tab PO DAILY [facility] Pharmacy Consult (Consult Rx Perform Med Rec) 1 each MISCELLANE ONCE PRN PRN Reason: Consult order Pregabalin (Pregabalin 50 Mg Capsule) 50 mg PO BID [facility] Last Admin: 08/26/21 00:12 Dose: 50 mg Documented by: ALVIN Senna (Sennosides 8.6 Mg Tablet) 8.6 mg PO DAILY PRN PRN Reason: Constipation Sodium Chloride (0.9 % Sodium Chloride Flush 3 Ml Syringe) 3 ml IVFLUSH QSHIFT [facility] Last Admin: 08/26/21 09:08 Dose: Not Given Documented by: RASHI Non-Admin Reason: Patient Refused Vitamin D (Cholecalciferol (Vitamin D3) 25 Mcg Tablet) 25 mcg PO DAILY [facility] Labs CBC & Chem 7: 08/24/21 18:05 08/25/21 07:07 Labs: Laboratory Results - last 24 hr 08/25/21 08/25/21 08/25/21 07:07 11:20 16:35 PT 13.4 H INR 1.2 H APTT 38.1 H C-Reactive Protein 1.03 H CSF Tube Number 2 CSF Volume CSF Appearance CSF Color CSF WBC CSF RBC CSF Appearance (b) Clear, Colorless CSF Glucose 72 CSF Total Protein 34.0 CSF Mening/Enceph PCR 08/25/21 08/25/21 08/25/21 16:35 16:35 16:35 PT INR APTT C-Reactive Protein CSF Tube Number 1 4 CSF Volume 1.0 1.0 CSF Appearance CLEAR CLEAR CSF Color PINK COLORLESS CSF WBC 0 0 CSF RBC 379 7 CSF Appearance (b) CSF Glucose CSF Total Protein CSF Mening/Enceph PCR SEE NOTE Microbiology Microbiology Results: Microbiology 08/25/21 16:35 Gram Stain - Preliminary Cerebrospinal Fluid CSF Examination - Final Fluid Description - Final CSF Culture - Preliminary No growth. 08/24/21 18:05 Blood Culture - Preliminary Blood - Venous No growth after 24 hours. 08/24/21 18:05 Blood Culture - Preliminary Blood - Venous No growth after 24 hours. Assessment and Plan (1) Seizure: Status: Acute Assessment and Plan: hospital d#3 55yo M resident of [facility] SNF with TBI, frontal lobe concussion, dementia with behavioral disturbances, SSS s/p PPM, hx V tach, hypothyroidism, osteoarthritis, thrombocytopenia, hx PML, hx of ?CVA s/p tPA May 2021, recent admission to hospital for possible meningoencephaliatis in June of 2021 [no organism was ever identified but he was treated with doxycycline x 2 wk] admitted for new-onset seizure was also febrile and hypotensive at presentation # new-onset grand mal seizure - Neuro consulted, continue Keppra 500 mg bid-> change to PO, lorazepam prn breakthrough sz. refused EEG; can try again as outpt - no evidence of meingoencephalitis on CSF studies # lactic acidosis - resolved, was due to seizure # hyperNa, mild - encourage free water intake, repeat labs from today pending [pt uncooperative] # hypothyroidism - TSH over-suppressed; decreased LT4 from 88 to 75 mcg/d and recheck TSH in 4 wk # TBI # behavioral disturbance - continue lithium, pregabalin, clozapine as per prior dosages - [facility] consultation # VTE ppx - SCDs Quality Stroke Does the patient have a stroke diagnosis?: No VTE Prior VTE?: No VTE Risk Level:: Medical - moderate - high VTE Device Contraindication: N/A - Device Ordered VTE Drug Contraindication: Treatment Not Indicated
[2021-08-26] MEDS: levETIRAcetam 500 MG TABLET PO ×2 (10:05→22:34)
[2021-08-26 15:53] VITALS: BP 120/71; PULSE 56; RESP 20; TEMP 36.6; O2SAT 96
[2021-08-26 20:00] VITALS: BP 132/89; PULSE 76; RESP 16; TEMP 36.9; O2SAT 98
[2021-08-26 23:43] VITALS: BP 142/92; PULSE 65; RESP 14; TEMP 36.6; O2SAT 98
[2021-08-27] MEDS: 0.9 % Sodium Chloride Flush 3 ML SYRINGE IVFLUSH ×2 (00:33→09:02)
[2021-08-27 04:00] VITALS: BP 124/79; PULSE 65; RESP 14; TEMP 36.5; O2SAT 95
[2021-08-27] MEDS: Levothyroxine Sodium 75 MCG TABLET PO (06:46)
[2021-08-27 08:00] VITALS: BP 100/76; PULSE 60; RESP 18; TEMP 36.4; O2SAT 98
[2021-08-27] MEDS: Cholecalciferol (Vitamin D3) 25 MCG TABLET PO (09:02)
[2021-08-27] MEDS: Multivitamin TABLET 1 TAB PO (09:02)
[2021-08-27] MEDS: levETIRAcetam 500 MG TABLET PO (09:02)
[2021-08-27] MEDS: Ascorbic Acid 500 MG TABLET PO (09:02)
[2021-08-27] MEDS: Aspirin 81 MG TAB.CHEW PO (09:02)
[2021-08-27] MEDS: Lithium Carbonate ER 450 MG TABLET.ER 225 MG PO (09:02)
[2021-08-27] MEDS: cloZAPine 25 MG TABLET PO (09:02)
[2021-08-27 09:03] VITALS: BP 106/72; PULSE 64
[2021-08-27] MEDS: Pregabalin 50 MG CAPSULE PO (09:03)
[2021-08-27] MEDS: Metoprolol Succinate ER 50 MG TAB.ER.24H PO (09:03)
--- NOTE | 2021-08-27 10:05 | MHC.CM.PN ---
[facility] AT 2:00 T/M LEFT FOR GUARDIAN CASSANDRA OLIVIER [phone]
[2021-08-27 10:37] LABS: COVID-19 Test Negative (Negative)
--- NOTE | 2021-08-27 11:05 | P.DS_ITS ---
DS: Providers Provider Date of Service: 08/27/21 Date of admission: 08/24/21 23:09 Date of discharge: 08/27/21 Primary care physician: Unknown Physician Consults: 08/24/21 23:01 Consult to Neurology Routine Consulting Provider: [facility] Reason for consultation: Status epilepticus 08/25/21 09:45 Consult to Infectious Diseases Routine Consulting Provider: Jennifer Hsieh Reason for consultation: fever + new onset sz, recent meningoencephalitis DS: Diagnosis Discharge Diagnosis (1) Seizure: Status: Acute (2) Hypothyroidism: Status: Acute (3) Chronic static encephalopathy: Status: Acute (4) Behavioral disorder: Status: Acute DS: Summary Hospital Course Hospital Course: from admission H+P by hospitalist Ben Mendoza, 08/24/21: 55-year-old male with a past medical history of traumatic brain injury, frontal of concussion, dementia, sick sinus syndrome status post pacemaker, history of ventricular tachycardia, hypothyroidism, osteoarthritis, thrombocytopenia, history of progressive multi focal leukoencephalopathy, history of ?CVA status post tPA in May of 2021; recent admission to the hospital for possible meningoencephalitis in June of 2021; behavioral issues; lives in a snf; presented to the hospital today with chief complaint of seizure. Patient is lethargic, not responding to verbal or tactile stimuli; protecting airway; on supplemental oxygen; lying in the bed. Spoke to STAN Jones at [facility] who mentioned that patient lately has been having multiple admissions to the hospital; patient has baseline behavioral issues, frequently comes to the disc in gets intermittently agitated; over the past few days he has not been eating good.? About 6 days ago his dose of Lyrica has been increased; and psychiatric status been trying to increase the dose of his Clozaril; STAN Jones also mentioned that patient had an episode of seizure the lasted for 9 minutes; subsequently patient was given Ativan with slight improvement; patient did not have any fall; patient loss consciousness.? Patient also had urinary incontinence.? Followed by patient had 2nd episode that lasted from 19 minutes; subsequently EMS was called in and sent him to the ER. Reportedly at baseline patient walks and talks; Denies any new changes in his medications other than mentioned above; denies patient complaining of any signs of infection. As mentioned by Robert patient is full code. I also tried to speak to patient's guardian Merly barillas--> unable to reach; left voice message with a call back number. Review of all other systems is limited as the patient is drowsy/lethargic. ER course:? Per ER team patient on presentation noted to be very shaky; patient was given Keppra; patient drowsy/lethargic; protecting airway; placed on supplemental oxygen; CT head showed no acute findings; lab showed mild lactic acidosis otherwise benign labs.? Admitted to the hospital for further management. This 55 year-old male resident of [facility] with TBI, frontal lobe concussion, dementia with behavioral disturbances, SSS s/p PPM, hx V tach, hypothyroidism, osteoarthritis, thrombocytopenia, hx PML, hx of ?CVA s/p tPA May 2021, and recent admission to hospital for possible meningoencephaliatis in June of 2021 [no organism was ever identified but he was treated with doxycycline x 2 wk] was admitted for new-onset seizure. He was also febrile and hypotensive at presentation. Neurology was consulted. He was treated with levetiracetam. Fluoroscopy-guided lumbar puncture was done on 08/25/21 and there was no evidence of meningitis or encephalitis; CSF WBC count was 0 and PCR panel was negative. He refused EEG and most lab draws. He did not have recurrent seizures. His TSH was noted to be over-suppressed; levothyroxine was decreased from 88 mcg to 75 mcg/d and TSH ought to be rechecked in 1 month. Otherwise, he was continued on his usual behavioral medications (lithium, pregabalin, clozapine). He was discharged back to [facility] with plan for outpatient EEG and outpatient neurology follow-up. Time Spent with Patient Time attestation: Total time spent providing and/or coordinating discharge services: Discharge coordination time: Greater than 30 minutes Quality: Stroke Does the patient have a stroke diagnosis?: No Physical Exam Vital Signs: Vital Signs: Last Vital Signs Temp 97.6 F 08/27/21 08:00 Pulse 64 08/27/21 09:03 Resp 18 08/27/21 08:00 BP 106/72 08/27/21 09:03 Pulse Ox 98 08/27/21 08:00 Oxygen Flow Rate 15 08/24/21 17:44 Body Mass Index 26.9 Gen: NAD HEENT: sclera anicteric, moist mucus membranes Neck: supple Lungs: clear to auscultation bilaterally Heart: regular rate and rhythm, no murmurs Abd: soft, non-tender, non-distended Ext: no edema Skin: warm/well-perfused Neuro: unable to assess due to uncooperation Psych: impaired insight DS: Data Data Completed and Pending Completed studies during hospitalization [Text1]: Laboratory Results WBC 5.3 X10*3/uL (4.8-10.8) 08/24/21 18:05 RBC 4.05 X10*6/uL (4.60-5.80) L 08/24/21 18:05 Hgb 12.7 g/dl (14.0-18.0) L 08/24/21 18:05 Hct 38.0 % (42-52) L 08/24/21 18:05 MCV 93.8 fL (80-98) 08/24/21 18:05 MCH 31.4 pg (27.0-33.0) 08/24/21 18:05 MCHC 33.4 g/dl (31.0-36.0) 08/24/21 18:05 RDW 12.8 % (11.0-16.0) 08/24/21 18:05 Plt Count 145 X10*3/uL (160-400) L 08/24/21 18:05 MPV 9.3 fL (9.4-12.4) L 08/24/21 18:05 Immature Gran % (Auto) 0.9 % (0.0-0.4) H 08/24/21 18:05 Neut % (Auto) 85.6 % (45-73) H 08/24/21 18:05 Lymph % (Auto) 5.8 % (20-40) L 08/24/21 18:05 [place] % (Auto) 6.2 % (2-11) 08/24/21 18:05 Eos % (Auto) 1.1 % (0-4) 08/24/21 18:05 Baso % (Auto) 0.4 % (0-2) 08/24/21 18:05 Lymph # (Auto) 0.3 X10*3/uL (1.2-4.9) L 08/24/21 18:05 [place] # (Auto) 0.3 X10*3/uL (0.1-1.2) 08/24/21 18:05 Eos # (Auto) 0.1 X10*3/uL (0.0-0.4) 08/24/21 18:05 Baso # (Auto) 0.0 X10*3/uL (0.0-0.2) 08/24/21 18:05 Abs Immat Gran (auto) 0.05 X10*3/uL (0.00-0.03) H 08/24/21 18:05 Absolute Neuts (auto) 4.5 X10*3/uL (2.0-8.3) 08/24/21 18:05 Absolute Nucleated RBC 0.000 X10*3/uL (0.0-0.012) 08/24/21 18:05 Nucleated RBC % (auto) 0.0 /100WBC (0.0-0.2) 08/24/21 18:05 PT 13.4 SEC (9.9-13.0) H 08/25/21 11:20 INR 1.2 (0.9-1.1) H 08/25/21 11:20 APTT 38.1 SEC (24.1-38.0) H 08/25/21 11:20 Sodium 146 mmol/L (135-145) H 08/25/21 07:07 Potassium 4.5 mmol/L (3.3-5.1) 08/25/21 07:07 Chloride 113 mmol/L (96-108) H 08/25/21 07:07 Carbon Dioxide 28 mmol/L (22-29) 08/25/21 07:07 Anion Gap 10 (12-20) L 08/25/21 07:07 BUN 15 mg/dL (9-16) 08/25/21 07:07 Creatinine 1.14 mg/dL (0.5-1.4) 08/25/21 07:07 Estim Creat Clear Calc 72.3 08/25/21 07:07 Estimated GFR > 60 08/25/21 07:07 Random Glucose 128 mg/dL (60-115) H 08/25/21 07:07 Lactic Acid 3.6 mmol/L (0.5-2.0) H* 08/24/21 18:05 Lactic Acid Fup @ 2Hr 1.7 mmol/L (0.5-2.0) 08/24/21 20:14 Calcium 9.6 mg/dL (8.4-10.2) 08/25/21 07:07 Magnesium 2.5 mg/dL (1.6-2.6) 08/25/21 07:07 Total Bilirubin 0.9 mg/dL (0.0-1.0) 08/24/21 18:05 AST 16 U/L (5-37) 08/24/21 18:05 ALT 14 U/L (0-40) 08/24/21 18:05 Alkaline Phosphatase 71 U/L (39-117) D 08/24/21 18:05 C-Reactive Protein 1.03 mg/dL (< or = 0.50) H 08/25/21 07:07 Total Protein 6.4 g/dL (6.5-8.0) L 08/24/21 18:05 Albumin 4.1 g/dL (3.5-5.0) 08/24/21 18:05 TSH 0.01 uIU/mL (0.32-4.0) L 08/24/21 23:24 Urine Color YELLOW 08/24/21 18:08 Urine Appearance CLEAR 08/24/21 18:08 Urine pH 7.0 (5.0-8.0) 08/24/21 18:08 Ur Specific [place] 1.020 (1.005-1.025) 08/24/21 18:08 Urine Protein 1+ MG/DL (NEG-TRACE) H 08/24/21 18:08 Urine Glucose (UA) NEG MG/DL (NEG) 08/24/21 18:08 Urine Ketones NEG MG/DL (NEG) 08/24/21 18:08 Urine Blood NEG (NEG) 08/24/21 18:08 Urine Nitrite NEG (NEG) 08/24/21 18:08 Ur Leukocyte Esterase NEG (NEG) 08/24/21 18:08 Urine RBC 1-4 /HPF (0) 08/24/21 18:08 Urine WBC 0-2 /HPF (0-4) 08/24/21 18:08 Ur Squamous Epith Cells TRACE /LPF 08/24/21 18:08 Amorphous Sediment 1+ /LPF 08/24/21 18:08 Urine Bacteria TRACE /LPF 08/24/21 18:08 Hyaline Casts 5-9 /LPF 08/24/21 18:08 Urine Mucus 1+ /LPF 08/24/21 18:08 CSF Tube Number 1 08/25/21 16:35 CSF Tube Number 2 08/25/21 16:35 CSF Tube Number 4 08/25/21 16:35 CSF Volume 1.0 ML 08/25/21 16:35 CSF Volume 1.0 ML 08/25/21 16:35 CSF Appearance CLEAR 08/25/21 16:35 CSF Appearance CLEAR 08/25/21 16:35 CSF Color COLORLESS 08/25/21 16:35 CSF Color PINK 08/25/21 16:35 CSF WBC 0 MM*3 08/25/21 16:35 CSF WBC 0 MM*3 08/25/21 16:35 CSF RBC 7 MM*3 08/25/21 16:35 CSF RBC 379 MM*3 08/25/21 16:35 CSF Appearance (b) Clear, Colorless 08/25/21 16:35 CSF Glucose 72 mg/dL 08/25/21 16:35 CSF Total Protein 34.0 mg/dL (15-45) 08/25/21 16:35 CSF Mening/Enceph PCR SEE NOTE 08/25/21 16:35 [place] 0.57 mmol/L (0.60-1.20) L 08/24/21 18:05 COVID-19 (DHRUV) Negative (Negative) 08/27/21 10:15 COVID-19 Clin Com See Note 08/27/21 10:[address] 08/24/21 17:21 IMPRESSION: No acute finding. Once again prominent ventricular system with white matter changes are noted. No midline shift, mass effect or hemorrhage Chest X-Ray 08/24/21 17:36 IMPRESSION: Unremarkable chest exam. No major change from 07/01/2021 Discharge Plan Discharge Patient Disposition: Xfer SNF Discharge Diagnosis: seizure Referrals: [facility] [Other] - 1 Week Norm Pace MD [Physician] - 1 Week Brody Gordon DO [Physician] - 1 Week Physician,Unknown [Primary Care Provider] - 1 Week Discharge Medications: New levetiracetam 500 mg Tablet 500 mg PO BID Qty: 60 RF: 0 levothyroxine 75 mcg Tablet 75 mcg PO DAILY@0600 Qty: 30 RF: 0 Continued sennosides [senna] 8.6 mg Tablet 8.6 mg PO DAILY PRN (Reason: Constipation) RF: 0 acetaminophen 325 mg Tablet 650 mg PO Q6H PRN (Reason: Pain (Scale Score 1-3)) RF: 0 polyvinyl alcohol [Artificial Tears (polyvin alc)] 1.4 % Drops 1 drp ophthalmic (eye) Q12H RF: 0 lithium carbonate 450 mg Tablet Extended Release 225 mg PO BID RF: 0 methocarbamol 750 mg Tablet 750 mg PO BID PRN (Reason: Spasms) RF: 0 ascorbic acid (vitamin C) [Vitamin C] 500 mg Tablet 500 mg PO DAILY RF: 0 alum-mag hydroxide-simeth 200-200-20 mg/5 mL Suspension 30 ml PO Q6H PRN (Reason: Dyspepsia) RF: 0 multivitamin with minerals Tablet 1 tab PO DAILY RF: 0 vitamin E 400 unit Capsule 400 unit PO DAILY RF: 0 loratadine 10 mg Tablet 10 mg PO DAILY PRN (Reason: Itching) RF: 0 clozapine 50 mg Tablet 50 mg PO BEDTIME RF: 0 cholecalciferol (vitamin D3) 25 mcg (1,000 unit) Tablet 25 mcg PO DAILY RF: 0 omega-3 fatty acids 500 mg Capsule 1,000 mg PO DAILY RF: 0 metoprolol succinate 50 mg Capsule,Sprinkle,Er 24hr 50 mg PO DAILY RF: 0 aspirin [Aspirin Childrens] 81 mg tablet,chewable 81 mg PO DAILY Qty: 1 RF: 0 benzocaine 10 % Gel 1 appl MUCOUS MEMBRANE QID PRN (Reason: dental pain) RF: 0 diphenhydramine HCl 25 mg Tablet 25 mg PO Q4H PRN (Reason: Itching) RF: 0 calcium carbonate 500 mg calcium (1,250 mg) Tablet,Chewable 500 mg PO Q6H RF: 0 clozapine [Clozaril] 25 mg Tablet 25 mg PO DAILY RF: 0 ibuprofen 600 mg Tablet 600 mg PO Q6H PRN (Reason: Moderate Pain (Scale Score 5-6)) RF: 0 pregabalin 50 mg capsule 1 cap PO BID RF: 0 Discontinued levothyroxine 88 mcg tablet 88 mcg PO DAILY RF: 0 Discharge Orders: Discharge Order (Routine); Ordered 08/27/21 Ordered By: Torsten Martins Activity on Discharge: As tolerated Stand Alone Forms: Patient Portal Discharge page Other Ambulatory Orders: EEG ambulatory (Routine) Timeframe: 2 Weeks Facility: [facility] - Location: Radiology Ordered By: Torsten Martins Thyroid Stimulating Hormone (Routine) Timeframe: 1 Month Facility: [facility] - Location: Laboratory Ordered By: Torsten Martins Care Plan Goals: prevent seizure Health Concerns: seizure disorder Plan of Treatment: start levetiracetam 500 mg twice daily outpatient EEG, then see neurology decrease levothyroxine dose from 88 mcg to 75 mcg daily; recheck TSH in 1 month Assessment: see Discharge Summary
[2021-08-29 22:46] LABS: Lyme (B. burgdorferi) PCR NOT DETECTED (NOT DETECTED)
== END 2021-08-27 14:20 | disposition skilled nursing facility (03) | DRG 101 ==
LOC: HO.ED 22:57 → HO.EDOVER 23:29 → HO.IMC 08-25 00:37
PROVIDERS: Radiology Diagnostic Radiology; Admitting Provider Hospitalist; Emergency Provider Internal Medicine; Visit Provider Family Medicine
PROC: 009U3ZZ Drainage of Spinal Canal, Percutaneous Approach (ICD-10-PCS; CPT 62270; principal; 2021-08-25 15:00)
DX: G40.909 Epilepsy, unspecified, not intractable, without status epilepticus (principal); E87.2 Acidosis; F03.91 Unspecified dementia, unspecified severity, with behavioral disturbance; E87.0 Hyperosmolality and hypernatremia; E03.9 Hypothyroidism, unspecified; I49.5 Sick sinus syndrome; Z95.0 Presence of cardiac pacemaker; Z86.73 Personal history of transient ischemic attack (TIA), and cerebral infarction without residual deficits; Z20.822 Contact with and (suspected) exposure to COVID-19; Z87.820 Personal history of traumatic brain injury; Z79.1 Long term (current) use of non-steroidal anti-inflammatories (NSAID); Z79.82 Long term (current) use of aspirin; Z79.890 Hormone replacement therapy; Z79.899 Other long term (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
CPT/HCPCS: 36415; 62328; 70450; 71045; 80048; 80053; 80178; 81001; 82945; 83605; 83735; 84157; 84443; 85025; 85610; 85730; 86140; 87015; 87040; 87070; 87205; 87476; 87635; 89051; 93005; 99285; J1953; J2060; J2543

== ENCOUNTER 2022-11-10 11:03 | Emergency (ER) | payer MEDICARE, MEDICAID, SELFPAY ==
--- NOTE | ~2022-11-10 | CT_ITS ---
EXAMINATION: CT HEAD WITHOUT CONTRAST CLINICAL INFORMATION: Left leaning. Ataxia. COMPARISON: Most recent CT head dated 08/24/2021. TECHNIQUE: Contiguous axial imaging was performed from the skull base to vertex without intravenous administration of contrast. This CT examination was performed using dose optimization techniques as appropriate, variously including the following: *Automated exposure control *Adjustment of mA and/or kV according to patient size (this includes techniques or standardized protocols for targeted exams where dose is matched to indication/reason for exam; i.e. extremities or head) *Use of iterative reconstruction technique DLP: 793 mGy-cm FINDINGS: The ventricles and sulci are enlarged consistent with diffuse atrophy. No visualized masses or midline shift are seen. There is no intra-axial or extra-axial hemorrhage. There are no fluid collections. Decreased attenuation is seen in the periventricular white matter compatible with chronic small vessel ischemic disease. The real-white discrimination is preserved. The included paranasal sinuses and mastoid air cells are well aerated. The calvarium is intact. CT/CT head/brain wo IV con IMPRESSION: No intracranial hemorrhage or mass effect. Generalized atrophy and chronic small vessel white matter ischemic changes. Findings are similar when compared to the prior examination.
[2022-11-10 11:13] VITALS: BP 125/84; BP 175/75; PULSE 50; RESP 16; TEMP 36.8; O2SAT 94; O2SAT 95; BMI 21.8
--- NOTE | 2022-11-10 11:23 | ED_ITS ---
HPI - Fall General Chief Complaint: Fall Stated Complaint: Weak Fall at SNF per EMS Time Seen by Provider: 11/10/22 11:11 Source: patient Mode of arrival: EMS Limitations: no limitations History of Present Illness HPI Narrative: patient fell from a standing position. Denies head injury. Patient states he did not pass out. Staff describe ataxia and falling to the left MD complaint: fall Onset (ago): minute(s) Fall from: standing Fall witnessed: yes, by living facility staff Place fall occurred: group home/SNF Loss of consciousness: none Prolonged down time: no Related Data Home Medications Medication Instructions Recorded Confirmed acetaminophen 325 mg tablet 650 mg PO Q6H PRN Pain (Scale 04/10/21 08/24/21 Score 1-3) aluminum-mag hydroxide-simethicone 30 ml PO Q6H PRN Dyspepsia 04/10/21 08/24/21 200 mg-200 mg-20 mg/5 mL oral susp ascorbic acid (vitamin C) 500 mg 500 mg PO DAILY 04/10/21 08/24/21 tablet (Vitamin C) cholecalciferol (vitamin D3) 25 25 mcg PO DAILY 04/10/21 08/24/21 mcg (1,000 unit) tablet clozapine 50 mg tablet 50 mg PO BEDTIME 04/10/21 08/24/21 lithium carbonate 450 mg 225 mg PO BID 04/10/21 08/24/21 tablet,extended release loratadine 10 mg tablet 10 mg PO DAILY PRN Itching 04/10/21 08/24/21 methocarbamol 750 mg tablet 750 mg PO BID PRN Spasms 04/10/21 08/24/21 metoprolol succinate 50 mg capsule 50 mg PO DAILY 04/10/21 08/24/21 sprinkle, ext. release 24 hr multivitamin with minerals 1 tab PO DAILY 04/10/21 08/24/21 omega-3 fatty acids 500 mg capsule 1,000 mg PO DAILY 04/10/21 08/24/21 polyvinyl alcohol 1.4 % eye drops 1 drp ophthalmic (eye) Q12H 04/10/21 08/24/21 (Artificial Tears (polyvinyl alcohol)) sennosides 8.6 mg tablet (senna) 8.6 mg PO DAILY PRN Constipation 04/10/21 08/24/21 vitamin E 268 mg (400 unit) capsule 400 unit PO DAILY 04/10/21 08/24/21 benzocaine 10 % mucosal gel 1 appl mucous membrane QID PRN 08/24/21 08/24/21 dental pain calcium carbonate 500 mg calcium 500 mg PO Q6H heartburn 08/24/21 08/24/21 (1,250 mg) chewable tablet clozapine 25 mg tablet (Clozaril) 25 mg PO DAILY 08/24/21 08/24/21 diphenhydramine HCl 25 mg tablet 25 mg PO Q4H PRN Itching 08/24/21 08/24/21 ibuprofen 600 mg tablet 600 mg PO Q6H PRN Moderate Pain 08/24/21 08/24/21 (Scale Score 5-6) pregabalin 50 mg capsule 1 cap PO BID 08/24/21 08/24/21 Previous Rx's Medication Instructions Recorded aspirin 81 mg chewable tablet 81 mg PO DAILY #1 tab 04/11/21 (Aspirin Childrens) levetiracetam 500 mg tablet 500 mg PO BID #60 tabs 08/27/21 levothyroxine 75 mcg tablet 75 mcg PO DAILY@0600 #30 tabs 08/27/21 Allergies Allergy/AdvReac Type Severity Reaction Status Date / Time No Known Allergies Allergy Verified 06/08/21 09:53 Review of Systems Review of Systems: Yes all other systems are reviewed and are negative Neurologic: Denies Sensory deficit (Neuro) PMFSH Past Medical History Medical History Aphasia 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 COVID-19 Dementia Fever Frontal lobe contusion 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 History of traumatic brain injury Hx of cardiac pacemaker Hypothyroidism Osteoarthritis Progressive multifocal leukoencephalopathy Seizure Sick sinus syndrome Spondylosis Spondylosis of cervical region without myelopathy or radiculopathy Status epilepticus Thrombocytopenia Traumatic brain injury Ventricular tachycardia Social History Social History Household Members: None Household Members Other:: [facility] Housing: Custodial Housing Other:: [facility] Do you presently have visiting nurse or other home services: No Unable to assess alcohol history related to: Unknown Alcohol intake: unknown Patient Tobacco Use Status: Tobacco use Unknown Smoked in Last 30 Days: No Use of substances other than those prescribed or required for medical reasons: No Advance Directives: No Advance Directives Date on File: 04/10/21 service: No Current occupational status: disabled Physical Exam Vital Signs: Vital Signs: Last Vital Signs Temp 98.1 F 11/10/22 14:45 Pulse 50 11/10/22 12:55 Resp 18 11/10/22 14:45 BP 124/79 11/10/22 14:45 Pulse Ox 93 11/10/22 14:45 O2 Del Method 11/10/22 14:45 BMI result Body Mass Index 21.8 Const: Other: thin, chronically ill appearing, dyskinesia Nutritional Appearance: average body habitus Orientation/consciousness: oriented to person and patient oriented x3 Limitations: no limitations HEENT: Head: Yes normal to inspection Ears: external ears normal General nose exam: Normal external nose present Mouth: Normal oral and palatal mucosa present and oropharynx normal Throat: Yes posterior oropharynx normal Eyes: General: appearance normal, both eyes and all related structures Neck: Other: supple Neck: Yes normal visual inspection Chest: Chest palpation & inspection: normal inspection of the chest Resp: Auscultation: clear to auscultation bilaterally Cardio: Jugular venous distension: no JVD Rate: regular rate Rhythm: regular rhythm Heart sounds: S1 normal heart sound present and S2 normal heart sound present GI: Inspection: Yes normal to inspection Palpation (GI): Soft to palpation, nontender and No hepatosplenomegaly present Auscultation: normal bowel sounds : General: Yes no CVA tenderness Back/Spine/Pelvis: Back: no CVA tenderness Skin: General skin exam: no rashes or lesions noted Neuro: General: oriented to person and patient oriented x3 Cranial nerves: Yes CN's II-XII intact bilaterally Motor exam (neuro): 5/5 motor strength p resent throughout Sensory Exam: No Sensory deficit (Neuro) Extrem: General: Yes normal to inspection Psych: Other: no apparent weakness, but leaning to the left and slightly ataxic Course Reevaluation(s) Reevaluation #1: Discussed with Dr. Gordon patient at baseline will dc home Time: 14:44 Medical Decision Making Differential Diagnosis Stroke, brain mass, brain bleed, UTI, electrolyte abnormality all considered Admission/Observation With the constellation of ataxia and falling admission was considered Lab Data Result Diagrams: 11/10/22 12:05 11/10/22 12:05 Labs: Lab Results 11/10/22 11/10/22 11/10/22 Range/Units 12:05 12:05 13:09 WBC 4.3 L (4.8-10.8) X10*3/uL RBC 4.80 (4.60-5.80) X10*6/uL Hgb 14.8 (14.0-18.0) g/dl Hct 43.6 (42.0-52.0) % MCV 90.8 (80.0-98.0) fL MCH 30.8 (27.0-33.0) pg MCHC 33.9 (31.0-36.0) g/dl RDW 13.0 (11.0-16.0) % Plt Count 148 L (160-400) X10*3/uL MPV 9.2 L (9.4-12.4) fL Immature Gran % (Auto) 0.5 H (0.0-0.4) % Neut % (Auto) 63.2 (45-73) % Lymph % (Auto) 24.7 (20-40) % [place] % (Auto) 6.7 (2-11) % Eos % (Auto) 4.2 H (0-4) % Baso % (Auto) 0.7 (0-2) % Lymph # (Auto) 1.1 L (1.2-4.9) X10*3/uL [place] # (Auto) 0.3 (0.1-1.2) X10*3/uL Eos # (Auto) 0.2 (0.0-0.4) X10*3/uL Baso # (Auto) 0.0 (0.0-0.2) X10*3/uL Abs Immat Gran (auto) 0.02 (0.00-0.03) X10*3/uL Absolute Neuts (auto) 2.7 (2.0-8.3) x10*3/uL Absolute Nucleated RBC 0.000 (0.0-0.012) X10*3/uL Nucleated RBC % (auto) 0.0 (0.0-0.2) /100WBC Sodium 140 (135-145) mmol/L Potassium 4.6 (3.3-5.1) mmol/L Chloride 108 (96-108) mmol/L Carbon Dioxide 26 (22-29) mmol/L Anion Gap 11 L (12-20) BUN 16 (9-16) mg/dL Creatinine 0.99 (0.5-1.4) mg/dL Estim Creat Clear Calc 88.7 Estimated GFR > 60 Random Glucose 94 (60-115) mg/dL Calcium 9.7 (8.4-10.2) mg/dL Urine Color Yellow Urine Appearance Clear Urine pH 6.5 (5.0-9.0) Ur Specific [place] 1.015 (1.005-1.025) Urine Protein Negative (Neg-Trace) mg/dL Urine Glucose (UA) Negative (Negative) mg/dL Urine Ketones Negative (Negative) mg/dL Urine Blood Negative (Negative) Urine Nitrite Negative (Negative) Ur Leukocyte Esterase Negative (Negative) Radiology Impression Discussion of test interpretation with radiology: I have reviewed the radiologist's reading. Radiologist Impression: IMPRESSION: No intracranial hemorrhage or mass effect. Generalized atrophy and chronic small vessel white matter ischemic changes. Findings are similar when compared to the prior examination. Dictated By: Byron Wen MD Signed By: <Electronically signed by Byron Wen MD in OV> 11/10/22 1327 Independent Historian Clinical information obtained from an independent historian. History obtained from or confirmed by: Other (private physician dr. Gordon) Discharge Plan Discharge Clinical Impression: Acquired cerebral atrophy Patient Disposition: Home, Self-Care Instructions: Dementia (ED), Encephalopathy (DC) Prescriptions: No Action sennosides [senna] 8.6 mg Tablet 8.6 mg PO DAILY PRN (Reason: Constipation) acetaminophen 325 mg Tablet 650 mg PO Q6H PRN (Reason: Pain (Scale Score 1-3)) polyvinyl alcohol [Artificial Tears (polyvin alc)] 1.4 % Drops 1 drp ophthalmic (eye) Q12H lithium carbonate 450 mg Tablet Extended Release 225 mg PO BID methocarbamol 750 mg Tablet 750 mg PO BID PRN (Reason: Spasms) ascorbic acid (vitamin C) [Vitamin C] 500 mg Tablet 500 mg PO DAILY alum-mag hydroxide-simeth 200-200-20 mg/5 mL Suspension 30 ml PO Q6H PRN (Reason: Dyspepsia) multivitamin with minerals Tablet 1 tab PO DAILY vitamin E 400 unit Capsule 400 unit PO DAILY loratadine 10 mg Tablet 10 mg PO DAILY PRN (Reason: Itching) clozapine 50 mg Tablet 50 mg PO BEDTIME cholecalciferol (vitamin D3) 25 mcg (1,000 unit) Tablet 25 mcg PO DAILY omega-3 fatty acids 500 mg Capsule 1,000 mg PO DAILY metoprolol succinate 50 mg Capsule,Sprinkle,Er 24hr 50 mg PO DAILY aspirin [Aspirin Childrens] 81 mg tablet,chewable 81 mg PO DAILY Qty: 1 0RF benzocaine 10 % Gel 1 appl MUCOUS MEMBRANE QID PRN (Reason: dental pain) diphenhydramine HCl 25 mg Tablet 25 mg PO Q4H PRN (Reason: Itching) calcium carbonate 500 mg calcium (1,250 mg) Tablet,Chewable 500 mg PO Q6H clozapine [Clozaril] 25 mg Tablet 25 mg PO DAILY ibuprofen 600 mg Tablet 600 mg PO Q6H PRN (Reason: Moderate Pain (Scale Score 5-6)) pregabalin 50 mg capsule 1 cap PO BID levetiracetam 500 mg Tablet 500 mg PO BID Qty: 60 0RF levothyroxine 75 mcg Tablet 75 mcg PO DAILY@0600 Qty: 30 0RF Referrals: Brody Gordon DO [Primary Care Provider] - 1 week
[2022-11-10 11:39] VITALS: BP 125/84; PULSE 50; RESP 22; TEMP 36.8; O2SAT 95
[2022-11-10 12:09] LABS: MANUAL DIFF FLAG NO
[2022-11-10 12:10] LABS: Basophils Percent Auto 0.7 % (0-2); Eosinophils Absolute Auto 0.2 X10*3/uL (0.0-0.4); Eosinophils Percent Auto 4.2 % (0-4); Hematocrit 43.6 % (42.0-52.0); Hemoglobin 14.8 g/dl (14.0-18.0); Imm Gran Abs Auto 0.02 X10*3/uL (0.00-0.03); Imm Gran Pct Auto 0.5 % (0.0-0.4); Lymphocytes Absolute Auto 1.1 X10*3/uL (1.2-4.9); Lymphocytes Percent Auto 24.7 % (20-40); Mean Corpuscular HGB Conc 33.9 g/dl (31.0-36.0); Mean Corpuscular Hemoglobin 30.8 pg (27.0-33.0); Mean Corpuscular Volume 90.8 fL (80.0-98.0); Mean Platelet Volume 9.2 fL (9.4-12.4); Monocytes Absolute Auto 0.3 X10*3/uL (0.1-1.2); Monocytes Percent Auto 6.7 % (2-11); Neutrophils Absolute Auto 2.7 x10*3/uL (2.0-8.3); Neutrophils Percent Auto 63.2 % (45-73); Platelet Count 148 X10*3/uL (160-400); White Blood Count 4.3 X10*3/uL (4.8-10.8)
[2022-11-10 12:24] LABS: Anion Gap 11 (12-20); Blood Urea Nitrogen 16 mg/dL (9-16); Calcium 9.7 mg/dL (8.4-10.2); Carbon Dioxide 26 mmol/L (22-29); Chloride 108 mmol/L (96-108); Creatinine Clr Calc Pharmacy 88.7; Estimated Glomerular Filt Rate > 60; Glucose Random 94 mg/dL (60-115); Potassium 4.6 mmol/L (3.3-5.1); Sodium 140 mmol/L (135-145)
[2022-11-10 12:55] VITALS: BP 121/83; PULSE 50; RESP 20; TEMP 36.8; O2SAT 96
[2022-11-10 13:18] LABS: Appearance Urine Clear; Color Urine Yellow; Glucose Urine UA Negative (Negative); Leukocyte Esterase Urine Negative (Negative); Nitrite Urine Negative (Negative); PH 6.5 (5.0-9.0); Specific Gravity - Urine 1.015 (1.005-1.025); Urine Blood Negative (Negative); Urine Ketones Negative (Negative); Urine Protein Negative (Neg-Trace)
[2022-11-10 14:45] VITALS: BP 124/79; RESP 18; TEMP 36.7; O2SAT 93
[2022-11-10 16:13] VITALS: BP 126/70; PULSE 72; RESP 16; TEMP 37.2; O2SAT 98
== END 2022-11-10 16:59 | disposition skilled nursing facility (03) ==
PROVIDERS: Emergency Provider Emergency Medicine; PCP Hospitalist
DX: G31.9 Degenerative disease of nervous system, unspecified (principal); F02.80 Dementia in other diseases classified elsewhere, unspecified severity, without behavioral disturbance, psychotic disturbance, mood disturbance, and anxiety; Z87.820 Personal history of traumatic brain injury; Z79.82 Long term (current) use of aspirin
CPT/HCPCS: 36415; 70450; 80048; 81003; 85025; 99284

== ENCOUNTER 2023-08-02 11:41 | Outpatient (AMB) | payer MEDICARE, MEDICAID, SELFPAY ==
--- NOTE | 2023-08-02 11:41 | A.OFFVIS_ITS ---
Intake Intake Visit Reasons: Colonoscopy Screening Intake Note: New Patient is present for Colonoscopy Screening Patient is a patient from [facility] Allergies No Known Allergies Allergy (Verified 08/02/23 11:45) HPI Colonoscopy Screening HPI Details 57-year-old male with past medical histo ry of hypothyroidism, mood disorder, hypertension,TBI with progressive multifocal leukoencephalopathy and dementia, Atherosclerotic heart disease [place] coronary artery w/angina pectoris, Osteoarthritis Sick sinus syndrome, s/p PPM, Spondylosis of cervical region without myelopathy or radiculopathy and thrombocytopenia is here today for initial consultation. Patient is accompanied by nursing facility staff. Staff is not aware of any medical issues with patient. When reviewing patient's chart patient had stroke in 2020 followed by seizures. Patient denies having any seizures in the last year or so. Patient reports that he is moving his bowels well. Is not aware if he had any issues with anesthesia or not. Patient is on low-dose of aspirin. Denies any history of sleep apnea. 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 Ventricular tachycardia COVID-19 Frontal lobe contusion History of traumatic brain injury Chronic static encephalopathy Thrombocytopenia Sick sinus syndrome Atherosclerotic heart disease [place] coronary artery w/angina pectoris Hypothyroidism Dementia Osteoarthritis Spondylosis of cervical region without myelopathy or radiculopathy Spondylosis Aphasia Progressive multifocal leukoencephalopathy Social History Household Members: None Household Members Other:: [facility] Housing: Custodial Housing Other:: [facility] Do you presently have visiting nurse or other home services: No Unable to assess alcohol history related to: Unknown Alcohol intake: unknown Patient Tobacco Use Status: Tobacco use Unknown Advance Directives Date on File: 04/10/21 service: No Current occupational status: disabled Review of Systems Const Denies weight gain and Denies weight loss ENT Reports no additional complaints, Denies dysphagia and Denies odynophagia Card Reports no additional complaints Resp Reports no additional complaints GI Denies abdominal pain, Denies belching, Denies melena, Denies bloating, Denies change in bowel habits, Denies dysphagia, Denies excessive flatus, Denies dyspepsia, Denies heartburn, Denies diarrhea, Denies loose stools, Denies nausea, Denies odynophagia and Denies vomiting Reports no additional complaints Musc Reports no additional complaints Neuro Reports no additional complaints Psych Reports no additional complaints Endo Reports no additional complaints Physical Exam Const General: healthy appearing, no acute distress and well developed Nutritional Appearance: well nourished Orientation/consciousness: oriented to person Limitations: altered mental status and behavioral limitations HEENT Head: Yes normal to inspection, Yes normocephalic and Yes atraumatic Face and sinus: Yes normal facial exam Mouth: Normal oral and palatal mucosa present Throat: Yes posterior oropharynx normal, Yes tonsils normal and Yes uvula midline Eyes General: appearance normal, both eyes and all related structures Neck Neck: Yes normal visual inspection, Yes full ROM and Yes trachea midline Thyroid: Thyroid normal Resp Effort & Inspection: normal respiratory effort, able to speak in complete sentences, no tracheal deviation and symmetric chest movement Auscultation: clear to auscultation bilaterally Cardio Rate: regular rate Heart sounds: S1 normal heart sound present and S2 normal heart sound present GI Inspection: Yes normal to inspection and No distended Palpation (GI): Soft to palpation, not firm, nontender and No hepatosplenomegaly present Auscultation: normal bowel sounds General: Yes no CVA tenderness Back/Spine/Pelvis Back: no CVA tenderness Skin General skin exam: elasticity normal, turgor normal and dry skin Neuro General: oriented to person Psych Appearance: grossly normal Assessment & Plan Assessment & Plan (1) AMS (altered mental status): Code(s): R41.82 - Altered mental status, unspecified Qualifiers: Altered mental status type: unspecified Qualified Code(s): R41.82 - Altered mental status, unspecified (2) Behavioral disorder: (3) Screen for colon cancer: Code(s): Z12.11 - Encounter for screening for malignant neoplasm of colon Plan: Patient denies any issues with anesthesia in the past, however he is not a good historian. Patient is on low-dose aspirin. No documented history sleep apnea. History of stroke and seizures in 2020. Patient reports that he had not had any seizures and year or so. Will reach out to his PCP Dr. Gordon to see if there is anything documented on chart. Patient has a pacemaker. He is not following up with any rn ccu. Denies any chest pain, shortness of breath with or without activities. Please reach out to Dr. Gordon to see patient additional clearance. If there are seizures documented in the last year or so she follow- up with neurologist and have Neurology clear him. Both patient and staff member are agreeable to plan of care and verbalizes understanding of instructions. They were given the opportunity to ask questions and all questions answered. Thank you for allowing me to participate in his care Medications: New polyethylene glycol 3350 (Miralax) As directed by gastroenterology department at [facility] 238 grams PO ONCE 238 grams 0RF Z12.11 - Encounter for screening for malignant neoplasm of colon bisacodyl (Dulcolax (bisacodyl)) take 2 tabs at noon the day before your colonoscopy 10 mg (2 x 5 mg) PO ONCE 1 day 2 tabs 0RF Z12.11 - Encounter for screening for malignant neoplasm of colon Coding Level of Care Code New Pt Level 3 (03093) Diagnoses Altered mental status, unspecified altered mental status type R41.82 Altered mental status type: unspecified Behavioral disorder Screen for colon cancer Z12.11 Time Spent (min) 40 Comment 30 minutes spent with patient and additional 10 minutes spent reviewing his records
== END 2023-08-02 12:20 | disposition home or self-care (01) ==
PROVIDERS: PCP Hospitalist; Visit Provider Nurse Practitioner Family
DX: R41.82 Altered mental status, unspecified (principal); Z12.11 Encounter for screening for malignant neoplasm of colon
CPT/HCPCS: 99203

== ENCOUNTER → 2023-08-02 11:41 | Outpatient (BNVA) | payer MEDICARE, MEDICAID, SELFPAY | PROVIDERS: PCP Hospitalist; Visit Provider Nurse Practitioner Family ==

== ENCOUNTER 2023-12-25 11:07 | Day surgery (SDC) | payer MEDICARE, MEDICAID, SELFPAY ==
[2023-12-23 14:37] VITALS: BMI 27.9
--- NOTE | 2023-12-24 13:05 | P.CONAN_ITS ---
Documented by User: Kenia Hull NP 12/24/23 13:31 HPI - Anesthesia Eval Consult details Narrative: 58yo M for Colonoscopy [facility] resident. Stable per 12/04/23 provider eval. Follows [facility] for hx cocaine induced NM, Vtach, SSS, afib. Last office visit 09/2023 Pacer in situ 2011. Interrogation 12/03/23 on chart. No OAC d/t low risk Hx seizure and TD with last neuro office visit 04/2023. Stable with continued tx. 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 Ventricular tachycardia COVID-19 Frontal lobe contusion History of traumatic brain injury Chronic static encephalopathy Thrombocytopenia Sick sinus syndrome Atherosclerotic heart disease [place] coronary artery w/angina pectoris Hypothyroidism Dementia Osteoarthritis Spondylosis of cervical region without myelopathy or radiculopathy Spondylosis Aphasia Progressive multifocal leukoencephalopathy Surgical History Surgical History (Updated 12/23/23 @ 14:22 by Cheli Quiroz RN) S/P cardiac pacemaker procedure Social History Social History Household Members: None [facility]hold [facility]:: [facility] Housing: Half-Way Housing Other:: [facility] Do you presently have visiting nurse or other home services: No Unable to assess alcohol history related to: Unknown Alcohol intake: unknown Comment: patient refuses to wear non-skid socks Patient Tobacco Use Status: Tobacco use Unknown Advance Directives: No Advance Directives Information Provided: Yes Advance Directives Date on File: 04/10/21 service: No Current occupational status: disabled Meds Allergies Allergy/AdvReac Type Severity Reaction Status Date / Time No Known Allergies Allergy Verified 08/02/23 11:45 Home Medications Medication Instructions Recorded Confirmed Last Taken Type acetaminophen 325 mg tablet 650 mg PO Q6H PRN Pain (Scale 04/10/21 08/24/21 Unknown History Score 1-3) aluminum-mag hydroxide-simethicone 30 ml PO Q6H PRN Dyspepsia 04/10/21 08/24/21 Unknown History 200 mg-200 mg-20 mg/5 mL oral susp ascorbic acid (vitamin C) 500 mg 500 mg PO DAILY 04/10/21 08/24/21 Unknown History tablet (Vitamin C) cholecalciferol (vitamin D3) 25 25 mcg PO DAILY 04/10/21 08/24/21 Unknown History mcg (1,000 unit) tablet clozapine 50 mg tablet 50 mg PO BEDTIME 04/10/21 08/24/21 04/09/21 History lithium carbonate 450 mg 225 mg PO BID 04/10/21 08/24/21 Unknown History tablet,extended release loratadine 10 mg tablet 10 mg PO DAILY PRN Itching 04/10/21 08/24/21 Unknown History methocarbamol 750 mg tablet 750 mg PO BID PRN Spasms 04/10/21 08/24/21 Unknown History metoprolol succinate 50 mg capsule 50 mg PO DAILY 04/10/21 08/24/21 Unknown History sprinkle, ext. release 24 hr multivitamin with minerals 1 tab PO DAILY 04/10/21 08/24/21 Unknown History omega-3 fatty acids 500 mg capsule 1,000 mg PO DAILY 04/10/21 08/24/21 Unknown History polyvinyl alcohol 1.4 % eye drops 1 drp ophthalmic (eye) Q12H 04/10/21 08/24/21 Unknown History (Artificial Tears (polyvinyl alcohol)) sennosides 8.6 mg tablet (senna) 8.6 mg PO DAILY PRN Constipation 04/10/21 08/24/21 Unknown History vitamin E 268 mg (400 unit) capsule 400 unit PO DAILY 04/10/21 08/24/21 Unknown History benzocaine 10 % mucosal gel 1 appl mucous membrane QID PRN 08/24/21 08/24/21 Unknown History dental pain calcium carbonate 500 mg calcium 500 mg PO Q6H heartburn 08/24/21 08/24/21 Unknown History (1,250 mg) chewable tablet clozapine 25 mg tablet (Clozaril) 25 mg PO DAILY 08/24/21 08/24/21 Unknown History diphenhydramine HCl 25 mg tablet 25 mg PO Q4H PRN Itching 08/24/21 08/24/21 Unknown History ibuprofen 600 mg tablet 600 mg PO Q6H PRN Moderate Pain 08/24/21 08/24/21 Unknown History (Scale Score 5-6) pregabalin 50 mg capsule 1 cap PO BID 08/24/21 08/24/21 Unknown History deutetrabenazine 6 mg tablet 6 mg PO BID 08/02/23 Unknown History (Austedo) Exam Height,Weight and Vital Signs: Height 6 ft 5 in Weight 106.594 kg Narrative Narrative: ECHO 12/19/23 Nml LV chamber size. Mild conc LVH, Low nml LV systolic function. LVEF 50-55%. Abnormal septal motion c/w pacer. Nml RV size. Reduced RV global systolic function. Nml LA size Mild aortic insuffiency. Ascending aorta dilation @ 4.1cm No previous for comparison. EKG 06/2023 SB with 1st deg AV block ? LAE Low volt QRS ? Anterior infarct T wave abnormality, ? 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 Ventricular tachycardia COVID-19 Frontal lobe contusion History of traumatic brain injury Chronic static encephalopathy Thrombocytopenia Sick sinus syndrome Atherosclerotic heart disease [place] coronary artery w/angina pectoris Hypothyroidism Dementia Osteoarthritis Spondylosis of cervical region without myelopathy or radiculopathy Spondylosis Aphasia Progressive multifocal leukoencephalopathy Family History Family history of problems with anesthesia: No Surgical History Surgical History (Updated 12/23/23 @ 14:22 by Cheli Quiroz RN) S/P cardiac pacemaker procedure History of Problems with Anesthesia: No Social History Social History Household Members: None Household Members [facility]:: [facility] Housing: [facility]-Way Housing Other:: [facility] Do you presently have visiting nurse or other home services: No Unable to assess alcohol history related to: Unknown Alcohol intake: unknown Comment: patient refuses to wear non-skid socks Patient Tobacco Use Status: Tobacco use Unknown Advance Directives: No Advance Directives Information Provided: Yes Advance Directives Date on File: 04/10/21 service: No Current occupational status: disabled Meds Allergies Allergy/AdvReac Type Severity Reaction Status Date / Time No Known Allergies Allergy Verified 08/02/23 11:45 Home Medications Medication Instructions Recorded Confirmed Last Taken Type acetaminophen 325 mg tablet 650 mg PO Q6H PRN Pain (Scale 04/10/21 08/24/21 Unknown History Score 1-3) aluminum-mag hydroxide-simethicone 30 ml PO Q6H PRN Dyspepsia 04/10/21 08/24/21 Unknown History 200 mg-200 mg-20 mg/5 mL oral susp ascorbic acid (vitamin C) 500 mg 500 mg PO DAILY 04/10/21 08/24/21 Unknown History tablet (Vitamin C) cholecalciferol (vitamin D3) 25 25 mcg PO DAILY 04/10/21 08/24/21 Unknown History mcg (1,000 unit) tablet clozapine 50 mg tablet 50 mg PO BEDTIME 04/10/21 08/24/21 04/09/21 History lithium carbonate 450 mg 225 mg PO BID 04/10/21 08/24/21 Unknown History tablet,extended release loratadine 10 mg tablet 10 mg PO DAILY PRN Itching 04/10/21 08/24/21 Unknown History methocarbamol 750 mg tablet 750 mg PO BID PRN Spasms 04/10/21 08/24/21 Unknown History metoprolol succinate 50 mg capsule 50 mg PO DAILY 04/10/21 08/24/21 Unknown History sprinkle, ext. release 24 hr multivitamin with minerals 1 tab PO DAILY 04/10/21 08/24/21 Unknown History omega-3 fatty acids 500 mg capsule 1,000 mg PO DAILY 04/10/21 08/24/21 Unknown History polyvinyl alcohol 1.4 % eye drops 1 drp ophthalmic (eye) Q12H 04/10/21 08/24/21 Unknown History (Artificial Tears (polyvinyl alcohol)) sennosides 8.6 mg tablet (senna) 8.6 mg PO DAILY PRN Constipation 04/10/21 08/24/21 Unknown History vitamin E 268 mg (400 unit) capsule 400 unit PO DAILY 04/10/21 08/24/21 Unknown History benzocaine 10 % mucosal gel 1 appl mucous membrane QID PRN 08/24/21 08/24/21 Unknown History dental pain calcium carbonate 500 mg calcium 500 mg PO Q6H heartburn 08/24/21 08/24/21 Unknown History (1,250 mg) chewable tablet clozapine 25 mg tablet (Clozaril) 25 mg PO DAILY 08/24/21 08/24/21 Unknown History diphenhydramine HCl 25 mg tablet 25 mg PO Q4H PRN Itching 08/24/21 08/24/21 Unknown History ibuprofen 600 mg tablet 600 mg PO Q6H PRN Moderate Pain 08/24/21 08/24/21 Unknow n History (Scale Score 5-6) pregabalin 50 mg capsule 1 cap PO BID 08/24/21 08/24/21 Unknown History deutetrabenazine 6 mg tablet 6 mg PO BID 08/02/23 Unknown History (Austedo) Exam Airway Mallampati Class: II TM Dist: >3cm Neck ROM: Full Heart: rrr Lungs: cta Assessment and Plan Assessment Anesthesia Assessment: Anesthesia Plan Discussed Final Anesthetic Review Family History of Problems with Anesthesia: No History of Problems with Anesthesia: No NPO: Yes ASA Class: III Final Preanesthetic Review: No Changes in Pt Med Stat, Meds/Allgs Chart Reviewed and Consent Obtained/Reviewed Patient Risk: Intermediate Procedure Risk: Intermediate Anesthetic Plan Anesthetic Plan: MAC: Disposition: Standard PACU
[2023-12-25 11:27] VITALS: BMI 28.0
[2023-12-25 11:29] VITALS: PULSE 60; RESP 16; TEMP 36.9; O2SAT 94
--- NOTE | 2023-12-25 11:48 | MHC.SHP ---
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 Ventricular tachycardia COVID-19 Frontal lobe contusion History of traumatic brain injury Chronic static encephalopathy Thrombocytopenia S) History of Previous Operations: Relevant previous surgery/procedure and date(s) ( S/P cardiac pacemaker procedure) Allergies: Allergies Allergy/AdvReac Type Severity Reaction Status Date / Time No Known Allergies Allergy Verified 08/02/23 11:45 Review of Systems Sugical H&P ROS: Negative: Constitution, Cardiovascular, Respiratory, Neurological, Psychiatric, Hem-Onc, Allergic/Immunologic, Gastrointestinal, Genitourinary, Musculoskeletal, Integumentary, Endocrine and Eyes/Ears/Nose/Throat Exam Surgical H&P Exam: Normal: HEENT, Normal: Heart, Normal: Lungs, Normal: Extremities, Normal: Abdomen, Normal: Skin and Normal: Neurological Plan Diagnosis/Plan: Unchanged I have reviewed the history and physical and performed a pertinent physical examination on my patient. No changes have occurred unless specified. Time Spent With Patient Time: Total time managing care of this patient today ____ minutes.
--- NOTE | 2023-12-25 11:59 | W.PM.OPN ---
Operative Note Operative Note Date of Service: 12/25/23 Narrative: Operative Information Procedure Description: Colonoscopy Indication: screening Anesthesia: MAC COLONOSCOPY Instrument: Olympus variable stiffness ADULT scope 190L Colonoscopy Monitoring: Vital signs and clinical assessment, continuous EKG monitoring, Pulse oximetry, Carbon Dioxide monitoring and blood pressure monitoring were done throughout the procedure. Colon withdrawal time was 10 minutes. Procedure: The patient was placed in the left lateral decubitis position and pre-procedure medications were administered. After a digital rectal examination of the ano-rectum, the video colonoscope was inserted into the rectum and advanced through the colon to the cecum/TI. The colonoscope was slowly withdrawn in a retrograde panoramic fashion and the colon mucosa was carefully examined including a retroflexed view of the rectum. Findings and interventions are described below. Procedure Difficulty: moderate Findings: Terminal Ileum-normal Cecum:normal Ascending Colon: 10 mm sesssile polyp removed with cold snare Transverse Colon -normal Descending Colon:normal Sigmoid Colon: x 2 sessile polyps 8-10 mm removed with cold snare Rectum: Retroflexion with small internal hemorrhoids, grade I Anorectum - normal Colon preparation: [place] Bowel Preparation Scale Right colon; 2 Transverse colon: 2 Left colon; 2 (0 = Unprepared colon segment with mucosa not seen due to solid stool that cannot be cleared. 1 = Portion of mucosa of the colon segment seen, but other areas of the colon segment not well seen due to staining, residual stool and/or opaque liquid. 2 = Minor amount of residual staining, small fragments of stool and/or opaque liquid, but mucosa of colon segment seen well. 3 = Entire mucosa of colon segment seen well with no residual staining, small fragments of stool or opaque liquid) Impression and Post Procedure Diagnosis: polyps internal hemorrhoids Plan: High fiber diet leaflet Avoid straining at stool, epsom salts and sitz bath, anusol supps or cream Repeat Colonoscopy in 5-7 years due to polyps or earlier if clinically indicated Above findings were reviewed with the patient and relevant handouts were provided if indicated.
[2023-12-25] MEDS: Lactated Ringers 1,000 ML 100 ML IVCONT (12:14)
[2023-12-25 12:52] VITALS: BP 110/75; PULSE 75; RESP 16; TEMP 36.3; O2SAT 94
[2023-12-25 13:11] VITALS: BP 125/81; PULSE 58; RESP 16; TEMP 36.3; O2SAT 94
== END 2023-12-25 13:34 | disposition home or self-care (01) ==
PROVIDERS: PCP Hospitalist; Visit Provider Internal Medicine Gastroenterology
PROC: 0DJD8ZZ Inspection of Lower Intestinal Tract, Via Natural or Artificial Opening Endoscopic (ICD-10-PCS; CPT 45378; principal; 2023-12-25 12:50)
DX: Z12.11 Encounter for screening for malignant neoplasm of colon (principal); K63.5 Polyp of colon; K64.0 First degree hemorrhoids; I25.2 Old myocardial infarction; Z95.0 Presence of cardiac pacemaker; A81.2 Progressive multifocal leukoencephalopathy; F02.83 Dementia in other diseases classified elsewhere, unspecified severity, with mood disturbance; G40.A01 Absence epileptic syndrome, not intractable, with status epilepticus; G93.49 Other encephalopathy; B19.10 Unspecified viral hepatitis B without hepatic coma; D69.6 Thrombocytopenia, unspecified; Z87.820 Personal history of traumatic brain injury; Z79.899 Other long term (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; Z79.1 Long term (current) use of non-steroidal anti-inflammatories (NSAID)
CPT/HCPCS: 45385; 88305; J2704

== ENCOUNTER → 2023-12-25 11:07 | Outpatient (BNV) | payer MEDICARE, MEDICAID, SELFPAY | PROVIDERS: PCP Hospitalist; Visit Provider Internal Medicine Gastroenterology | DX: Z12.11 Encounter for screening for malignant neoplasm of colon (principal); K63.5 Polyp of colon; K64.0 First degree hemorrhoids | CPT/HCPCS: 45385 ==

== ENCOUNTER 2024-02-14 12:56 | Outpatient (AMB) | payer MEDICARE, MEDICAID, SELFPAY ==
--- NOTE | 2024-02-14 13:19 | A.OFFVIS_ITS ---
Intake Vital Signs 02/14/24 13:24 Height 6 ft 5 in Weight 244 lb 11.41 oz BMI 29.0 BP 121/86 Blood Pressure Location Lt brachial Position Sitting Pulse 69 Intake Visit Reasons: S/P colo Intake Note: Bill presents in the office as a follow up colonoscopy. CC: No concerns today Software Quality Assurance Analyst Required: No Allergies No Known Allergies Allergy (Verified 02/14/24 13:24) HPI S/P colo HPI Details LAST MINUTE AMS (altered mental status) Behavioral disorder Screen for colon cancer Patient denies any issues with anesthesia in the past, however he is not a good historian. Patient is on low-dose aspirin. No documented history sleep apnea. History of stroke and seizures in 2020. Patient reports that he had not had any seizures and year or so. Will reach out to his PCP Dr. Gordon to see if there is anything documented on chart. Patient has a pacemaker. 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 Denies any chest pain, shortness of breath with or without activities. Please reach out to Dr. Gordon to see patient additional clearance. If there are seizures documented in the last year or so she follow-up with neurologist and have Neurology clear him. Both patient and staff member are agreeable to plan of care and verbalizes understanding of instructions. They were given the opportunity to ask questions and all questions answered. ? Thank you for allowing me to participate in his care Plan Medications New polyethylene glycol 3350 (Miralax) As directed by gastroenterology department at [facility] 238 grams PO ONCE 238 grams 0RF Z12.11 bisacodyl (Dulcolax (bisacodyl)) take 2 tabs at noon the day before your colonoscopy 10 mg (2 x 5 mg) PO ONCE 1 day 2 tabs 0R F Z12.11 COLONOSCOPY Findings: Terminal Ileum-normal Cecum:normal Ascending Colon: 10 mm sesssile polyp removed with cold snare Transverse Colon -normal Descending Colon:normal Sigmoid Colon: x 2 sessile polyps 8-10 mm removed with cold snare Rectum: Retroflexion with small internal hemorrhoids, grade I Anorectum - normal Colon preparation: [place] Bowel Preparation Scale Right colon; 2 Transverse colon: 2 Left colon; 2 (0 = Unprepared colon segment with mucos a not seen due to solid stool that cannot be cleared. 1 = Portion of mucosa of the colon segme nt seen, but other areas of the colon segment not well seen due to staining, residual stool and/or opaque liquid. 2 = Minor amount of residual staining, s mall fragments of stool and/or opaque liquid, but mucosa of colon segment seen well. 3 = Entire mucosa of colon segment seen well with no residual staining, small fragments of stool or opaque liquid) Impression and Post Procedure Diagnosis: polyps internal hemorrhoids Plan: High fiber diet leaflet Avoid straining at stool, epsom salts and sitz bath, anusol supps or cream Repeat Colonoscopy in 5-7 years due to polyps or earlier if clinically indicated PATHOLOGY RESULTS Diagnosis A. Colon, ascending, polyp: Colonic mucosa with no specific change. B. Colon, sigmoid, polyp: Hyperplastic polyp TODAY'S VISIT: Patient is here today for follow-up and to discuss lab results. Patient is accompanied by [facility] staff. All results explained both to patient and to staff member. Written report to staff member given. Patient does not understands due to his mental disability. One hyperplastic polyp in sigmoid colon. Patient reports that he is moving his bowels well. Denies any GI concerning symptoms. Denies any issues with anesthesia, rep or procedure. No symptoms after procedure. Denies melena, hematochezia, unintentional weight loss or ribbon like stools. Denies any dyspepsia, dysphagia or odynophagia. 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 Ventricular tachycardia COVID-19 Frontal lobe contusion History of traumatic brain injury Chronic static encephalopathy Thrombocytopenia Sick sinus syndrome Atherosclerotic heart disease [place] coronary artery w/angina pectoris Hypothyroidism Dementia Osteoarthritis Spondylosis of cervical region without myelopathy or radiculopathy Spondylosis Aphasia Progressive multifocal leukoencephalopathy Surgical History (Updated 02/14/24 @ 13:22 by SANDEEP Mosher) Hx of colonoscopy S/P cardiac pacemaker procedure Social History Household Members: None Household Members Other:: [facility] Housing: Custodial Housing Other:: [facility] Do you presently have visiting nurse or other home services: No Unable to assess alcohol history related to: Unknown Alcohol intake: unknown Comment: patient refuses to wear non-skid socks Patient Tobacco Use Status: Never used Tobacco Advance Directives Date on File: 04/10/21 service: No Current occupational status: disabled Review of Systems Const Denies weight gain and Denies weight loss ENT Reports no additional complaints, Denies dysphagia and Denies odynophagia Card Reports no additional complaints Resp Reports no additional complaints GI Denies abdominal pain, Denies belching, Denies melena, Denies bloating, Denies change in bowel habits, Denies dysphagia, Denies excessive flatus, Denies dyspepsia, Denies heartburn, Denies diarrhea, Denies loose stools, Denies nausea, Denies odynophagia and Denies vomiting Reports no additional complaints Musc Reports no additional complaints Neuro Reports no additional complaints Psych Reports no additional complaints Endo Reports no additional complaints Physical Exam Const General: healthy appearing, no acute distress and well developed Nutritional Appearance: well nourished Orientation/consciousness: oriented to person Limitations: altered mental status and behavioral limitations HEENT Head: Yes normal to inspection, Yes normocephalic and Yes atraumatic Face and sinus: Yes normal facial exam Mouth: Normal oral and palatal mucosa present Throat: Yes posterior oropharynx normal, Yes tonsils normal and Yes uvula midline Eyes General: appearance normal, both eyes and all related structures Neck Neck: Yes normal visual inspection, Yes full ROM and Yes trachea midline Thyroid: Thyroid normal Resp Effort & Inspection: normal respiratory effort, able to speak in complete sentences, no tracheal deviation and symmetric chest movement Auscultation: clear to auscultation bilaterally Cardio Rate: regular rate Heart sounds: S1 normal heart sound present and S2 normal heart sound present GI Inspection: Yes normal to inspection and No distended Palpation (GI): Soft to palpation, not firm, nontender and No hepatosplenomegaly present Auscultation: normal bowel sounds General: Yes no CVA tenderness Back/Spine/Pelvis Back: no CVA tenderness Skin General skin exam: elasticity normal, turgor normal and dry skin Neuro General: oriented to person Psych Appearance: grossly normal Assessment & Plan Assessment & Plan (1) Status post colonoscopy: Code(s): Z98.890 - Other specified postprocedural states (2) Hyperplastic polyp of sigmoid colon: Code(s): K63.5 - Polyp of colon Plan Patient denies any GI concerning symptoms. Denies melena, hematochezia, unintentional weight loss or ribbon like stools. Hyperplastic polyp of sigmoid colon found. Patient will follow-up on as needed basis. Staff will call us for appointment if patient will develop any GI concerning symptoms. Colonoscopy in 5-7 years, sooner if clinically necessary. Thank you for allowing me to participate in his care Coding Level of Care Code Tele Est Pt Level 3 (36432) Diagnoses Status post colonoscopy Z98.890 Hyperplastic polyp of sigmoid colon K63.5 Time Spent (min) 25 Comment 15 minutes spent with patient and additional 10 minutes spent reviewing his records
[2024-02-14 13:24] VITALS: BP 121/86; PULSE 69; BMI 29.0
== END 2024-02-14 14:06 | disposition home or self-care (01) ==
PROVIDERS: PCP Hospitalist; Visit Provider Nurse Practitioner Family
DX: K63.5 Polyp of colon (principal); K64.0 First degree hemorrhoids
CPT/HCPCS: 99213

== ENCOUNTER → 2024-02-14 12:56 | Outpatient (BNVA) | payer MEDICARE, MEDICAID, SELFPAY | PROVIDERS: PCP Hospitalist; Visit Provider Nurse Practitioner Family | DX: K63.5 Polyp of colon (principal); R41.82 Altered mental status, unspecified; Z95.0 Presence of cardiac pacemaker; Z98.890 Other specified postprocedural states; Z86.73 Personal history of transient ischemic attack (TIA), and cerebral infarction without residual deficits | CPT/HCPCS: 99212 ==

== ENCOUNTER 2024-12-07 10:22 | Outpatient (REF) | payer MEDICARE, MEDICAID, SELFPAY ==
--- NOTE | ~2024-12-07 | XR_ITS ---
CLINICAL HISTORY: M25.572 - Pain in left ankle and joints of left foot Three-view left ankle Comparison: None Findings: No acute fractures or dislocations. There appears to be an old fracture of the base of the 5th metatarsal. No significant arthritic change or erosions. No ankle effusion. No radiopaque foreign body. IMPRESSION: 1. No acute findings. No significant degenerative change of the ankle. This document has been electronically signed by: Mary Bobby MD on 12/09/2024 06:54:06
--- NOTE | ~2024-12-07 | XR_ITS ---
CLINICAL HISTORY: M79.672 - Pain in left foot 3 view left foot Comparison: DX - XR ANKLE LT MIN 3V - 12/07/24 10:39 EST Findings: Findings are suggestive of an acute fracture involving the medial aspect of the proximal phalanx of the great toe near the metatarsophalangeal joint. Old fracture of the base of the 5th metatarsal with nonunion. Severe hallux valgus with hammertoe deformities 2 through 5. IMPRESSION: 1. Possible acute fracture involving the proximal phalanx of the great toe at the metatarsophalangeal joint. Correlation for pain at this site recommended. 2. Old fracture of the base of the 5th metatarsal. 3. Hallux valgus. This document has been electronically signed by: Mary Bobby MD on 12/09/2024 06:54:20
== END 2024-12-07 10:23 | disposition home or self-care (01) ==
LOC: HO.HOSX 10:22
PROVIDERS: Visit Provider Physician Assistant
DX: M25.572 Pain in left ankle and joints of left foot (principal); M79.672 Pain in left foot
CPT/HCPCS: 73610; 73630; 99202

== ENCOUNTER 2024-12-07 10:22 | Outpatient (AMB) | payer MEDICARE, MEDICAID, SELFPAY ==
[2024-12-07 10:23] VITALS: BMI 28.9
--- NOTE | 2024-12-07 10:23 | MHC.OFFVIS ---
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 Patient reports his foot is doing good but is having pain in his ankle. States he has swelling in ankle, pain with walking. Allergies No Known Allergies Allergy (Verified 12/07/24 10:30) Medication List - Last Reconciled 12/07/24 by Brandon Huddleston PA-C acetaminophen 650 mg PO Q6H PRN alum-mag hydroxide-simeth 200-200-20 mg/5 mL 30 mL PO Q6H PRN apixaban 5 mg PO BID ascorbic acid (vitamin C) (Vitamin C) 500 mg PO DAILY aspirin (Aspirin Childrens) 81 mg PO DAILY benzocaine 10% 1 appl mucous membrane QID PRN bisacodyl (Dulcolax (bisacodyl)) 10 mg (2 x 5 mg) PO ONCE 1 day calcium carbonate 500 mg PO Q6H carbamazepine ER 100 mg PO BID cholecalciferol (vitamin D3) 25 mcg PO DAILY clozapine 50 mg PO BEDTIME clozapine (Clozaril) 25 mg PO DAILY deutetrabenazine (Austedo) 6 mg PO BID diphenhydramine HCl 25 mg PO Q4H PRN diphenhydramine HCl (Benadryl) 25 mg PO BEDTIME PRN ibuprofen 600 mg PO Q6H PRN levetiracetam 2,000 mg PO BID levothyroxine 88 mcg PO DAILY lithium carbonate ER 225 mg PO BID loratadine 10 mg PO DAILY PRN methocarbamol 750 mg PO BID PRN metoprolol succinate ER 50 mg PO BID multivitamin with minerals 1 tab PO DAILY omega-3 fatty acids 1,000 mg PO DAILY polyethylene glycol 3350 (Miralax) 238 grams PO ONCE polyvinyl alcohol 1.4% (Artificial Tears (polyvinyl alcohol)) 1 drp ophthalmic (eye) Q12H pregabalin 1 cap PO BID sennosides (senna) 8.6 mg PO DAILY PRN vitamin E 400 units PO DAILY HPI HPI 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 He is accompanied by an aide from [facility]. He denies any foot pain. He states he slipped or fell out of bed a few months ago and developed pain in the ankle. He complains of swelling. 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 Ventricular tachycardia COVID-19 Frontal lobe contusion History of traumatic brain injury Chronic static encephalopathy Thrombocytopenia Sick sinus syndrome Atherosclerotic heart disease [place] coronary artery w/angina pectoris Hypothyroidism Dementia Osteoarthritis Spondylosis of cervical region without myelopathy or radiculopathy Spondylosis Aphasia Progressive multifocal leukoencephalopathy Surgical History Hx of colonoscopy S/P cardiac pacemaker procedure Social History Household Members: None Household Members Other:: [facility] facility Housing: [facility] Housing Other:: [facility] Do you presently have visiting nurse or other home services: No Unable to assess alcohol history related to: Unknown Alcohol intake: unknown Comment: patient refuses to wear non-skid socks Patient Tobacco Use Status: Never used Tobacco Advance Directives Date on File: 04/10/21 service: No Current occupational status: disabled Review of Systems Const All systems reviewed & are unremarkable except as noted in HPI and below Physical Exam Vital Signs: BMI result Body Mass Index 28.9 Const General: cooperative and no acute distress Orientation/consciousness: patient oriented x3 Resp Effort & Inspection: normal respiratory effort and able to speak in complete sentences Cardio Peripheral pulses: Peripheral pulses 2+ throughout Neuro General: patient oriented x3 Extrem Other: Left ankle is normal to inspection. He does have diffuse swelling throughout the ankle however the entire lower extremity does have pitting edema. Tenderness to palpation along the medial and lateral aspect of the ankle. Calf is supple and nontender. He has full range of motion without crepitus. Neurovascularly intact. Results Reviewed Results Reviewed: X-rays of the left foot obtained in the office today and reviewed by me show hallux valgus deformity. X-rays of the left ankle obtained in the office today and reviewed by me show mild arthritis. No acute fractures. Ankle mortise intact. Assessment & Plan Assessment & Plan (1) Arthritis of left ankle: Code(s): M19.072 - Primary osteoarthritis, left ankle and foot Category: Medical Plan: We discussed options today which include physical therapy and a lace-up ankle brace. The patient declines therapy and a brace. He states he is able to tolerate the discomfort with ambulation. If there is any concerns he can contact our office otherwise follow up as needed. Orders: Orders XR ankle LT min 3V Today M25.572 - Pain in left ankle and joints of left foot XR foot LT min 3V Today M79.672 - Pain in left foot Coding Level of Care Code New Pt Level 3 (20094) Complex EM visit Add On G2211 Diagnoses Arthritis of left ankle M19.072
== END 2024-12-07 12:42 | disposition home or self-care (01) ==
PROVIDERS: Visit Provider Physician Assistant
DX: M19.072 Primary osteoarthritis, left ankle and foot (principal)
CPT/HCPCS: 99203; G2211

== ENCOUNTER 2025-03-21 09:30 | Emergency (ER) | payer MEDICARE, MEDICAID, SELFPAY ==
--- NOTE | ~2025-03-21 | US_ITS ---
CLINICAL HISTORY: Pain and swelling Venous duplex ultrasound left lower extremity Comparison: None Findings: The visualized deep veins are fully compressible with normal Doppler color flow and spectral tracings. No popliteal cyst. IMPRESSION: 1. Negative for left lower extremity deep vein thrombosis. This document has been electronically signed by: Barrera Boston MD on 03/21/2025 12:20:56
--- NOTE | ~2025-03-21 | XR_ITS ---
CLINICAL HISTORY: Pain and swelling 3 view left ankle Comparison: DX - XR ANKLE LT MIN 3V - 12/07/24 10:39 EST Findings: No acute fracture or acute malalignment. Mildly displaced fracture of the base of the 5th metatarsal again noted. No ankle effusion. No radiopaque foreign body. IMPRESSION: No acute fracture or acute malalignment. Unhealed fracture of the base of the 5th metatarsal again noted This document has been electronically signed by: Barrera Boston MD on 03/21/2025 10:42:42
--- NOTE | ~2025-03-21 | XR_ITS ---
CLINICAL HISTORY: Pain and swelling 3 view left foot Comparison: 12/07/2024 Findings: No acute fractures or dislocations. Old fracture of the base of the proximal phalanx of the 1st digit again noted. Old fracture of the base of the left 5th metatarsal also again noted. Moderately severe hallux valgus with associated degenerative change. No ankle effusion. No radiopaque foreign body. IMPRESSION: Unhealed fractures of the base of the 5th metatarsal and base of the proximal 1st phalanx. Severe hallux valgus with associated degenerative change. This document has been electronically signed by: Barrera Boston MD on 03/21/2025 10:47:16
[2025-03-21 09:42] VITALS: BP 125/77; BP 140/88; PULSE 86; RESP 12; TEMP 36.3; O2SAT 95; O2SAT 96; BMI 30.9
--- NOTE | 2025-03-21 10:00 | ED_ITS ---
HPI - Extremity Injury (Lower) General Chief Complaint: Extremity Injury, Lower Stated Complaint: L FOOT PAIN Time Seen by Provider: 03/21/25 09:42 Source: patient and EMS Mode of arrival: EMS Limitations: no limitations History of Present Illness ED Provider: DR. Vitale HPI Narrative: 59-year-old male brought in by ambulance for evaluation of left foot/left ankle swelling and pain started this morning, patient declined any trauma to foot and ankle. No history of arthritis or gout. No history of recent travel or prolonged immobilization Related Data Home Medications ?Medication ?Instructions ?Recorded ?Confirmed acetaminophen 325 mg tablet 650 mg PO Q6H PRN Pain (Scale 04/10/21 12/07/24 Score 1-3) aluminum-mag hydroxide-simethicone 30 ml PO Q6H PRN Dyspepsia 04/10/21 12/07/24 200 mg-200 mg-20 mg/5 mL oral susp ascorbic acid (vitamin C) 500 mg 500 mg PO DAILY 04/10/21 12/07/24 tablet (Vitamin C) cholecalciferol (vitamin D3) 25 25 mcg PO DAILY 04/10/21 12/07/24 mcg (1,000 unit) tablet clozapine 50 mg tablet 50 mg PO BEDTIME 04/10/21 12/07/24 lithium carbonate 450 mg 225 mg PO BID 04/10/21 12/07/24 tablet,extended release loratadine 10 mg tablet 10 mg PO DAILY PRN Itching 04/10/21 12/07/24 methocarbamol 750 mg tablet 750 mg PO BID PRN Spasms 04/10/21 12/07/24 multivitamin with minerals 1 tab PO DAILY 04/10/21 12/07/24 omega-3 fatty acids 500 mg capsule 1,000 mg PO DAILY 04/10/21 12/07/24 polyvinyl alcohol 1.4 % eye drops 1 drp ophthalmic (eye) Q12H 04/10/21 12/07/24 (Artificial Tears (polyvinyl alcohol)) sennosides 8.6 mg tablet (senna) 8.6 mg PO DAILY PRN Constipation 04/10/21 12/07/24 vitamin E 268 mg (400 unit) capsule 400 unit PO DAILY 04/10/21 12/07/24 benzocaine 10 % mucosal gel 1 appl mucous membrane QID PRN 08/24/21 12/07/24 dental pain calcium carbonate 500 mg PO Q6H heartburn 08/24/21 12/07/24 clozapine 25 mg tablet (Clozaril) 25 mg PO DAILY 08/24/21 12/07/24 diphenhydramine HCl 25 mg tablet 25 mg PO Q4H PRN Itching 08/24/21 12/07/24 ibuprofen 600 mg tablet 600 mg PO Q6H PRN Moderate Pain 08/24/21 12/07/24 (Scale Score 5-6) pregabalin 50 mg capsule 1 cap PO BID 08/24/21 12/07/24 deutetrabenazine 6 mg tablet 6 mg PO BID 08/02/23 12/07/24 (Austedo) apixaban 5 mg tablet 5 mg PO BID 02/14/24 12/07/24 carbamazepine 100 mg 100 mg PO BID 02/14/24 12/07/24 tablet,extended release,12 hr diphenhydramine HCl 25 mg capsule 25 mg PO BEDTIME PRN 02/14/24 12/07/24 (Benadryl) levetiracetam 1,000 mg tablet 2,000 mg PO BID 02/14/24 12/07/24 levothyroxine 88 mcg tablet 88 mcg PO DAILY 02/14/24 12/07/24 metoprolol succinate 50 mg 50 mg PO BID 02/14/24 12/07/24 tablet,extended release 24 hr Previous Rx's ?Medication ?Instructions ?Recorded aspirin 81 mg chewable tablet 81 mg PO DAILY #1 tab 04/11/21 (Aspirin Childrens) bisacodyl 5 mg tablet,delayed 10 mg (2 x 5 mg) PO ONCE 1 day #2 08/02/23 release (Dulcolax (bisacodyl)) tabs polyethylene glycol 3350 17 238 g PO ONCE #238 grams 08/02/23 gram/dose oral powder (Miralax) Allergies Allergy/AdvReac Type Severity Reaction Status Date / Time No Known Allergies Allergy Verified 03/21/25 09:46 Review of Systems 2 Review of Systems: All other systems are reviewed and are negative Constitutional: Reports as per HPI and Reports no additional constitutional complaints Eyes: Reports as per HPI and Reports no additional eye complaints Reports system reviewed and no additional complaints, except as documented Cardiovascular: Reports as per HPI and Reports no additional cardiovascular complaints Respiratory: Reports as per HPI and Reports no additional respiratory complaints Gastrointestinal: Reports as per HPI and Reports no additional gastrointestinal complaints Genitourinary: Reports no additional female genitourinary complaints Musculoskeletal: Reports no additional musculoskeletal complaints Skin/Breast: Reports system reviewed and no additional complaints, except as docu Psychiatric: Reports no additional psychiatric complaints Endocrine: Reports no additional endocrine complaints Hematologic/Lymphatic: Reports no additional hematologic/lymphatic complaints Allergic/Immunologic: Reports no additional allergic/immunologic complaints Reports system reviewed and no additional complaints, except as documented and Reports Abnormal speech present [facility] Past Medical History Medical History Myocardial infarction Seizure Fever Status epilepticus Traumatic brain injury Hx of cardiac pacemaker 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 Ventricular tachycardia COVID-19 Frontal lobe contusion History of traumatic brain injury Chronic static encephalopathy Thrombocytopenia Sick sinus syndrome Atherosclerotic heart disease [place] coronary artery w/angina pectoris Hypothyroidism Dementia Osteoarthritis Spondylosis of cervical region without myelopathy or radiculopathy Spondylosis Aphasia Progressive multifocal leukoencephalopathy Surgical History Hx of colonoscopy S/P cardiac pacemaker procedure Social History Social History Household Members: None Household Members Other:: [facility] Housing: [facility] Housing Other:: [facility] Do you presently have visiting nurse or other home services: No Unable to assess alcohol history related to: Unknown Alcohol intake: unknown Comment: patient refuses to wear non-skid socks Patient Tobacco Use Status: Never used Tobacco Advance Directives: No Advance Directives Information Provided: No Advance Directives Date on File: 04/10/21 service: No Current occupational status: disabled Physical Exam 2 Vital Signs: Vital Signs: Last Vital Signs Temp 97.4 F 03/21/25 09:42 Pulse 86 03/21/25 09:42 Resp 12 03/21/25 09:42 BP 125/77 03/21/25 09:42 Pulse Ox 95 03/21/25 09:42 O2 Del Method Room Air 03/21/25 09:42 BMI result Body Mass Index 30.9 Vital signs have been reviewed and appear to be correct. Blood pressure elevated. Heart rate normal. Respiratory rate normal. Temperature normal. Oxygen saturation normal. Appearance: Alert. Oriented X3. No acute distress. Head: Normal external exam. Normocephalic. Atraumatic. No Jimenez signs noted. No raccoon eyes noted Eyes: PERRLA. EOMI. Conjunctiva and sclera normal. Eyelids normal. ENT: TM's Normal. Pharynx normal. Uvula midline. Moist mucous membranes. No trismus noted. No drooling noted. No muffled voice noted. Neck: Normal inspection. Neck supple. FROM. No adenopathy. Thyroid Normal. No meningeal signs. No neck mass noted. CVS: Normal heart rate and rhythm. Heart sound normal. No murmurs noted. Pulses normal throughout. Respiratory: No respiratory distress. Painless inspiration. Breath sounds normal. No wheezes/rales/rhonchi noted. Chest nontender. No accessory muscle usage noted or decreased air movement noted. Abdomen: Soft and nontender. Bowel sounds normal in all 4 quadrants. No distention noted. No organomegaly noted. No visible injury noted. Back: No CVA tenderness. Full range of motion noted. Skin: Skin warm and dry. Normal skin color. Normal skin turgor. No rashes/lesions/lacerations noted. Extremities: Left foot/ankle exam: Strong PT/DP pulse, no ischemic change, swelling of the left ankle and lateral aspect of the left foot, no deformity, no ecchymosis, no redness or hotness. Neuro: Oriented X 3. Cranial nerve exam: II-XII are grossly intact No motor deficit. No sensory deficit. Reflexes normal. Medications Administered Discontinued Medications Generic Name Dose Route Start Last Admin Trade Name Freq PRN Reason Stop Dose Admin Ibuprofen 600 mg 03/21/25 09:53 03/21/25 10:18 Ibuprofen 600 Mg Tablet PO 03/21/25 09:54 600 mg ONCE ONE Administration Medical Decision Making Differential Diagnosis Differential Diagnoses: The differential diagnosis associated with the presentation includes (Acute fracture, DVT, muscle sprain, electrolyte derangement, severe anemia.) Admission/Observation Consideration of admission/observation: Escalation of care including admission/observation considered Lab Data MDM Lab Attestation statement: I reviewed the patient's lab results. 03/21/25 10:06 03/21/25 10:06 Labs: Lab Results 03/21/25 Range/Units 10:06 WBC 3.4 L (4.8-10.8) X10*3/uL RBC 3.88 L (4.60-5.80) X10*6/uL Hgb 12.9 L (14.0-18.0) g/dl Hct 36.7 L (42.0-52.0) % MCV 94.6 (80.0-98.0) fL MCH 33.2 H (27.0-33.0) pg MCHC 35.1 (31.0-36.0) g/dl RDW 14.1 (11.0-16.0) % Plt Count 106 L D (160-400) X10*3/uL MPV 8.6 L (9.4-12.4) fL Immature Gran % (Auto) 0.3 (0.0-0.4) % Neut % (Auto) 54.8 (45-73) % Lymph % (Auto) 29.1 (20-40) % [place] % (Auto) 10.2 (2-11) % Eos % (Auto) 4.7 H (0-4) % Baso % (Auto) 0.9 (0-2) % Lymph # (Auto) 1.0 L (1.2-4.9) X10*3/uL [place] # (Auto) 0.4 (0.1-1.2) X10*3/uL Eos # (Auto) 0.2 (0.0-0.4) X10*3/uL Baso # (Auto) 0.0 (0.0-0.2) X10*3/uL Abs Immat Gran (auto) 0.01 (0.00-0.03) X10*3/uL Absolute Neuts (auto) 1.9 L (2.0-8.3) x10*3/uL Absolute Nucleated RBC 0.000 (0.0-0.012) X10*3/uL Nucleated RBC % (auto) 0.0 (0.0-0.2) /100WBC Sodium 143 (135-145) mmol/L Potassium 4.0 (3.3-5.1) mmol/L Chloride 108 (96-108) mmol/L Carbon Dioxide 27 (22-29) mmol/L Anion Gap 12 (12-20) BUN 16 (9-16) mg/dL Creatinine 1.08 (0.5-1.4) mg/dL Estim Creat Clear Calc 100.9 Estimated GFR > 60 Random Glucose 97 (60-115) mg/dL Calcium 8.9 D (8.4-10.2) mg/dL Independent Interpretation I performed an independent interpretation of an: Plain X-Ray (Left foot:Unhealed fractures of the base of the 5th metatarsal and base of the proximal 1st phalanx. Severe hallux valgus with associated degenerative change.) and Ultrasound (Left leg: No DVT.) Radiology Impression Discussion of test interpretation with radiology: I have reviewed the radiologist's reading. Discharge Plan Discharge Clinical Impression: Swelling of left foot, Fracture of fifth metatarsal bone of left foot with delayed healing Patient Disposition: Home, Self-Care Instructions: Foot Fracture in Adults (ED) Prescriptions: No Action sennosides [senna] 8.6 mg Tablet 8.6 mg PO DAILY PRN (Reason: Constipation) acetaminophen 325 mg Tablet 650 mg PO Q6H PRN (Reason: Pain (Scale Score 1-3)) polyvinyl alcohol [Artificial Tears (polyvin alc)] 1.4 % Drops 1 drp ophthalmic (eye) Q12H lithium carbonate 450 mg Tablet Extended Release 225 mg PO BID methocarbamol 750 mg Tablet 750 mg PO BID PRN (Reason: Spasms) ascorbic acid (vitamin C) [Vitamin C] 500 mg Tablet 500 mg PO DAILY alum-mag hydroxide-simeth 200-200-20 mg/5 mL Suspension 30 ml PO Q6H PRN (Reason: Dyspepsia) multivitamin with minerals Tablet 1 tab PO DAILY vitamin E 400 unit Capsule 400 unit PO DAILY loratadine 10 mg Tablet 10 mg PO DAILY PRN (Reason: Itching) clozapine 50 mg Tablet 50 mg PO BEDTIME cholecalciferol (vitamin D3) 25 mcg (1,000 unit) Tablet 25 mcg PO DAILY omega-3 fatty acids 500 mg Capsule 1,000 mg PO DAILY aspirin [Aspirin Childrens] 81 mg tablet,chewable 81 mg PO DAILY Qty: 1 0RF benzocaine 10 % Gel 1 appl MUCOUS MEMBRANE QID PRN (Reason: dental pain) diphenhydramine HCl 25 mg Tablet 25 mg PO Q4H PRN (Reason: Itching) calcium carbonate 500 mg calcium (1,250 mg) Tablet,Chewable 500 mg PO Q6H clozapine [Clozaril] 25 mg Tablet 25 mg PO DAILY ibuprofen 600 mg Tablet 600 mg PO Q6H PRN (Reason: Moderate Pain (Scale Score 5-6)) pregabalin 50 mg capsule 1 cap PO BID [place] 6 mg tablet 6 mg PO BID bisacodyl [Dulcolax (bisacodyl)] 5 mg tablet,delayed release (DR/EC) 10 mg PO ONCE 1 Days Qty: 2 0RF Rx Instructions: take 2 tabs at noon the day before your colonoscopy polyethylene glycol 3350 [Miralax] 17 gram/dose powder 238 g PO ONCE Qty: 238 0RF Rx Instructions: As directed by gastroenterology department at [facility] carbamazepine 100 mg tablet extended release 12 hr 100 mg PO BID diphenhydramine HCl [Benadryl] 25 mg capsule 25 mg PO BEDTIME PRN apixaban 5 mg tablet 5 mg PO BID levothyroxine 88 mcg tablet 88 mcg PO DAILY metoprolol succinate 50 mg tablet extended release 24 hr 50 mg PO BID levetiracetam 1,000 mg tablet 2,000 mg PO BID Referrals: Erick Hogan MD [Physician] - Brody Gordon DO [Primary Care Provider] - Print Language: Nigerian
[2025-03-21 10:10] LABS: MANUAL DIFF FLAG NO
[2025-03-21 10:11] LABS: Basophils Percent Auto 0.9 % (0-2); Eosinophils Absolute Auto 0.2 X10*3/uL (0.0-0.4); Eosinophils Percent Auto 4.7 % (0-4); Hematocrit 36.7 % (42.0-52.0); Hemoglobin 12.9 g/dl (14.0-18.0); Imm Gran Abs Auto 0.01 X10*3/uL (0.00-0.03); Imm Gran Pct Auto 0.3 % (0.0-0.4); Lymphocytes Percent Auto 29.1 % (20-40); Mean Corpuscular HGB Conc 35.1 g/dl (31.0-36.0); Mean Corpuscular Hemoglobin 33.2 pg (27.0-33.0); Mean Corpuscular Volume 94.6 fL (80.0-98.0); Mean Platelet Volume 8.6 fL (9.4-12.4); Monocytes Absolute Auto 0.4 X10*3/uL (0.1-1.2); Monocytes Percent Auto 10.2 % (2-11); Neutrophils Absolute Auto 1.9 x10*3/uL (2.0-8.3); Neutrophils Percent Auto 54.8 % (45-73); Platelet Count 106 X10*3/uL (160-400); Red Blood Count 3.88 X10*6/uL (4.60-5.80); Red Cell Distribution Width 14.1 % (11.0-16.0); White Blood Count 3.4 X10*3/uL (4.8-10.8)
--- OUTSIDE RECORDS SUMMARY | 2025-03-21 10:13 | XMS_ITS | Encounter Summary ---
Author Organization [facility] Address [address] [place] [address] Care Team Providers Care Mill Set Up Name Role Phone Brody Gordon MD Primary Care Provider [phone] Encounter Details Date Type Department Care Team (Late st Contact Info) Description 10/28/[address] [facility] - Main Lab [address] [facility] [place] [address] Brody Gordon MD [address] [place] [address] [address] [place], [place] Other fpc (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 Social History Tobacco Use Types Packs/Day Years Used Date Smoking Tobacco: Never Smokeless Tobacco: Never Alcohol Use Standard Drinks/Week Comments Not Currently 0 (1 standard drink = 0.6 oz pur e alcohol) Sex and Gender Information Value Date Recorded Sex Assigned at Not on file Legal Sex Male 7:30 PM EST Gender Identity Not on file Sexual Orientation Not on file documented as of this encounter Plan of Treatment Upcoming Encounters Date Type Department Care Team (Late st Contact Info) Description 06/17/2025 10:00 AM EDT Ancillary Procedure [facility] [address] [place] [address] 10/04/2025 10:00 AM EST Ancillary Procedure [facility] [address] [place] [address] documented as of this encounter Procedures Procedure Name Priority Date/Time Associated Diagnosis Comments CBC WITH AUTO DIFFERENTIAL Routine 10/28/2024 5:30 AM EST Other terminologist (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 VITAMIN D 25 HYDROXY Routine 10/28/2024 5:30 AM EST Other fpc (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 CBC AND DIFFERENTIAL Routine 10/28/2024 5:30 AM EST Other terminologist (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 THYROID STIMULATING HORMONE Routine 10/28/2024 5:30 AM EST Other fpc (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 COMPREHENSIVE METABOLIC PANEL Routine 10/28/2024 5:30 AM EST Other fpc (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 documented in this encounter Results * (ABNORMAL) CBC auto differential (10/28/2024 5:30 AM EST) [facility] WBC 3.9(L) 4.8 - 10.8 K/mcL LAB HEMETOLOGY METHOD 10/28/2024 6:43 AM [facility] RBC 4.00(L) 4.50 - 5.50 M/mcL LAB HEMETOLOGY METHOD 10/28/2024 6:43 AM [facility] Hemoglobin 13.3(L) 13.5 - 17.5 g/dL LAB HEMETOLOGY METHOD 10/28/2024 6:43 AM [facility] Hematocrit 39.4(L) 42.0 - 54.0 % LAB HEMETOLOGY METHOD 10/28/2024 6:43 AM [facility] MCV 97.5 79.0 - 98.0 FL LAB HEMETOLOGY METHOD 10/28/2024 6:43 AM [facility] MCH 32.9(H) 27.0 - 32.0 pcg LAB HEMETOLOGY METHOD 10/28/2024 6:43 AM [facility] MCHC 33.8 32.0 - 37.0 g/dL LAB HEMETOLOGY METHOD 10/28/2024 6:43 AM [facility] RDW 13.3 11.0 - 15.0 % LAB HEMETOLOGY METHOD 10/28/2024 6:43 AM [facility] Platelets 115(L) 130 - 400 K/mcL LAB HEMETOLOGY METHOD 10/28/2024 6:43 AM [facility] MPV 8.9 7.0 - 11.0 FL LAB HEMETOLOGY METHOD 10/28/2024 6:43 AM [facility] NRBC 0.0 <1.0 % LAB HEMETOLOGY METHOD 10/28/2024 6:43 AM [facility] NRBC Absolute 0.00 <0.10 K/mcL LAB HEMETOLOGY METHOD 10/28/2024 6:43 AM [facility] Neutrophils Relative 45.5 % LAB HEMETOLOGY METHOD 10/28/2024 6:43 AM [facility] Lymphocytes Relative 39.8 % LAB HEMETOLOGY METHOD 10/28/2024 6:43 AM [facility] Monocytes Relative 10.2 % LAB HEMETOLOGY METHOD 10/28/2024 6:43 AM [facility] Eosinophils Relative 3.0 % LAB HEMETOLOGY METHOD 10/28/2024 6:43 AM [facility] Basophils Relative 1.0 % LAB HEMETOLOGY METHOD 10/28/2024 6:43 AM [facility] Immature Granulocytes Relative 0.5 % LAB HEMETOLOGY METHOD 10/28/2024 6:43 AM [facility] Neutrophils Absolute 1.79 1.50 - 7.00 K/mcL LAB HEMETOLOGY METHOD 10/28/2024 6:43 AM [facility] Lymphocytes Absolute 1.57 1.00 - 5.00 K/mcL LAB HEMETOLOGY METHOD 10/28/2024 6:43 AM [facility] Monocytes Absolute 0.40 0.20 - 1.00 K/mcL LAB HEMETOLOGY METHOD 10/28/2024 6:43 AM [facility] Eosinophils Absolute 0.12 0.00 - 0.50 K/mcL LAB HEMETOLOGY METHOD 10/28/2024 6:43 AM EST [facility] Basophils Absolute 0.04 0.00 - 0.20 K/[facility] LAB HEMETOLOGY METHOD 10/28/2024 6:43 AM EST [facility] Immature Granulocytes Absolute 0.02 0.00 - 0.03 K/[facility] LAB HEMETOLOGY METHOD 10/28/2024 6:43 AM EST [facility] Blood Venous blood specimen / Unknown 10/28/2024 5:30 AM EST 10/28/2024 6:16 AM EST us Brody Gordon MD LAB BLOOD ORDERABLES Final Resul t Performing Organization Address City/[facility]/ZIP Co de Phone Number [facility] [address] [place] [address], [place] [phone] * Vitamin D 25 hydroxy (10/28/2024 5:30 AM EST) Vit D, 25-Hydroxy 49.2 30.0 - 80.0 ng/mL LAB CHEMISTRY METHOD 10/28/2024 7:15 AM EST [facility] Blood Venous blood specimen / Unknown 10/28/2024 5:30 AM EST 10/28/2024 6:16 AM EST us Brody Gordon MD LAB BLOOD ORDERABLES Final Resul t [facility] [address] [place] [address], [place] [phone] * Thyroid stimulating hormone (10/28/2024 5:30 AM EST) TSH 3.18 0.40 - 4.00 mcIU/mL LAB CHEMISTRY METHOD 10/28/2024 7:15 AM EST [facility] Blood Venous blood specimen / Unknown 10/28/2024 5:30 AM EST 10/28/2024 6:16 AM EST us Brody Gordon MD LAB BLOOD ORDERABLES Final Resul t [facility] [address] [place] [address], [place] [phone] * Comprehensive metabolic panel (10/28/2024 5:30 AM EST) Sodium 142 133 - 145 mmol/L LAB CHEMISTRY METHOD 10/28/2024 7:08 AM [facility] Potassium 3.8 3.5 - 5.5 mmol/L LAB CHEMISTRY METHOD 10/28/2024 7:08 AM [facility] Chloride 110 96 - 110 mmol/L LAB CHEMISTRY METHOD 10/28/2024 7:08 AM [facility] CO2 29 21 - 32 mmol/L LAB CHEMISTRY METHOD 10/28/2024 7:08 AM [facility] Anion Gap 3 3 - 11 LAB CHEMISTRY METHOD 10/28/2024 7:08 AM [facility] Glucose 91 70 - 100 mg/dL LAB CHEMISTRY METHOD 10/28/2024 7:08 AM [facility] BUN 15 5 - 25 mg/dL LAB CHEMISTRY METHOD 10/28/2024 7:08 AM [facility] Creatinine 1.14 0.70 - 1.30 mg/dL LAB CHEMISTRY METHOD 10/28/2024 7:08 AM [facility] eGFR 74 >=60 mL/min/1. 73m2 LAB CHEMISTRY METHOD 10/28/2024 7:08 AM [facility] Comment:Calculation based on the??Chronic Kidney Disease Epidemiology Collaboration (CKD-EPI) equation refit??without adjustment for race. BUN/Creatinine Ratio 13.2 LAB CHEMISTRY METHOD 10/28/2024 7:08 AM [facility] Calcium 9.3 8.5 - 10.5 mg/dL LAB CHEMISTRY METHOD 10/28/2024 7:08 AM [facility] AST (SGOT) 14 10 - 42 unit/L LAB CHEMISTRY METHOD 10/28/2024 7:08 AM [facility] ALT (SGPT) 22 10 - 60 unit/L LAB CHEMISTRY METHOD 10/28/2024 7:08 AM [facility] Alkaline Phosphatase 59 42 - 121 unit/L LAB CHEMISTRY METHOD 10/28/2024 7:08 AM [facility] Total Protein 6.4 6.0 - 8.0 g/dL LAB CHEMISTRY METHOD 10/28/2024 7:08 AM [facility] Albumin 3.8 3.2 - 5.0 g/dL LAB CHEMISTRY METHOD 10/28/2024 7:08 AM [facility] Total Bilirubin 0.8 0.0 - 1.4 mg/dL LAB CHEMISTRY METHOD 10/28/2024 7:08 AM [facility] Blood Venous blood specimen / Unknown 10/28/2024 5:30 AM EST 10/28/2024 6:16 AM EST us Brody Gordon MD LAB BLOOD ORDERABLES Final Resul t [facility] [address] [place] [address], documented in this encounter Visit Diagnoses Diagnosis Other terminologist (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 Encounter for adjustment or management of cardiac device documented in this encounter Care Teams Mill Set Up Relationship Specialty Start Date End Date Brody Gordon MD [address] [facility] [address] [facility] MAYKEL Perez PCP - General Internal Medicine 10/26/15 documented as of this encounter
--- OUTSIDE RECORDS SUMMARY | 2025-03-21 10:13 | XMS_ITS | Encounter Summary ---
Author Organization [employer] [facility] Address [address] [place] [address] Care Team Providers Care Quality Control Tech Raw Materials Name Role Phone Brody Gordon MD Primary Care Provider [phone] Encounter Details Date Type Department Care Team (Late st Contact Info) Description 01/29/2025 Lab Requisition [facility] - Main Lab [address] [facility] [place] [address] Brody Gordon MD [address] [place] [address] [address] [place], [place] Other mcc (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 Social History Tobacco Use [...] Description 06/17/2025 10:00 AM EDT Ancillary Procedure [facility] Cardiology [facility] [address] [place] [address] 10/04/2025 10:00 AM EST Ancillary Procedure [facility] Cardiology [facility] [address] [place] [address] documented as of this encounter Procedures Procedure Name Priority Date/Time Associated Diagnosis Comments VITAMIN D 25 HYDROXY Routine 01/29/2025 6:25 AM EST Other mcc (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 documented in this encounter Results * Vitamin D 25 hydroxy (01/29/2025 6:25 AM EST) Vit D, 25-Hydroxy 48.1 30.0 - 80.0 ng/mL LAB CHEMISTRY METHOD 01/29/2025 8:28 AM EST [facility] Blood Venous blood specimen / Unknown 01/29/2025 6:25 AM EST 01/29/2025 7:29 AM EST us Brody Gordon MD LAB BLOOD ORDERABLES Final Resul t [facility] [address] [place] [address], documented in this encounter Visit Diagnoses Diagnosis Other mcc (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 Encounter for adjustment or management of cardiac device documented in this encounter Care Teams Quality Control Tech Raw Materials Relationship Specialty Start Date End Date Brody Gordon MD [address] [place] [address] Dr [address] [place] PCP - General Internal Medicine 10/26/15 documented as of this encounter
--- OUTSIDE RECORDS SUMMARY | 2025-03-21 10:13 | XMS_ITS | Encounter Summary ---
[facility] Address [address] [place] [address] Care Team Providers Care Senior Oracle Applications Developer Name Role Phone Brody Gordon MD Primary Care Provider [phone] Encounter Details Date Type Department Care Team (Late st Contact Info) Description 02/04/2025 Lab Requisition [facility] - Main Lab [address] [facility] [place] [address] Brody Gordon MD [address] [place] [address] [address] [place], [place] Encounter for therapeutic drug level monitoring Social History Tobacco Use Types Packs/Day Years [...] Description 06/17/2025 10:00 AM EDT Ancillary Procedure [facility] [address] [place] [address] 10/04/2025 10:00 AM EST Ancillary Procedure [facility] Cardiology [facility] [address] [place] [address] documented as of this encounter Procedures Procedure Name Priority Date/Time Associated Diagnosis Comments RED - PLAIN Routine 02/04/2025 6:10 AM EDT Encounter for therapeutic drug level monitoring LEVETIRACETAM LEVEL Routine 02/04/2025 6 :10 AM EDT Encounter for therapeutic drug level monitoring CARBAMAZEPINE LEVEL, TOTAL Routine 02/04/2025 6:10 AM EDT Encounter for therapeutic drug level monitoring documented in this encounter Results * Red tube (02/04/2025 6:10 AM EDT) Extra Tube Hold for add-ons. 02/04/2025 9:01 AM EDT [facility] Comment:Auto resulted. Blood Venous blood specimen / Unknown 02/04/2025 6:10 AM EDT 02/04/2025 7:11 AM EDT us Brody Gordon MD LAB BLOOD ORDERABLES Final Resul t Performing Organization Address [facility] Co de Phone Number [facility] [address] [place] [address], [place] [phone] * Carbamazepine level, total (02/04/2025 6:10 AM EDT) Pathologist [facility] Carbamazepine Level 8.3 8.0 - 12.0 mcg/mL LAB CHEMISTRY METHOD 02/04/2025 7:42 AM EDT [facility] Blood Venous blood specimen / Unknown 02/04/2025 6:10 AM EDT 02/04/2025 7:11 AM EDT us Brody Gordon MD LAB BLOOD ORDERABLES Final Resul t Performing Organization Address City/[facility]/ZIP Co de Phone Number [facility] [address] [place] [address], [place] [phone] * Levetiracetam level (02/04/2025 6:10 AM EDT) Levetiracetam 35.8 3.0 - 60.0 ug/mL 02/06/2025 2:28 PM EDT [facility] Comment: Steady state trough serum or plasma levels following doses of 1000 to 3000 mg/Day: ??3 to 37 ug/mL. The same dosage regimen will typically result in peak levels of 10 to 60 ug/mL, at approximately 1.5 hours post dose. If applicable, any drug confirmation testing reported here was developed and the performance characteristics determined by [facility]. This confirmation testing has not been cleared or approved by the FDA. The laboratory is regulated under CLIA as qualified to perform high-complexity testing. This test is used for patient testing purposes. It should not be regarded as investigational or for research. Test performed at [facility], [address], [place], [place] ??[address] ? [phone] Isabella Joyner MD, PhD - Capsule Inspector Blood Venous blood specimen / Unknown 02/04/2025 6:10 AM EDT 02/04/2025 7:11 AM EDT us Brody Gordon MD LAB BLOOD ORDERABLES Final Resul t [facility] [address] [place] [address] documented in this encounter Visit Diagnoses Diagnosis Encounter for therapeutic drug level monitoring Encounter for adjustment or management of cardiac device documented in this encounter Care Teams Senior Oracle Applications Developer Relationship Specialty Start Date End Date Brody Gordon MD [address] [place] [address] [address] MAYKEL Perez PCP - General Internal Medicine 10/26/15 documented as of this encounter
--- OUTSIDE RECORDS SUMMARY | 2025-03-21 10:13 | XMS_ITS | Encounter Summary ---
Author Organization [employer] [facility] Address [address] [place] [address] Care Team Providers Care Ladler Name Role Phone Brody Gordon MD Primary Care Provider [phone] Encounter Details Date Type Department Care Team (Late st Contact Info) Description 10/06/2024 Lab Requisition [facility] - Main Lab [address] [facility] [employer] [place] [address] Brody Gordon MD [address] [place] [address] [address] [place], [place] Other [facility]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 Social History Tobacco Use [...] Description 06/17/2025 10:00 AM EDT Ancillary Procedure [facility]iology [facility] [address] [place] [address] 10/04/2025 10:00 AM EST Ancillary Procedure [facility] [address] [place] [address] documented as of this encounter Procedures Procedure Name Priority Date/Time Associated Diagnosis Comments CBC WITH AUTO DIFFERENTIAL Routine 10/06/2024 5:10 AM EST Other terminal gauger (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 CBC AND DIFFERENTIAL Routine 10/06/2024 5:10 AM EST Other terminal gauger (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 documented in this encounter Results * (ABNORMAL) CBC auto differential (10/06/2024 5:10 AM EST) WBC 3.9(L) 4.8 - 10.8 K/mcL LAB HEMETOLOGY METHOD 10/06/2024 5:55 AM [facility] RBC 3.80(L) 4.50 - 5.50 M/mcL LAB HEMETOLOGY METHOD 10/06/2024 5:55 AM [facility] Hemoglobin 12.6(L) 13.5 - 17.5 g/dL LAB HEMETOLOGY METHOD 10/06/2024 5:55 AM [facility] Hematocrit 36.8(L) 42.0 - 54.0 % LAB HEMETOLOGY METHOD 10/06/2024 5:55 AM [facility] MCV 95.8 79.0 - 98.0 FL LAB HEMETOLOGY METHOD 10/06/2024 5:55 AM [facility] MCH 32.8(H) 27.0 - 32.0 pcg LAB HEMETOLOGY METHOD 10/06/2024 5:55 AM [facility] MCHC 34.2 32.0 - 37.0 g/dL LAB HEMETOLOGY METHOD 10/06/2024 5:55 AM [facility] RDW 13.1 11.0 - 15.0 % LAB HEMETOLOGY METHOD 10/06/2024 5:55 AM [facility] Platelets 110(L) 130 - 400 K/mcL LAB HEMETOLOGY METHOD 10/06/2024 5:55 AM [facility] MPV 8.8 7.0 - 11.0 FL LAB HEMETOLOGY METHOD 10/06/2024 5:55 AM [facility] NRBC 0.0 <1.0 % LAB HEMETOLOGY METHOD 10/06/2024 5:55 AM [facility] NRBC Absolute 0.00 <0.10 K/mcL LAB HEMETOLOGY METHOD 10/06/2024 5:55 AM [facility] Neutrophils Relative 44.6 % LAB HEMETOLOGY METHOD 10/06/2024 5:55 AM [facility] Lymphocytes Relative 41.4 % LAB HEMETOLOGY METHOD 10/06/2024 5:55 AM [facility] Monocytes Relative 8.4 % LAB HEMETOLOGY METHOD 10/06/2024 5:55 AM [facility] Eosinophils Relative 4.3 % LAB HEMETOLOGY METHOD 10/06/2024 5:55 AM [facility] Basophils Relative 1.0 % LAB HEMETOLOGY METHOD 10/06/2024 5:55 AM [facility] Immature Granulocytes Relative 0.3 % LAB HEMETOLOGY METHOD 10/06/2024 5:55 AM [facility] Neutrophils Absolute 1.76 1.50 - 7.00 K/mcL LAB HEMETOLOGY METHOD 10/06/2024 5:55 AM [facility] Lymphocytes Absolute 1.63 1.00 - 5.00 K/mcL LAB HEMETOLOGY METHOD 10/06/2024 5:55 AM [facility] Monocytes Absolute 0.33 0.20 - 1.00 K/mcL LAB HEMETOLOGY METHOD 10/06/2024 5:55 AM [facility] Eosinophils Absolute 0.17 0.00 - 0.50 K/mcL LAB HEMETOLOGY METHOD 10/06/2024 5:55 AM [facility] Basophils Absolute 0.04 0.00 - 0.20 K/mcL LAB HEMETOLOGY METHOD 10/06/2024 5:55 AM [facility] Immature Granulocytes Absolute 0.01 0.00 - 0.03 K/mcL LAB HEMETOLOGY METHOD 10/06/2024 5:55 AM EST [facility] Blood Venous blood specimen / Unknown 10/06/2024 5:10 AM EST 10/06/2024 5:47 AM EST Brody Gordon MD LAB BLOOD ORDERABLES Final Resul t [facility] [address] [place] [address], documented in this encounter Visit Diagnoses Diagnosis Other terminal gauger (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 Encounter for adjustment or management of cardiac device documented in this encounter Care Teams Ladler Relationship Specialty Start Date End Date Brody Gordon MD [address] [place] [address] Dr [address] [place], [place] PCP - General Internal Medicine 10/26/15 documented as of this encounter
--- OUTSIDE RECORDS SUMMARY | 2025-03-21 10:13 | XMS_ITS | Clinical Summary ---
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 Active levothyroxine (SYNTHROID, LEVOTHROID) 75 mcg tablet Take 0.112 mcg by mouth 1 (one) time each day before breakfast. Active pregabalin (LYRICA) 50 mg capsule Take 1 Capsule by mouth 2 times daily. Active cloBAZam (ONFI) 20 mg tablet Take 1 Tablet by mouth 2 times daily. Active magnesium, aluminum hydroxide (ALUMINUM-MAGNE SIUM HYDROXIDE ORAL) Take 30 mL by mouth every 6 hours as needed. Active senna (SENOKOT) 8.6 mg tablet Take by mouth. A ctive DIPHENHYDRAMINE HCL ORAL Take by mouth. Activ e carBAMazepine XR (TEGretol XR) 100 mg 12 hr tablet 3 tablets (300 mg total) 2 (two) times a day. Active cloZAPine (CLOZARIL) 50 mg tablet Take 1 Tablet by mouth daily. Active acetaminophen (TYLENOL) 325 mg tablet Take 2 Tablets by mouth. Give 2 tablets by mouth every 6 hours as needed for elevated temp>101. DO NOT exceed 3 grams in 24 hours Active amoxicillin (AMOXIL) 500 mg tablet Take 4 Tablets by mouth See Admin Instructions. As needed for PROPHYLAXIS ONE HOUR BEFORE DENTAL VISITS Active CARBOXYMETHYLCE LLULOSE SODIUM OPHT apply 1 Drop to the eye every 12 hours as needed. For dry eyes Active aspirin 81 mg chewable tablet Take 1 Tablet by mouth daily. For prophylaxis. Monitor for bleeding, bruising, and black tarry stools Active deutetrabenazin e (Austedo) 6 mg tablet Take 6 mg by mouth 2 times daily. For Tardive dyskinesia Active benzocaine (ORAJEL) 10 % mucosal gel Take 1 Applicator by mouth as needed. For mouth pain Active CALCIUM CARBONATE ORAL Take 2 Tablets by mouth every 6 hours as needed. For Heart burn and indigestion Active OMEGA-3 FATTY ACIDS ORAL Take 2 Capsules by mouth daily. Active sodium phosphates (Fleet Enema Extra) 19-7 gram/[address] 1 Units rectally as needed. Active IBUPROFEN ORAL Take 600 mg by mouth every 6 hours as needed. Active levETIRAcetam (KEPPRA) 1,000 mg tablet Take 2 Tablets by mouth 2 times daily. Active LITHIUM CARBONATE ORAL Take 450 mg by mouth. Take 0.5 mg orally 2 times per day Active loratadine (CLARITIN) 10 mg tablet Take 1 Tablet by mouth daily. Active methocarbamoL (ROBAXIN) 500 mg tablet Take 1 Tablet by mouth every 12 hours. For spasms Active metoprolol succinate (TOPROL-XL) 50 mg 24 hr tablet Take 1 Tablet by mouth 2 times daily. Active multivitamin with minerals (MULTIPLE VITAMIN-MINERAL S ORAL) Take by mouth daily. Active aluminum-magnes ium hydroxide-simet hicone (MAALOX) 200-200-20 mg/5 mL suspension Take 30 mL by mouth as needed. For Dyspepsia Active bisacodyL (DULCOLAX) 5 mg EC tablet Take 1 Tablet by mouth daily as needed. Use if Senna is ineffective Active neomycin-bacitr acnZn-polymyxnB 3.5-500-10,000 od-wmpp-dzfy ointment Apply topically. Apply to face topically every day shift for scratches Active GUAIFENESIN ORAL TUSSIN GUAIFENESIN OR Take 100 mL by mouth every 6 hours as needed. As needed for cough Active ascorbic acid, vitamin C, 500 mg capsule Take 500 mg by mouth daily. Active cholecalciferol (VITAMIN D-3) 25 mcg (1,000 unit) tablet Take by mouth daily. Vitamin D deficiency Active vitamin E acetate (VITAMIN E ORAL) vitamin E 400 units capsule Take 1 Capsule by mouth daily Active ziprasidone (GEODON) 20 mg capsule Take 1 capsule (20 mg total) by mouth 2 (two) times a day with meals. Active Active Problems Problem Noted Date Diagnosed Date Atrial flutter (CMS/HCC V24, CMS/HCC V28) 2022 Overview (09/23/2024): Last Assessment & Plan: I do not believe he has hypertension or diabetes. 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 At this point, [id number] score is probably 0. I will hold off anticoagulation for now. He will come back for echocardiogram. If left ventricular systolic function is impaired then he may need therapeutic anticoagulation. His TSH was persistently lower from most recent labs. I suspect he could have subclinical hyperthyroidism and I will suggest further evaluation. Palpitations 07/15/2023 Sick sinus syndrome (CMS/HCC V24, CMS/HCC V28) 0 07/15/2023 Overview (09/23/2024): Last Assessment & Plan: Status post pacemaker. Continue monitoring his rhythm remotely. SOB (shortness of breath) 07/15/2023 Encounters Date Type Department Care Team Description 03/18/2025 10:10 AM EDT Office Visit [facility] [address] [place] [address] Carmen Hamilton PA Typical atrial flutter (CMS/HCC V24, CMS/HCC V28) (Primary Dx); Palpitations; Sick sinus syndrome (CMS/HCC V24, CMS/HCC V28); SOB (shortness of breath) 03/03/[address] [facility] Lab [address] [facility] [place] [phone] Brody Gordon MD Progressive multifocal leukoencephalopathy (CMS/HCC V24, CMS/HCC V28); Hypothyroidism, unspecified; Other usp (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 03/02/2025 7:20 PM EDT Ancillary Procedure [facility] [address] [place] [address] 02/26/2025 6:20 PM EDT Ancillary Procedure [facility] [address] [place] [address] 02/26/[address] [facility] Lab [address] [place] [phone] Brody Gordon MD Other technician terminal and repeater (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 02/04/[address] [facility] Lab [address] [place] [phone] Brody Gordon MD Encounter for therapeutic drug level monitoring 02/01/2025 Lab Requisition [facility] [address] [place] [phone] Brody Gordon MD Progressive multifocal leukoencephalopathy (CMS/HCC V24, CMS/HCC V28); Vitamin D deficiency, unspecified 01/29/2025 Lab Requisition [facility] [address] [place] [phone] Brody Gordon MD Other usp (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 01/13/2025 Telephone [facility] [address] [facility] [address] [place] [address] Carmen Hamilton PA 12/29/2024 Telephone [facility] [address] [place] [address] Dora Castanon MD ECHO/ follow up (Echo/ follow up) from Last 3 Months Social History Tobacco Use Types Packs/Day Years Used Date Smoking Tobacco: Never Smokeless Tobacco: Never Alcohol Use Standard Drinks/Week Comments Not Currently 0 (1 standard drink = 0.6 oz pur e alcohol) Sex and Gender Information Value Date Recorded Sex Assigned at Not on file Legal Sex Male 7:30 PM EST Gender Identity Not on file Sexual Orientation Not on file Obstetrics History Last Filed Vital Signs Vital Sign Reading Time Taken Comments Blood Pressure 120/80 03/18/2025 9:57 AM EDT Pulse 79 10/11/2023 10:49 AM EST Temperature - - Respiratory Rate - - Oxygen Saturation 96% 03/18/2025 9:57 AM EDT Inhaled Oxygen Concentration - - Weight 115 kg (254 lb) 03/18/2025 9:57 AM EDT Height 195.6 cm (6' 5 ) 03/18/2025 9:57 AM EDT Body Mass Index 30.12 03/18/2025 9:57 AM EDT Plan of Treatment Upcoming Encounters Date Type Department Care Team (Late st Contact Info) Description 06/17/2025 10:00 AM EDT Ancillary Procedure [facility] [address] [place] [address] 10/04/2025 10:00 AM EST Ancillary Procedure [facility] [address] [place] [address] Health Maintenance Due Date Last Done Comments DTaP,Tdap,and Td Vaccines (1 - Tdap) 1983 Pneumococcal Vaccine: 50+ Years (1 of 1 - PCV) 2014 Zoster Vaccines (1 of 2) 2014 Cholesterol Screening (Lipid Panel) 11/03/2022 Colorectal Cancer Screening: Colonoscopy 11/03/2022 Depression Screening 11/03/2022 HIV Screening 11/03/2022 Hepatitis C Screening 11/03/2022 Medicare Annual Wellness Visit 11/03/2022 Social Influencers of Health Screening 11/03/2022 COVID-19 Vaccine ( season) 2024 10/04/2023, 08/23/2022, 04/18/2022, Additional history exists RSV Immunization Adult Patients (1 - Risk 60-74 years 1-dose series) 2024 Influenza Vaccine (Season Ended) 2025 09/07/2021 HIB Vaccines Aged Out No longer eligi ble based on patient's age to complete this topic HPV Vaccines Aged Out No longer eligi ble based on patient's age to complete this topic Hepatitis A Vaccines Aged Out No long er eligible based on patient's age to complete this topic Hepatitis B Vaccines Aged Out No long er eligible based on patient's age to complete this topic IPV Vaccines Aged Out No longer eligi ble based on patient's age to complete this topic MMR Vaccines Aged Out No longer eligi ble based on patient's age to complete this topic Meningococcal ACWY Vaccine Aged Out N o longer eligible based on patient's age to complete this topic Meningococcal B Vaccine Aged Out No l onger eligible based on patient's age to complete this topic Pneumococcal Vaccine: Pediatrics (0 to 5 Years) and At-Risk Patients (6 to 64 Years) Aged Out No longer eligible based on patient's age to complete this topic RSV Immunization Patients Under 20 months Aged Out No longer eligible based on patient's age to complete this topic Varicella Vaccines Aged Out No longer eligible based on patient's age to complete this topic Medical Devices Implanted Type Area Sales Team Member Device Identifier Shelf Expiration Date Model / Serial / Lot Cardiac Pacemaker Cardiac Pacemaker Left: Chest Medt-Card Allen Xt Dr Taveras [id number] Implanted: (Quantity not on file) Cardiac Pacemaker [employer] - CARDIAC RHYTH-CRDM [place] XT DR TAVERAS / [id number] / Medt-Card Allen Xt Dr Taveras [id number] Implanted: (Quantity not on file) Cardiac Pacemaker [employer] - CARDIAC RHYTH-CRDM [place] XT DR TAVERAS [id number] / [id number] / Procedures Procedure Name Priority Date/Time Associated Diagnosis Comments ECG 12-LEAD Routine 03/18/2025 11:43 AM EDT Typical atrial flutter (CMS/HCC V24, CMS/HCC V28) CBC WITH AUTO DIFFERENTIAL Routine 03/03/2025 5:50 AM EDT Progressive multifocal leukoencephalopathy (CMS/HCC V24, CMS/HCC V28) Hypothyroidism, unspecified Other technician terminal and repeater (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 VITAMIN D 25 HYDROXY Routine 03/03/2025 5:50 AM EDT Progressive multifocal leukoencephalopathy (CMS/HCC V24, CMS/HCC V28) Hypothyroidism, unspecified Other technician terminal and repeater (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 THYROID STIMULATING HORMONE Routine 03/03/2025 5:50 AM EDT Progressive multifocal leukoencephalopathy (CMS/HCC V24, CMS/HCC V28) Hypothyroidism, unspecified Other usp (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 THYROXINE FREE Routine 03/03/2025 5:50 AM EDT Progressive multifocal leukoencephalopathy (CMS/HCC V24, CMS/HCC V28) Hypothyroidism, unspecified Other usp (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 CBC AND DIFFERENTIAL Routine 03/03/2025 5:50 AM EDT Progressive multifocal leukoencephalopathy (CMS/HCC V24, CMS/HCC V28) Hypothyroidism, unspecified Other usp (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 CARDIAC DEVICE CHECK- REMOTE- MURJ Routine 03/02/2025 7:19 PM EDT CARDIAC DEVICE CHECK- REMOTE- MURJ Routine 02/26/2025 6:18 PM EDT CBC WITH AUTO DIFFERENTIAL Routine 02/26/2025 6:00 AM EDT Other usp (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 LITHIUM LEVEL Routine 02/26/2025 6:00 AM EDT Other technician terminal and repeater (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 CBC AND DIFFERENTIAL Routine 02/26/2025 6:00 AM EDT Other technician terminal and repeater (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 COMPREHENSIVE METABOLIC PANEL Routine 02/26/2025 6:00 AM EDT Other technician terminal and repeater (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 RED - PLAIN Routine 02/04/2025 6:10 AM EDT Encounter for therapeutic drug level monitoring CARBAMAZEPINE LEVEL, TOTAL Routine 02/04/2025 6:10 AM EDT Encounter for therapeutic drug level monitoring LEVETIRACETAM LEVEL Routine 02/04/2025 6 :10 AM EDT Encounter for therapeutic drug level monitoring CBC WITH AUTO DIFFERENTIAL Routine 02/01/2025 6:34 AM EDT Progressive multifocal leukoencephalopathy (CMS/HCC) Vitamin D deficiency, unspecified LITHIUM LEVEL Routine 02/01/2025 6:34 AM EDT Progressive multifocal leukoencephalopathy (CMS/HCC) Vitamin D deficiency, unspecified VITAMIN D 25 HYDROXY Routine 02/01/2025 6:34 AM EDT Progressive multifocal leukoencephalopathy (CMS/HCC) Vitamin D deficiency, unspecified COMPREHENSIVE METABOLIC PANEL Routine 02/01/2025 6:34 AM EDT Progressive multifocal leukoencephalopathy (CMS/HCC) Vitamin D deficiency, unspecified CBC AND DIFFERENTIAL Routine 02/01/2025 6:34 AM EDT Progressive multifocal leukoencephalopathy (CMS/HCC) Vitamin D deficiency, unspecified VITAMIN D 25 HYDROXY Routine 01/29/2025 6:25 AM EST Other usp (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 from Last 3 Months Results * ECG 12 lead (03/18/2025 11:43 AM EDT) Ventricular Rate ECG 76 BPM GEMUSE Atrial Rate 76 BPM GEMUSE QRS Duration 182 ms GEMUSE Q-T Interval 458 ms GEMUSE QTc 515 ms GEMUSE R [place] 109 degrees GEMUSE T [place] -17 degrees GEMUSE ECG Interpretation afib ??Ventricula r-paced rhythm Abnormal ECG No previous ECGs available GEMUSE 03/18/2025 10:0 4 AM EDT 03/18/2025 10:33 AM EDT us Carmen OJEDA ECG ORDERABLES Final Result GEMUSE * (ABNORMAL) CBC auto differential (03/03/2025 5:50 AM EDT) Only the most recent of3 resultswithin the time period is included. WBC 4.1(L) 4.8 - 10.8 K/mcL LAB HEMETOLOGY METHOD 03/03/2025 6:46 AM EDT [facility] RBC 4.00(L) 4.50 - 5.50 M/mcL LAB HEMETOLOGY METHOD 03/03/2025 6:46 AM EDT [facility] Hemoglobin 13.1(L) 13.5 - 17.5 g/dL LAB HEMETOLOGY METHOD 03/03/2025 6:46 AM [facility] Hematocrit 37.8(L) 42.0 - 54.0 % LAB HEMETOLOGY METHOD 03/03/2025 6:46 AM [facility] MCV 94.7 79.0 - 98.0 FL LAB HEMETOLOGY METHOD 03/03/2025 6:46 AM [facility] MCH 32.8(H) 27.0 - 32.0 pcg LAB HEMETOLOGY METHOD 03/03/2025 6:46 AM [facility] MCHC 34.7 32.0 - 37.0 g/dL LAB HEMETOLOGY METHOD 03/03/2025 6:46 AM [facility] RDW 13.0 11.0 - 15.0 % LAB HEMETOLOGY METHOD 03/03/2025 6:46 AM [facility] Platelets 128(L) 130 - 400 K/mcL LAB HEMETOLOGY METHOD 03/03/2025 6:46 AM [facility] MPV 8.7 7.0 - 11.0 FL LAB HEMETOLOGY METHOD 03/03/2025 6:46 AM [facility] NRBC 0.0 <1.0 % LAB HEMETOLOGY METHOD 03/03/2025 6:46 AM [facility] NRBC Absolute 0.00 <0.10 K/mcL LAB HEMETOLOGY METHOD 03/03/2025 6:46 AM [facility] Neutrophils Relative 49.2 % LAB HEMETOLOGY METHOD 03/03/2025 6:46 AM [facility] Lymphocytes Relative 34.1 % LAB HEMETOLOGY METHOD 03/03/2025 6:46 AM [facility] Monocytes Relative 10.6 % LAB HEMETOLOGY METHOD 03/03/2025 6:46 AM EDT [facility] Eosinophils Relative 4.4 % LAB HEMETOLOGY METHOD 03/03/2025 6:46 AM EDT [facility] Basophils Relative 1.0 % LAB HEMETOLOGY METHOD 03/03/2025 6:46 AM [facility] Immature Granulocytes Relative 0.7 % LAB HEMETOLOGY METHOD 03/03/2025 6:46 AM EDT [facility] Neutrophils Absolute 1.99 1.50 - 7.00 K/mcL LAB HEMETOLOGY METHOD 03/03/2025 6:46 AM EDT [facility] Lymphocytes Absolute 1.38 1.00 - 5.00 K/mcL LAB [facility] Monocytes Absolute 0.43 0.20 - 1.00 K/mcL LAB HEMETOLOGY METHOD 03/03/2025 6:46 AM EDT [facility] Eosinophils Absolute 0.18 0.00 - 0.50 K/mcL LAB [facility]OLOGY [facility] Basophils Absolute 0.04 0.00 - 0.20 K/mcL LAB HEMETOLOGY METHOD 03/03/2025 6:46 AM [facility] Immature Granulocytes Absolute 0.03 0.00 - 0.03 K/mcL LAB HEMETOLOGY METHOD 03/03/2025 6:46 AM EDT [facility] Blood Venous blood specimen / Unknown 03/03/2025 5:50 AM EDT 03/03/2025 6:39 AM EDT us Brody Gordon MD LAB BLOOD ORDERABLES Final Resul t [facility] [address] [place] [address], * Vitamin D 25 hydroxy (03/03/2025 5:50 AM EDT) Only the most recent of3 resultswithin the time period is included. Vit D, 25-Hydroxy 39.4 30.0 - 80.0 ng/mL LAB CHEMISTRY METHOD 03/03/2025 4:39 PM EDT [facility] Blood Venous blood specimen / Unknown 03/03/2025 5:50 AM EDT 03/03/2025 6:39 AM EDT us Brody Gordon MD LAB BLOOD ORDERABLES Final Resul t [facility] [address] [place] [address], [place] [phone] * Thyroid stimulating hormone (03/03/2025 5:50 AM EDT) TSH 1.38 0.40 - 4.00 mcIU/mL LAB CHEMISTRY METHOD 03/04/2025 2:25 PM EDT [facility] Blood Venous blood specimen / Unknown 03/03/2025 5:50 AM EDT 03/03/2025 6:39 AM EDT us Brody Gordon MD LAB BLOOD ORDERABLES Final Resul t [facility] [address] [place] [address], [place] [phone] * Thyroxine free (03/03/2025 5:50 AM EDT) Free T4 0.83 0.70 - 1.80 ng/dL LAB CHEMISTRY METHOD 03/03/2025 4:39 PM EDT [facility] Blood Venous blood specimen / Unknown 03/03/2025 5:50 AM EDT 03/03/2025 6:39 AM EDT us Brody Gordon MD LAB BLOOD ORDERABLES Final Resul t [facility] [address] [place] [address], * Cardiac device check - Remote- MURJ (03/02/2025 7:19 PM EDT) Only the most recent of2 resultswithin the time period is included. Date Time Interrogation Session [id number] CV DEVICE CHECK Type Interrogation Session Remote CV DEVICE CHECK Implantable Pulse Generator Sales Team Member MDT CV DEVICE CHECK Implantable Pulse Generator Type IPG CV DEVICE CHECK Implantable Pulse Generator Model Allen XT DR MRI [id number] CV DEVICE CHECK Implantable Pulse Generator Serial Number [id number] CV DEVICE CHECK Implantable Pulse Generator Implant Date [id number] CV DEVICE CHECK Battery Remaining Longevity 141.0 CV DEVICE CHECK Battery Voltage 3.030 CV D EVICE CHECK Battery [employer]PERVIS[employer] Trigger 2.625 CV DEVICE CHECK Battery Status Middle of Service CV DEVICE CHECK Gian Statistic RA Percent Paced 1.49 CV DEVICE CHECK Gian Statistic RV Percent Paced 40.30 CV DEVICE CHECK Atrial Tachy Statistic AT/AF [place] Percent 99.70 CV DEVICE CHECK Lead Channel Sensing Intrinsic Amplitude 2.875 CV DEVICE CHECK Lead Channel Setting Sensing Sensitivity 0.30 CV DEVICE CHECK Lead Channel Impedance Value 418 CV DEVICE CHECK Lead Channel Pacing Threshold Amplitude 1.000 CV DEVICE CHECK Lead Channel Pacing Threshold Pulse Width 0.4 CV DEVICE CHECK Lead Channel RA Pacing Threshold Date 2023-09-22 CV DEVICE CHECK Lead Channel Setting Pacing Amplitude 2.000 CV DEVICE CHECK Lead Channel Setting Pacing Pulse Width 0.4 CV DEVICE CHECK Lead Channel Sensing Intrinsic Amplitude 1.500 CV DEVICE CHECK Lead Channel Setting Sensing Sensitivity 0.90 CV DEVICE CHECK Lead Channel Impedance Value 570 CV DEVICE CHECK Lead Channel Pacing Threshold Amplitude 1.375 CV DEVICE CHECK Lead Channel Pacing Threshold Pulse Width 0.4 CV DEVICE CHECK Lead Channel RV Pacing Threshold Date 2025-02-28 CV DEVICE CHECK Lead Channel Setting Pacing Amplitude 3.000 CV DEVICE CHECK Lead Channel Setting Pacing Pulse Width 0.4 CV DEVICE CHECK Gian Setting Mode (NBG Code) DDD CV DEVICE CHECK Gian Setting Lower Rate Limit 50 CV DEVICE CHECK Gian Setting AT Mode Switch Rate 171 CV DEVICE CHECK Gian Setting Maximum Tracking Rate 130 CV DEVICE CHECK Gian Setting Maximum Sensor Rate 130 CV DEVICE CHECK Gian Setting PAV Delay 300 CV DEVICE CHECK Gian Setting YESENIA Delay 300 CV DEVICE CHECK Zone Setting Type Category AT/AF CV DEVICE CHECK Rate 171 CV DEVICE CHECK Therapies Some Rx Off CV DEVIC E CHECK Zone Setting Status Monitor CV DEVICE CHECK Zone ID 2 CV DEVICE CHECK Zone Setting Type Category VT CV DEVICE CHECK Rate 150 CV DEVICE CHECK Zone Setting Status ENABLED CV DEVICE CHECK Zone ID 6 CV DEVICE CHECK Date of Service 2025-03-12 CV DEVICE CHECK Anatomical Region Laterality Modality Device Interroga tion 02/28/2025 2:15 AM EDT Impressions 03/02/2025 2:31 PM EDT Normal Remote: No Events * Normal Device Function * Alerts or events: None * Battery: OK, 11.75 yrs * Sensing, impedance and thresholds reviewed * Programmed parameters reviewed * Presenting rhythm reviewed * Heart Rate Histograms reviewed * No significant changes noted Narrative Procedure Note Fabrizio Bennett MD - 03/02/2025 IMPRESSION: Normal Remote: No Events * Normal Device Function * Alerts or events: None * Battery: OK, 11.75 yrs * Sensing, impedance and thresholds reviewed * Programmed parameters reviewed * Presenting rhythm reviewed * Heart Rate Histograms reviewed * No significant changes noted us Fabrizio Bennett MD CV IMPLANTABLE CARDIAC DEVICE PROCEDURES Final Result * (ABNORMAL) [place] level (02/26/2025 6:00 AM EDT) Only the most recent of2 resultswithin the time period is included. [place] Level 0.4(L) 0.6 - 1.2 mEq/L LAB CHEMISTRY METHOD 02/26/2025 8:21 AM EDT [facility] Blood Venous blood specimen / Unknown 02/26/2025 6:00 AM EDT 02/26/2025 7:04 AM EDT us Brody Gordon MD LAB BLOOD ORDERABLES Final Resul t [facility] [address] [place] [address], [place] [phone] * Comprehensive metabolic panel (02/26/2025 6:00 AM EDT) Only the most recent of2 resultswithin the time period is included. Sodium 142 133 - 145 mmol/L LAB CHEMISTRY METHOD 02/26/2025 8:20 AM [facility] Potassium 3.7 3.5 - 5.5 mmol/L LAB CHEMISTRY METHOD 02/26/2025 8:20 AM [facility] Chloride 110 96 - 110 mmol/L LAB CHEMISTRY METHOD 02/26/2025 8:20 AM [facility] CO2 26 21 - 32 mmol/L LAB CHEMISTRY METHOD 02/26/2025 8:20 AM [facility] Anion Gap 6 3 - 11 LAB CHEMISTRY METHOD 02/26/2025 8:20 AM [facility] Glucose 93 70 - 100 mg/dL LAB CHEMISTRY METHOD 02/26/2025 8:20 AM [facility] BUN 12 5 - 25 mg/dL LAB CHEMISTRY METHOD 02/26/2025 8:20 AM [facility] Creatinine 1.05 0.70 - 1.30 mg/dL LAB CHEMISTRY METHOD 02/26/2025 8:20 AM [facility] eGFR 81 >=60 mL/min/1. 73m2 LAB CHEMISTRY METHOD 02/26/2025 8:20 AM [facility] Comment:Calculation based on the??Chronic Kidney Disease Epidemiology Collaboration (CKD-EPI) equation refit??without adjustment for race. BUN/Creatinine Ratio 11.4 LAB CHEMISTRY METHOD 02/26/2025 8:20 AM [facility] Calcium 8.7 8.5 - 10.5 mg/dL LAB CHEMISTRY METHOD 02/26/2025 8:20 AM [facility] AST (SGOT) 11 10 - 42 unit/L LAB CHEMISTRY METHOD 02/26/2025 8:20 AM [facility] ALT (SGPT) 17 10 - 60 unit/L LAB CHEMISTRY METHOD 02/26/2025 8:20 AM EDT [facility] Alkaline Phosphatase 60 42 - 121 unit/L LAB CHEMISTRY METHOD 02/26/2025 8:20 AM EDT [facility] Total Protein 6.6 6.0 - 8.0 g/dL LAB CHEMISTRY METHOD 02/26/2025 8:20 AM EDT [facility] Albumin 3.7 3.2 - 5.0 g/dL LAB CHEMISTRY METHOD 02/26/2025 8:20 AM EDT [facility] Total Bilirubin 0.7 0.0 - 1.4 mg/dL LAB CHEMISTRY METHOD 02/26/2025 8:20 AM EDT [facility] Blood Venous blood specimen / Unknown 02/26/2025 6:00 AM EDT 02/26/2025 7:04 AM EDT us Brody Gordon MD LAB BLOOD ORDERABLES Final Resul t Performing Organization Address City/[facility]/ZIP Co de Phone Number [facility] [address] [place] [address], [place] [phone] * Red tube (02/04/2025 6:10 AM EDT) Pathologist [facility] Extra Tube Hold for add-ons. 02/04/2025 9:01 AM EDT [facility] Comment:Auto resulted. Blood Venous blood specimen / Unknown 02/04/2025 6:10 AM EDT 02/04/2025 7:11 AM EDT us Brody Gordon MD LAB BLOOD ORDERABLES Final Resul t Performing Organization Address City/[facility]/ZIP Co de Phone Number [facility] [address] [place] [address], [place] [phone] * Levetiracetam level (02/04/2025 6:10 AM EDT) Levetiracetam 35.8 3.0 - 60.0 ug/mL 02/06/2025 2:28 PM EDT [facility] Comment: Steady state trough serum or plasma levels following doses of 1000 to 3000 mg/Day: ??3 to 37 ug/mL. The same dosage regimen will typically result in peak levels of 10 to 60 ug/mL, at approximately 1.5 hours post dose. If applicable, any drug confirmation testing reported here was developed and the performance characteristics determined by [facility]. This confirmation testing has not been cleared or approved by the FDA. The laboratory is regulated under CLIA as qualified to perform high-complexity testing. This test is used for patient testing purposes. It should not be regarded as investigational or for research. Test performed at [facility], [address] , [place], [place] ??[address] ? [phone] Isabella Joyner MD, PhD - Pit Supervisor Blood Venous blood specimen / Unknown 02/04/2025 6:10 AM EDT 02/04/2025 7:11 AM EDT us Brody Gordon MD LAB BLOOD ORDERABLES Final Resul t [facility] [address] [place] [address] * Carbamazepine level, total (02/04/2025 6:10 AM EDT) Carbamazepine Level 8.3 8.0 - 12.0 mcg/mL LAB CHEMISTRY METHOD 02/04/2025 7:42 AM EDT [facility] Blood Venous blood specimen / Unknown 02/04/2025 6:10 AM EDT 02/04/2025 7:11 AM EDT us Brody Gordon MD LAB BLOOD ORDERABLES Final Resul t [facility] [address] [place] [address], [place] [phone] from Last 3 Months Insurance MEDICARE MEDICAID - [place] Care Teams 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
--- OUTSIDE RECORDS SUMMARY | 2025-03-21 10:13 | XMS_ITS | Encounter Summary ---
Author Organization [facility] Address [address] [place] [address] Care Team Providers Care Emergency Vehicle Operations Instructor Name Role Phone Brody Gordon MD Primary Care Provider Encounter Details Date Type Department Care Team (Late st Contact Info) Description 11/30/2024 Lab Requisition [facility] - Main Lab [address] [facility] [place] [address] Brody Gordon MD [address] [place] [address] [address] [place], [place] Other detention (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 Social History Tobacco Use [...] Description 06/17/2025 10:00 AM EDT Ancillary Procedure [facility] [address] [place] [address] 10/04/2025 10:00 AM EST Ancillary Procedure [facility] [address] [place] [address] documented as of this encounter Procedures Procedure Name Priority Date/Time Associated Diagnosis Comments SST - GOLD Routine 11/30/2024 4:15 AM EST Other terminal supervisor (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 PREGABALIN Routine 11/30/2024 4:15 AM EST Other detention (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 LAVENDER - EDTA Routine 11/30/2024 4:15 AM EST Other terminal supervisor (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 LEVETIRACETAM LEVEL Routine 11/30/2024 4 :15 AM EST Other terminal supervisor (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 LITHIUM LEVEL Routine 11/30/2024 4:15 AM EST Other terminal supervisor (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 CARBAMAZEPINE LEVEL, TOTAL Routine 11/30/2024 4:15 AM EST Other detention (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 documented in this encounter Results * SST tube (11/30/2024 4:15 AM EST) Extra Tube Hold for add-ons. 11/30/2024 7:[address] [facility] Comment:Auto resulted. Blood Venous blood specimen / Unknown 11/30/2024 4:15 AM EST 11/30/2024 5:10 AM EST us Brody Gordon MD LAB BLOOD ORDERABLES Final Resul t Performing Organization Address [facility]/ZIP Co de Phone Number [facility] [address] [place] [address], [place] [phone] * Lavender tube (11/30/2024 4:15 AM EST) Extra Tube Hold for add-ons. 11/30/2024 7:[address] [facility] Comment:Auto resulted. Blood Venous blood specimen / Unknown 11/30/2024 4:15 AM EST 11/30/2024 5:10 AM EST us Brody Gordon MD LAB BLOOD ORDERABLES Final Resul t Performing Organization Address City/[facility]/ZIP Co de Phone Number [facility] [address] [place] [address], [place] [phone] * (ABNORMAL) [place] level (11/30/2024 4:15 AM EST) [place] Level <0.2(L) 0.6 - 1.2 mEq/L LAB CHEMISTRY METHOD 11/30/2024 5:[address] [facility] Blood Venous blood specimen / Unknown 11/30/2024 4:15 AM EST 11/30/2024 5:05 AM EST us Brody Gordon MD LAB BLOOD ORDERABLES Final Resul t Performing Organization Address [facility]/ZIP Co de Phone Number [facility] [address] [place] [address], [place] [phone] * Pregabalin (11/30/2024 4:15 AM EST) Pregabalin 1.2 ug/mL 12/03/2024 3:05 AM EST [facility] Comment: Therapeutic and toxic ranges have not been established. Expected steady state pregabalin concentrations in patients taking recommended daily dosages: ??up to 10 ug/mL. This test was developed and its performance characteristics determined by [facility]. It has not been cleared or approved by the Food and Drug Administration. Blood Venous blood specimen / Unknown 11/30/2024 4:15 AM EST 11/30/2024 5:05 AM EST Narrative [facility] - 12/03/2024 3:05 AM EST Performed at: ??01 - [facility] [address] [place] [address] ??[phone] Circus Trainer: Dai Gallego [facility], Phone: ??[phone] us Brody Gordon MD LAB BLOOD ORDERABLES Final Resul t [facility] * Levetiracetam level (11/30/2024 4:15 AM EST) Levetiracetam 46.5 3.0 - 60.0 ug/mL 12/03/2024 7:11 AM EST [facility] Comment: Steady state trough serum or plasma levels following doses of 1000 to 3000 mg/Day: ??3 to 37 ug/mL. The same dosage regimen will typically result in peak levels of 10 to 60 ug/mL, at approximately 1.5 hours post dose. If applicable, any drug confirmation testing reported here was developed and the performance characteristics determined by [facility]. This confirmation testing has not been cleared or approved by the FDA. The laboratory is regulated under CLIA as qualified to perform high-complexity testing. This test is used for patient testing purposes. It should not be regarded as investigational or for research. Test performed at [facility], [address] , [place], [place] ??[address] ? [phone] Isabella Joyner MD, PhD - Flower Maker Blood Venous blood specimen / Unknown 11/30/2024 4:15 AM EST 11/30/2024 5:05 AM EST us Brody Gordon MD LAB BLOOD ORDERABLES Final Resul t Performing Organization Address City/[facility]/ZIP Co de Phone Number [facility] [address] [place] [address] * Carbamazepine level, total (11/30/2024 4:15 AM EST) Carbamazepine Level 8.9 8.0 - 12.0 mcg/mL LAB CHEMISTRY METHOD 11/30/2024 5:[address] [facility] Blood Venous blood specimen / Unknown 11/30/2024 4:15 AM EST 11/30/2024 5:05 AM EST us Brody Gordon MD LAB BLOOD ORDERABLES Final Resul t Performing Organization Address City/[facility]/ZIP Co de Phone Number [facility] [address] [place] [address], [place] [phone] documented in this encounter Visit Diagnoses Diagnosis Other terminal supervisor (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 Encounter for adjustment or management of cardiac device documented in this encounter Care Teams Emergency Vehicle Operations Instructor Relationship Specialty Start Date End Date Brody Gordon MD [address] [place] [address] Dr [address] MAYKEL Perez PCP - General Internal Medicine 10/26/15 documented as of this encounter
--- OUTSIDE RECORDS SUMMARY | 2025-03-21 10:13 | XMS_ITS | Encounter Summary ---
Author Organization [facility] Address [address] [place] [address] Care Team Providers Care Maintenance And Operations Supervisor Name Role Phone Brody Gordon MD Primary Care Provider [phone] Encounter Details Date Type Department Care Team (Late Contact Info) Description 10/02/2024 Lab Requisition [facility] - Main Lab [address] [facility] [place] [address] Brody Gordon MD [address] [place] [address] [address] [place], [place] Other detention (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; Other specified intracranial injury without loss of consciousness, sequela (CMS/HCC V24) Social History Tobacco Use Types Packs/Day Years [...] Description 06/17/2025 10:00 AM EDT Ancillary Procedure [facility] [address] [facility] [address] [place] [address] 10/04/2025 10:00 AM EST Ancillary Procedure [facility] [address] [facility] [address] [place] [address] documented as of this encounter Procedures Procedure Name Priority Date/Time Associated Diagnosis Comments CBC WITH AUTO DIFFERENTIAL Routine 10/02/2024 6:49 AM EST Other game farm helper (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 Other specified intracranial injury without loss of consciousness, sequela (CMS/HCC) CBC AND DIFFERENTIAL Routine 10/02/2024 6:49 AM EST Other detention (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 Other specified intracranial injury without loss of consciousness, sequela (CMS/HCC) documented in this encounter Results * (ABNORMAL) CBC auto differential (10/02/2024 6:49 AM EST) WBC 3.7(L) 4.8 - 10.8 K/mcL LAB HEMETOLOGY METHOD 10/02/2024 7:15 AM [facility] RBC 3.70(L) 4.50 - 5.50 M/mcL LAB HEMETOLOGY METHOD 10/02/2024 7:15 AM [facility] Hemoglobin 12.3(L) 13.5 - 17.5 g/dL LAB HEMETOLOGY METHOD 10/02/2024 7:15 AM [facility] Hematocrit 36.2(L) 42.0 - 54.0 % LAB HEMETOLOGY METHOD 10/02/2024 7:15 AM [facility] MCV 97.3 79.0 - 98.0 FL LAB HEMETOLOGY METHOD 10/02/2024 7:15 AM [facility] MCH 33.1(H) 27.0 - 32.0 pcg LAB HEMETOLOGY METHOD 10/02/2024 7:15 AM [facility] MCHC 34.0 32.0 - 37.0 g/dL LAB HEMETOLOGY METHOD 10/02/2024 7:15 AM [facility] RDW 13.2 11.0 - 15.0 % LAB HEMETOLOGY METHOD 10/02/2024 7:15 AM [facility] Platelets 110(L) 130 - 400 K/mcL LAB HEMETOLOGY METHOD 10/02/2024 7:15 AM [facility] MPV 8.9 7.0 - 11.0 FL LAB HEMETOLOGY METHOD 10/02/2024 7:15 AM [facility] NRBC 0.0 <1.0 % LAB HEMETOLOGY METHOD 10/02/2024 7:15 AM [facility] NRBC Absolute 0.00 <0.10 K/mcL LAB HEMETOLOGY METHOD 10/02/2024 7:15 AM [facility] Neutrophils Relative 30.1 % LAB HEMETOLOGY METHOD 10/02/2024 7:15 AM [facility] Lymphocytes Relative 53.4 % LAB HEMETOLOGY METHOD 10/02/2024 7:15 AM [facility] Monocytes Relative 10.8 % LAB HEMETOLOGY METHOD 10/02/2024 7:15 AM [facility] Eosinophils Relative 4.6 % LAB HEMETOLOGY METHOD 10/02/2024 7:15 AM [facility] Basophils Relative 0.8 % LAB HEMETOLOGY METHOD 10/02/2024 7:15 AM [facility] Immature Granulocytes Relative 0.3 % LAB HEMETOLOGY METHOD 10/02/2024 7:15 AM [facility] Neutrophils Absolute 1.12(L) 1.50 - 7.00 K/mcL LAB HEMETOLOGY METHOD 10/02/2024 7:15 AM [facility] Lymphocytes Absolute 1.98 1.00 - 5.00 K/mcL LAB HEMETOLOGY METHOD 10/02/2024 7:15 AM [facility] Monocytes Absolute 0.40 0.20 - 1.00 K/mcL LAB HEMETOLOGY METHOD 10/02/2024 7:15 AM [facility] Eosinophils Absolute 0.17 0.00 - 0.50 K/mcL LAB HEMETOLOGY METHOD 10/02/2024 7:15 AM [facility] Basophils Absolute 0.03 0.00 - 0.20 K/mcL LAB HEMETOLOGY METHOD 10/02/2024 7:15 AM EST [facility] Immature Granulocytes Absolute 0.01 0.00 - 0.03 K/mcL LAB HEMETOLOGY METHOD 10/02/2024 7:15 AM EST [facility] Blood Venous blood specimen / Unknown 10/02/2024 6:49 AM EST 10/02/2024 6:50 AM EST us Brody Gordon MD LAB BLOOD ORDERABLES Final Resul t [facility] [address] [place] [address], documented in this encounter Visit Diagnoses Diagnosis Other game farm helper (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 Other specified intracranial injury without loss of consciousness, sequela (CMS/HCC V24) Encounter for adjustment or management of cardiac device documented in this encounter Care Teams Maintenance And Operations Supervisor Relationship Specialty Start Date End Date Brody Gordon MD [address] [place] [address] Dr [address] [place], [place] PCP - General Internal Medicine 10/26/15 documented as of this encounter
--- OUTSIDE RECORDS SUMMARY | 2025-03-21 10:13 | XMS_ITS | Encounter Summary ---
Author Organization [facility] Address [address] [place] [address] Care Team Providers Care Outside Machinist Supervisor Name Role Phone Brody Gordon MD Primary Care Provider [phone] Encounter Details Date Type Department Care Team (Late st Contact Info) Description 10/15/2024 Lab Requisition [facility] - Main Lab 299 [facility] [place] [address] Brody Gordon MD [address] [place] [address] [address] [place], [place] Other correction (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 Social History Tobacco Use [...] Description 06/17/2025 10:00 AM EDT Ancillary Procedure [facility] [address] [place] [address] 10/04/2025 10:00 AM EST Ancillary Procedure [facility] [address] [place] [address] documented as of this encounter Procedures Procedure Name Priority Date/Time Associated Diagnosis Comments CBC WITH AUTO DIFFERENTIAL Routine 10/15/2024 6:40 AM EST Other terminal make up operator (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 CBC AND DIFFERENTIAL Routine 10/15/2024 6:40 AM EST Other terminal make up operator (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 documented in this encounter Results * (ABNORMAL) CBC auto differential (10/15/2024 6:40 AM EST) WBC 4.6(L) 4.8 - 10.8 K/mcL LAB HEMETOLOGY METHOD 10/15/2024 7:46 AM [facility] RBC 4.00(L) 4.50 - 5.50 M/mcL LAB HEMETOLOGY METHOD 10/15/2024 7:46 AM [facility] Hemoglobin 13.3(L) 13.5 - 17.5 g/dL LAB HEMETOLOGY METHOD 10/15/2024 7:46 AM [facility] Hematocrit 39.2(L) 42.0 - 54.0 % LAB HEMETOLOGY METHOD 10/15/2024 7:46 AM [facility] MCV 97.3 79.0 - 98.0 FL LAB HEMETOLOGY METHOD 10/15/2024 7:46 AM [facility] MCH 33.0(H) 27.0 - 32.0 pcg LAB HEMETOLOGY METHOD 10/15/2024 7:46 AM [facility] MCHC 33.9 32.0 - 37.0 g/dL LAB HEMETOLOGY METHOD 10/15/2024 7:46 AM [facility] RDW 13.7 11.0 - 15.0 % LAB HEMETOLOGY METHOD 10/15/2024 7:46 AM [facility] Platelets 138 130 - 400 K/mcL LAB HEMETOLOGY METHOD 10/15/2024 7:46 AM [facility] MPV 8.8 7.0 - 11.0 FL LAB HEMETOLOGY METHOD 10/15/2024 7:46 AM [facility] NRBC 0.0 <1.0 % LAB HEMETOLOGY METHOD 10/15/2024 7:46 AM [facility] NRBC Absolute 0.00 <0.10 K/mcL LAB HEMETOLOGY METHOD 10/15/2024 7:46 AM [facility] Neutrophils Relative 53.0 % LAB HEMETOLOGY METHOD 10/15/2024 7:46 AM [facility] Lymphocytes Relative 33.6 % LAB HEMETOLOGY METHOD 10/15/2024 7:46 AM [facility] Monocytes Relative 8.1 % LAB HEMETOLOGY METHOD 10/15/2024 7:46 AM [facility] Eosinophils Relative 3.7 % LAB HEMETOLOGY METHOD 10/15/2024 7:46 AM [facility] Basophils Relative 0.9 % LAB HEMETOLOGY METHOD 10/15/2024 7:46 AM [facility] Immature Granulocytes Relative 0.7 % LAB HEMETOLOGY METHOD 10/15/2024 7:46 AM [facility] Neutrophils Absolute 2.44 1.50 - 7.00 K/mcL LAB HEMETOLOGY METHOD 10/15/2024 7:46 AM [facility] Lymphocytes Absolute 1.54 1.00 - 5.00 K/mcL LAB HEMETOLOGY METHOD 10/15/2024 7:46 AM [facility] Monocytes Absolute 0.37 0.20 - 1.00 K/mcL LAB HEMETOLOGY METHOD 10/15/2024 7:46 AM [facility] Eosinophils Absolute 0.17 0.00 - 0.50 K/mcL LAB HEMETOLOGY METHOD 10/15/2024 7:46 AM [facility] Basophils Absolute 0.04 0.00 - 0.20 K/mcL LAB HEMETOLOGY METHOD 10/15/2024 7:46 AM [facility] Immature Granulocytes Absolute 0.03 0.00 - 0.03 K/mcL LAB HEMETOLOGY METHOD 10/15/2024 7:46 AM EST [facility] Blood Venous blood specimen / Unknown 10/15/2024 6:40 AM EST 10/15/2024 7:30 AM EST Brody Gordon MD LAB BLOOD ORDERABLES Final Resul t [facility] [address] [place] [address], documented in this encounter Visit Diagnoses Diagnosis Other terminal make up operator (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 Encounter for adjustment or management of cardiac device documented in this encounter Care Teams Outside Machinist Supervisor Relationship Specialty Start Date End Date Brody Gordon MD [address] [place] [address] Dr [address] [place] PCP - General Internal Medicine 10/26/15 documented as of this encounter
--- OUTSIDE RECORDS SUMMARY | 2025-03-21 10:13 | XMS_ITS | Encounter Summary ---
Author Organization [facility] Address [address] [place] [address] Care Team Providers Care Inside Sales Coordinator Name Role Phone Brody Gordon MD Primary Care Provider [phone] Encounter Details Date Type Department Care Team (Latest Contact Info) Description 11/19/2024 Lab Requisition [facility] - Main Lab 299 [facility] [place] [address] Brody Gordon MD [address] [place] [address] [address] [place], [place] Progressive multifocal leukoencephalopathy (CMS/HCC V24, CMS/HCC V28) Social History Tobacco Use Types Packs/Day Years [...] Description 06/17/2025 10:00 AM EDT Ancillary Procedure [facility] Cardiology [facility] [address] [place] [address] 10/04/2025 10:00 AM EST Ancillary Procedure [facility] Cardiology [facility] [facility] [address] [place] [address] documented as of this encounter Procedures Procedure Name Priority Date/Time Associated Diagnosis Comments CBC WITH AUTO DIFFERENTIAL Routine 11/19/2024 6:00 AM EST Progressive multifocal leukoencephalopathy (CMS/HCC) CBC AND DIFFERENTIAL Routine 11/19/2024 6:00 AM EST Progressive multifocal leukoencephalopathy (CMS/HCC) COMPREHENSIVE METABOLIC PANEL Routine 11/19/2024 6:00 AM EST Progressive multifocal leukoencephalopathy (CMS/HCC) documented in this encounter Results * (ABNORMAL) CBC auto differential (11/19/2024 6:00 AM EST) WBC 3.9(L) 4.8 - 10.8 K/mcL LAB HEMETOLOGY METHOD 11/19/2024 7:06 AM [facility] RBC 4.30(L) 4.50 - 5.50 M/mcL LAB HEMETOLOGY METHOD 11/19/2024 7:06 AM [facility] Hemoglobin 14.0 13.5 - 17.5 g/dL LAB HEMETOLOGY METHOD 11/19/2024 7:06 AM [facility] LAB Hematocrit 41.5(L) 42.0 - 54.0 % LAB HEMETOLOGY METHOD 11/19/2024 7:06 AM [facility] MCV 97.0 79.0 - 98.0 FL LAB HEMETOLOGY METHOD 11/19/2024 7:06 AM [facility] LAB MCH 32.7(H) 27.0 - 32.0 pcg LAB HEMETOLOGY METHOD 11/19/2024 7:06 AM [facility] LAB MCHC 33.7 32.0 - 37.0 g/dL LAB HEMETOLOGY METHOD 11/19/2024 7:06 AM [facility] RDW 13.2 11.0 - 15.0 % LAB HEMETOLOGY METHOD 11/19/2024 7:06 AM [facility] Platelets 132 130 - 400 K/mcL LAB HEMETOLOGY METHOD 11/19/2024 7:06 AM [facility] MPV 8.7 7.0 - 11.0 FL LAB HEMETOLOGY METHOD 11/19/2024 7:06 AM [facility] NRBC 0.0 <1.0 % LAB HEMETOLOGY METHOD 11/19/2024 7:06 AM [facility] NRBC Absolute 0.00 <0.10 K/mcL LAB HEMETOLOGY METHOD 11/19/2024 7:06 AM [facility] Neutrophils Relative 49.1 % LAB HEMETOLOGY METHOD 11/19/2024 7:06 AM [facility] Lymphocytes Relative 37.4 % LAB HEMETOLOGY METHOD 11/19/2024 7:06 AM [facility] Monocytes Relative 8.9 % LAB HEMETOLOGY METHOD 11/19/2024 7:06 AM [facility] Eosinophils Relative 3.3 % LAB HEMETOLOGY METHOD 11/19/2024 7:06 AM [facility] Basophils Relative 0.8 % LAB HEMETOLOGY METHOD 11/19/2024 7:06 AM [facility] Immature Granulocytes Relative 0.5 % LAB HEMETOLOGY METHOD 11/19/2024 7:06 AM [facility] Neutrophils Absolute 1.93 1.50 - 7.00 K/mcL LAB HEMETOLOGY METHOD 11/19/2024 7:06 AM [facility] Lymphocytes Absolute 1.47 1.00 - 5.00 K/mcL LAB HEMETOLOGY METHOD 11/19/2024 7:06 AM [facility] Monocytes Absolute 0.35 0.20 - 1.00 K/mcL LAB HEMETOLOGY METHOD 11/19/2024 7:06 AM [facility] Eosinophils Absolute 0.13 0.00 - 0.50 K/mcL LAB HEMETOLOGY METHOD 11/19/2024 7:06 AM [facility] Basophils Absolute 0.03 0.00 - 0.20 K/mcL LAB HEMETOLOGY METHOD 11/19/2024 7:06 AM [facility] Immature Granulocytes Absolute 0.02 0.00 - 0.03 K/mcL LAB HEMETOLOGY METHOD 11/19/2024 7:06 AM [facility] Blood Venous blood specimen / Unknown 11/19/2024 6:00 AM EST 11/19/2024 6:54 AM EST us Brody Gordon MD LAB BLOOD ORDERABLES Final Resul t [facility] LAB [address] [place] [address], [place] [phone] * Comprehensive metabolic panel (11/19/2024 6:00 AM EST) Sodium 141 133 - 145 mmol/L LAB CHEMISTRY METHOD 11/19/2024 7:29 AM [facility] Potassium 4.2 3.5 - 5.5 mmol/L LAB CHEMISTRY METHOD 11/19/2024 7:29 AM [facility] Chloride 108 96 - 110 mmol/L LAB CHEMISTRY METHOD 11/19/2024 7:29 AM [facility] CO2 30 21 - 32 mmol/L LAB CHEMISTRY METHOD 11/19/2024 7:29 AM [facility] Anion Gap 3 3 - 11 LAB CHEMISTRY METHOD 11/19/2024 7:29 AM [facility] Glucose 85 70 - 100 mg/dL LAB CHEMISTRY METHOD 11/19/2024 7:29 AM [facility] BUN 13 5 - 25 mg/dL LAB CHEMISTRY METHOD 11/19/2024 7:29 AM [facility] Creatinine 1.11 0.70 - 1.30 mg/dL LAB CHEMISTRY METHOD 11/19/2024 7:29 AM [facility] eGFR 76 >=60 mL/min/1. 73m2 LAB CHEMISTRY METHOD 11/19/2024 7:29 AM [facility] Comment:Calculation based on the??Chronic Kidney Disease Epidemiology Collaboration (CKD-EPI) equation refit??without adjustment for race. BUN/Creatinine Ratio 11.7 LAB CHEMISTRY METHOD 11/19/2024 7:29 AM [facility] Calcium 9.2 8.5 - 10.5 mg/dL LAB CHEMISTRY METHOD 11/19/2024 7:29 AM [facility] AST (SGOT) 11 10 - 42 unit/L LAB CHEMISTRY METHOD 11/19/2024 7:29 AM [facility] ALT (SGPT) 22 10 - 60 unit/L LAB CHEMISTRY METHOD 11/19/2024 7:29 AM [facility] Alkaline Phosphatase 59 42 - 121 unit/L LAB CHEMISTRY METHOD 11/19/2024 7:29 AM [facility] Total Protein 6.7 6.0 - 8.0 g/dL LAB CHEMISTRY METHOD 11/19/2024 7:29 AM [facility] Albumin 3.9 3.2 - 5.0 g/dL LAB CHEMISTRY METHOD 11/19/2024 7:29 AM [facility] Total Bilirubin 0.8 0.0 - 1.4 mg/dL LAB CHEMISTRY METHOD 11/19/2024 7:29 AM [facility] Blood Venous blood specimen / Unknown 11/19/2024 6:00 AM EST 11/19/2024 6:54 AM EST us Brody Gordon MD LAB BLOOD ORDERABLES Final Resul t [facility] LAB [address] [place] [address], documented in this encounter Visit Diagnoses Diagnosis Progressive multifocal leukoencephalopathy (CMS/HCC V24, CMS/HCC V28) Progressive multifocal leukoencephalopathy Encounter for adjustment or management of cardiac device documented in this encounter Care Teams Inside Sales Coordinator Relationship Specialty Start Date End Date Brody Gordon MD [address] [place] [address] Dr [address] MAYKEL Perez PCP - General Internal Medicine 10/26/15 documented as of this encounter
--- OUTSIDE RECORDS SUMMARY | 2025-03-21 10:13 | XMS_ITS | Encounter Summary ---
Author Organization [facility] Address [address] [place] [address] Care Team Providers Care After School Caregiver Name Role Phone Brody Gordon MD Primary Care Provider Encounter Details Date Type Department Care Team (Late st Contact Info) Description 10/07/2024 Lab Requisition [facility] - Main Lab 299 [facility] [place] [address] Brody Gordon MD [address] [place] [address] [address] [place], [place] Other fdc (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 Social History Tobacco Use [...] Description 06/17/2025 10:00 AM EDT Ancillary Procedure [facility] Cardiology [facility] [address] [place] [address] 10/04/2025 10:00 AM EST Ancillary Procedure [facility] Cardiology [facility] - [address] [place] [address] documented as of this encounter Procedures Procedure Name Priority Date/Time Associated Diagnosis Comments CBC WITH AUTO DIFFERENTIAL Routine 10/07/2024 7:30 AM EST Other rat exterminator (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 CBC AND DIFFERENTIAL Routine 10/07/2024 7:30 AM EST Other rat exterminator (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 documented in this encounter Results * (ABNORMAL) CBC auto differential (10/07/2024 7:30 AM EST) WBC 3.4(L) 4.8 - 10.8 K/mcL LAB HEMETOLOGY METHOD 10/07/2024 9:58 AM [facility] LAB RBC 4.10(L) 4.50 - 5.50 M/mcL LAB HEMETOLOGY METHOD 10/07/2024 9:58 AM [facility] LAB Hemoglobin 13.1(L) 13.5 - 17.5 g/dL LAB HEMETOLOGY METHOD 10/07/2024 9:58 AM [facility] LAB Hematocrit 39.4(L) 42.0 - 54.0 % LAB HEMETOLOGY METHOD 10/07/2024 9:58 AM [facility] LAB MCV 97.3 79.0 - 98.0 FL LAB HEMETOLOGY METHOD 10/07/2024 9:58 AM [facility] LAB MCH 32.3(H) 27.0 - 32.0 pcg LAB HEMETOLOGY METHOD 10/07/2024 9:58 AM [facility] LAB MCHC 33.2 32.0 - 37.0 g/dL LAB HEMETOLOGY METHOD 10/07/2024 9:58 AM [facility] LAB RDW 13.2 11.0 - 15.0 % LAB HEMETOLOGY METHOD 10/07/2024 9:58 AM [facility] LAB Platelets 107(L) 130 - 400 K/mcL LAB HEMETOLOGY METHOD 10/07/2024 9:58 AM [facility] LAB MPV 8.6 7.0 - 11.0 FL LAB HEMETOLOGY METHOD 10/07/2024 9:58 AM [facility] NRBC 0.0 <1.0 % LAB HEMETOLOGY METHOD 10/07/2024 9:58 AM [facility] LAB NRBC Absolute 0.00 <0.10 K/mcL LAB HEMETOLOGY METHOD 10/07/2024 9:58 AM [facility] Neutrophils Relative 33.1 % LAB HEMETOLOGY METHOD 10/07/2024 9:58 AM [facility] Lymphocytes Relative 48.8 % LAB HEMETOLOGY METHOD 10/07/2024 9:58 AM [facility] Monocytes Relative 10.4 % LAB HEMETOLOGY METHOD 10/07/2024 9:58 AM [facility] Eosinophils Relative 6.5 % LAB HEMETOLOGY METHOD 10/07/2024 9:58 AM [facility] Basophils Relative 0.9 % LAB HEMETOLOGY METHOD 10/07/2024 9:58 AM [facility] LAB Immature Granulocytes Relative 0.3 % LAB HEMETOLOGY METHOD 10/07/2024 9:58 AM [facility] Neutrophils Absolute 1.12(L) 1.50 - 7.00 K/mcL LAB HEMETOLOGY METHOD 10/07/2024 9:58 AM [facility] Lymphocytes Absolute 1.65 1.00 - 5.00 K/mcL LAB HEMETOLOGY METHOD 10/07/2024 9:58 AM [facility] Monocytes Absolute 0.35 0.20 - 1.00 K/mcL LAB HEMETOLOGY METHOD 10/07/2024 9:58 AM [facility] LAB Eosinophils Absolute 0.22 0.00 - 0.50 K/mcL LAB HEMETOLOGY METHOD 10/07/2024 9:58 AM [facility] Basophils Absolute 0.03 0.00 - 0.20 K/mcL LAB HEMETOLOGY METHOD 10/07/2024 9:58 AM [facility] LAB Immature Granulocytes Absolute 0.01 0.00 - 0.03 K/mcL LAB HEMETOLOGY METHOD 10/07/2024 9:[address] [facility] Blood Venous blood specimen / Unknown 10/07/2024 7:30 AM EST 10/07/2024 9:49 AM EST us Brody Gordon MD LAB BLOOD ORDERABLES Final Resul t [facility] [address] [place] [address], documented in this encounter Visit Diagnoses Diagnosis Other fdc (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 Encounter for adjustment or management of cardiac device documented in this encounter Care Teams After School Caregiver Relationship Specialty Start Date End Date Brody Gordon MD [address] [place] [address] Dr [address] [place], [place] PCP - General Internal Medicine 10/26/15 documented as of this encounter
--- OUTSIDE RECORDS SUMMARY | 2025-03-21 10:13 | XMS_ITS | Encounter Summary ---
Author Organization [facility] Address [address] [place] [address] Care Team Providers Care Health And Safety Instructor Name Role Phone Brody Gordon MD Primary Care Provider [phone] Encounter Details Date Type Department Care Team (Latest Contact Info) Description 02/01/2025 Lab Requisition [facility] - Main Lab 299 [facility] [place] [address] Brody Gordon MD [address] [place] [address] [address] [place], [place] Progressive multifocal leukoencephalopathy (CMS/HCC V24, CMS/HCC V28); Vitamin D deficiency, unspecified Social History Tobacco Use Types Packs/Day Years [...] Description 06/17/2025 10:00 AM EDT Ancillary Procedure [facility] Cardiology [facility] [address] [facility] [address] [place] [address] 10/04/2025 10:00 AM EST Ancillary Procedure [facility] Cardiology [facility] - [facility] [address] [facility] [address] [place] [address] documented as of this encounter Procedures Procedure Name Priority Date/Time Associated Diagnosis Comments CBC WITH AUTO DIFFERENTIAL Routine 02/01/2025 6:34 [...] multifocal leukoencephalopathy (CMS/HCC) Vitamin D deficiency, unspecified documented in this encounter Results * (ABNORMAL) CBC auto differential (02/01/2025 6:34 AM EDT) WBC 3.4(L) 4.8 - 10.8 K/mcL LAB HEMETOLOGY METHOD 02/01/2025 8:[address] [facility] RBC 4.30(L) 4.50 - 5.50 M/mcL LAB HEMETOLOGY METHOD 02/01/2025 8:[address] [facility] Hemoglobin 14.0 13.5 - 17.5 g/dL LAB HEMETOLOGY METHOD 02/01/2025 8:[address] [facility] Hematocrit 40.9(L) 42.0 - 54.0 % LAB HEMETOLOGY METHOD 02/01/2025 8:[address] [facility] MCV 96.0 79.0 - 98.0 FL LAB HEMETOLOGY METHOD 02/01/2025 8:[address] [facility] MCH 32.9(H) 27.0 - 32.0 pcg LAB HEMETOLOGY METHOD 02/01/2025 8:[address] [facility] MCHC 34.2 32.0 - 37.0 g/dL LAB HEMETOLOGY METHOD 02/01/2025 8:[address] [facility] RDW 13.0 11.0 - 15.0 % LAB HEMETOLOGY METHOD 02/01/2025 8:[address] [facility] Platelets 120(L) 130 - 400 K/mcL LAB HEMETOLOGY METHOD 02/01/2025 8:[address] [facility] MPV 9.0 7.0 - 11.0 FL LAB HEMETOLOGY METHOD 02/01/2025 8:[address] [facility] NRBC 0.0 <1.0 % LAB HEMETOLOGY METHOD 02/01/2025 8:[address] [facility] NRBC Absolute 0.00 <0.10 K/mcL LAB HEMETOLOGY METHOD 02/01/2025 8:[address] [facility] Neutrophils Relative 39.3 % LAB HEMETOLOGY METHOD 02/01/2025 8:[address] [facility] Lymphocytes Relative 45.2 % LAB HEMETOLOGY METHOD 02/01/2025 8:[address] [facility] Monocytes Relative 8.9 % LAB HEMETOLOGY METHOD 02/01/2025 8:[address] [facility] Eosinophils Relative 5.1 % LAB HEMETOLOGY METHOD 02/01/2025 8:[address] [facility] Basophils Relative 0.9 % LAB HEMETOLOGY METHOD 02/01/2025 8:[address] [facility] Immature Granulocytes Relative 0.6 % LAB HEMETOLOGY METHOD 02/01/2025 8:[address] [facility] Neutrophils Absolute 1.32(L) 1.50 - 7.00 K/mcL LAB HEMETOLOGY METHOD 02/01/2025 8:[address] [facility] Lymphocytes Absolute 1.52 1.00 - 5.00 K/mcL LAB HEMETOLOGY METHOD 02/01/2025 8:27 AM EDT [facility] Monocytes Absolute 0.30 0.20 - 1.00 K/[facility] LAB HEMETOLOGY METHOD 02/01/2025 8:27 AM EDT [facility] LAB Eosinophils Absolute 0.17 0.00 - 0.50 K/[facility] LAB HEMETOLOGY METHOD 02/01/2025 8:27 AM EDT [facility] LAB Basophils Absolute 0.03 0.00 - 0.20 K/[facility] LAB HEMETOLOGY METHOD 02/01/2025 8:27 AM EDT [facility] LAB Immature Granulocytes Absolute 0.02 0.00 - 0.03 K/[facility] LAB HEMETOLOGY METHOD 02/01/2025 8:27 AM EDT [facility] LAB Blood Venous blood specimen / Unknown 02/01/2025 6:34 AM EDT 02/01/2025 8:04 AM EDT us Brody Gordon MD LAB BLOOD ORDERABLES Final Resul t Performing Organization Address City/[facility]/ZIP Co de Phone Number [facility] LAB [address] [place] [address], [place] [phone] * (ABNORMAL) [place] level (02/01/2025 6:34 AM EDT) [place] Level 0.5(L) 0.6 - 1.2 mEq/L LAB CHEMISTRY METHOD 02/01/2025 10:53 AM EDT [facility] Blood Venous blood specimen / Unknown 02/01/2025 6:34 AM EDT 02/01/2025 8:04 AM EDT us Brody Gordon MD LAB BLOOD ORDERABLES Final Resul t Performing Organization Address City/[facility]/ZIP Co de Phone Number [facility] [address] [place] [address], [place] [phone] * Vitamin D 25 hydroxy (02/01/2025 6:34 AM EDT) Vit D, 25-Hydroxy 52.1 30.0 - 80.0 ng/mL LAB CHEMISTRY METHOD 02/01/2025 10:52 AM T [facility] Blood Venous blood specimen / Unknown 02/01/2025 6:34 AM EDT 02/01/2025 8:04 AM EDT us Brody Gordon MD LAB BLOOD ORDERABLES Final Resul t [facility] [address] [place] [address], [place] [phone] * Comprehensive metabolic panel (02/01/2025 6:34 AM EDT) Pathologist [facility] Sodium 143 133 - 145 mmol/L LAB CHEMISTRY METHOD 02/01/2025 10:[address] [facility] Potassium 4.2 3.5 - 5.5 mmol/L LAB CHEMISTRY METHOD 02/01/2025 10:[address] [facility] Chloride 110 96 - 110 mmol/L LAB CHEMISTRY METHOD 02/01/2025 10:[address] [facility] CO2 28 21 - 32 mmol/L LAB CHEMISTRY METHOD 02/01/2025 10:[address] [facility] Anion Gap 5 3 - 11 LAB CHEMISTRY METHOD 02/01/2025 10:[address] [facility] Glucose 91 70 - 100 mg/dL LAB CHEMISTRY METHOD 02/01/2025 10:[address] [facility] BUN 14 5 - 25 mg/dL LAB CHEMISTRY METHOD 02/01/2025 10:[address] [facility] Creatinine 1.11 0.70 - 1.30 mg/dL LAB CHEMISTRY METHOD 02/01/2025 10:[address] [facility] eGFR 76 >=60 mL/min/1. 73m2 LAB CHEMISTRY METHOD 02/01/2025 10:[address] [facility] Comment:Calculation based on the??Chronic Kidney Disease Epidemiology Collaboration (CKD-EPI) equation refit??without adjustment for race. BUN/Creatinine Ratio 12.6 LAB CHEMISTRY METHOD 02/01/2025 10:[address] [facility] Calcium 8.8 8.5 - 10.5 mg/dL LAB CHEMISTRY METHOD 02/01/2025 10:[address] [facility] AST (SGOT) 10 10 - 42 unit/L LAB CHEMISTRY METHOD 02/01/2025 10:[address] [facility] ALT (SGPT) 19 10 - 60 unit/L LAB CHEMISTRY METHOD 02/01/2025 10:[address] [facility] Alkaline Phosphatase 56 42 - 121 unit/L LAB CHEMISTRY METHOD 02/01/2025 10:[address] [facility] Total Protein 6.3 6.0 - 8.0 g/dL LAB CHEMISTRY METHOD 02/01/2025 10:[address] [facility] Albumin 3.7 3.2 - 5.0 g/dL LAB CHEMISTRY METHOD 02/01/2025 10:[address] [facility] Total Bilirubin 0.5 0.0 - 1.4 mg/dL LAB CHEMISTRY METHOD 02/01/2025 10:[address] [facility] Blood Venous blood specimen / Unknown 02/01/2025 6:34 AM EDT 02/01/2025 8:04 AM EDT us Brody Gordon MD LAB BLOOD ORDERABLES Final Resul t [facility] [address] [place] [address], documented in this encounter Visit Diagnoses Diagnosis Progressive multifocal leukoencephalopathy (CMS/HCC V24, CMS/HCC V28) Progressive multifocal leukoencephalopathy Vitamin D deficiency, unspecified Encounter for adjustment or management of cardiac device documented in this encounter Care Teams Health And Safety Instructor Relationship Specialty Start Date End Date Brody Gordon MD [address] [place] [address] Dr [address] MAYKEL Perez PCP - General Internal Medicine 10/26/15 documented as of this encounter
--- OUTSIDE RECORDS SUMMARY | 2025-03-21 10:13 | XMS_ITS | Encounter Summary ---
[facility] Address [address] [place] [address] Care Team Providers Care Shuttle Filler Name Role Phone Brody Gordon MD Primary Care Provider [phone] Encounter Details Date Type Department Care Team (Latest Contact Info) Description 03/03/2025 Lab Requisition [facility] - Main Lab 299 [facility] [place] [address] Brody Gordon MD [address] [place] [address] [address] [place], [place] Progressive multifocal leukoencephalopathy (CMS/HCC V24, CMS/HCC V28); Hypothyroidism, unspecified; Other halfway (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 Social History Tobacco Use [...] Description 06/17/2025 10:00 AM EDT Ancillary Procedure [facility] [address] [facility] [address] [place] [address] 10/04/2025 10:00 AM EST Ancillary Procedure [facility] [address] [facility] [address] [place] [address] documented as of this encounter Procedures Procedure Name Priority Date/Time Associated Diagnosis Comments CBC WITH AUTO DIFFERENTIAL Routine 03/03/2025 5:50 AM EDT Progressive multifocal leukoencephalopathy (CMS/HCC V24, CMS/HCC V28) Hypothyroidism, unspecified Other marketing development representative (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 VITAMIN D 25 HYDROXY Routine 03/03/2025 5:50 AM EDT Progressive multifocal leukoencephalopathy (CMS/HCC V24, CMS/HCC V28) Hypothyroidism, unspecified Other halfway (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 CBC AND DIFFERENTIAL Routine 03/03/2025 5:50 AM EDT Progressive multifocal leukoencephalopathy (CMS/HCC V24, CMS/HCC V28) Hypothyroidism, unspecified Other marketing development representative (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 THYROID STIMULATING HORMONE Routine 03/03/2025 5:50 AM EDT Progressive multifocal leukoencephalopathy (CMS/HCC V24, CMS/HCC V28) Hypothyroidism, unspecified Other marketing development representative (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 THYROXINE FREE Routine 03/03/2025 5:50 AM EDT Progressive multifocal leukoencephalopathy (CMS/HCC V24, CMS/HCC V28) Hypothyroidism, unspecified Other marketing development representative (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 documented in this encounter Results * (ABNORMAL) CBC auto differential (03/03/2025 5:50 AM EDT) [facility] Signature WBC 4.1(L) 4.8 - 10.8 K/mcL LAB HEMETOLOGY METHOD 03/03/2025 6:46 AM [facility] LAB RBC 4.00(L) 4.50 - 5.50 M/mcL LAB HEMETOLOGY METHOD 03/03/2025 6:46 AM [facility] LAB Hemoglobin 13.1(L) [...] 03/03/2025 6:46 AM [facility] LAB Eosinophils Relative 4.4 % LAB HEMETOLOGY METHOD 03/03/2025 6:46 AM [facility] LAB Basophils Relative 1.0 % LAB HEMETOLOGY METHOD 03/03/2025 6:46 AM [facility] LAB Immature Granulocytes Relative 0.7 % LAB HEMETOLOGY METHOD 03/03/2025 6:46 AM EDT [facility] LAB Neutrophils Absolute 1.99 1.50 - 7.00 K/[facility] LAB HEMETOLOGY METHOD 03/03/2025 6:46 AM EDT [facility] LAB Lymphocytes Absolute 1.38 1.00 - 5.00 K/mcL LAB HEMETOLOGY METHOD 03/03/2025 6:46 AM EDT [facility] LAB Monocytes Absolute 0.43 0.20 - 1.00 K/[facility] LAB HEMETOLOGY METHOD 03/03/2025 6:46 AM EDT [facility] LAB Eosinophils Absolute 0.18 0.00 - 0.50 K/[facility] LAB HEMETOLOGY METHOD 03/03/2025 6:46 AM EDT [facility] LAB Basophils Absolute 0.04 0.00 - 0.20 K/mcL LAB HEMETOLOGY METHOD 03/03/2025 6:46 AM EDT [facility] LAB Immature Granulocytes Absolute 0.03 0.00 - 0.03 K/[facility] LAB HEMETOLOGY METHOD 03/03/2025 6:46 AM EDT [facility] LAB Blood Venous blood specimen / Unknown 03/03/2025 5:50 AM EDT 03/03/2025 6:39 AM EDT us Brody Gordon MD LAB BLOOD ORDERABLES Final Resul t [facility] LAB [address] [place] [address], * Vitamin D 25 hydroxy (03/03/2025 5:50 AM EDT) Vit D, 25-Hydroxy 39.4 30.0 - 80.0 ng/mL LAB CHEMISTRY METHOD 03/03/2025 4:39 PM EDT [facility] LAB Blood Venous blood specimen / Unknown 03/03/2025 5:50 AM EDT 03/03/2025 6:39 AM EDT us Brody Gordon MD LAB BLOOD ORDERABLES Final Resul t Performing Organization Address [facility] Co de Phone Number [facility] LAB [address] [place] [address], [place] [phone] * Thyroid stimulating hormone (03/03/2025 5:50 AM EDT) TSH 1.38 0.40 - 4.00 mcIU/mL LAB CHEMISTRY METHOD 03/04/2025 2:25 PM EDT [facility] LAB Blood Venous blood specimen / Unknown 03/03/2025 5:50 AM EDT 03/03/2025 6:39 AM EDT us Brody Gordon MD LAB BLOOD ORDERABLES Final Resul t Performing Organization Address [facility] de Phone Number [facility] LAB [address] [place] [address], [place] [phone] * Thyroxine free (03/03/2025 5:50 AM EDT) Free T4 0.83 0.70 - 1.80 ng/dL LAB CHEMISTRY METHOD 03/03/2025 4:39 PM EDT [facility] LAB Blood Venous blood specimen / Unknown 03/03/2025 5:50 AM EDT 03/03/2025 6:39 AM EDT us Brody Gordon MD LAB BLOOD ORDERABLES Final Resul t Performing Organization Address [facility] Co de Phone Number [facility] LAB [address] [place] [address], [place] [phone] documented in this encounter Visit Diagnoses Diagnosis Progressive multifocal leukoencephalopathy (CMS/HCC V24, CMS/HCC V28) Progressive multifocal leukoencephalopathy Hypothyroidism, unspecified Other marketing development representative (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 Encounter for adjustment or management of cardiac device documented in this encounter Care Teams Shuttle Filler Relationship Specialty Start Date End Date Brody Gordon MD [address] [place] [address] Dr [address] MAYKEL Perez PCP - General Internal Medicine 10/26/15 documented as of this encounter
--- OUTSIDE RECORDS SUMMARY | 2025-03-21 10:14 | XMS_ITS | Encounter Summary ---
Author Organization [facility] Address [address] [place] [address] Care Team Providers Care Epic Cadence Analyst Name Role Phone Brody Gordon MD Primary Care Provider Encounter Details Date Type Department Care Team (Late st Contact Info) Description 10/19/2024 Lab Requisition [facility] - Main Lab [address] [facility] [place] [address] Brody Gordon MD [address] [place] [address] [address] [place], [place] Other assisted (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 Social History Tobacco Use [...] Description 06/17/2025 10:00 AM EDT Ancillary Procedure [facility] Cardiology [facility] [address] [place] [address] 10/04/2025 10:00 AM EST Ancillary Procedure [facility] Cardiology [facility] [address] [place] [address] documented as of this encounter Procedures Procedure Name Priority Date/Time Associated Diagnosis Comments CBC WITH AUTO DIFFERENTIAL Routine 10/19/2024 6:40 AM EST Other manager terminal (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 CBC AND DIFFERENTIAL Routine 10/19/2024 6:40 AM EST Other manager terminal (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 documented in this encounter Results * (ABNORMAL) CBC auto differential (10/19/2024 6:40 AM EST) WBC 3.8(L) 4.8 - 10.8 K/mcL LAB HEMETOLOGY METHOD 10/19/2024 7:35 AM [facility] LAB RBC 4.40(L) 4.50 - 5.50 M/mcL LAB HEMETOLOGY METHOD 10/19/2024 7:35 AM [facility] LAB Hemoglobin 14.3 13.5 - 17.5 g/dL LAB HEMETOLOGY METHOD 10/19/2024 7:35 AM [facility] LAB Hematocrit 43.9 42.0 - 54.0 % LAB HEMETOLOGY METHOD 10/19/2024 7:35 AM [facility] LAB MCV 100.5(H) 79.0 - 98.0 FL LAB HEMETOLOGY METHOD 10/19/2024 7:35 AM [facility] LAB MCH 32.7(H) 27.0 - 32.0 pcg LAB HEMETOLOGY METHOD 10/19/2024 7:35 AM [facility] LAB MCHC 32.6 32.0 - 37.0 g/dL LAB HEMETOLOGY METHOD 10/19/2024 7:35 AM [facility] LAB RDW 13.6 11.0 - 15.0 % LAB HEMETOLOGY METHOD 10/19/2024 7:35 AM [facility] LAB Platelets 124(L) 130 - 400 K/mcL LAB HEMETOLOGY METHOD 10/19/2024 7:35 AM [facility] LAB MPV 9.1 7.0 - 11.0 FL LAB HEMETOLOGY METHOD 10/19/2024 7:35 AM [facility] LAB NRBC 0.0 <1.0 % LAB HEMETOLOGY METHOD 10/19/2024 7:35 AM [facility] LAB NRBC Absolute 0.00 <0.10 K/mcL LAB HEMETOLOGY METHOD 10/19/2024 7:35 AM [facility] LAB Neutrophils Relative 40.5 % LAB HEMETOLOGY METHOD 10/19/2024 7:35 AM [facility] LAB Lymphocytes Relative 42.0 % LAB HEMETOLOGY METHOD 10/19/2024 7:35 AM [facility] LAB Monocytes Relative 11.0 % LAB HEMETOLOGY METHOD 10/19/2024 7:35 AM [facility] LAB Eosinophils Relative 4.4 % LAB HEMETOLOGY METHOD 10/19/2024 7:35 AM [facility] LAB Basophils Relative 1.3 % LAB HEMETOLOGY METHOD 10/19/2024 7:35 AM [facility] LAB Immature Granulocytes Relative 0.8 % LAB HEMETOLOGY METHOD 10/19/2024 7:35 AM [facility] LAB Neutrophils Absolute 1.55 1.50 - 7.00 K/mcL LAB HEMETOLOGY METHOD 10/19/2024 7:35 AM [facility] LAB Lymphocytes Absolute 1.61 1.00 - 5.00 K/mcL LAB HEMETOLOGY METHOD 10/19/2024 7:35 AM [facility] LAB Monocytes Absolute 0.42 0.20 - 1.00 K/mcL LAB HEMETOLOGY METHOD 10/19/2024 7:35 AM [facility] LAB Eosinophils Absolute 0.17 0.00 - 0.50 K/mcL LAB HEMETOLOGY METHOD 10/19/2024 7:35 AM [facility] LAB Basophils Absolute 0.05 0.00 - 0.20 K/mcL LAB HEMETOLOGY METHOD 10/19/2024 7:35 AM [facility] LAB Immature Granulocytes Absolute 0.03 0.00 - 0.03 K/mcL LAB HEMETOLOGY METHOD 10/19/2024 7:35 AM EST [facility] LAB Blood Venous blood specimen / Unknown 10/19/2024 6:40 AM EST 10/19/2024 7:27 AM EST Brody Gordon MD LAB BLOOD ORDERABLES Final Resul t [facility] LAB [address] [place] [address], documented in this encounter Visit Diagnoses Diagnosis Other assisted (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 Encounter for adjustment or management of cardiac device documented in this encounter Care Teams Epic Cadence Analyst Relationship Specialty Start Date End Date Brody Gordon MD [address] [place] [address] Dr [address] [place] PCP - General Internal Medicine 10/26/15 documented as of this encounter
--- OUTSIDE RECORDS SUMMARY | 2025-03-21 10:14 | XMS_ITS | Encounter Summary ---
Author Organization [facility] Address [address] [place] [address] Care Team Providers Care Certified Art Therapist Name Role Phone Brody Gordno MD Primary Care Provider Encounter Details Date Type Department Care Team (Late st Contact Info) Description 02/26/2025 Lab Requisition [facility] - Main Lab 299 [facility] [place] [address] Brody Gordon MD [address] [place] [address] [address] [place], [place] Other fpc (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 Social [...] 06/17/2025 10:00 AM EDT Ancillary Procedure [facility] Cardiology [facility] [address] [facility] [address] [place] [address] 10/04/2025 10:00 AM EST Ancillary Procedure [facility] Cardiology [facility] [address] [place] [address] documented as of this encounter Procedures Procedure Name Priority Date/Time Associated Diagnosis Comments CBC WITH AUTO DIFFERENTIAL Routine 02/26/2025 6:00 AM EDT Other keno terminal operator (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 CBC AND DIFFERENTIAL Routine 02/26/2025 6:00 AM EDT Other fpc (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 LITHIUM LEVEL Routine 02/26/2025 6:00 AM EDT Other fpc (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 COMPREHENSIVE METABOLIC PANEL Routine 02/26/2025 6:00 AM EDT Other fpc (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 documented in this encounter Results * (ABNORMAL) CBC auto differential (02/26/2025 6:00 AM EDT) [facility] WBC 4.5(L) 4.8 - 10.8 K/mcL LAB HEMETOLOGY METHOD 02/26/2025 7:55 AM [facility] LAB RBC 4.10(L) 4.50 - 5.50 M/mcL LAB HEMETOLOGY METHOD 02/26/2025 7:55 AM [facility] LAB Hemoglobin 13.4(L) 13.5 - 17.5 g/dL LAB HEMETOLOGY METHOD 02/26/2025 7:55 AM [facility] LAB Hematocrit 39.2(L) 42.0 - 54.0 % LAB HEMETOLOGY METHOD 02/26/2025 7:55 AM [facility] LAB MCV 96.6 79.0 - 98.0 FL LAB HEMETOLOGY METHOD 02/26/2025 7:55 AM [facility] LAB MCH 33.0(H) 27.0 - 32.0 pcg LAB HEMETOLOGY METHOD 02/26/2025 7:55 AM [facility] LAB MCHC 34.2 32.0 - 37.0 g/dL LAB HEMETOLOGY METHOD 02/26/2025 7:55 AM [facility] LAB RDW 13.2 11.0 - 15.0 % LAB HEMETOLOGY METHOD 02/26/2025 7:55 AM [facility] LAB Platelets 119(L) 130 - 400 K/mcL LAB HEMETOLOGY METHOD 02/26/2025 7:55 AM [facility] LAB MPV 8.8 7.0 - 11.0 FL LAB HEMETOLOGY METHOD 02/26/2025 7:55 AM [facility] LAB NRBC 0.0 <1.0 % LAB HEMETOLOGY METHOD 02/26/2025 7:55 AM [facility] LAB NRBC Absolute 0.00 <0.10 K/mcL LAB HEMETOLOGY METHOD 02/26/2025 7:55 AM [facility] LAB Neutrophils Relative 59.0 % LAB HEMETOLOGY METHOD 02/26/2025 7:55 AM [facility] LAB Lymphocytes Relative 27.7 % LAB HEMETOLOGY METHOD 02/26/2025 7:55 AM [facility] LAB Monocytes Relative 9.1 % LAB HEMETOLOGY METHOD 02/26/2025 7:55 AM [facility] LAB Eosinophils Relative 3.3 % LAB HEMETOLOGY METHOD 02/26/2025 7:55 AM [facility] LAB Basophils Relative 0.7 % LAB HEMETOLOGY METHOD 02/26/2025 7:55 AM [facility] LAB Immature Granulocytes Relative 0.2 % LAB HEMETOLOGY METHOD 02/26/2025 7:55 AM [facility] LAB Neutrophils Absolute 2.67 1.50 - 7.00 K/mcL LAB HEMETOLOGY METHOD 02/26/2025 7:55 AM [facility] LAB Lymphocytes Absolute 1.25 1.00 - 5.00 K/mcL LAB HEMETOLOGY METHOD 02/26/2025 7:55 AM [facility] LAB Monocytes Absolute 0.41 0.20 - 1.00 K/mcL LAB HEMETOLOGY METHOD 02/26/2025 7:55 AM [facility] LAB Eosinophils Absolute 0.15 0.00 - 0.50 K/mcL LAB HEMETOLOGY METHOD 02/26/2025 7:55 AM EDT [facility] LAB Basophils Absolute 0.03 0.00 - 0.20 K/[facility] LAB HEMETOLOGY METHOD 02/26/2025 7:55 AM EDT [facility] LAB Immature Granulocytes Absolute 0.01 0.00 - 0.03 K/[facility] LAB HEMETOLOGY METHOD 02/26/2025 7:55 AM EDT [facility] LAB Blood Venous blood specimen / Unknown 02/26/2025 6:00 AM EDT 02/26/2025 7:04 AM EDT us Brody Gordon MD LAB BLOOD ORDERABLES Final Resul t Performing Organization Address [facility] de Phone Number [facility] LAB [address] [place] [address], [place] [phone] * (ABNORMAL) [place] level (02/26/2025 6:00 AM EDT) [place] Level 0.4(L) 0.6 - 1.2 mEq/L LAB CHEMISTRY METHOD 02/26/2025 8:21 AM EDT [facility] LAB Blood Venous blood specimen / Unknown 02/26/2025 6:00 AM EDT 02/26/2025 7:04 AM EDT us Brody Gordon MD LAB BLOOD ORDERABLES Final Resul t Performing Organization Address City/[facility]/ZIP Co de Phone Number [facility] LAB [address] [place] [address], [place] [phone] * Comprehensive metabolic panel (02/26/2025 6:00 AM EDT) Sodium 142 133 - 145 mmol/L LAB CHEMISTRY METHOD 02/26/2025 8:20 AM EDT [facility] LAB Potassium 3.7 3.5 - 5.5 mmol/L LAB CHEMISTRY METHOD 02/26/2025 8:20 AM [facility] LAB Chloride 110 96 - 110 mmol/L LAB CHEMISTRY METHOD 02/26/2025 8:20 AM [facility] LAB CO2 26 21 - 32 mmol/L LAB CHEMISTRY METHOD 02/26/2025 8:20 AM [facility] LAB Anion Gap 6 3 - 11 LAB CHEMISTRY METHOD 02/26/2025 8:20 AM [facility] LAB Glucose 93 70 - 100 mg/dL LAB CHEMISTRY METHOD 02/26/2025 8:20 AM [facility] LAB BUN 12 5 - 25 mg/dL LAB CHEMISTRY METHOD 02/26/2025 8:20 AM [facility] LAB Creatinine 1.05 0.70 - 1.30 mg/dL LAB CHEMISTRY METHOD 02/26/2025 8:20 AM [facility] LAB eGFR 81 >=60 mL/min/1. 73m2 LAB CHEMISTRY METHOD 02/26/2025 8:20 AM [facility] LAB Comment:Calculation based on the??Chronic Kidney Disease Epidemiology Collaboration (CKD-EPI) equation refit??without adjustment for race. BUN/Creatinine Ratio 11.4 LAB CHEMISTRY METHOD 02/26/2025 8:20 AM [facility] LAB Calcium 8.7 8.5 - 10.5 mg/dL LAB CHEMISTRY METHOD 02/26/2025 8:20 AM [facility] LAB AST (SGOT) 11 10 - 42 unit/L LAB CHEMISTRY METHOD 02/26/2025 8:20 AM [facility] LAB ALT (SGPT) 17 10 - 60 unit/L LAB CHEMISTRY METHOD 02/26/2025 8:20 AM [facility] LAB Alkaline Phosphatase 60 42 - 121 unit/L LAB CHEMISTRY METHOD 02/26/2025 8:20 AM [facility] LAB Total Protein 6.6 6.0 - [...] t [facility] LAB [address] [place] [address], documented in this encounter Visit Diagnoses Diagnosis Other fpc (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 Encounter for adjustment or management of cardiac device documented in this encounter Care Teams Certified Art Therapist Relationship Specialty Start Date End Date Brody Gordon MD [address] [place] [address] [address] [place] PCP - General Internal Medicine 10/26/15 documented as of this encounter
--- OUTSIDE RECORDS SUMMARY | 2025-03-21 10:14 | XMS_ITS | Encounter Summary ---
Author Organization Rafael[facility] Address [address] [place] [address] Care Team Providers Care Senior Business Manager Name Role Phone Brody Gordon MD Primary Care Provider [phone] Encounter Details Date Type Department Care Team (Late st Contact Info) Description 10/16/2024 Lab Requisition [facility] - Main Lab 299 [facility] [place] [address] Brody Gordon MD [address] [place] [address] [address] [place], [place] Other retirement (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 Social History Tobacco Use [...] Description 06/17/2025 10:00 AM EDT Ancillary Procedure [facility] Cardiology [facility] [address] [place] [address] 10/04/2025 10:00 AM EST Ancillary Procedure [facility] Cardiology [facility] [address] [place] [address] documented as of this encounter Procedures Procedure Name Priority Date/Time Associated Diagnosis Comments CBC WITH AUTO DIFFERENTIAL Routine 10/16/2024 7:25 AM EST 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 CBC AND DIFFERENTIAL Routine 10/16/2024 7:25 AM EST 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 documented in this encounter Results * (ABNORMAL) CBC auto differential (10/16/2024 7:25 AM EST) WBC 3.4(L) 4.8 - 10.8 K/mcL LAB HEMETOLOGY METHOD 10/16/2024 8:42 AM [facility] LAB RBC 4.20(L) 4.50 - 5.50 M/mcL LAB HEMETOLOGY METHOD 10/16/2024 8:42 AM [facility] LAB Hemoglobin 13.7 13.5 - 17.5 g/dL LAB HEMETOLOGY METHOD 10/16/2024 8:42 AM [facility] LAB Hematocrit 40.4(L) 42.0 - 54.0 % LAB HEMETOLOGY METHOD 10/16/2024 8:42 AM [facility] LAB MCV 96.9 79.0 - 98.0 FL LAB HEMETOLOGY METHOD 10/16/2024 8:42 AM [facility] LAB MCH 32.9(H) 27.0 - 32.0 pcg LAB HEMETOLOGY METHOD 10/16/2024 8:42 AM [facility] LAB MCHC 33.9 32.0 - 37.0 g/dL LAB HEMETOLOGY METHOD 10/16/2024 8:42 AM [facility] LAB RDW 13.6 11.0 - 15.0 % LAB HEMETOLOGY METHOD 10/16/2024 8:42 AM [facility] LAB Platelets 146 130 - 400 K/mcL LAB HEMETOLOGY METHOD 10/16/2024 8:42 AM [facility] LAB MPV 9.3 7.0 - 11.0 FL LAB HEMETOLOGY METHOD 10/16/2024 8:42 AM [facility] LAB NRBC 0.0 <1.0 % LAB HEMETOLOGY METHOD 10/16/2024 8:42 AM [facility] LAB NRBC Absolute 0.00 <0.10 K/mcL LAB HEMETOLOGY METHOD 10/16/2024 8:42 AM [facility] LAB Neutrophils Relative 47.1 % LAB HEMETOLOGY METHOD 10/16/2024 8:42 AM [facility] LAB Lymphocytes Relative 37.9 % LAB HEMETOLOGY METHOD 10/16/2024 8:42 AM [facility] LAB Monocytes Relative 9.3 % LAB HEMETOLOGY METHOD 10/16/2024 8:42 AM [facility] LAB Eosinophils Relative 4.2 % LAB HEMETOLOGY METHOD 10/16/2024 8:42 AM [facility] LAB Basophils Relative 0.9 % LAB HEMETOLOGY METHOD 10/16/2024 8:42 AM [facility] LAB Immature Granulocytes Relative 0.6 % LAB HEMETOLOGY METHOD 10/16/2024 8:42 AM [facility] LAB Neutrophils Absolute 1.58 1.50 - 7.00 K/mcL LAB HEMETOLOGY METHOD 10/16/2024 8:42 AM [facility] LAB Lymphocytes Absolute 1.27 1.00 - 5.00 K/mcL LAB HEMETOLOGY METHOD 10/16/2024 8:42 AM [facility] LAB Monocytes Absolute 0.31 0.20 - 1.00 K/mcL LAB HEMETOLOGY METHOD 10/16/2024 8:42 AM [facility] LAB Eosinophils Absolute 0.14 0.00 - 0.50 K/mcL LAB HEMETOLOGY METHOD 10/16/2024 8:42 AM [facility] LAB Basophils Absolute 0.03 0.00 - 0.20 K/mcL LAB HEMETOLOGY METHOD 10/16/2024 8:42 AM [facility] LAB Immature Granulocytes Absolute 0.02 0.00 - 0.03 K/mcL LAB HEMETOLOGY METHOD 10/16/2024 8:42 AM EST [facility] LAB Blood Venous blood specimen / Unknown 10/16/2024 7:25 AM EST 10/16/2024 8:22 AM EST Brody Gordon MD LAB BLOOD ORDERABLES Final Resul t [facility] LAB [address] [place] [address], documented in this encounter Visit Diagnoses Diagnosis 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
--- OUTSIDE RECORDS SUMMARY | 2025-03-21 10:14 | XMS_ITS | Encounter Summary ---
Author Organization [facility] Address [address] [place] [address] Care Team Providers Care Career Developer Name Role Phone Brody Gordon MD Primary Care Provider Encounter Details Date Type Department Care Team (Late st Contact Info) Description 10/09/[address] [facility] - Main Lab [address] [facility] [employer] [place] [address] Brody Gordon MD [address] [place] [address] [address] [place], [place] Other snf (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 Social History Tobacco Use [...] Description 06/17/2025 10:00 AM EDT Ancillary Procedure [facility] [address] [place] [address] 10/04/2025 10:00 AM EST Ancillary Procedure [facility] [address] [place] [address] documented as of this encounter Procedures Procedure Name Priority Date/Time Associated Diagnosis Comments CBC WITH AUTO DIFFERENTIAL Routine 10/09/2024 5:05 AM EST Other intermediate frame tender (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 CBC AND DIFFERENTIAL Routine 10/09/2024 5:05 AM EST Other intermediate frame tender (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 documented in this encounter Results * (ABNORMAL) CBC auto differential (10/09/2024 5:05 AM EST) WBC 4.5(L) 4.8 - 10.8 K/mcL LAB HEMETOLOGY METHOD 10/09/2024 5:50 AM [facility] RBC 3.90(L) 4.50 - 5.50 M/mcL LAB HEMETOLOGY METHOD 10/09/2024 5:50 AM [facility] Hemoglobin 12.7(L) 13.5 - 17.5 g/dL LAB HEMETOLOGY METHOD 10/09/2024 5:50 AM [facility] Hematocrit 38.6(L) 42.0 - 54.0 % LAB HEMETOLOGY METHOD 10/09/2024 5:50 AM [facility] MCV 98.0 79.0 - 98.0 FL LAB HEMETOLOGY METHOD 10/09/2024 5:50 AM [facility] MCH 32.2(H) 27.0 - 32.0 pcg LAB HEMETOLOGY METHOD 10/09/2024 5:50 AM [facility] MCHC 32.9 32.0 - 37.0 g/dL LAB HEMETOLOGY METHOD 10/09/2024 5:50 AM [facility] RDW 13.1 11.0 - 15.0 % LAB HEMETOLOGY METHOD 10/09/2024 5:50 AM [facility] Platelets 115(L) 130 - 400 K/mcL LAB HEMETOLOGY METHOD 10/09/2024 5:50 AM [facility] MPV 8.8 7.0 - 11.0 FL LAB HEMETOLOGY METHOD 10/09/2024 5:50 AM [facility] NRBC 0.0 <1.0 % LAB HEMETOLOGY METHOD 10/09/2024 5:50 AM [facility] NRBC Absolute 0.00 <0.10 K/mcL LAB HEMETOLOGY METHOD 10/09/2024 5:50 AM [facility] Neutrophils Relative 42.2 % LAB HEMETOLOGY METHOD 10/09/2024 5:50 AM [facility] Lymphocytes Relative 42.2 % LAB HEMETOLOGY METHOD 10/09/2024 5:50 AM [facility] Monocytes Relative 9.9 % LAB HEMETOLOGY METHOD 10/09/2024 5:50 AM [facility] Eosinophils Relative 4.4 % LAB HEMETOLOGY METHOD 10/09/2024 5:50 AM [facility] Basophils Relative 0.9 % LAB HEMETOLOGY METHOD 10/09/2024 5:50 AM [facility] Immature Granulocytes Relative 0.4 % LAB HEMETOLOGY METHOD 10/09/2024 5:50 AM [facility] Neutrophils Absolute 1.91 1.50 - 7.00 K/mcL LAB HEMETOLOGY METHOD 10/09/2024 5:50 AM [facility] Lymphocytes Absolute 1.91 1.00 - 5.00 K/mcL LAB HEMETOLOGY METHOD 10/09/2024 5:50 AM [facility] Monocytes Absolute 0.45 0.20 - 1.00 K/mcL LAB HEMETOLOGY METHOD 10/09/2024 5:50 AM [facility] Eosinophils Absolute 0.20 0.00 - 0.50 K/mcL LAB HEMETOLOGY METHOD 10/09/2024 5:50 AM [facility] Basophils Absolute 0.04 0.00 - 0.20 K/mcL LAB HEMETOLOGY METHOD 10/09/2024 5:50 AM [facility] Immature Granulocytes Absolute 0.02 0.00 - 0.03 K/mcL LAB HEMETOLOGY METHOD 10/09/2024 5:50 AM EST [facility] Blood Venous blood specimen / Unknown 10/09/2024 5:05 AM EST 10/09/2024 5:37 AM EST Broyd Gordon MD LAB BLOOD ORDERABLES Final Resul t [facility] [address] [place] [address], documented in this encounter Visit Diagnoses Diagnosis Other intermediate frame tender (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 Encounter for adjustment or management of cardiac device documented in this encounter Care Teams Career Developer Relationship Specialty Start Date End Date Brody Gordon MD [address] [place] [address] Dr [address] [place], [place] PCP - General Internal Medicine 10/26/15 documented as of this encounter
[2025-03-21] MEDS: Ibuprofen 600 MG TABLET PO (10:18)
[2025-03-21 10:31] LABS: Anion Gap 12 (12-20); Blood Urea Nitrogen 16 mg/dL (9-16); Calcium 8.9 mg/dL (8.4-10.2); Carbon Dioxide 27 mmol/L (22-29); Chloride 108 mmol/L (96-108); Creatinine Clr Calc Pharmacy 100.9; Estimated Glomerular Filt Rate > 60; Glucose Random 97 mg/dL (60-115); Sodium 143 mmol/L (135-145)
[2025-03-21] MEDS: Acetaminophen 325 MG TABLET 650 MG PO (16:55)
--- NOTE | 2025-03-21 18:30 | PC.NURSE ---
report called for patient, given to ash [facility]
[2025-03-21 19:20] VITALS: BP 148/84; PULSE 69; RESP 16; TEMP 36.5; O2SAT 98
== END 2025-03-21 19:21 | disposition home or self-care (01) ==
PROVIDERS: Emergency Provider Emergency Medicine; PCP Hospitalist
DX: S92.352A Displaced fracture of fifth metatarsal bone, left foot, initial encounter for closed fracture (principal); X58.XXXA Exposure to other specified factors, initial encounter; Y93.9 Activity, unspecified; Y92.9 Unspecified place or not applicable; Y99.9 Unspecified external cause status; M25.572 Pain in left ankle and joints of left foot; M79.605 Pain in left leg; M79.89 Other specified soft tissue disorders; Z79.899 Other long term (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
CPT/HCPCS: 36415; 73600; 73620; 80048; 85025; 93971; 99284

== ENCOUNTER → 2025-03-21 09:49 | Outpatient (BNV) | payer MEDICARE, MEDICAID, SELFPAY | PROVIDERS: Emergency Provider Emergency Medicine; PCP Hospitalist; Visit Provider Radiology Vascular & Interventional Radiology | DX: M79.605 Pain in left leg (principal); R60.0 Localized edema; S92.355K Nondisplaced fracture of fifth metatarsal bone, left foot, subsequent encounter for fracture with nonunion; M20.12 Hallux valgus (acquired), left foot | CPT/HCPCS: 73600; 73620; 93971 ==